=== PATIENT | male | born 1965 | race Caucasian/White ===

== ENCOUNTER 2023-09-24 06:32 | Outpatient (OUT) | payer BC, SELFPAY ==
[2023-09-24 07:49] LABS: Estimated Average Glucose 134 mg/dL; Glycohemoglobin A1C 6.3 % (4.5-6.2)
[2023-09-24 08:39] LABS: Basophils Absolute Auto 0.1 10^3/uL (0.0-0.1); Basophils Percent Auto 1.4 % (0.2-2.0); Eosinophils Absolute Auto 0.2 10^3/uL (0.0-0.7); Eosinophils Percent Auto 2.8 % (0.9-7.0); Hematocrit 46.4 % (42.0-54.0); Hemoglobin 15.6 g/dL (14.0-18.0); Immature Granulocytes Abs Auto 0.01 10^3/uL (0.00-0.03); Immature Granulocytes Pct Auto 0.2 % (0.0-0.5); Lymphocytes Absolute Auto 1.5 10^3/uL (1.2-3.8); Lymphocytes Percent Auto 26.5 % (20.5-60.0); Mean Corpuscular HGB Conc 33.6 g/dL (29.9-35.2); Mean Corpuscular Hemoglobin 29.6 pg (25.9-34.0); Mean Platelet Volume 10.6 fL (9.5-13.5); Monocytes Absolute Auto 0.5 10^3/uL (0.3-0.8); Monocytes Percent Auto 9.4 % (1.7-12.0); Neutrophils Absolute Auto 3.4 10^3/uL (1.4-6.5); Neutrophils Percent Auto 59.7 % (43.0-75.0); Platelet Count 256 10^3/uL (150-450); Red Blood Count 5.27 10^6/uL (4.70-6.10); Red Cell Distribution Width 12.7 % (11.0-15.0); White Blood Count 5.7 10^3/uL (4.0-11.0)
[2023-09-24 09:16] LABS: Alanine Aminotransferase 33 U/L (16-63); Albumin Globulin Ratio 1.2; Albumin Level 3.9 g/dL (3.4-5.0); Alkaline Phosphatase 64 U/L (46-116); Anion Gap 11.7; Aspartate Amino Transferase 13 U/L (15-37); BUN Creatinine Ratio 26.5; Bilirubin Total 0.5 mg/dL (0.2-1.0); Calcium 9.2 mg/dL (8.5-10.1); Carbon Dioxide 31.5 mmol/L (21.0-32.0); Chloride 104 mmol/L (98-107); Chol HDL Ratio 7.8; Cholesterol 257 mg/dL (<=200); Estimated GFR (African America >60 (>=60); Estimated GFR (Non-African Ame >60 (>=60); Free T3 1.79 pg/mL (2.18-3.98); Globulin 3.3 g/dL; Glucose 159 mg/dL (74-106); HDL Cholesterol 33 mg/dL (40-60); Potassium 4.2 mmol/L (3.5-5.1); Sodium 143 mmol/L (136-145); Thyroid Stimulating Hormone 0.237 uIU/mL (0.358-3.740); Total Protein 7.2 g/dL (6.4-8.2); Triglycerides 275 mg/dL (<=150)
[2023-09-24 09:24] LABS: Prostate Specific Antigen Scrn 2.37 ng/mL (<=4.00)
== END 2023-09-24 06:33 | disposition home or self-care (01) ==
LOC: LAB 06:32
PROVIDERS: PCP Family Medicine; Visit Provider Family Medicine
DX: Z00.00 Encounter for general adult medical examination without abnormal findings (principal); E78.5 Hyperlipidemia, unspecified; R73.09 Other abnormal glucose; Z12.5 Encounter for screening for malignant neoplasm of prostate; Z12.12 Encounter for screening for malignant neoplasm of rectum
CPT/HCPCS: 36415; 80053; 80061; 83036; 84436; 84443; 84481; 85025; G0103

== ENCOUNTER 2023-10-06 16:10 | Outpatient (OUT) | payer BC, SELFPAY | END 2023-10-06 16:11 | disposition home or self-care (01) | LOC: MN 16:11 | PROVIDERS: PCP Family Medicine | DX: E11.8 Type 2 diabetes mellitus with unspecified complications (principal) | CPT/HCPCS: G0108 ==

== ENCOUNTER 2023-10-29 14:52 | Outpatient (OUT) | payer BC, SELFPAY ==
[2023-10-29 16:01] LABS: Alanine Aminotransferase 48 U/L (16-63); Albumin Globulin Ratio 1.2; Albumin Level 3.8 g/dL (3.4-5.0); Alkaline Phosphatase 60 U/L (46-116); Aspartate Amino Transferase 22 U/L (15-37); Bilirubin Direct 0.1 mg/dL (0.0-0.2); Bilirubin Total 0.5 mg/dL (0.2-1.0); Chol HDL Ratio 4.2; Cholesterol 130 mg/dL (<=200); Free T3 1.81 pg/mL (2.18-3.98); Globulin 3.2 g/dL; HDL Cholesterol 31 mg/dL (40-60); Triglycerides 140 mg/dL (<=150)
== END 2023-10-29 14:53 | disposition home or self-care (01) ==
LOC: LAB 14:52
PROVIDERS: PCP Family Medicine; Visit Provider Family Medicine
DX: Z00.00 Encounter for general adult medical examination without abnormal findings (principal); E78.00 Pure hypercholesterolemia, unspecified; E03.9 Hypothyroidism, unspecified
CPT/HCPCS: 36415; 80061; 80076; 84439; 84443; 84481

== ENCOUNTER 2023-11-16 07:43 | Outpatient (OUT) | payer BC, SELFPAY ==
--- OUTSIDE RECORDS SUMMARY | 2023-11-16 07:47 | XMS_ITS | CCD ---
Author Organization [facility] Care Team Providers Care Specialty Molder Name Role Phone DR KENNY LACEY Primary Care Unavailable ADAN, DR COX Admitting Unavailable ADAN, DR COX Attending Unavailable ADAN, DR COX Attending Unavailable ADAN, DR COX Consulting Unavailable ADAN, DR COX Primary Care Unavailable ADAN, DR COX Admitting Unavailable ADAN, DR COX Consulting Unavailable ADAN, DR COX Primary Care Unavailable ADAN, DR COX Admitting Unavailable ADAN, DR COX Attending Unavailable KENNY LACEY M Referring Unavailable Kenny Lacey Primary Care Physician [phone] Enrike GRIFFITH Attending Unavailable Allergies Allergy Classification Reported Allergen(s) Allergy Type Date of Onset Reaction(s) Facility (1 source) No Known Medication Allergies; Translations: [No Known Medication Allergies] Propensity to adverse reactions (disorder) [facility] Repository Medications Current Medications Medication Drug Class(es) Dates Sig (Normalized) Sig (Original) liothyronine sodium 0.005 mg oral tablet (1 source) l-Triiodothyroni ne Start: 09-23-2023 take 1 tablet by mouth once daily liothyronine 5 mcg Tab 5 mcg = 1 tab(s), Oral, Daily, Refills(s) 0 Start Date: 09/23/23 Status: Ordered simvastatin 20 mg oral tablet (1 source) HMG-CoA Reductase Inhibitor Start: 09-23-2023 take 1 tablet by mouth once daily in the evening simvastatin 20 mg Tab 20 mg = 1 tab(s), Oral, qPM, Refills(s) 0 Start Date: 09/23/23 Status: Ordered Completed/Discontinued Medications Medication Drug Class(es) Dates Sig (Normalized) Sig (Original) diclofenac sodium 75 mg delayed release oral tablet (1 source) Nonsteroidal Anti-inflammatory Drug Start: 09-30-2023 diclofenac sodium 75 mg Oral EC Tab 75 mg = 1 tab(s), Oral, BID, 0 Refill(s), Refills(s) 0 Start Date: 09/30/23 Status: Ordered levothyroxine sodium 0.175 mg oral tablet (1 source) l-Thyroxine Start: 09-30-2023 Synthroid 175 mcg (0.175 mg) Tab 175 mcg = 1 tab(s), Oral, Daily, 0 Refill(s), Refills(s) 0 Start Date: 09/30/23 Status: Ordered Problems Active Problems Problem Classification Problem Date Documented Date Episodic/Chronic Abdominal hernia (2 sources) Obstructed umbilical hernia; Translations: [Umbilical hernia with obstruction, without gangrene] Onset: 10-13-19 Episodic Diabetes mellitus without complication (4 sources) Type 2 diabetes mellitus without complications; Translations: [TYPE 2 DM WITHOUT COMPLICATIONS] Onset: 03-25-20 Chronic Disorders of lipid metabolism (1 source) Hypercholesterolemia 09-30-2023 Chronic Esophageal disorders (1 source) Gastroesophageal reflux disease 09-30-2023 Chronic Other gastrointestinal disorders (1 source) Irritable bowel syndrome 09-30-2023 Chronic Other nutritional; endocrine; and metabolic disorders (1 source) Obese class I; Translations: [Body mass index (BMI) 32.0-32.9, adult] Onset: 10-13-19 Chronic Other nutritional; endocrine; and metabolic disorders (1 source) Body mass index 30+ - obesity 10-13-2023 Chronic Other nutritional; endocrine; and metabolic disorders (1 source) Obesity 10-13-2023 Chronic Other screening for suspected conditions (not mental disorders or infectious disease) (1 source) Encounter for screening for malignant neoplasm of prostate; Translations: [ENC SCREEN MALIG NEOPLASM PROSTATE] Onset: 03-18-20 Episodic Spondylosis; intervertebral disc disorders; other back problems (1 source) Cervical disc disorder 09-30-2023 Chronic Spondylosis; intervertebral disc disorders; other back problems (2 sources) Lumbago with sciatica, right side; Translations: [Lumbago with sciatica, left side] Onset: 09-29-19 Episodic Thyroid disorders (1 source) Hypothyroidism 09-30-2023 Chronic Unclassified (2 sources) CONTACT W/AND (SUSP) EXPOS COVID-19; Translations: [CONTACT W/AND (SUSP) EXPOS COVID-19] Onset: 04-14-20 Viral infection (1 source) COVID-19; Translations: [COVID-19] Onset: 04-14-20 Past or Other Problems Problem Classification Problem Date Documented Da te Episodic/Chronic Unclassified (1 source) CONTACT W/AND (SUSP) EXPOS COVID-19; Translations: [CONTACT W/AND (SUSP) EXPOS COVID-19] Onset: 04-11-2022 Results Test Name Value Interpretation Reference Range Facility Insurance Correspondenceon 0 11-02-2023 Insurance Correspondence [id number] 140#1.00TIFF [facility] Formson 10-20-2023 Forms [id number]#1.00TIFF [facility] Ambulatory Visit Summaryon 0 10-13-2023 Ambulatory Visit Summary NIXON JENSEN :1965 Visit Date:10/13/2023 Ambulatory Visit Instructions Your Care Team Attending Physician - GLADIS REAVES, Enrike Bhagat Primary Care Physician - Kenny Lacey MD This Is Your Medications List Contact prescribing physician if questions or concerns diclofenac (diclofenac sodium 75 mg Oral EC Tab) levothyroxine (Synthroid 175 mcg (0.175 mg) Tab) liothyronine (liothyronine 5 mcg Tab) simvastatin (simvastatin 20 mg Tab) Procedures Performed Cervical discectomy. Discharge Vitals Heart Rate (Peripheral) 63 Respiratory Rate 16 Blood Pressure 135/86 Height 182.88 cm Height 72 in Weight 108 kg Weight 237.6 lb BMI 32.29 Medications What How Much When Instructions Unchanged diclofenac (diclofenac sodium 75 mg Oral EC Tab) 1 Tablets By Mouth 2 times a day 0 Refill(s) Contact prescribing physician if questions or concerns Unchanged levothyroxine (Synthroid 175 mcg (0.175 mg) Tab) 1 Tablets By Mouth Every day 0 Refill(s) Contact prescribing physician if questions or concerns Unchanged liothyronine (liothyronine 5 mcg Tab) 1 Tablets By Mouth Every day Contact prescribing physician if questions or concerns Unchanged simvastatin (simvastatin 20 mg Tab) 1 Tablets By Mouth Once a day (in the evening) Contact prescribing physician if questions or concerns Allergies No Known Allergies No Known Medication Allergies Problems Ongoing - Any problem that you are currently receiving treatment for. BMI 32.0-32.9,adult Cervical disc disorder Gastroesophageal reflux disease Hypercholesterolemi a Hypothyroidism Irritable bowel syndrome Obesity Patient Survey You may receive a survey via text or e-mail asking about your office visit. Please share your experience with us by completing your survey. We appreciate your feedback and thank you for choosing us for your care. Normal [facility] Consent for Procedure/Surger yon 10-13-2023 Consent for Procedure/Surgery [id number] 34#1.00TIFF Normal [facility] XR SPINE LUMBAR MIN 4 VWSon 10-01-2023 XR SPINE LUMBAR MIN 4 VWS XR SPINE LUMBAR MIN 4 VWS Clinical history: Back pain Lumbar spine: 09/29/2023 COMPARISON: None FINDINGS: 5 views of the lumbar spine were obtained. Oblique images were performed. 5 lumbar-type vertebra are present. Vertebral shapes are normal with no focal osseous abnormality. There is slight anterior wedging of L4 3 and L4 but no focal vertebral deformity is evident. Moderate facet hypertrophic changes are present in the lower lumbar region. IMPRESSION: Degenerative changes with no definite acute osseous abnormality evident radiographically. Slight anterior wedging of L3 on L4 of uncertain chronicity. MRI may be helpful for further evaluation if clinically warranted. 2 Finalized by Herrera Del Rio MD on 10/01/2023 8:45 AM Normal [place] Physician Referralon 024 Physician Referral [id number] A5#1.00TIFF Normal [facility] Physician Referral [id number] E3#1.00TIFF Normal [facility] Covid-19 PCR (CVDTB)on 03-24 SARS-CoV-2 (COVID-19) RNA LEONID+probe Ql (Unsp spec) Detected Critically abnormal NOT DETECTED [facility] Comment on above: Result Comment: This test is not yet approved or cleared by the [place] FDA. When there are no FDA-approved or cleared tests available, and other criteria are met, FDA can make tests available under an emergency access mechanism called an Emergency Use Authorization (EUA). The EUA for this test is supported by the [place] of Health and Human Service's (HHS's) declaration that circumstances exist to justify the emergency use of in vitro diagnostics for the detection and/or diagnosis of the virus that causes COVID-19. This EUA will remain in effect (meaning this test can be used) for the duration of the COVID-19 declaration justifying emergency of IVDs, unless it is terminated or revoked by FDA (after which the test may no longer be used). Performed By: #### C VDTB #### [facility] [address] [place] [address] Dr. Ting Felix CBC AUTO DIFFon 03-14-2022 BASO # 0.1 103/ul Normal 0.0-0.1 [facility] Comment on above: Performed By: #### C BC #### [facility] [address] [place] [address] Dr. Ting Felix Basophils/100 WBC (Bld) 1.2 % Normal 0.2-2.0 [facility] Comment on above: Performed By: #### C BC #### [facility] [address] [place] [address] Dr. Ting Felix EO # 0.2 103/ul Normal 0.0-0.7 [facility] Comment on above: Performed By: #### C BC #### [facility] [address] [place] [address] Dr. Ting Felix Eosinophils/100 WBC (Bld) 2.9 % Normal 0.9-7.0 [facility] Comment on above: Performed By: #### C BC #### [facility] [address] [place] [address] Dr. Ting Felix Erythrocyte distribution width (RBC) [Ratio] 12.5 % Normal 11.0-15.0 [facility] Comment on above: Performed By: #### C BC #### [facility] [address] [place] [address] Dr. Ting Felix Hematocrit (Bld) [Volume fraction] 44.1 % Normal 42.0-54.0 [facility] Comment on above: Performed By: #### C BC #### [facility] [address] [place] [address] Dr. Ting Felix Hemoglobin (Bld) [Mass/Vol] 15.4 g/dL Normal 14.0-18.0 [facility] Comment on above: Performed By: #### C BC #### [facility] [address] [place] [address] Dr. Ting Felix IG # 0.02 10e3/ul Normal 0.00-0.03 [facility] Comment on above: Performed By: #### C BC #### [facility] [address] [place] [address] Dr. Ting Felix IG % 0.3 % Normal 0.0-0.5 [facility] Comment on above: Performed By: #### C BC #### [facility] [address] [place] [address] Dr. Ting Felix LYMPH # 1.7 103/ul Normal 1.2-3.8 [facility] Comment on above: Performed By: #### C BC #### [facility] [address] [place] [address] Dr. Ting Felix Lymphocytes/100 WBC (Bld) 28.9 % Normal 20.5-60.0 [facility] Comment on above: Performed By: #### C BC #### [facility] [address] [place] [address] Dr. Ting Felix MANUAL DIFF REQ NO Normal [facility] Comment on above: Performed By: #### C BC #### [facility] [address] [place] [address] Dr. Ting Felix MCH (RBC) [Entitic mass] 30.7 pg Normal 25.9-34.0 [facility] Comment on above: Performed By: #### C BC #### [facility] [address] [place] [address] Dr. Ting Felix MCHC (RBC) [Mass/Vol] 34.9 g/dL Normal 29.9-35.2 [facility] Comment on above: Performed By: #### C BC #### [facility] [address] [place] [address] Dr. Ting Felix MCV (RBC) [Entitic vol] 87.8 fL Normal 80.0-94.0 [facility] Comment on above: Performed By: #### C BC #### [facility] [address] [place] [address] Dr. Ting Felix MONO # 0.5 103/ul Normal 0.3-0.8 [facility] Comment on above: Performed By: #### C BC #### [facility] [address] [place] [address] Dr. Ting Felix Monocytes/100 WBC (Bld) 9.2 % Normal 1.7-12.0 [facility] Comment on above: Performed By: #### C BC #### [facility] [address] [place] [address] Dr. Ting Felix NEUT # 3.4 103/ul Normal 1.4-6.5 [facility] Comment on above: Performed By: #### C BC #### [facility] [address] [place] [address] Dr. Ting Felix Neutrophils/100 WBC (Bld) 57.5 % Normal 43.0-75.0 [facility] Comment on above: Performed By: #### C BC #### [facility] [address] [place] [address] Dr. Ting Felix Platelet mean volume (Bld) [Entitic vol] 10.3 fL Normal 9.5-13.5 [facility] Comment on above: Performed By: #### C BC #### [facility] [address] [place] [address] Dr. Ting Felix PLT 237 103/ul Normal 150-450 [facility] Comment on above: Performed By: #### C BC #### [facility] [address] [place] [address] Dr. Ting Felix RBC 5.02 106/ul Normal 4.70-6.10 [facility] Comment on above: Performed By: #### C BC #### [facility] [address] [place] [address] Dr. Ting Felix WBC 5.9 103/ul Normal 4.0-11.0 [facility] Comment on above: Performed By: #### C BC #### [facility] [address] [address] [address] Ting Felix FREE T3on 03-14-2022 FREE T3 2.85 pg/mlL Normal 2.18-3.98 [facility] Comment on above: Performed By: #### T SH, FT3, T4, LIPID, CMP #### [facility] [address] [address] [address] Ting Felix GLYCOHEMOGLOBIN A1Con 2021 ADA RECOMMENDATION SEE BELOW Normal [facility] Comment on above: Result Comment: ADA RECOMMENDED LIMIT 4.0 - 6.0 ADA THERAPEUTIC TARGET < 7.0 ACTION SUGGESTED > 7.0 Performed By: #### A 1C #### [facility] [address] [place] [address] Dr. Ting Felix Glucose [Mass/Vol] 148 mg/dL Normal [facility] Comment on above: Performed By: #### A 1C #### [facility] [address] [place] [address] Dr. Ting Felix HbA1c (Bld) [Mass fraction] 6.8 % Critically high 4.5-6.2 [facility] Comment on above: Performed By: #### A 1C #### [facility] [address] [place] [address] Dr. Ting Felix LIPID PROFILEon 03-14-2022 CHOL-HDL RATIO NORM SEE BELOW Normal [facility] Comment on above: Result Comment: 3.3 - 4.4 LOW RISK 4.4 - 7.1 AVERAGE RISK 7.1 - 11.0 MODERATE RISK >11.0 HIGH RISK Performed By: #### T SH, FT3, T4, LIPID, CMP #### [facility] [address] [place] [address] Dr. Ting Felix Cholesterol [Mass/Vol] 189 mg/dL Normal <=200 [facility] Comment on above: Performed By: #### T SH, FT3, T4, LIPID, CMP #### [facility] [address] [place] [address] Dr. Ting Felix Cholesterol in HDL [Mass/Vol] 27 mg/dL Critically low 40-60 [facility] Comment on above: Performed By: #### T SH, FT3, T4, LIPID, CMP #### [facility] [address] [address] [address] Ting Felix Cholesterol in LDL [Mass/Vol] 90.8 mg/dL Normal [facility] Comment on above: Performed By: #### T SH, FT3, T4, LIPID, CMP #### [facility] [address] [address] [address] Ting Felix Cholesterol.total/Cho lesterol in HDL [Mass ratio] 7.0 {ratio} Normal [facility] Comment on above: Performed By: #### T SH, FT3, T4, LIPID, CMP #### [facility] [address] [place] [address] Dr. Ting Felix HDL NORMAL > or = 60 mg/dl - LOW CARDIOVASCULAR RISK <40 mg/dl - HIGH CARDIOVASCULAR RISK Normal [facility] Comment on above: Performed By: #### T SH, FT3, T4, LIPID, CMP #### [facility] [address] [address] [address] Ting Felix LDL CALC NORMAL SEE BELOW Normal [facility] Comment on above: Result Comment: <100 mg/dl OPTIMAL 100 - 129 mg/dl NEAR OR ABOVE OPTIMAL 130 - 159 mg/dl BORDERLINE HIGH 160 - 189 mg/dl HIGH >190 mg/dl VERY HIGH Performed By: #### T SH, FT3, T4, LIPID, CMP #### [facility] [address] [place] [address] Dr. Ting Felix Triglyceride [Mass/Vol] 356 mg/dL Critically high <=150 [facility] Comment on above: Performed By: #### T SH, FT3, T4, LIPID, CMP #### [facility] [address] [place] [address] Dr. Ting Felix VLDL CALC 71.2 mg/dL Normal [facility] Comment on above: Performed By: #### T SH, FT3, T4, LIPID, CMP #### [facility] [address] [place] [address] Dr. Ting Felix PROF 14(COMP METB)on 022 Albumin [Mass/Vol] 3.8 g/dL Normal 3.4-5.0 [facility] Comment on above: Performed By: #### T SH, FT3, T4, LIPID, CMP #### [facility] [address] [place] [address] Dr. Ting Felix Albumin/Globulin [Mass ratio] 1.1 {ratio} Normal [facility] Comment on above: Performed By: #### T SH, FT3, T4, LIPID, CMP #### [facility] [address] [place] [address] Dr. Ting Felix ALP [Catalytic activity/Vol] 73 U/L Normal 46-116 [facility] Comment on above: Performed By: #### T SH, FT3, T4, LIPID, CMP #### [facility] [address] [place] [address] Dr. Ting Felix ALT [Catalytic activity/Vol] 48 U/L Normal 16-63 [facility] Comment on above: Performed By: #### T SH, FT3, T4, LIPID, CMP #### [facility] [address] [place] [address] Dr. Ting Felix Anion gap [Moles/Vol] 10.8 mmol/L Normal [facility] Comment on above: Performed By: #### T SH, FT3, T4, LIPID, CMP #### [facility] [address] [place] [address] Dr. Ting Felix AST [Catalytic activity/Vol] 18 U/L Normal 15-37 [facility] Comment on above: Performed By: #### T SH, FT3, T4, LIPID, CMP #### [facility] [address] [place] [address] Dr. Ting Felix Bilirubin [Mass/Vol] 0.5 mg/dL Normal 0.2-1.0 [facility] Comment on above: Performed By: #### T SH, FT3, T4, LIPID, CMP #### [facility] [address] [address] [address] Ting Felix Calcium [Mass/Vol] 8.7 mg/dL Normal 8.5-10.1 [facility] Comment on above: Performed By: #### T SH, FT3, T4, LIPID, CMP #### [facility] [address] [address] [address] Ting Felix Chloride [Moles/Vol] 105 mmol/L Normal 98-107 [facility] Comment on above: Performed By: #### T SH, FT3, T4, LIPID, CMP #### [facility] [address] [address] [address] Ting Felix CO2 [Moles/Vol] 30.6 mmol/L Normal 21.0-32.0 [facility] Comment on above: Performed By: #### T SH, FT3, T4, LIPID, CMP #### [facility] [address] [place] [address] Dr. Ting Felix Creatinine [Mass/Vol] 1.15 mg/dL Normal 0.70-1.30 [facility] Comment on above: Performed By: #### T SH, FT3, T4, LIPID, CMP #### [facility] [address] [place] [address] Dr. Ting Felix EGFR-AF SCOTTISH >60 Normal >=60 [facility] Comment on above: Performed By: #### T SH, FT3, T4, LIPID, CMP #### [facility] [address] [place] [address] Dr. Ting Felix EGFR-NON AF SCOTTISH >60 Normal >=60 [facility] Comment on above: Performed By: #### T SH, FT3, T4, LIPID, CMP #### [facility] [address] [address] [address] Ting Felix Globulin (S) [Mass/Vol] 3.5 g/dL Normal [facility] Comment on above: Performed By: #### T SH, FT3, T4, LIPID, CMP #### [facility] [address] [place] [address] Dr. Ting Felix Glucose [Mass/Vol] 171 mg/dL Critically high 74-106 [facility] Comment on above: Performed By: #### T SH, FT3, T4, LIPID, CMP #### [facility] [address] [place] [address] Dr. Ting Felix Potassium [Moles/Vol] 4.4 mmol/L Normal 3.5-5.1 [facility] Comment on above: Performed By: #### T SH, FT3, T4, LIPID, CMP #### [facility] [address] [place] [address] Dr. Ting Felix Protein [Mass/Vol] 7.3 g/dL Normal 6.4-8.2 [facility] Comment on above: Performed By: #### T SH, FT3, T4, LIPID, CMP #### [facility] [address] [place] [address] Dr. Ting Felix Sodium [Moles/Vol] 142 mmol/L Normal 136-145 [facility] Comment on above: Performed By: #### T SH, FT3, T4, LIPID, CMP #### [facility] [address] [place] [address] Dr. Ting Felix Urea nitrogen [Mass/Vol] 19.0 mg/dL Critically high 7.0-18.0 [facility] Comment on above: Performed By: #### T SH, FT3, T4, LIPID, CMP #### [facility] [address] [place] [address] Dr. Ting Felix Urea nitrogen/Creatinine [Mass ratio] 16.5 mg/mg Normal [facility] Comment on above: Performed By: #### T SH, FT3, T4, LIPID, CMP #### [facility] [address] [place] [address] Dr. Ting Felix T4on 03-14-2022 T4 [Mass/Vol] 8.40 ug/dL Normal 4.50-12.[address] [facility] Comment on above: Performed By: #### T SH, FT3, T4, LIPID, CMP #### [facility] [address] [place] [address] Dr. Ting Felix TSHon 03-14-2022 TSH 0.090 uIU/mL Critically low 0.358-3.740 [facility] Comment on above: Performed By: #### T SH, FT3, T4, LIPID, CMP #### [facility] [address] [address] [address] Ting Felix Vital Signs Date Time Vital Sign Value Performing Clinician Mariela rg 10-13-2023 09:26-0500 Blood Pressure Location Enrike GRIFFITH [facility] 10-13-2023 09:26-0500 Diastolic blood pressure 86 mm[Hg] Enrike NILL [facility] 10-13-2023 09:26-0500 Heart rate 63 /min Enrike GILESL [facility] 10-13-2023 09:26-0500 Respiratory rate 16 /min Enrike GILESL [facility] 10-13-2023 09:26-0500 Systolic blood pressure 135 mm[Hg] Enrike GILESL [facility] Encounters Encounter Date Encounter Type Care Provider Facility Start: 10-13-2023 End: 10-14-2023 ambulatory Enrike GRIFFITH Facility: [facility] Start: 10-13-2023 End: 10-13-2023 Patient encounter procedure Enrike GRIFFITH [facility] Start: 09-29-2023 End: 09-30-2023 ambulatory KENNY LACEY [place] Start: 09-24-2023 ambulatory Enrike GRIFFITH Facility:[facility] Start: 04-11-2022 End: 04-11-[address] KENNY LACEY Facility:[facility] Start: 03-25-2022 End: 03-26-[address] KENNY LACEY Facility:[facility] Start: 03-18-2022 Encounter for genera l adult medical examination without abnormal findings DR KENNY LACEY [facility] Start: 03-14-2022 End: 03-15-[address] KENNY LACEY Facility:[facility] Start: 03-14-2022 End: 03-15-2022 Encounter for general adult medical examination without abnormal findings DR KENNY LACEY Facility:[facility] Procedures Date Procedure Procedure Detail Performing Clinician Start: 03-14-[address] CLAY LACEY Comment on above: Performed By: #### P [facility] #### [facility] [address] [address] [address] Ting Felix Excision of cervical intervertebral disc AMVONETL Immunizations Immunization Date Immunization Notes Care Provider Fa [facility] 05-12-2023 influenza virus vaccine, unspecified formulation [employer] [facility] 07-10-2021 SARS-CoV-2 (COVID-19 ) mRNA BNT-162b2 vax Enrike [employer] [facility] 12-06-2020 SARS-CoV-2 (COVID-19 ) mRNA-1273 vaccine [employer] [facility] Comment on above: Result Comment: 2023: 55 11-08-2020 SARS-CoV-2 (COVID-19 ) mRNA-1273 vaccine [employer] [facility] Payers Date Payer Category Payer Unknown [id number] 2.16.84 [id number] 1965 Unknown [id number] 2.16.84 [id number] 1965 Unknown [id number] 2.16.84 [id number] 1965 Unknown [id number] 2.16.8 [id number] 1965 Unknown [id number] 2.16.8 [id number] 1957 Unknown [id number] Social History Date Type Detail Facility Start: 10-13-2023 Tobacco smoking status Never s moked tobacco (finding) [facility] Tobacco smoking status Smokeless tobacco user within last 30 days [facility] Sex Assigned At Male [facility] Functional Status Date Assessment Result Facility 10-13-2023 Functional Status N/A [facility] Clinical Note 10-13-2023 Note Date & Type Note Facility 10-13-2023 Note Chief Complaint consultation for umbilical hernia HPI Staff 58 year old male presents on consultation from Dr. Lacey for umbilical hernia. Reports noting bulge approximately 1-2 years ago. Reports bulge waxes and wanes in size. Reports some soreness when bumped. Mild redness. He is unsure if bulge reduces when lying down. Denies nausea, vomiting or bowel changes. No imaging completed. History of Present Illness 58 yo male with h/o hypercholesterolemia, hypothyroidism, GERD, cervical disc disease, referred for umbilical hernia; patient reports 2 year h/o umbilical bulge, gradually increase in size; sore at times, nonreducible; some redness at times, no N/V, no bowel changes; Review of Systems PHQ Score Initial Depression Screen Score: 0 SCORE ROS - Provider Constitutional: no fever, no sweats, no weight loss. Eyes: yes glasses, no blurred vision, no visual loss. ENMT: no dentures, no hoarseness, no swallowing difficulties, no hearing loss, no ear infection(s), no nose bleeds. Cardiovascular: normal blood pressure, no chest pain, regular heartbeat, no heart murmur. Respiratory: no shortness of breath, no cough, no asthma, no wheezing. Gastrointestinal: no nausea, no vomiting, no diarrhea, no constipation, no blood in stool, no change in bowel habits, no abdominal pain, no hepatitis. Genitourinary: no kidney stones, no urine infection, no dysuria. Musculoskeletal: no pain, no weakness. Skin: no changing moles, no rash, no skin lumps. Neurologic: no seizures, no epilepsy, no headache. Psychiatric: no emotional or psychiatric problem. Heme/Lymph: no bleeding problems, no anemia, no blood clots, no transfusions. Allergy/Immunologic: no swollen lymph nodes/glands, no IV drug abuse. Other: Additional ROS info: Except as noted in the above Review of Systems and in the History of Present Illness, all other systems have been reviewed and are negative or noncontributory. Physical Exam Vitals & Measurements HR: 63(Peripheral) RR: 16 BP: 135/86 HT: 72 in HT: 182.88 cm WT: 108 kg WT: 237.6 lb BMI: 32.29 HEENT: normal conjunctiva, sclera clear, no scleral icterus, EOM intact, PERRLA, oral mucosa moist without lesions. Neck: trachea midline, no mass, symmetric, no thyromegaly or nodules, no adenopathy Respiratory: lungs CTA, respirations non labored. Cardiovascular: regular rate and rhythm, no murmur, no pedal edema or varicosities. Gastrointestinal: obese, soft, non distended, no tenderness, no masses, 3 cm umbilical hernia sac, nonreducible, mild skin changes, nontender, diastasis recti yes, no hepatosplenomegaly; normal bs Lymphatic: no cervical adenopathy, no supraclavicular adenopathy. Musculoskeletal: normal gait, digits and nails without infection, nodes, cyanosis, clubbing. Skin: no rashes, no lesions, no ulcers, no subcutaneous nodules, induration. Psychiatric/Neuro: oriented to time, place, person, judgement normal, affect appropriate for age, insight intact, no focal deficits. Tests: labs reviewed, x-rays reviewed, review of old records completed , _ surgical options, risks, and possible complications with patient. Assessment/Plan 1. Umbilical hernia, incarcerated (K42.0: Umbilical hernia with obstruction, without gangrene) plan robotic-assisted umbilical herniorrhaphy with mesh insertion, informed consent obtained. Ancef 2 gms IV prior to OR SCDs 2. BMI 32.0-32.9,adult (Z68.32: Body mass index [BMI] 32.0-32.9, adult) recommend diet and exercise. Follow-up No qualifying data available Problem List/Past Medical History Ongoing BMI 32.0-32.9,adult Cervical disc disorder Gastroesophageal reflux disease Hypercholesterolemia Hypothyroidism Irritable bowel syndrome Obesity Umbilical hernia, incarcerated Historical No qualifying data Procedure/Surgical History Cervical discectomy. Medications diclofenac sodium 75 mg Oral EC Tab, 75 mg= 1 tab(s), Oral, BID liothyronine 5 mcg Tab, 5 mcg= 1 tab(s), Oral, Daily simvastatin 20 mg Tab, 20 mg= 1 tab(s), Oral, qPM Synthroid 175 mcg (0.175 mg) Tab, 175 mcg= 1 tab(s), Oral, Daily Allergies No Known Allergies No Known Medication Allergies Social History Alcohol - Denies Alcohol Use, 10/13/2023 Substance Abuse - Denies Substance Abuse, 10/13/2023 Tobacco Never (less than 100 in lifetime) Tobacco Use:. Smokeless tobacco user within last 30 days Smokeless Tobacco Use:. Oral, Started age 22.0 Years. Yes, 10/13/2023 Family History Diabetes mellitus type 2: Mother. Hypertension: Father. Immunizations Vaccine Date Status Comments influenza virus vaccine, inactivated 05/12/2023 Recorded SARS-CoV-2 (COVID-19) mRNA BNT-162b2 vax 07/10/2021 Recorded SARS-CoV-2 (COVID-19) mRNA-1273 vaccine 12/06/2020 Recorded 2023-09-30: 53 SARS-CoV-2 (COVID-19) mRNA-1273 vaccine 11/08/2020 Recorded [facility] Comment on above: Result Comment: Elec tronically Signed By: GLADIS REAVES, Enrike Castillo\Date and Time Signed: 10/13/23 10:51 EST Evaluation + Plan note Note Date & Type Note Facility Evaluation + Plan note No data available for this section [facility] [place] Hospital Discharge instructions Note Date & Type Note Facility Hospital Discharge instructions No data available for this section [facility] Progress note Note Date & Type Note Facility Progress note No data available for this section [facility] Summary Purpose Family History No Family History Records FoundNo Family History Records Found No data available for this section No Family History Records Found Advance Directives No Advanced Directives Records FoundNo Advanced Directives Records FoundNo Advanced Directives Records Found Additional Source Comments (unrecognized sect ion and content) No Status Records FoundNo Status Records FoundNo Status Records Found INFORMATION SOURCE (unrecogn ized section and content) DATE CREATED AUTHOR 04/17/2022 [facility] DATE CREATED AUTHOR AUTHOR'S ORGANIZ ATION 10/05/2023 [facility] DATE CREATED AUTHOR AUTHOR'S ORGANIZ ATION 11/03/2023 [facility] Patient Care team informatio n (unrecognized section and content) Personnel Name: Kenny Lacey MD Address: Address: [address] [place] [address] FOR RECORDS PERTAINING TO PATIENTS WHO ARE OR HAVE BEEN ENROLLED IN A CHEMICAL DEPENDENCY/SUBSTANCEABUSE PROGRAM, SOME INFORMATION MAY BE OMITTED. This clinical summary was aggregated from multiple sources. Caution should be exercised in using it in the provision of clinical care. This summary normalizes information from multiple sources, and as a consequence, information in this document may materially change the coding, format and clinical context of patient data. In addition, data may be omitted in some cases. CLINICAL DECISIONS SHOULD BE BASED ON THE PRIMARY CLINICAL RECORDS. [facility] [employer] [facility]. provides no warranty or guarantee of the accuracy or completeness of information in this document.
--- NOTE | 2023-11-16 07:54 | ECG_ITS ---
[facility] Test Date: 2023-11-16 Pat Name: NIXON JENSEN Department: Room: - Gender: Male Family Resource Specialist: : 1965 Requested By: ANTOINETTE GRIFFITH Order Number: [id number] Reading MD: KENNY ARELLANO Measurements Intervals Oto Rate: 62 P: 38 TX: 201 QRS: -4 QRSD: 101 T: 21 QT: 396 QTc: 405 Interpretive Statements SINUS RHYTHM No previous ECG available for comparison Electronically Signed On 11-18-2023 9:12:59 EDT by KENNY ARELLANO
--- NOTE | 2023-11-16 08:35 | PM.PRESUREVA ---
History of Present Illness History of Present Illness Chief complaint: umbilical hernia Narrative: Patient presents for preadmission testing. The patient states he has an umbilical hernia which has been present for more than one year, he denies any trauma or injury, he states the size of the hernia changes from day to day, he doesn't notice any pain unless the area is bumped. He denies any bowel changes, nausea, vomiting, or any other complaints. Review of Systems ROS Narrative REVIEW OF SYSTEMS: Negative except as stated in HPI, ten or more systems reviewed. Constitutional: No fever , chills, weakness ENT: No sore throat or epistaxis Cardiovascular: No edema, chest pain, palpitations, or activity intolerance Respiratory: No shortness of breath, cough, or wheezing Musculoskeletal: No joint pain or swelling Genitourinary: No dysuria or hematuria Neurological: No numbness, tingling, weakness, or headache Psychiatric: No mood changes PFSH PFSH Medical History (Updated 11/16/23 @ 08:31 by Vanda Orozco NP) Neck pain ?M54.2 - Cervicalgia (ICD-10) Umbilical hernia ?K42.9 - Umbilical hernia without obstruction or gangrene (ICD-10) High cholesterol ?E78.00 - Pure hypercholesterolemia, unspecified (ICD-10) Prediabetes ?R73.03 - Prediabetes (ICD-10) Hypothyroidism ?E03.9 - Hypothyroidism, unspecified (ICD-10) Surgical History (Updated 11/16/23 @ 08:20 by Vanda Orozco NP) History of spinal surgery ?Z98.890 - Other specified postprocedural states (ICD-10) Family History (Updated 11/16/23 @ 08:20 by Vanda Orozco NP) Other Family history of diabetes mellitus Family history of heart disease Family history of hypertension Family history of myocardial infarction Family history of renal failure Family history of stroke Social History (Updated 11/16/23 @ 08:15 by Vanda Orozco NP) Within the past year, how often did you have a drink containing alcohol: 2-4 times a month Do you use any of these nicotine containing products: smokeless tobacco Smokeless tobacco user: chewing tobacco Non-prescribed substance use: denies use 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 Highest level of school completed/degree received: Associate degree: occupational, technical, vocational program Meds Home Medications and Allergies Home Medications ?Medication ?Instructions ?Recorded ?Confirmed ?Type diclofenac sodium 75 mg 75 mg PO DAILY 11/16/23 11/16/23 History tablet,delayed release levothyroxine 175 mcg tablet 175 mcg PO DAILY 11/16/23 11/16/23 History (Synthroid) liothyronine 5 mcg tablet 5 mcg PO DAILY 11/16/23 11/16/23 History simvastatin 20 mg tablet 20 mg PO DAILY 11/16/23 11/16/23 History Allergies Allergy/AdvReac Type Severity Reaction Status Date / Time No Known Drug Allergies Allergy Verified 11/16/23 08:13 Exam Narrative Exam Narrative: Constitutional: Awake, alert, comfortable, well-appearing, nontoxic, interactive, vital signs as charted Head: Normocephalic, atraumatic Neck: Supple, normal appearance, normal range of motion, no meningeal signs, no lymphadenopathy Respiratory: No respiratory distress, breath sounds clear Cardiovascular: Regular rate and rhythm, strong and regular heart tones Abdomen: Nontender, normal bowel sounds, soft, no CVA tenderness, Nontender umbilical hernia Musculoskeletal: Normal gait, no swelling or edema Skin: No rashes or induration, no lesions, only visible skin inspected Neuro: No neurological deficits, normal sensation Psychiatric: Oriented ?3, normal affect Assessment and Plan Assessment and Plan (1) Umbilical hernia: Plan Robotic-assisted umbilical hernia repair with mesh scheduled with Dr. Metz 11/25/2023.
== END 2023-11-16 07:44 | disposition home or self-care (01) ==
LOC: PST 07:44
PROVIDERS: PCP Family Medicine; Visit Provider Surgery
DX: Z01.810 Encounter for preprocedural cardiovascular examination (principal); Z01.818 Encounter for other preprocedural examination; K42.9 Umbilical hernia without obstruction or gangrene
CPT/HCPCS: 93005; G0463

== ENCOUNTER 2023-11-25 06:17 | Day surgery (SDC) | payer BC, SELFPAY ==
[2023-11-16 08:28] VITALS: BP 117/80; PULSE 67; RESP 16; TEMP 36.2; O2SAT 97; BMI 32.1
[2023-11-25] VITALS (12 sets, daily range): BP systolic 95–115; BP diastolic 60–69; PULSE 59–74; TEMP 35.7–36; O2SAT 89–95; BMI 31.2
--- NOTE | 2023-11-25 | OP_ITS ---
OPERATION DATE: 11/25/2023 PREOPERATIVE DIAGNOSIS: Incarcerated umbilical hernia. POSTOPERATIVE DIAGNOSIS: Incarcerated umbilical hernia with 2 cm defect. PROCEDURE: Robotic assisted umbilical herniorrhaphy with 12 x 7 cm ProGrip mesh insertion. SURGEON: Enrike Metz M.D. ANESTHESIA: General endotracheal as well as TAP block per Anesthesia. ESTIMATED BLOOD LOSS: Less than 7 mL. INDICATIONS AND CONSENT: Patient is a 58-year-old male with a long history of enlarging, symptomatic umbilical hernia that is non-reducible. Indications, risks, benefits, alternatives of proceeding with herniorrhaphy with mesh insertion were explained extensively to the patient, including the risks of bleeding, infection, scarring, pain, recurrence, bowel injury, blood clot, pulmonary embolus, heart attack, anesthetic complications, need for further surgery or mesh removal. All of his questions were answered. Informed consent was obtained. PROCEDURE: Patient brought to the operating room, placed in the supine position. General anesthesia was induced. Correia catheter was inserted using sterile technique. The abdomen was prepped and draped in the usual sterile fashion. A right subcostal port site incision was made with the scalpel blade and carried down through subcutaneous tissue using blunt dissection. Two 0 Vicryl stay sutures were placed on either side of the midline fascia and the fascia was incised. The incision was carried down through muscular layers using blunt dissection. The abdomen was then entered sharply. The Marilynn trocar was then inserted and secured using the stay sutures. The abdomen was then insufflated with carbon dioxide to a pressure of 15 mm/Hg. The scope was then inserted and the abdomen was visualized. The hernia contained preperitoneal fat. No omentum or bowel. Two 8 mm ports were then placed; one laterally in the right mid abdomen, one in the right lower quadrant laterally, both under direct visualization. The #1 non-absorbable V-Loc suture was then placed in the abdomen to the falciform ligament for safe keeping. The robot was then docked. The bipolar grasper was inserted in the #2 arm and the monopolar scissors in the #4 arm. I then broke scrub and went to the console. A peritoneal flap was then created, beginning at the edge of the rectus sheath on the right. We continued dissecting medially and towards to the left side, to the edge of the rectus sheath. It was extended cephalad and inferiorly to accommodate the mesh. There was preperitoneal fat within the defect which was removed. The hernia defect was approximately 2 cm in greatest diameter. 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 The #1 V-Loc suture was then used to close the defect, beginning inferiorly. The suture was run cephalad and then back inferiorly with good closure of the defect. Once this was complete, the scissors were brought back in to the #2 arm. The suture was cut. It was then brought out through the Marilynn under direct visualization. The ProGrip mesh was then inserted with the two 2-0 absorbable V-Loc sutures. The mesh was then unrolled into the pocket and covered the area completely with no kinking or twisting or folding of the mesh. The perineal flap was then closed using the running 3-0 V-Loc suture. The right lateral edge of the mesh was incorporated into the closure in order to affix this. There was complete coverage of the mesh with no defects. Once this was complete, the suture was cut and then the needles were brought out through the right subcostal Marilynn under direct visualization. 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 I then scrubbed back in and examined the repair. It was noted to be hemostatic, completed covered. All port sites were examined upon withdrawal of the ports and there was noted to be good hemostasis. The right subcostal port site fascia was then closed with a 0 Vicryl figure of eight suture. All port sites were infiltrated with 0.25% Marcaine. The skin was then closed with interrupted 4-0 subcuticular Monocryl sutures and skin glue. Sterile dressings were applied as well as a pressure dressing to the umbilicus and an abdominal binder. Sponge and needle counts were correct x3 per nursing personnel. Patient tolerated procedure well, was extubated and sent to recovery room in good condition. CC: Darrell Lacey M.D. JASON
--- OUTSIDE RECORDS SUMMARY | 2023-11-25 06:19 | XMS_ITS | CCD ---
Author Organization [facility] Care Team Providers Care Entertainment Usher Name Role Phone DR KENNY LACEY Primary [...] Referring Unavailable Kenny Lacey Primary Care Physician [phone] Enrike GRIFFITH Attending Unavailable Allergies Allergy Classification Reported Allergen(s) Allergy Type Date of Onset Reaction(s) Facility (1 source) No Known Medication Allergies; Translations: [No Known Medication Allergies] Propensity to adverse reactions (disorder) [facility] Repository Medications Current Medications Medication Drug [...] Test Name Value Interpretation Reference Range Facility ECG 12-Leadon 11-19-2023 ECG 12-Lead [id number] 70#1.00TIFF Normal [facility] Insurance Correspondenceon 0 11-02-2023 Insurance Correspondence [id number] 140#1.00TIFF [facility] Formson 10-20-2023 Forms [id number] 82#1.00TIFF [facility] Ambulatory Visit Summaryon 0 10-13-2023 [...] us for your care. Normal [facility] Consent for Procedure/Surger yon 10-13-2023 Consent for Procedure/Surgery [id number] 34#1.00TIFF Normal [facility] XR SPINE LUMBAR MIN 4 VWSon [...] Rio MD on 10/01/2023 8:45 AM Normal [facility] Physician Referralon 024 Physician Referral [id number] A5#1.00TIFF Normal [facility] Physician Referral [id number] E3#1.00TIFF Normal [facility] Covid-19 PCR (CVDTBH)on 03-24 SARS-CoV-2 (COVID-19) RNA LEONID+probe Ql (Unsp spec) Detected Critically abnormal NOT DETECTED [facility] Comment on above: Result Comment: This test is not yet approved or cleared by the [place] FDA. When there are no FDA-approved or cleared tests available, and other criteria are met, FDA can make tests available under an emergency access mechanism called an Emergency Use Authorization (EUA). The EUA for this test is supported by the Health Program Manager of Health and Human Service's (HHS's) declaration [...] used). Performed By: #### C VDTB #### [facility] [address] [place] [address] Dr. Ting Felix CBC AUTO DIFFon 03-14-2022 BASO # 0.1 103/ul Normal 0.0-0.1 [facility] Comment on above: Performed By: #### C BC #### [facility] [address] [place] [address] Dr. Ting Felix Basophils/100 WBC (Bld) 1.2 % Normal 0.2-2.0 [facility] Comment on above: Performed By: #### C BC #### [facility] [address] [place] [address] Dr. Ting Felix EO # 0.2 103/ul Normal 0.0-0.7 [facility] Comment on above: Performed By: #### C BC #### [facility] [address] [place] [address] Dr. Ting Felix Eosinophils/100 WBC (Bld) 2.9 % Normal 0.9-7.0 [facility] Comment on above: Performed By: #### C BC #### [facility] [address] [place] [address] Dr. Ting Felix Erythrocyte distribution width (RBC) [Ratio] 12.5 % Normal 11.0-15.0 [facility] Comment on above: Performed By: #### C BC #### [facility] [address] [place] [address] Dr. Ting Felix Hematocrit (Bld) [Volume fraction] 44.1 % Normal 42.0-54.0 [facility] Comment on above: Performed By: #### C BC #### [facility] [address] [place] [address] Dr. Ting Felix Hemoglobin (Bld) [Mass/Vol] 15.4 g/dL Normal 14.0-18.0 [facility] Comment on above: Performed By: #### C BC #### [facility] [address] [place] [address] Dr. Ting Felix IG # 0.02 10e3/ul Normal 0.00-0.03 [facility] Comment on above: Performed By: #### C BC #### [facility] [address] [place] [address] Dr. Ting Felix IG % 0.3 % Normal 0.0-0.5 [facility] Comment on above: Performed By: #### C BC #### [facility] [address] [place] [address] Dr. Ting Felix LYMPH # 1.7 103/ul Normal 1.2-3.8 [facility] Comment on above: Performed By: #### C BC #### [facility] [address] [place] [address] Dr. Ting Felix Lymphocytes/100 WBC (Bld) 28.9 % Normal 20.5-60.0 [facility] Comment on above: Performed By: #### C BC #### [facility] [address] [place] [address] Dr. Ting Felix MANUAL DIFF REQ NO Normal [facility] Comment on above: Performed By: #### C BC #### [facility] [address] [place] [address] Dr. Ting Felix MCH (RBC) [Entitic mass] 30.7 pg Normal 25.9-34.0 [facility] Comment on above: Performed By: #### C BC #### [facility] [address] [place] [address] Dr. Ting Felix MCHC (RBC) [Mass/Vol] 34.9 g/dL Normal 29.9-35.2 [facility] Comment on above: Performed By: #### C BC #### [facility] [address] [place] [address] Dr. Ting Felix MCV (RBC) [Entitic vol] 87.8 fL Normal 80.0-94.0 [facility] Comment on above: Performed By: #### C BC #### [facility] [address] [place] [address] Dr. Ting Felix MONO # 0.5 103/ul Normal 0.3-0.8 [facility] Comment on above: Performed By: #### C BC #### [facility] [address] [place] [address] Dr. Ting Felix Monocytes/100 WBC (Bld) 9.2 % Normal 1.7-12.0 [facility] Comment on above: Performed By: #### C BC #### [facility] [address] [place] [address] Dr. Ting Felix NEUT # 3.4 103/ul Normal 1.4-6.5 [facility] Comment on above: Performed By: #### C BC #### [facility] [address] [place] [address] Dr. Ting Felix Neutrophils/100 WBC (Bld) 57.5 % Normal 43.0-75.0 [facility] Comment on above: Performed By: #### C BC #### [facility] [address] [place] [address] Dr. Ting Felix Platelet mean volume (Bld) [Entitic vol] 10.3 fL Normal 9.5-13.5 [facility] Comment on above: Performed By: #### C BC #### [facility] [address] [place] [address] Dr. Ting Felix PLT 237 103/ul Normal 150-450 [facility] Comment on above: Performed By: #### C BC #### [facility] [address] [place] [address] Dr. Ting Felix RBC 5.02 106/ul Normal 4.70-6.10 [facility] Comment on above: Performed By: #### C BC #### [facility] [address] [address] [address] Ting Felix WBC 5.9 103/ul Normal 4.0-11.0 [facility] Comment on above: Performed By: #### C BC #### [facility] [address] [address] [address] Ting Felix FREE T3on 03-14-2022 FREE T3 2.85 pg/mlL Normal 2.18-3.98 [facility] Comment on above: Performed By: #### T SH, FT3, T4, LIPID, CMP #### [facility] [address] [address] [address] Ting Felix GLYCOHEMOGLOBIN A1Con 2021 ADA RECOMMENDATION SEE BELOW Normal [facility] Comment on above: Result Comment: ADA RECOMMENDED LIMIT 4.0 - 6.0 ADA THERAPEUTIC TARGET < 7.0 ACTION SUGGESTED > 7.0 Performed By: #### A 1C #### [facility] [address] [place] [address] Dr. Ting Felix Glucose [Mass/Vol] 148 mg/dL Normal [facility] Comment on above: Performed By: #### A 1C #### [facility] [address] [address] [address] Ting Felix HbA1c (Bld) [Mass fraction] 6.8 % Critically high 4.5-6.2 [facility] Comment on above: Performed By: #### A 1C #### [facility] [address] [place] [address] Dr. Ting Felix LIPID PROFILEon 03-14-2022 CHOL-HDL RATIO NORM SEE BELOW Normal [facility] Comment on above: Result Comment: 3.3 - 4.4 LOW RISK 4.4 - 7.1 AVERAGE RISK 7.1 - 11.0 MODERATE RISK >11.0 HIGH RISK Performed By: #### T SH, FT3, T4, LIPID, CMP #### [facility] [address] [address] [address] Ting Felix Cholesterol [Mass/Vol] 189 mg/dL Normal <=200 [facility] Comment on above: Performed By: #### T SH, FT3, T4, LIPID, CMP #### [facility] [address] [address] [address] Ting Felix Cholesterol in HDL [Mass/Vol] 27 mg/dL Critically low 40-60 [facility] Comment on above: Performed By: #### T SH, FT3, T4, LIPID, CMP #### [facility] [address] [place] [address] Dr. Ting Felix Cholesterol in LDL [Mass/Vol] 90.8 mg/dL Normal [facility] Comment on above: Performed By: #### T SH, FT3, T4, LIPID, CMP #### [facility] [address] [place] [address] Dr. Ting Felix Cholesterol.total/Cho lesterol in HDL [Mass ratio] 7.0 {ratio} Normal [facility] Comment on above: Performed By: #### T SH, FT3, T4, LIPID, CMP #### [facility] [address] [place] [address] Dr. Ting Felix HDL NORMAL > or = 60 mg/dl - LOW CARDIOVASCULAR RISK <40 mg/dl - HIGH CARDIOVASCULAR RISK Normal [facility] Comment on above: Performed By: #### T SH, FT3, T4, LIPID, CMP #### [facility] [address] [place] [address] Dr. Ting Felix LDL CALC NORMAL SEE BELOW Normal [facility] Comment on above: Result Comment: <100 mg/dl OPTIMAL 100 - 129 mg/dl NEAR OR ABOVE OPTIMAL 130 - 159 mg/dl BORDERLINE HIGH 160 - 189 mg/dl HIGH >190 mg/dl VERY HIGH Performed By: #### T SH, FT3, T4, LIPID, CMP #### [facility] [address] [place] [address] Dr. Ting Felix Triglyceride [Mass/Vol] 356 mg/dL Critically high <=150 [facility] Comment on above: Performed By: #### T SH, FT3, T4, LIPID, CMP #### [facility] [address] [place] [address] Dr. Ting Felix VLDL CALC 71.2 mg/dL Normal [facility] Comment on above: Performed By: #### T SH, FT3, T4, LIPID, CMP #### [facility] [address] [address] [address] Ting Felix PROF 14(COMP METB)on 022 Albumin [Mass/Vol] 3.8 g/dL Normal 3.4-5.0 [facility] Comment on above: Performed By: #### T SH, FT3, T4, LIPID, CMP #### [facility] [address] [address] [address] Ting Felix Albumin/Globulin [Mass ratio] 1.1 {ratio} Normal [facility] Comment on above: Performed By: #### T SH, FT3, T4, LIPID, CMP #### [facility] [address] [place] [address] Dr. Ting Felix ALP [Catalytic activity/Vol] 73 U/L Normal 46-116 [facility] Comment on above: Performed By: #### T SH, FT3, T4, LIPID, CMP #### [facility] [address] [address] [address] Ting Felix ALT [Catalytic activity/Vol] 48 U/L Normal 16-63 [facility] Comment on above: Performed By: #### T SH, FT3, T4, LIPID, CMP #### [facility] [address] [address] [address] Ting Felix Anion gap [Moles/Vol] 10.8 mmol/L Normal [facility] Comment on above: Performed By: #### T SH, FT3, T4, LIPID, CMP #### [facility] [address] [address] [address] Ting Felix AST [Catalytic activity/Vol] 18 U/L Normal 15-37 [facility] Comment on above: Performed By: #### T SH, FT3, T4, LIPID, CMP #### [facility] [address] [address] [address] Ting Felix Bilirubin [Mass/Vol] 0.5 mg/dL Normal 0.2-1.0 [facility] Comment on above: Performed By: #### T SH, FT3, T4, LIPID, CMP #### [facility] [address] [place] [address] Dr. Ting Felix Calcium [Mass/Vol] 8.7 mg/dL Normal 8.5-10.1 [facility] Comment on above: Performed By: #### T SH, FT3, T4, LIPID, CMP #### [facility] [address] [place] [address] Dr. Ting Felix Chloride [Moles/Vol] 105 mmol/L Normal 98-107 [facility] Comment on above: Performed By: #### T SH, FT3, T4, LIPID, CMP #### [facility] [address] [place] [address] Dr. Ting Felix CO2 [Moles/Vol] 30.6 mmol/L Normal 21.0-32.0 [facility] Comment on above: Performed By: #### T SH, FT3, T4, LIPID, CMP #### [facility] [address] [place] [address] Dr. Ting Felix Creatinine [Mass/Vol] 1.15 mg/dL Normal 0.70-1.30 [facility] Comment on above: Performed By: #### T SH, FT3, T4, LIPID, CMP #### [facility] [address] [place] [address] Dr. Ting Felix EGFR-AF CITIZEN [place] >60 Normal >=60 [facility] Comment on above: Performed By: #### T SH, FT3, T4, LIPID, CMP #### [facility] [address] [place] [address] Dr. Ting Felix EGFR-NON AF CITIZEN [place] >60 Normal >=60 [facility] Comment on above: Performed By: #### T SH, FT3, T4, LIPID, CMP #### [facility] [address] [place] [address] Dr. Ting Felix Globulin (S) [Mass/Vol] 3.5 g/dL Normal [facility] Comment on above: Performed By: #### T SH, FT3, T4, LIPID, CMP #### [facility] [address] [place] [address] Dr. Ting Felix Glucose [Mass/Vol] 171 mg/dL Critically high 74-106 [facility] Comment on above: Performed By: #### T SH, FT3, T4, LIPID, CMP #### [facility] [address] [place] [address] Dr. Ting Felix Potassium [Moles/Vol] 4.4 mmol/L Normal 3.5-5.1 [facility] Comment on above: Performed By: #### T SH, FT3, T4, LIPID, CMP #### [facility] [address] [place] [address] Dr. Ting Felix Protein [Mass/Vol] 7.3 g/dL Normal 6.4-8.2 [facility] Comment on above: Performed By: #### T SH, FT3, T4, LIPID, CMP #### [facility] [address] [place] [address] Dr. Ting Felix Sodium [Moles/Vol] 142 mmol/L Normal 136-145 [facility] Comment on above: Performed By: #### T SH, FT3, T4, LIPID, CMP #### [facility] [address] [place] [address] Dr. Ting Felix Urea nitrogen [Mass/Vol] 19.0 mg/dL Critically high 7.0-18.0 [facility] Comment on above: Performed By: #### T SH, FT3, T4, LIPID, CMP #### [facility] [address] [place] [address] Dr. Ting Felix Urea nitrogen/Creatinine [Mass ratio] 16.5 mg/mg Normal [facility] Comment on above: Performed By: #### T SH, FT3, T4, LIPID, CMP #### [facility] [address] [place] [address] Dr. Ting Felix T4on 03-14-2022 T4 [Mass/Vol] 8.40 ug/dL Normal 4.50-12.10 [facility] Comment on above: Performed By: #### T SH, FT3, T4, LIPID, CMP #### [facility] [address] [place], [place] [address] Dr. Ting Felix TSHon 03-14-2022 TSH 0.090 uIU/mL Critically low 0.358-3.740 [facility] Comment on above: Performed By: #### T SH, FT3, T4, LIPID, CMP #### [facility] [address] [place], [place] [address] Dr. Ting Felix Vital Signs Date Time Vital Sign Value Performing Clinician Faci lity 10-13-2023 09:26-0500 Blood Pressure Location Enrike GLADIS [facility] [place] [facility] 10-13-2023 09:26-0500 Diastolic blood pressure 86 mm[Hg] Enrike GILESL [facility] [place] [facility] 10-13-2023 09:26-0500 Heart rate 63 /min Enrike NILL [facility] [place] [facility] 10-13-2023 09:26-0500 Respiratory rate 16 /min Enrike NILL [facility] [place] [facility] 10-13-2023 09:26-0500 Systolic blood pressure 135 mm[Hg] Enrike NILL [facility] [place] [facility] Encounters Encounter Date Encounter Type Care Provider Facility Start: 10-13-2023 End: 10-14-2023 ambulatory Enrike GRIFFITH Facility: [facility] Start: 10-13-2023 End: 10-13-2023 Patient encounter procedure Enrike GRIFFITH [facility] [place] [facility] Start: 09-29-2023 End: 09-30-2023 ambulatory KENNY LACEY [facility] Start: 09-24-2023 ambulatory Enrike GRIFFITH Facility:[facility] Start: 04-11-2022 End: 04-11-[address] KENNY LACEY Facility:[facility] Start: 03-25-2022 End: 03-26-[address] KENNY LACEY Facility:[facility] Start: 03-18-2022 Encounter for genera l adult medical examination without abnormal findings DR KENNY LACEY [facility] Start: 03-14-2022 End: 03-15-[address] KENNY LACEY Facility:[facility] Start: 03-14-2022 End: 03-15-2022 Encounter for general adult medical examination without abnormal findings DR KENNY LACEY Facility:[facility] Procedures Date Procedure Procedure Detail Performing Clinician Start: 03-14-[address] CLAY LACEY Comment on above: Performed By: #### P [facility] #### [facility] [address] [place] [address] Dr. Ting Felix Excision of cervical intervertebral disc Enrike EverlaneL Immunizations Immunization Date Immunization Notes Care Provider Fa cili 05-12-2023 influenza virus vaccine, unspecified formulation Enrike GILESL [facility] [place] [facility] 07-10-2021 SARS-CoV-2 (COVID-19 ) mRNA BNT-162b2 vax Enrike EverlaneL [facility] [place] [facility] 12-06-2020 SARS-CoV-2 (COVID-19 ) mRNA-1273 vaccine Enrike EverlaneL [facility] [place] [facility] Comment on above: Result Comment: 202307: 55 11-08-2020 SARS-CoV-2 (COVID-19 ) mRNA-1273 vaccine Enrike EverlaneL [facility] [place] [facility] Payers Date Payer Category Payer Unknown [id number] 2.16.84 [id number] 1967 Unknown [id number] 2.16.84 [id number] 1967 Unknown [id number] 2.16.84 [id number] 1967 Unknown [id number] 2.16.8 [id number] 1967 Unknown [id number] 2.16.8 [id number] 1959 Unknown [id number] Social History Date Type Detail Facility Start: 10-13-2023 Tobacco smoking status Never s moked tobacco (finding) [facility] [place] Tobacco smoking status Smokeless tobacco user within last 30 days [facility] [place] [facility] Sex Assigned At Male [facility] Functional Status Date Assessment Result Facility 10-13-2023 Functional Status N/A [facility] Clinical Note 10-13-2023 Note Date & Type [...] (COVID-19) mRNA-1273 vaccine 11/08/2020 Recorded [facility] Comment on above: Result Comment: Elec tronically Signed By: GLADIS REAVES, Enrike Castillo\Date and Time Signed: 10/13/23 10:51 EST Evaluation + Plan note Note Date & Type Note Facility Evaluation + Plan note No data available for this section [facility] [place] [facility] Discharge instructions Note Date & Type Note Facility Hospital Discharge instructions No data available for this section [facility] [place] Progress note Note Date & Type Note Facility Progress note No data available for this section [facility] [place] Summary Purpose Family History No Family History [...] and content) DATE CREATED AUTHOR 04/17/2022 [facility] DATE CREATED AUTHOR AUTHOR'S ORGANIZ ATION 10/05/2023 [facility] DATE CREATED AUTHOR AUTHOR'S ORGANIZ ATION 11/20/2023 [facility] Patient Care team informatio n (unrecognized section and content) Personnel Name: Kenny Lacey MD Address: Address: [address] [place] [address] FOR RECORDS PERTAINING TO PATIENTS WHO ARE [...] BE BASED ON THE PRIMARY CLINICAL RECORDS. [facility]. provides no warranty or guarantee of the accuracy or completeness of information in this document.
[2023-11-25] MEDS: LACTATED RINGER'S SOLUTION 1,000 ML 50 ML IV (07:03)
[2023-11-25] MEDS: CEFAZOLIN SODIUM/DEXTROSE,ISO 2 GM/50 ML PIGGYBACK IV (07:28)
[2023-11-25] MEDS: BUPIVACAINE HCL 0.25% PF 25 MG/10 ML VIAL INJ (09:18)
[2023-11-25] MEDS: 0.9 % SODIUM CHLORIDE 10 ML 20 ML IV (09:35)
[2023-11-25] MEDS: BUPIVACAINE HCL 0.5% PF 50 MG/10 ML VIAL 40 ML INJ (09:35)
[2023-11-25] MEDS: BUPIVACAINE LIPOSOME/PF 266 MG/13.3 ML VIAL INJ (09:35)
[2023-11-25] MEDS: LACTATED RINGER'S SOLUTION 1,000 ML 1000 ML IV (09:40)
[2023-11-25] MEDS: HYDROCODONE/ACET 5-325 MG TABLET 1 TAB PO (10:30)
== END 2023-11-25 11:25 | disposition home or self-care (01) ==
PROVIDERS: PCP Family Medicine; Visit Provider Surgery
PROC: (CPT 832; principal; 2023-11-25 07:30)
DX: K42.0 Umbilical hernia with obstruction, without gangrene (principal); E78.00 Pure hypercholesterolemia, unspecified; R73.03 Prediabetes; E03.9 Hypothyroidism, unspecified; K21.9 Gastro-esophageal reflux disease without esophagitis; K58.9 Irritable bowel syndrome, unspecified; E66.9 Obesity, unspecified; M50.90 Cervical disc disorder, unspecified, unspecified cervical region; F17.220 Nicotine dependence, chewing tobacco, uncomplicated; Z68.32 Body mass index [BMI] 32.0-32.9, adult
CPT/HCPCS: 49592; 64488; C1781; J1094; J2704

== ENCOUNTER 2023-12-25 07:42 | Outpatient (OUT) | payer BC, SELFPAY ==
--- OUTSIDE RECORDS SUMMARY | 2023-12-25 07:44 | XMS_ITS | CCD ---
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 Name Role Phone DR KENNY LACEY Primary Care Unavailable ADAN, DR COX Admitting Unavailable ADAN, DR COX Attending Unavailable KADENY, DR COX Attending Unavailable HOY, DR COX Consulting Unavailable KADENY, DR COX Primary Care Unavailable KADENY, DR COX Admitting Unavailable ADAN, DR COX Consulting Unavailable ADAN, DR COX Primary Care Unavailable KADENY, DR COX Admitting Unavailable ADAN, DR COX Attending Unavailable Kenny Lacey Primary Care Physician KENNY LACEY Referring Unavailable KENNY LAECY Referring Unavailable NILEnrike Navarro Attending Unavailable NILL, Enrike Bhagat Attending Unavailable NILLEnrike Attending Unavailable NILLEnrike Attending Unavailable Allergies Allergy Classification Reported Allergen(s) Allergy Type Date of Onset Reaction(s) Facility (1 source) No Known Medication Allergies; Translations: [No Known Medication Allergies] Propensity to adverse reactions (disorder) [facility] Repository Medications Current Medications Medication Drug Class(es) Dates Sig (Normalized) Sig (Original) liothyronine sodium 0.005 mg oral tablet (3 sources) l-Triiodothyroni ne Start: 09-23-2023 take 1 tablet by mouth once daily liothyronine 5 mcg Tab 5 mcg = 1 tab(s), Oral, Daily, Refills(s) 0 Start Date: 09/23/23 Status: Ordered simvastatin 20 mg oral tablet (3 sources) HMG-CoA Reductase Inhibitor Start: 09-23-2023 take 1 tablet by mouth once daily in the evening simvastatin 20 mg Tab 20 mg = 1 tab(s), Oral, qPM, Refills(s) 0 Start Date: 09/23/23 Status: Ordered Completed/Discontinued Medications Medication Drug Class(es) Dates Sig (Normalized) Sig (Original) diclofenac sodium 75 mg delayed release oral tablet (3 sources) Nonsteroidal Anti-inflammatory Drug Start: 09-30-2023 diclofenac sodium 75 mg Oral EC Tab 75 mg = 1 tab(s), Oral, BID, 0 Refill(s), Refills(s) 0 Start Date: 09/30/23 Status: Ordered levothyroxine sodium 0.175 mg oral tablet (3 sources) l-Thyroxine Start: 09-30-2023 Synthroid 175 mcg (0.175 mg) Tab 175 mcg = 1 tab(s), Oral, Daily, 0 Refill(s), Refills(s) 0 Start Date: 09/30/23 Status: Ordered Problems Active Problems Problem Classification Problem Date Documented Date Episodic/Chronic Abdominal hernia (6 sources) Obstructed umbilical hernia; Translations: [Umbilical hernia with obstruction, without gangrene] Onset: 10-13-19 Episodic Diabetes mellitus without complication (4 sources) Type 2 diabetes mellitus without complications; Translations: [TYPE 2 DM WITHOUT COMPLICATIONS] Onset: 03-25-20 Chronic Disorders of lipid metabolism (3 sources) Hypercholesterolemia 09-30-2023 Chronic Esophageal disorders (3 sources) Gastroesophageal reflux disease 09-30-2023 Chronic Other gastrointestinal disorders (3 sources) Irritable bowel syndrome 09-30-2023 Chronic Other nutritional; endocrine; and metabolic disorders (1 source) Obese class I; Translations: [Body mass index (BMI) 32.0-32.9, adult] Onset: 10-13-19 Chronic Other nutritional; endocrine; and metabolic disorders (3 sources) Body mass index 30+ - obesity 10-13-2023 Chronic Other nutritional; endocrine; and metabolic disorders (3 sources) Obesity 10-13-2023 Chronic Other screening for suspected conditions (not mental disorders or infectious disease) (1 source) Encounter for screening for malignant neoplasm of prostate; Translations: [ENC SCREEN MALIG NEOPLASM PROSTATE] Onset: 03-18-20 Episodic Spondylosis; intervertebral disc disorders; other back problems (3 sources) Cervical disc disorder 09-30-2023 Chronic Spondylosis; intervertebral disc disorders; other back problems (2 sources) Lumbago with sciatica, right side; Translations: [Lumbago with sciatica, left side] Onset: 09-29-19 Episodic Thyroid disorders (3 sources) Hypothyroidism 09-30-2023 Chronic Unclassified (2 sources) CONTACT W/AND (SUSP) EXPOS COVID-19; Translations: [CONTACT W/AND (SUSP) EXPOS COVID-19] Onset: 04-14-20 Unclassified (1 source) Low back pain, unspecified; Translations: [Low back pain, unspecified] Onset: 12-05-19 Viral infection (1 source) COVID-19; Translations: [COVID-19] Onset: 04-14-20 Past or Other Problems Problem Classification Problem Date Documented Da te Episodic/Chronic Unclassified (1 source) CONTACT W/AND (SUSP) EXPOS COVID-19; Translations: [CONTACT W/AND (SUSP) EXPOS COVID-19] Onset: 04-11-2022 Results Test Name Value Interpretation Reference Range Facility General Surgery Office/Clini c Noteon 12-16-2023 General Surgery Office/Clinic Note Chief Complaint post operative follow up HPI Staff 21 day post operative follow up post robotic assisted umbilical hernia repair. Denies discomfort, no use of pain medication. Denies bleeding or drainage. Bowels moving well. Wearing abdominal binder as instructed. History of Present Illness 3 weeks s/p robotic-assisted umbilical herniorrhaphy with mesh insertion; doing well; denies pain, no drainage from incisions; no strenuous activities; wearing binder. Review of Systems ROS - Provider Constitutional: no fever, no sweats, no weight loss. Eyes: no glasses, no blurred vision, no visual loss. [...] no anemia, no blood clots, no transfusions. Allergy/Immunologic : no swollen lymph nodes/glands, no IV drug abuse. Other: Additional ROS info: Except as noted in the above Review of Systems and in the History of Present Illness, all other systems have been reviewed and are negative or noncontributory. Physical Exam abd: soft, nontender, nondistended, incisions healing well, no erythema or drainage; no seroma at umbilicus or induration. Assessment/Plan 1. Umbilical hernia, incarcerated (K42.0: Umbilical hernia with obstruction, without gangrene) doing well; can wear binder prn; in 1 week, gradually resume regular activities; call with problems/questions. Follow-up No qualifying data available Problem List/Past Medical History Ongoing BMI 32.0-32.9,adult Cervical disc disorder Gastroesophageal reflux disease Hypercholesterolemi a Hypothyroidism Irritable bowel syndrome Obesity Umbilical hernia, incarcerated Historical No qualifying data Procedure/Surgical History Repair of umbilical hernia (11/25/2023), Cervical discectomy. Medications diclofenac sodium 75 mg [...] 53 SARS-CoV-2 (COVID-19) mRNA-1273 vaccine 11/08/2020 Recorded Normal [facility] Comment on above: Result Comment: Elec tronically Signed By: ISAÍAS REAVES, Enrike Castillo\Date and Time Signed: 12/16/23 14:44 EDT Formson 12-15-2023 Forms [id number] D3#1.00TIFF Normal [facility] MR LUMBAR SPINE WO CONTon MR LUMBAR SPINE WO CONT MR LUMBAR SPINE WO CONT STUDY: MR LUMBAR SPINE WO CONT HISTORY: Low back pain, unspecified back pain laterality, unspecified chronicity, unspecified whether sciatica present TECHNIQUE: * Routine multiplanar multisequence MR imaging of the lumbar spine was performed without intravenous contrast. FINDINGS: Vertebral body hemangiomas at T12, L2 and L3. Slight degenerative height loss of L3 and L4, likely chronic. No acute fracture or significant malalignment. Intervertebral disc space narrowing most prominent at L5-S1 with possible small annular tear. Conus medullaris terminates at the level of L1. No distal cord signal abnormality. Cauda equina nerve roots are broadly unremarkable. Retroaortic left renal vein, a congenital variant. Posterior spinal soft tissues are unremarkable. L1-L2: Mild facet arthropathy without significant spinal canal or neuroforaminal narrowing. L2-L3: Trace disc bulge, mild facet arthropathy results in mild left greater than right neuroforaminal narrowing. No significant spinal canal narrowing. L3-L4: Mild diffuse disc bulge and mild bilateral facet arthropathy results in islv-or-otvzdyok right and mild left neuroforaminal narrowing. No significant spinal canal narrowing. L4-L5: Mild diffuse disc bulge and moderate bilateral facet arthropathy with rovq-mk-cshnddvn right and mild left neuroforaminal narrowing. No significant spinal canal narrowing. L5-S1: Mild diffuse disc bulge, mild facet arthropathy results in mild bilateral neuroforaminal narrowing. No significant spinal canal narrowing. IMPRESSION: * Multilevel degenerative spondylosis most prominent at L3-L4, L4-L5 and L5-S1, with multilevel facet arthropathy. * Dilm-sa-zknwmqtz right and mild left neuroforaminal narrowing at L3-L4 and L4-L5. 9 Finalized by Forest Alcaraz on 12/06/2023 4:55 PM Normal [facility] Ambulatory Visit Summaryon 0 12-02-2023 Ambulatory Visit Summary NIXON JENSEN :1965 MRN:[id number] Visit Date:12/02/2023 Ambulatory Visit Instructions Your Diagnosis Umbilical hernia, incarcerated Your Care Team Attending Physician - Enrike GRIFFITH MD Primary Care Physician - Kenny Lacey MD This Is Your Medications List Contact prescribing physician if questions or concerns diclofenac (diclofenac sodium 75 mg Oral EC Tab) levothyroxine (Synthroid 175 mcg (0.175 mg) Tab) liothyronine (liothyronine 5 mcg Tab) simvastatin (simvastatin 20 mg Tab) Procedures Performed Repair of umbilical hernia (11/25/2023), Cervical discectomy. What to do next Scheduled Follow-Up Appointments Thursday 2:40 PM EDT With: Enrike GRIFFITH MD Where: General Surgery [facility] General Surgery Office/Clini c Noteon 12-02-2023 General Surgery Office/Clinic Note Chief Complaint post operative follow up HPI Staff 7 day post operative follow up post robotic assisted umbilical hernia repair. Denies discomfort, takes daily Diclofenac for back pain. Denies bleeding or drainage. Wearing abdominal binder as instructed. Reports some mild constipation for which he plans on starting stool softener today. History of Present Illness 1 week s/p robotic-assisted umbilical herniorrhaphy with mesh due to incarcerated umbilical hernia; doing well, mild soreness, only taking Diclofenac; no drainage from incisions; bowels moving; voiding well; no N/V; no fevers. Review of Systems ROS - Provider Constitutional: no fever, no sweats, no weight loss. Eyes: no glasses, no blurred vision, no visual loss. [...] no anemia, no blood clots, no transfusions. Allergy/Immunologic : no swollen lymph nodes/glands, no IV drug abuse. Other: Additional ROS info: Except as noted in the above Review of Systems and in the History of Present Illness, all other systems have been reviewed and are negative or noncontributory. Physical Exam abd: soft, nontender, nondistended, incisions without erythema or drainage; no seroma at hernia site, minimal resolving ecchymosis. Assessment/Plan 1. Umbilical hernia, incarcerated (K42.0: Umbilical hernia with obstruction, without gangrene) Follow-up No qualifying data available Problem List/Past Medical History Ongoing BMI 32.0-32.9,adult Cervical disc disorder Gastroesophageal reflux disease Hypercholesterolemi a Hypothyroidism Irritable bowel syndrome Obesity Umbilical hernia, incarcerated Historical No qualifying data Procedure/Surgical History Repair of umbilical hernia (11/25/2023), Cervical discectomy. Medications diclofenac sodium 75 mg [...] 53 SARS-CoV-2 (COVID-19) mRNA-1273 vaccine 11/08/2020 Recorded Normal [facility] Comment on above: Result Comment: Elec tronically Signed By: ISAÍAS REAVES, Enrike Bhagat\.br\Date and Time Signed: 12/02/23 13:56 EDT Operative Reporton Operative Report [id number] 95#1.00TIFF Normal [facility] ECG 12-Leadon 11-19-2023 ECG 12-Lead [id number] 70#1.00TIFF Normal [facility] Insurance Correspondenceon 0 11-02-2023 Insurance Correspondence [id number] 140#1.00TIFF Normal [facility] Formson 10-20-2023 Forms [id number] 82#1.00TIFF [facility] Ambulatory Visit Summaryon 0 10-13-2023 Ambulatory Visit Summary NIXON JENSEN :1965 Visit Date:10/13/2023 Ambulatory Visit Instructions Your Care Team Attending Physician - ISAÍAS REAVES, Enrike Bhagat Primary Care Physician - [...] for choosing us for your care. Normal [facility] Consent for Procedure/Surger yon 10-13-2023 Consent for Procedure/Surgery [id number] 34#1.00TIFF Normal [facility] XR SPINE LUMBAR MIN 4 VWSon [...] Rio MD on 10/01/2023 8:45 AM Normal [facility] Physician Referralon 024 Physician Referral [id number] A5#1.00TIFF Normal [facility] Physician Referral [id number] E3#1.00TIFF Normal [facility] Covid-19 PCR (CVDTB)on 03-24 SARS-CoV-2 (COVID-19) RNA LEONID+probe Ql (Unsp spec) Detected Critically abnormal NOT DETECTED [facility] Comment on above: Result Comment: This test is not yet approved or cleared by the [place] FDA. When there are no FDA-approved or cleared tests available, and other criteria are met, FDA can make tests available under an emergency access mechanism called an Emergency Use Authorization (EUA). The EUA for this test is supported by the [employer] of [employer] and Human Service's (HHS's) declaration [...] longer be used). Performed By: #### C VDTBH #### [facility] [address] [place] [address] Dr. Ting Felix CBC AUTO DIFFon 03-14-2022 BASO # 0.1 103/ul Normal 0.0-0.1 [facility] Comment on above: Performed By: #### C BC #### [facility] [address] [place] [address] Dr. Ting Felix Basophils/100 WBC (Bld) 1.2 % Normal 0.2-2.0 [facility] Comment on above: Performed By: #### C BC #### [facility] [address] [place] [address] Dr. Ting Felix EO # 0.2 103/ul Normal 0.0-0.7 [facility] Comment on above: Performed By: #### C BC #### [facility] [address] [place] [address] Dr. Ting Felix Eosinophils/100 WBC (Bld) 2.9 % Normal 0.9-7.0 [facility] Comment on above: Performed By: #### C BC #### [facility] [address] [place] [address] Dr. Ting Felix Erythrocyte distribution width (RBC) [Ratio] 12.5 % Normal 11.0-15.0 [facility] Comment on above: Performed By: #### C BC #### [facility] [address] [place] [address] Dr. Ting Felix Hematocrit (Bld) [Volume fraction] 44.1 % Normal 42.0-54.0 [facility] Comment on above: Performed By: #### C BC #### [facility] [address] [address] [address] Ting Felix Hemoglobin (Bld) [Mass/Vol] 15.4 g/dL Normal 14.0-18.0 [facility] Comment on above: Performed By: #### C BC #### [facility] [address] [address] [address] Ting Felix IG # 0.02 10e3/ul Normal 0.00-0.03 [facility] Comment on above: Performed By: #### C BC #### [facility] [address] [place] [address] Dr. Ting Felix IG % 0.3 % Normal 0.0-0.5 [facility] Comment on above: Performed By: #### C BC #### [facility] [address] [place] [address] Dr. Ting Felix LYMPH # 1.7 103/ul Normal 1.2-3.8 [facility] Comment on above: Performed By: #### C BC #### [facility] [address] [place] [address] Dr. Ting Felix Lymphocytes/100 WBC (Bld) 28.9 % Normal 20.5-60.0 [facility] Comment on above: Performed By: #### C BC #### [facility] [address] [place] [address] Dr. Ting Felix MANUAL DIFF REQ NO Normal [facility] Comment on above: Performed By: #### C BC #### [facility] [address] [place] [address] Dr. Ting Felix MCH (RBC) [Entitic mass] 30.7 pg Normal 25.9-34.0 [facility] Comment on above: Performed By: #### C BC #### [facility] [address] [place] [address] Dr. Ting Felix MCHC (RBC) [Mass/Vol] 34.9 g/dL Normal 29.9-35.2 [facility] Comment on above: Performed By: #### C BC #### [facility] [address] [address] [address] Ting Felix MCV (RBC) [Entitic vol] 87.8 fL Normal 80.0-94.0 [facility] Comment on above: Performed By: #### C BC #### [facility] [address] [address] [address] Ting Felix MONO # 0.5 103/ul Normal 0.3-0.8 [facility] Comment on above: Performed By: #### C BC #### [facility] [address] [address] [address] Ting Felix Monocytes/100 WBC (Bld) 9.2 % Normal 1.7-12.0 [facility] Comment on above: Performed By: #### C BC #### [facility] [address] [place] [address] Dr. Ting Felix NEUT # 3.4 103/ul Normal 1.4-6.5 [facility] Comment on above: Performed By: #### C BC #### [facility] [address] [place] [address] Dr. Ting Felix Neutrophils/100 WBC (Bld) 57.5 % Normal 43.0-75.0 [facility] Comment on above: Performed By: #### C BC #### [facility] [address] [place] [address] Dr. Ting Felix Platelet mean volume (Bld) [Entitic vol] 10.3 fL Normal 9.5-13.5 [facility] Comment on above: Performed By: #### C BC #### [facility] [address] [place] [address] Dr. Ting Felix PLT 237 103/ul Normal 150-450 [facility] Comment on above: Performed By: #### C BC #### [facility] [address] [place] [address] Dr. Ting Felix RBC 5.02 106/ul Normal 4.70-6.10 [facility] Comment on above: Performed By: #### C BC #### [facility] [address] [place] [address] Dr. Ting Felix WBC 5.9 103/ul Normal 4.0-11.0 [facility] Comment on above: Performed By: #### C BC #### [facility] [address] [place] [address] Dr. Ting Felix FREE T3on 03-14-2022 FREE T3 2.85 pg/mlL Normal 2.18-3.98 [facility] Comment on above: Performed By: #### T SH, FT3, T4, LIPID, CMP #### [facility] [address] [address] [address] Ting Felix GLYCOHEMOGLOBIN A1Con 2021 ADA RECOMMENDATION SEE BELOW Normal [facility] Comment on above: Result Comment: ADA RECOMMENDED LIMIT 4.0 - 6.0 ADA THERAPEUTIC TARGET < 7.0 ACTION SUGGESTED > 7.0 Performed By: #### A 1C #### [facility] [address] [place] [address] Dr. Ting Felix Glucose [Mass/Vol] 148 mg/dL Normal [facility] Comment on above: Performed By: #### A 1C #### [facility] [address] [place] [address] Dr. Ting Felix HbA1c (Bld) [Mass fraction] 6.8 % Critically high 4.5-6.2 [facility] Comment on above: Performed By: #### A 1C #### [facility] [address] [place] [address] Dr. Ting Felix LIPID PROFILEon 03-14-2022 CHOL-HDL RATIO NORM SEE BELOW Normal [facility] Comment on above: Result Comment: 3.3 - 4.4 LOW RISK 4.4 - 7.1 AVERAGE RISK 7.1 - 11.0 MODERATE RISK >11.0 HIGH RISK Performed By: #### T SH, FT3, T4, LIPID, CMP #### [facility] [address] [place] [address] Dr. Ting Felix Cholesterol [Mass/Vol] 189 mg/dL Normal <=200 [facility] Comment on above: Performed By: #### T SH, FT3, T4, LIPID, CMP #### [facility] [address] [address] [address] Ting Felix Cholesterol in HDL [Mass/Vol] 27 mg/dL Critically low 40-60 [facility] Comment on above: Performed By: #### T SH, FT3, T4, LIPID, CMP #### [facility] [address] [address] [address] Ting Felix Cholesterol in LDL [Mass/Vol] 90.8 mg/dL Normal [facility] Comment on above: Performed By: #### T SH, FT3, T4, LIPID, CMP #### [facility] [address] [address] [address] Ting Felix Cholesterol.total/Cho lesterol in HDL [Mass ratio] 7.0 {ratio} Normal [facility] Comment on above: Performed By: #### T SH, FT3, T4, LIPID, CMP #### [facility] [address] [address] [address] Ting Felix HDL NORMAL > or = 60 mg/dl - LOW CARDIOVASCULAR RISK <40 mg/dl - HIGH CARDIOVASCULAR RISK Normal [facility] Comment on above: Performed By: #### T SH, FT3, T4, LIPID, CMP #### [facility] [address] [address] [address] Ting Felix LDL CALC NORMAL SEE BELOW Normal [facility] Comment on above: Result Comment: <100 mg/dl OPTIMAL 100 - 129 mg/dl NEAR OR ABOVE OPTIMAL 130 - 159 mg/dl BORDERLINE HIGH 160 - 189 mg/dl HIGH >190 mg/dl VERY HIGH Performed By: #### T SH, FT3, T4, LIPID, CMP #### [facility] [address] [address] [address] Ting Felix Triglyceride [Mass/Vol] 356 mg/dL Critically high <=150 [facility] Comment on above: Performed By: #### T SH, FT3, T4, LIPID, CMP #### [facility] [address] [address] [address] Ting Felix VLDL CALC 71.2 mg/dL Normal [facility] Comment on above: Performed By: #### T SH, FT3, T4, LIPID, CMP #### [facility] [address] [place] [address] Dr. Ting Felix PROF 14(COMP METB)on 022 Albumin [Mass/Vol] 3.8 g/dL Normal 3.4-5.0 [facility] Comment on above: Performed By: #### T SH, FT3, T4, LIPID, CMP #### [facility] [address] [place] [address] Dr. Ting Felix Albumin/Globulin [Mass ratio] 1.1 {ratio} Normal [facility] Comment on above: Performed By: #### T SH, FT3, T4, LIPID, CMP #### [facility] [address] [place] [address] Dr. Ting Felix ALP [Catalytic activity/Vol] 73 U/L Normal 46-116 [facility] Comment on above: Performed By: #### T SH, FT3, T4, LIPID, CMP #### [facility] [address] [place] [address] Dr. Ting Felix ALT [Catalytic activity/Vol] 48 U/L Normal 16-63 [facility] Comment on above: Performed By: #### T SH, FT3, T4, LIPID, CMP #### [facility] [address] [place] [address] Dr. Ting Fleix Anion gap [Moles/Vol] 10.8 mmol/L Normal [facility] Comment on above: Performed By: #### T SH, FT3, T4, LIPID, CMP #### [facility] [address] [place] [address] Dr. Ting Felix AST [Catalytic activity/Vol] 18 U/L Normal 15-37 [facility] Comment on above: Performed By: #### T SH, FT3, T4, LIPID, CMP #### [facility] [address] [place] [address] Dr. Ting Felix Bilirubin [Mass/Vol] 0.5 mg/dL Normal 0.2-1.0 [facility] Comment on above: Performed By: #### T SH, FT3, T4, LIPID, CMP #### [facility] [address] [place] [address] Dr. Ting Felix Calcium [Mass/Vol] 8.7 mg/dL Normal 8.5-10.1 [facility] Comment on above: Performed By: #### T SH, FT3, T4, LIPID, CMP #### [facility] [address] [place] [address] Dr. Ting Felix Chloride [Moles/Vol] 105 mmol/L Normal 98-107 [facility] Comment on above: Performed By: #### T SH, FT3, T4, LIPID, CMP #### [facility] [address] [place] [address] Dr. Ting Felix CO2 [Moles/Vol] 30.6 mmol/L Normal 21.0-32.0 [facility] Comment on above: Performed By: #### T SH, FT3, T4, LIPID, CMP #### [facility] [address] [place] [address] Dr. Ting Felix Creatinine [Mass/Vol] 1.15 mg/dL Normal 0.70-1.30 [facility] Comment on above: Performed By: #### T SH, FT3, T4, LIPID, CMP #### [facility] [address] [place] [address] Dr. Ting Felix EGFR-AF ICELANDIC >60 Normal >=60 [facility] Comment on above: Performed By: #### T SH, FT3, T4, LIPID, CMP #### [facility] [address] [place] [address] Dr. Ting Felix EGFR-NON AF ICELANDIC >60 Normal >=60 [facility] Comment on above: Performed By: #### T SH, FT3, T4, LIPID, CMP #### [facility] [address] [place] [address] Dr. Ting Felix Globulin (S) [Mass/Vol] 3.5 g/dL Normal [facility] Comment on above: Performed By: #### T SH, FT3, T4, LIPID, CMP #### [facility] [address] [place] [address] Dr. Ting Felix Glucose [Mass/Vol] 171 mg/dL Critically high 74-106 [facility] Comment on above: Performed By: #### T SH, FT3, T4, LIPID, CMP #### [facility] [address] [place] [address] Dr. Ting Felix Potassium [Moles/Vol] 4.4 mmol/L Normal 3.5-5.1 [facility] Comment on above: Performed By: #### T SH, FT3, T4, LIPID, CMP #### [facility] [address] [place] [address] Dr. Ting Felix Protein [Mass/Vol] 7.3 g/dL Normal 6.4-8.2 [facility] Comment on above: Performed By: #### T SH, FT3, T4, LIPID, CMP #### [facility] [address] [place] [address] Dr. Ting Felix Sodium [Moles/Vol] 142 mmol/L Normal 136-145 [facility] Comment on above: Performed By: #### T SH, FT3, T4, LIPID, CMP #### [facility] [address] [place] [address] Dr. Ting Felix Urea nitrogen [Mass/Vol] 19.0 mg/dL Critically high 7.0-18.0 [facility] Comment on above: Performed By: #### T SH, FT3, T4, LIPID, CMP #### [facility] [address] [place] [address] Dr. Ting Felix Urea nitrogen/Creatinine [Mass ratio] 16.5 mg/mg Normal [facility] Comment on above: Performed By: #### T SH, FT3, T4, LIPID, CMP #### [facility] [address] [place] [address] Dr. Ting Felxi T4on 03-14-2022 T4 [Mass/Vol] 8.40 ug/dL Normal 4.50-12.10 [facility] Comment on above: Performed By: #### T SH, FT3, T4, LIPID, CMP #### [facility] [address] [address] [address] Ting Felix TSHon 03-14-2022 TSH 0.090 uIU/mL Critically low 0.358-3.[address] [facility] Comment on above: Performed By: #### T SH, FT3, T4, LIPID, CMP #### [facility] [id number] Ting Felix Vital Signs Date Time Vital Sign Value Performing Clinician Mariela rg 10-13-2023 09:26-0500 Blood Pressure Location Enrike NILL [facility] 10-13-2023 09:26-0500 Diastolic blood pressure 86 mm[Hg] Enrike NILL [facility] 10-13-2023 09:26-0500 Heart rate 63 /min Enrike NILL [facility] 10-13-2023 09:26-0500 Respiratory rate 16 /min Enrike NILL [facility] 10-13-2023 09:26-0500 Systolic blood pressure 135 mm[Hg] Enrike NILL [facility] Encounters Encounter Date Encounter Type Care Provider Facility Start: 12-16-2023 End: 12-17-2023 ambulatory Enrike R NILL Facility:[facility] Start: 12-16-2023 End: 12-16-2023 Patient encounter procedure Enrike R NILL [facility] Start: 12-05-2023 End: 12-06-2023 ambulatory [facility] Start: 12-02-2023 End: 12-03-2023 ambulatory Enrike R NILL Facility:[facility] Start: 12-02-2023 End: 12-02-2023 Patient encounter procedure Enrike R NILL [facility] Start: 11-30-2023 ambulatory Enrike CHANL Facility:[facility] Start: 11-25-2023 End: 11-26-2023 ambulatory Enrike R NILL Facility:[facility] Start: 10-13-2023 End: 10-14-2023 ambulatory Enrike R NILL Facility:[facility] Start: 10-13-2023 End: 10-13-2023 Patient encounter procedure [facility]rike Bhagat [facility] Start: 09-29-2023 End: 09-30-2023 ambulatory KENNY LACEY [facility] Start: 09-24-2023 ambulatory Enrike GRIFFITH Facility:[facility] Start: 04-11-2022 End: 04-11-[address] KENNY LACEY Facility:[facility] Start: 03-25-2022 End: 03-26-[address] KENNY LACEY Facility:[facility] Start: 03-18-2022 Encounter for genera l adult medical examination without abnormal findings DR KENNY LACEY [facility] Start: 03-14-2022 End: 03-15-[address] KENNY LACEY Facility:[facility] Start: 03-14-2022 End: 03-15-2022 Encounter for general adult medical examination without abnormal findings DR KENNY LACEY Facility:[facility] Procedures Date Procedure Procedure Detail Performing Clinician Start: 11-25-2023 Repair of umbilical hernia Enrike GRIFFITH Start: 03-14-[address] CLAY LACEY Comment on above: Performed By: #### [facility] #### [facility] [address] [place] [address] Dr. Ting Felix Excision of cervical intervertebral disc Enrike GRIFFITH Immunizations Immunization Date Immunization Notes Care Provider Fa cili 05-12-2023 influenza virus vaccine, unspecified formulation Enrike GRIFFITH [facility] 07-10-2021 SARS-CoV-2 (COVID-19 ) mRNA BNT-162b2 vax Enrike GILESL [facility] 12-06-2020 SARS-CoV-2 (COVID-19 ) mRNA-1273 vaccine Enrike NILL [facility] Comment on above: Result Comment: [id number]: [id number] 11-08-2020 SARS-CoV-2 (COVID-19 ) mRNA-1273 vaccine Enrike NILL [facility] Payers Date Payer Category Payer Unknown [id number] 2.16.84 [id number] 1967 Unknown [id number] 2.16.84 [id number] 1967 Unknown [id number] 2.16.84 [id number] 1967 Unknown [id number] 2.16.8 [id number] 1967 Unknown [id number] 2.16.8 [id number] 1967 Unknown [id number] 2.16.8 [id number] 1967 Unknown [id number] 2.16.8 [id number] 1967 Unknown [id number] 2.16.8 [id number] 1967 Unknown [id number] 2.16.8 [id number] 1959 Unknown [id number] Social History Date Type Detail Facility Start: 10-13-2023 Tobacco smoking status Never s moked tobacco (finding) [facility] Tobacco smoking status Smokeless tobacco user within last 30 days [facility] Sex Assigned At Male [facility] Functional Status Date Assessment Result Facility 10-13-2023 Functional Status N/A [facility] Clinical Note 10-13-2023 Note Date & Type [...] 55 SARS-CoV-2 (COVID-19) mRNA-1273 vaccine 11/08/2020 Recorded [facility] Comment on above: Result Comment: Elec tronically Signed By: Enrike GRIFFITH MD\.br\Date and Time Signed: 10/13/23 10:51 EST Evaluation + Plan note Note Date & Type Note Facility Evaluation + Plan note No data available for this section [facility] Evaluation + Plan note Note Date & Type Note Facility Evaluation + Plan note Future Appointments Appointment Date:12/16/2023 02:40:00 PM Scheduled Provider:Enrike GRIFFITH MD Location:[facility] Appointment Type: Post Op 15 [facility] Discharge instructions Note Date & Type Note Facility Hospital Discharge instructions No data available for this section [facility] Progress note Note Date & Type Note Facility Progress note No data available for this section [facility] Summary Purpose Family History No Family History Records Found No data available for this section No data available for this section No Family History Records Found No data available for this section No Family History Records Found Advance Directives No Advanced Directives Records FoundNo Advanced Directives Records FoundNo Advanced Directives Records Found Additional Source Comments (unrecognized sect ion and content) No Status Records FoundNo Status Records FoundNo Status Records Found INFORMATION SOURCE (unrecogn ized section and content) DATE CREATED AUTHOR 04/17/2022 [facility] DATE CREATED AUTHOR AUTHOR'S ORGANIZ ATION 12/06/2023 [facility] DATE CREATED AUTHOR AUTHOR'S ORGANIZ ATION 12/18/2023 [facility] Patient Care team informatio n (unrecognized section and content) Personnel Name: Kenny Lacey MD Address: Address: [address] [place] [address] Personnel Name: Kenny Lacey MD Address: Address: [address] [place] [address] Personnel Name: Kenny Lacey MD Address: Address: [address] [place] [address] FOR RECORDS PERTAINING TO PATIENTS WHO ARE [...] BE BASED ON THE PRIMARY CLINICAL RECORDS. [facility] [employer] [facility]. provides no warranty or guarantee of the accuracy or completeness of information in this document.
[2023-12-25 08:14] LABS: Estimated Average Glucose 128 mg/dL; Glycohemoglobin A1C 6.1 % (4.5-6.2)
[2023-12-25 09:11] LABS: Free T4 1.05 ng/dL (0.76-1.46)
[2023-12-25 09:39] LABS: Chol HDL Ratio 4.9; Cholesterol 166 mg/dL (<=200); HDL Cholesterol 34 mg/dL (40-60); Triglycerides 136 mg/dL (<=150); VLDL CHOLESTEROL 27.2 mg/dL
[2023-12-25 09:40] LABS: Thyroid Stimulating Hormone 0.028 uIU/mL (0.358-3.740)
== END 2023-12-25 07:43 | disposition home or self-care (01) ==
LOC: LAB 07:42
PROVIDERS: PCP Family Medicine; Visit Provider Family Medicine
DX: E78.5 Hyperlipidemia, unspecified (principal); E11.9 Type 2 diabetes mellitus without complications; R79.89 Other specified abnormal findings of blood chemistry
CPT/HCPCS: 36415; 80061; 83036; 84439; 84443

== ENCOUNTER 2024-05-13 06:54 | Outpatient (OUT) | payer BC, SELFPAY ==
--- OUTSIDE RECORDS SUMMARY | 2024-05-13 06:58 | XMS_ITS | CCD ---
Author Organization [facility]iniSy[facility] Care Team Providers Care Biometrics Technician Name Role Phone DR KENNY LACEY Primary Care Unavailable HOY, DR COX Admitting Unavailable HOY, DR COX Attending Unavailable HOY, DR COX Attending Unavailable HOY, DR COX Consulting Unavailable HOY, DR COX Primary Care Unavailable HOY, DR COX Admitting Unavailable HOY, DR COX Consulting Unavailable HOY, DR COX Primary Care Unavailable HOY, DR COX Admitting Unavailable KADENY, DR COX Attending Unavailable Scar Laceylas Primary Care Physician HOY, KENNY M Referring Unavailable HOY, KENNY M Referring Unavailable NILL, Enrike R Attending Unavailable NILL, Enrike R Attending Unavailable NILLEnrike Attending Unavailable NILL, Enrike Bhagat Attending Unavailable HOEFLINGER, OZZIE Referring Unavailable HOY, KENNY M Primary Care Unavailable HOEFLINGER, OZZIE Referring Unavailable HOY, KENNY M Primary Care Unavailable HOEFLINGER, OZZIE Referring Unavailable HOY, KENNY M Primary Care Unavailable HOEFLINGER, OZZIE Referring Unavailable HOY, KENNY M Primary Care Unavailable HOEFLINGER, OZZIE Referring Unavailable HOY, KENNY M Primary Care Unavailable HOEFLINGER, OZZIE Referring Unavailable HOY, KENNY M Primary Care Unavailable HOEFLINGER, OZZIE Referring Unavailable HOY, KENNY M Primary Care Unavailable HOEFLINGER, OZZIE Referring Unavailable HOY, KENNY M Primary Care Unavailable Allergies Allergy Classification Reported Allergen(s) Allergy Type Date of Onset Reaction(s) Facility (1 source) No Known Medication Allergies; Translations: [No Known Medication Allergies] Propensity to adverse reactions (disorder) [facility] Repository Medications Current Medications Medication Drug [...] W/AND (SUSP) EXPOS COVID-19] Onset: 04-14-20 Unclassified (2 sources) Low back pain, unspecified; Translations: [Low back pain, unspecified] Onset: 12-05-19 Viral infection (1 source) COVID-19; Translations: [COVID-19] Onset: 04-14-20 Past or Other Problems Problem Classification Problem Date Documented Da te Episodic/Chronic Unclassified (1 source) CONTACT W/AND (SUSP) EXPOS COVID-19; Translations: [CONTACT W/AND (SUSP) EXPOS COVID-19] Onset: 04-11-2022 Unclassified (1 source) Low back pain, unspecified; Translations: [Low back pain, unspecified] Onset: 02-12-2024 Results Test Name Value Interpretation Reference Range [...] SARS-CoV-2 (COVID-19) mRNA-1273 vaccine 11/08/2020 Recorded Normal [facility] Comment on above: Result Comment: Elec tronically Signed By: ISAÍAS REAVES, Enrike Castillo\Date and Time Signed: 12/16/23 14:44 EDT Formson 12-15-2023 Forms [id number] D3#1.00TIFF Normal [facility] MR LUMBAR SPINE WO CONTon MR LUMBAR [...] and mild bilateral facet arthropathy results in qjxu-gg-ffumyzld right and mild left neuroforaminal narrowing. No significant spinal canal narrowing. L4-L5: Mild diffuse disc bulge and moderate bilateral facet arthropathy with vify-ot-kegqugsq right and mild left neuroforaminal narrowing. No significant spinal canal narrowing. L5-S1: Mild diffuse disc bulge, mild facet arthropathy results in mild bilateral neuroforaminal narrowing. No significant spinal canal narrowing. IMPRESSION: * Multilevel degenerative spondylosis most prominent at L3-L4, L4-L5 and L5-S1, with multilevel facet arthropathy. * Kmtf-he-jyqbgqqo right and mild left neuroforaminal narrowing at L3-L4 and L4-L5. 9 Finalized by Forest Alcaraz on 12/06/2023 4:55 PM Normal [facility] Ambulatory Visit Summaryon 0 12-02-2023 Ambulatory Visit Summary NIXON JENSEN :1965 Visit Date:12/02/2023 Ambulatory Visit Instructions Your Diagnosis [...] GRIFFITH MD Where: General Surgery Isaías/[facility]ato [facility] General Surgery Office/Clini c Noteon 12-02-2023 [...] 53 SARS-CoV-2 (COVID-19) mRNA-1273 vaccine 11/08/2020 Recorded [facility] Comment on above: Result Comment: Elec tronically Signed By: ISAÍAS REAVES, Enrike Bhagat\.br\Date and Time Signed: 12/02/23 13:56 EDT Operative Reporton Operative Report [id number] 95#1.00TIFF [facility] ECG 12-Leadon 11-19-2023 ECG 12-Lead [id number] 70#1.00TIFF [facility] Insurance Correspondenceon 0 11-02-2023 Insurance Correspondence [id number] 140#1.00TIFF [facility] Formson 10-20-2023 Forms [id number] 82#1.00TIFF [facility] Ambulatory Visit Summaryon 0 10-13-2023 Ambulatory Visit Summary NIXON JENSEN Durga :1965 Visit Date:10/13/2023 Ambulatory Visit Instructions Your [...] for choosing us for your care. Normal [facility] Consent for Procedure/Surger yon 10-13-2023 Consent for Procedure/Surgery [id number] 34#1.00TIFF Normal [facility] XR SPINE LUMBAR MIN 4 VWSon [...] Rio MD on 10/01/2023 8:45 AM Normal [facility] Physician Referralon 024 Physician Referral [id number] A5#1.00TIFF Normal [facility] Physician Referral [id number] E3#1.00TIFF Normal [facility] Covid-19 PCR (CVDTB)on 03-24 SARS-CoV-2 (COVID-19) RNA LEONID+probe Ql (Unsp spec) Detected Critically abnormal NOT DETECTED [facility] Comment on above: Result Comment: This test is not yet approved or cleared by the [place] FDA. When there are no FDA-approved or cleared tests available, and other criteria are met, FDA can make tests available under an emergency access mechanism called an Emergency Use Authorization (EUA). The EUA for this test is supported by the [place] of Health and Human Service's (HHS's) declaration [...] used). Performed By: #### C VDTBH #### [facility] [address] [place] [address] Dr. Ting Felix CBC AUTO DIFFon 03-14-2022 BASO # 0.1 103/ul Normal 0.0-0.1 [facility] Comment on above: Performed By: #### C BC #### [facility] [address] [place] [address] Dr. Ting Felix Basophils/100 WBC (Bld) 1.2 % Normal 0.2-2.0 [facility] Comment on above: Performed By: #### C BC #### [facility] [address] [place] [address] Dr. Ting Felix EO # 0.2 103/ul Normal 0.0-0.7 [facility] Comment on above: Performed By: #### C BC #### [facility] [address] [place] [address] Dr. Ting Felix Eosinophils/100 WBC (Bld) 2.9 % Normal 0.9-7.0 [facility] Comment on above: Performed By: #### C BC #### [facility] [address] [place] [address] Dr. Ting Felix Erythrocyte distribution width (RBC) [Ratio] 12.5 % Normal 11.0-15.0 [facility] Comment on above: Performed By: #### C BC #### [facility] [address] [place] [address] Dr. Ting Felix Hematocrit (Bld) [Volume fraction] 44.1 % Normal 42.0-54.0 [facility] Comment on above: Performed By: #### C BC #### [facility] [address] [place] [address] Dr. Ting Felix Hemoglobin (Bld) [Mass/Vol] 15.4 g/dL Normal 14.0-18.0 [facility] Comment on above: Performed By: #### C BC #### [facility] [address] [place] [address] Dr. Ting Felix IG # 0.02 10e3/ul Normal 0.00-0.03 [facility] Comment on above: Performed By: #### C BC #### [facility] [address] [place] [address] Dr. Ting Felix IG % 0.3 % Normal 0.0-0.5 [facility] Comment on above: Performed By: #### C BC #### [facility] [address] [place] [address] Dr. Ting Felix LYMPH # 1.7 103/ul Normal 1.2-3.8 [facility] Comment on above: Performed By: #### C BC #### [facility] [address] [place] [address] Dr. Ting Felix Lymphocytes/100 WBC (Bld) 28.9 % Normal 20.5-60.0 [facility] Comment on above: Performed By: #### C BC #### [facility] [address] [place] [address] Dr. Ting Felix MANUAL DIFF REQ NO Normal [facility] Comment on above: Performed By: #### C BC #### [facility] [address] [place] [address] Dr. Ting Felix MCH (RBC) [Entitic mass] 30.7 pg Normal 25.9-34.0 [facility] Comment on above: Performed By: #### C BC #### [facility] [address] [place] [address] Dr. Ting Felix MCHC (RBC) [Mass/Vol] 34.9 g/dL Normal 29.9-35.2 [facility] Comment on above: Performed By: #### C BC #### [facility] [address] [place] [address] Dr. Ting Felix MCV (RBC) [Entitic vol] 87.8 fL Normal 80.0-94.0 [facility] Comment on above: Performed By: #### C BC #### [facility] [address] [place] [address] Dr. Ting Felix MONO # 0.5 103/ul Normal 0.3-0.8 [facility] Comment on above: Performed By: #### C BC #### [facility] [address] [place] [address] Dr. Ting Felix Monocytes/100 WBC (Bld) 9.2 % Normal 1.7-12.0 [facility] Comment on above: Performed By: #### C BC #### [facility] [address] [place] [address] Dr. Ting Felix NEUT # 3.4 103/ul Normal 1.4-6.5 [facility] Comment on above: Performed By: #### C BC #### [facility] [address] [place] [address] Dr. Ting Felix Neutrophils/100 WBC (Bld) 57.5 % Normal 43.0-75.0 [facility] Comment on above: Performed By: #### C BC #### [facility] [address] [address] [address] Ting Felix Platelet mean volume (Bld) [Entitic vol] 10.3 fL Normal 9.5-13.5 [facility] Comment on above: Performed By: #### C BC #### [facility] [address] [address] [address] Ting Felix PLT 237 103/ul Normal 150-450 [facility] Comment on above: Performed By: #### C BC #### [facility] [address] [address] [address] Ting Felix RBC 5.02 106/ul Normal 4.70-6.10 [facility] Comment on above: Performed By: #### C BC #### [facility] [address] [place] [address] Dr. Ting Felix WBC 5.9 103/ul Normal 4.0-11.0 [facility] Comment on above: Performed By: #### C BC #### [facility] [address] [place] [address] Dr. Ting Felix FREE T3on 03-14-2022 FREE T3 2.85 pg/mlL Normal 2.18-3.98 [facility] Comment on above: Performed By: #### T SH, FT3, T4, LIPID, CMP #### [facility] [address] [place] [address] Dr. Ting Felix GLYCOHEMOGLOBIN A1Con 2021 ADA RECOMMENDATION SEE BELOW Normal [facility] Comment on above: Result Comment: ADA RECOMMENDED LIMIT 4.0 - 6.0 ADA THERAPEUTIC TARGET < 7.0 ACTION SUGGESTED > 7.0 Performed By: #### A 1C #### [facility] [address] [place] [address] Dr. Ting Felix Glucose [Mass/Vol] 148 mg/dL Normal [facility] Comment on above: Performed By: #### A 1C #### [facility] [address] [place] [address] Dr. Ting Felix HbA1c (Bld) [Mass fraction] 6.8 % Critically high 4.5-6.2 [facility] Comment on above: Performed By: #### A 1C #### [facility] [address] [address] [address] Ting Felix LIPID PROFILEon 03-14-2022 CHOL-HDL RATIO NORM SEE BELOW Normal [facility] Comment on above: Result Comment: 3.3 - 4.4 LOW RISK 4.4 - 7.1 AVERAGE RISK 7.1 - 11.0 MODERATE RISK >11.0 HIGH RISK Performed By: #### T SH, FT3, T4, LIPID, CMP #### [facility] [address] [address] [address] Ting Felix Cholesterol [Mass/Vol] 189 mg/dL Normal <=200 [facility] Comment on above: Performed By: #### T SH, FT3, T4, LIPID, CMP #### [facility] [address] [address] [address] Ting Felix Cholesterol in HDL [Mass/Vol] 27 mg/dL Critically low 40-60 [facility] Comment on above: Performed By: #### T SH, FT3, T4, LIPID, CMP #### [facility] [address] [address] [address] Ting Felix Cholesterol in LDL [Mass/Vol] 90.8 mg/dL Normal [facility] Comment on above: Performed By: #### T SH, FT3, T4, LIPID, CMP #### [facility] [address] [address] [address] Ting Felix Cholesterol.total/Cho lesterol in HDL [Mass ratio] 7.0 {ratio} Normal [facility] Comment on above: Performed By: #### T SH, FT3, T4, LIPID, CMP #### [facility] [address] [address] [address] iTng Felix HDL NORMAL > or = 60 mg/dl - LOW CARDIOVASCULAR RISK <40 mg/dl - HIGH CARDIOVASCULAR RISK Normal [facility] Comment on above: Performed By: #### T SH, FT3, T4, LIPID, CMP #### [facility] [address] [place] [address] Dr. Ting Felix LDL CALC NORMAL SEE BELOW Normal [facility] Comment on above: Result Comment: <100 mg/dl OPTIMAL 100 - 129 mg/dl NEAR OR ABOVE OPTIMAL 130 - 159 mg/dl BORDERLINE HIGH 160 - 189 mg/dl HIGH >190 mg/dl VERY HIGH Performed By: #### T SH, FT3, T4, LIPID, CMP #### [facility] [address] [address] [address] Ting Felix Triglyceride [Mass/Vol] 356 mg/dL Critically high <=150 [facility] Comment on above: Performed By: #### T SH, FT3, T4, LIPID, CMP #### [facility] [address] [address] [address] Ting Felix VLDL CALC 71.2 mg/dL Normal [facility] Comment on above: Performed By: #### T SH, FT3, T4, LIPID, CMP #### [facility] [address] [place] [address] Dr. Ting Felix PROF 14(COMP METB)on 022 Albumin [Mass/Vol] 3.8 g/dL Normal 3.4-5.0 [facility] Comment on above: Performed By: #### T SH, FT3, T4, LIPID, CMP #### [facility] [address] [address] [address] Ting Felix Albumin/Globulin [Mass ratio] 1.1 {ratio} Normal [facility] Comment on above: Performed By: #### T SH, FT3, T4, LIPID, CMP #### [facility] [address] [address] [address] Ting Felix ALP [Catalytic activity/Vol] 73 U/L Normal 46-116 [facility] Comment on above: Performed By: #### T SH, FT3, T4, LIPID, CMP #### [facility] [address] [address] [address] Ting Felix ALT [Catalytic activity/Vol] 48 U/L Normal 16-63 [facility] Comment on above: Performed By: #### T SH, FT3, T4, LIPID, CMP #### [facility] [address] [place], [place] [id number] Dr. Ting Felix Anion gap [Moles/Vol] 10.8 mmol/L Normal [facility] Comment on above: Performed By: #### T SH, FT3, T4, LIPID, CMP #### [facility] [address] [place] [address] Dr. Ting Felix AST [Catalytic activity/Vol] 18 U/L Normal 15-37 [facility] Comment on above: Performed By: #### T SH, FT3, T4, LIPID, CMP #### [facility] [address] [place] [address] Dr. Ting Felix Bilirubin [Mass/Vol] 0.5 mg/dL Normal 0.2-1.0 [facility] Comment on above: Performed By: #### T SH, FT3, T4, LIPID, CMP #### [facility] [address] [place] [address] Dr. Ting Felix Calcium [Mass/Vol] 8.7 mg/dL Normal 8.5-10.1 [facility] Comment on above: Performed By: #### T SH, FT3, T4, LIPID, CMP #### [facility] [address] [place] [address] Dr. Ting Felix Chloride [Moles/Vol] 105 mmol/L Normal 98-107 [facility] Comment on above: Performed By: #### T SH, FT3, T4, LIPID, CMP #### [facility] [address] [place] [address] Dr. Ting Felix CO2 [Moles/Vol] 30.6 mmol/L Normal 21.0-32.0 [facility] Comment on above: Performed By: #### T SH, FT3, T4, LIPID, CMP #### [facility] [address] [place] [address] Dr. Ting Felix Creatinine [Mass/Vol] 1.15 mg/dL Normal 0.70-1.30 [facility] Comment on above: Performed By: #### T SH, FT3, T4, LIPID, CMP #### [facility] [address] [place] [address] Dr. Ting Felix EGFR-AF MOZAMBICAN >60 Normal >=60 [facility] Comment on above: Performed By: #### T SH, FT3, T4, LIPID, CMP #### [facility] [address] [place] [address] Dr. Ting Felix EGFR-NON AF MOZAMBICAN >60 Normal >=60 [facility] Comment on above: Performed By: #### T SH, FT3, T4, LIPID, CMP #### [facility] [address] [address] [address] Ting Felix Globulin (S) [Mass/Vol] 3.5 g/dL Normal [facility] Comment on above: Performed By: #### T SH, FT3, T4, LIPID, CMP #### [facility] [address] [place] [address] Dr. Ting Felix Glucose [Mass/Vol] 171 mg/dL Critically high 74-106 [facility] Comment on above: Performed By: #### T SH, FT3, T4, LIPID, CMP #### [facility] [address] [place] [address] Dr. Ting Felix Potassium [Moles/Vol] 4.4 mmol/L Normal 3.5-5.1 [facility] Comment on above: Performed By: #### T SH, FT3, T4, LIPID, CMP #### [facility] [address] [place] [address] Dr. Ting Felix Protein [Mass/Vol] 7.3 g/dL Normal 6.4-8.2 [facility] Comment on above: Performed By: #### T SH, FT3, T4, LIPID, CMP #### [facility] [address] [place] [address] Dr. Ting Felix Sodium [Moles/Vol] 142 mmol/L Normal 136-145 [facility] Comment on above: Performed By: #### T SH, FT3, T4, LIPID, CMP #### [facility] [address] [place] [address] Dr. Ting Felix Urea nitrogen [Mass/Vol] 19.0 mg/dL Critically high 7.0-18.0 [facility] Comment on above: Performed By: #### T SH, FT3, T4, LIPID, CMP #### [facility] [address] [address] [address] Ting Felix Urea nitrogen/Creatinine [Mass ratio] 16.5 mg/mg Normal [facility] Comment on above: Performed By: #### T SH, FT3, T4, LIPID, CMP #### [facility] [address] [address] [address] Ting Felix T4on 03-14-2022 T4 [Mass/Vol] 8.40 ug/dL Normal 4.50-12.10 [facility] Comment on above: Performed By: #### T SH, FT3, T4, LIPID, CMP #### [facility] [address] [place] [address] Dr. Ting Felix TSHon 03-14-2022 TSH 0.090 uIU/mL Critically low 0.358-3.[address] [facility] Comment on above: Performed By: #### T SH, FT3, T4, LIPID, CMP #### [facility] [address] [address] [address] Ting Felix Vital Signs Date Time Vital Sign Value Performing Clinician Mariela rg 10-13-2023 09:26-0500 Blood Pressure Location Enrike GRIFFITH [facility] 10-13-2023 09:26-0500 Diastolic blood pressure 86 mm[Hg] Enrike GILESL [facility] [place] 10-13-2023 09:26-0500 Heart rate 63 /min Enrike GILESL [facility] 10-13-2023 09:26-0500 Respiratory rate 16 /min Enrike GILESL [facility] 10-13-2023 09:26-0500 Systolic blood pressure 135 mm[Hg] [facility] En[facility] Date Encounter Type Care Provider Facility Start: 03-25-2024 ambulatory [facility] Start: 03-02-2024 End: 03-02-2024 ambulatory [facility] Start: 02-19-2024 End: 02-19-2024 ambulatory [facility] Start: 02-17-2024 End: 02-17-2024 ambulatory [facility] Start: 02-12-2024 End: 02-12-2024 ambulatory [facility] Start: 02-10-2024 End: 02-10-2024 ambulatory [facility] Start: 02-03-2024 End: 02-03-2024 ambulatory [facility] Start: 01-29-2024 End: 01-29-2024 ambulatory [facility] Start: 12-16-2023 End: 12-17-2023 ambulatory Enrike R NILL Facility:[facility] Start: 12-16-2023 End: 12-16-2023 Patient encounter procedure Enrike R NILL [facility] [place] Start: 12-05-2023 End: 12-06-2023 ambulatory [facility] Start: 12-02-2023 End: 12-03-2023 ambulatory Enrike R NILL Facility:[facility] Start: 12-02-2023 End: 12-02-2023 Patient encounter procedure Enrike R NILL [facility] [place] Start: 11-30-2023 ambulatory Enrike NILL Facility:[facility] Start: 11-25-2023 End: 11-26-2023 ambulatory Enrike R NILL [facility] Start: 10-13-2023 End: 10-14-2023 ambulatory Enrike R NILL Facility:[facility] Start: 10-13-2023 End: 10-13-2023 Patient encounter procedure Enrike Bhagat ISAÍAS [facility] Start: 09-29-2023 End: 09-30-2023 ambulatory KENNY LACEY [facility] Start: 09-24-2023 ambulatory Enrike GRIFFITH Facility:[facility] Start: 04-11-2022 End: 04-11-[address] KENNY LACEY Facility: Start: 03-25-2022 End: 03-26-[address] KENNY LACEY Facility:[facility] Start: 03-18-2022 Encounter for genera l adult medical examination without abnormal findings DR KENNY LACEY [facility] Start: 03-14-2022 End: 03-15-[address] KENNY LACEY Facility:[facility] Start: 03-14-2022 End: 03-15-2022 Encounter for general adult medical examination without abnormal findings DR KENNY LACEY Facility:[facility] Procedures Date Procedure Procedure Detail Performing Clinician Start: 11-25-2023 Repair of umbilical hernia Enrike GRIFFITH Start: 03-14-[address] CLAY LACEY Comment on above: Performed By: #### P [facility] #### [facility] [address] [place] [address] Dr. Ting Felix Excision of cervical intervertebral disc Enrike GRIFFITH Immunizations Immunization Date Immunization Notes Care Provider [facility] 05-12-2023 influenza virus vaccine, unspecified formulation Enrike GRIFFITH [facility] 07-10-2021 SARS-CoV-2 (COVID-19 ) mRNA BNT-162b2 vax Enrike GILESL [facility] 12-06-2020 SARS-CoV-2 (COVID-19 ) mRNA-1273 vaccine Enrike GILESL [facility] Comment on above: Result Comment: 202307: 55 11-08-2020 SARS-CoV-2 (COVID-19 ) [id number] vaccine Enrike GILESMelanie [facility] [place] Payers Date Payer Category Payer Unknown [id number] 2.16.84 [id number] 1965 Unknown [id number] 2.16.84 [id number] 1965 Unknown [id number] 2.16.84 [id number] 1967 Unknown [id number] 2.16.8 40.1.120175.3.579.2.1286 1967 Unknown [id number] 2.16.8 40.1.703045.3.579.2.1286 1967 Unknown [id number] 2.16.8 40.1.045191.3.579.2.727 1967 Unknown [id number] 2.16.8 40.1.200708.3.579.2.727 1967 Unknown [id number] 2.16.8 40.1.770045.3.579.2.727 1967 Unknown [id number] 2.16.8 40.1.023942.3.579.2.727 1967 Unknown [id number] 2.16.8 40.1.100795.3.579.2.176 1967 Unknown [id number] 2.16.8 40.1.782285.3.579.2.176 1967 Unknown [id number] 2.16.8 40.1.373803.3.579.2.176 1967 Unknown [id number] 2.16.8 40.1.554248.3.579.2.176 1967 Unknown [id number] 2.16.8 40.1.441050.3.579.2.176 1967 Unknown [id number] 2.16.8 40.1.949209.3.579.2.176 1967 Unknown [id number] 2.16.8 [id number] 1965 Unknown [id number] 1957 Unknown [id number] Social History Date Type Detail Facility Start: 10-13-2023 Tobacco smoking status Never s moked tobacco (finding) [facility] [place] Tobacco smoking status Smokeless tobacco user within last 30 days [facility] Sex Assigned At Male [facility] Functional Status Date Assessment Result Facility 10-13-2023 Functional Status N/A [facility] [place] Clinical Note 10-13-2023 Note Date & Type [...] 55 SARS-CoV-2 (COVID-19) mRNA-1273 vaccine 11/08/2020 Recorded [facility] Comment on above: Result Comment: Elec tronically Signed By: Enrike GRIFFITH MD\.br\Date and Time Signed: 10/13/23 10:51 EST Evaluation + Plan note Note Date & Type Note Facility Evaluation + Plan note No data available for this section [facility] [place] Evaluation + Plan note Note Date & Type Note Facility Evaluation + Plan note Future Appointments Appointment Date:12/16/2023 02:40:00 PM Scheduled Provider:Enrike GRIFFITH MD Location:[facility] Appointment Type:GS Post Op 15 General Surgery [facility] Discharge instructions Note Date & Type Note Facility Hospital Discharge instructions No data available for this section [facility] [place] Progress note Note Date & Type Note Facility Progress note No data available for this section [facility] [place] Summary Purpose Family History No Family History Records Found No data available for this section No data available for this section No Family History Records Found No data available for this section No Family History Records FoundNo Family History Records Found Advance Directives No Advanced Directives Records FoundNo Advanced Directives Records FoundNo Advanced Directives Records FoundNo Advanced Directives Records Found Additional Source Comments (unrecognized sect ion and content) No Status Records FoundNo Status Records FoundNo Status Records FoundNo Status Records Found INFORMATION SOURCE (unrecogn ized section and content) DATE CREATED AUTHOR 04/17/2022 [facility] DATE CREATED AUTHOR AUTHOR'S ORGANIZ ATION 12/06/2023 [facility] DATE CREATED AUTHOR AUTHOR'S ORGANIZ ATION 12/18/2023 [facility] DATE CREATED AUTHOR AUTHOR'S ORGANIZ ATION 03/15/2024 [facility] Patient Care team informatio n (unrecognized section and content) Personnel Name: Kenny Lacey MD Address: Address: [address] [place] [address] Personnel Name: Kenny Lacey MD Address: Address: [address] [place] [address] Personnel Name: Kenny Lacey MD Address: Address: [address] [place] [address] FOR RECORDS PERTAINING TO PATIENTS WHO ARE [...] BE BASED ON THE PRIMARY CLINICAL RECORDS. [facility], [facility]. provides no warranty or guarantee of the accuracy or completeness of information in this document.
[2024-05-13 08:03] LABS: Free T3 2.02 pg/mL (2.18-3.98); Thyroid Stimulating Hormone 0.119 uIU/mL (0.358-3.740)
[2024-05-13 10:18] LABS: Estimated Average Glucose 128 mg/dL; Glycohemoglobin A1C 6.1 % (4.5-6.2)
== END 2024-05-13 06:55 | disposition home or self-care (01) ==
LOC: LAB 06:54
PROVIDERS: PCP Family Medicine; Visit Provider Family Medicine
DX: E03.9 Hypothyroidism, unspecified (principal); E11.9 Type 2 diabetes mellitus without complications
CPT/HCPCS: 36415; 83036; 84436; 84443; 84481

== ENCOUNTER 2024-12-09 06:42 | Outpatient (OUT) | payer BC, SELFPAY ==
--- OUTSIDE RECORDS SUMMARY | 2024-12-09 06:46 | XMS_ITS | CCD ---
Author Organization [facility] CliniSyct Care Team Providers Care Perishable Fruit Inspector Name Role Phone DR KENNY LACEY Primary Care Unavailable HOY, DR COX Admitting Unavailable HOY, DR COX Attending Unavailable HOY, DR COX Attending Unavailable HOY, DR COX Consulting Unavailable KADENY, DR COX Primary Care Unavailable HOY, DR COX Admitting Unavailable HOY, DR COX Consulting Unavailable KADENY, DR COX Primary Care Unavailable HOY, DR COX Admitting Unavailable KADENY, DR COX Attending Unavailable Kenny Lacey Primary Care Physician ADEEL LACEYLAS Trish Referring Unavailable HOY, KENNY M Referring Unavailable [...] Unavailable HOY, KENNY M Primary Care Unavailable Kenny Lacey MD Primary Care Provider Allergies Allergy Classification Reported Allergen(s) Allergy Type Date of Onset Reaction(s) Facility (1 source) No Known Medication Allergies; Translations: [No Known Medication Allergies] Propensity to adverse reactions (disorder) [facility] Repository Medications Current Medications Medication Drug Class(es) Dates Sig (Normalized) Sig (Original) diclofenac sodium 75 mg delayed release oral tablet (4 sources) Nonsteroidal Anti-inflammatory Drug Start: 09-30-2023 take 1 tablet by mouth once daily diclofenac (VOLTAREN) 75 MG EC tablet Take 1 tablet by mouth daily 0 09/30/2023 Active Start: 09-30-2023 diclofenac sod ium 75 mg Oral EC Tab 75 mg = 1 tab(s), Oral, BID, 0 Refill(s), Refills(s) 0 Start Date: 09/30/23 Status: Ordered liothyronine sodium 0.005 mg oral tablet (4 sources) l-Triiodothyronine Start: 09-23-2023 take 1 tablet by mouth once daily liothyronine 5 mcg Tab 5 mcg = 1 tab(s), Oral, Daily, Refills(s) 0 Start Date: 09/23/23 Status: Ordered Start: 09-23-2023 take 1 tablet by andrew th once daily liothyronine (CYTOMEL) 5 MCG tablet Take 1 tablet by mouth daily 0 09/23/2023 Active simvastatin 20 mg oral tablet (4 sources) HMG-CoA Reductase Inhibitor Start: 09-23-2023 take 1 tablet by mouth once daily in the evening simvastatin 20 mg Tab 20 mg = 1 tab(s), Oral, qPM, Refills(s) 0 Start Date: 09/23/23 Status: Ordered Completed/Discontinued Medications Medication Drug Class(es) Dates Sig (Normalized) Sig (Original) levothyroxine sodium 0.175 mg oral tablet (4 sources) l-Thyroxine Start: 09-30-2023 Synthroid 175 mcg (0.175 mg) Tab 175 mcg = 1 tab(s), Oral, Daily, 0 Refill(s), Refills(s) 0 Start Date: 09/30/23 Status: Ordered Start: 04-04-2020 SYNTHROID 175 MCG tablet Problems Active Problems Problem Classification Problem Date Documented Da te Episodic/Chronic Diabetes mellitus without complication (6 sources) Type 2 diabetes mellitus without complications; Translations: [Type 2 diabetes mellitus] Onset: 2 Chronic Disorders of lipid metabolism (4 sources) Hypercholesterolemia; Translations: [Pure hypercholesterolemia, unspecified] Onset: 4 09-30-2023 Chronic Esophageal disorders (4 sources) Gastroesophageal reflux disease; Translations: [Gastro-esophageal reflux disease without esophagitis] Onset: 4 09-30-2023 Chronic Other gastrointestinal disorders (4 sources) Irritable bowel syndrome; Translations: [Irritable bowel syndrome without diarrhea] Onset: 4 09-30-2023 Chronic Other nutritional; endocrine; and metabolic disorders (2 sources) Obese class I; Translations: [Body mass index (BMI) 32.0-32.9, adult] Onset: 4 Chronic Other nutritional; endocrine; and metabolic disorders (3 sources) Body mass index 30+ - obesity 10-13-2023 Chronic Other nutritional; endocrine; and metabolic disorders (3 sources) Obesity 10-13-2023 Chronic Spondylosis; intervertebral disc disorders; other back problems (4 sources) Cervical disc disorder; Translations: [Cervical disc disorder, unspecified, unspecified cervical region] Onset: 4 09-30-2023 Chronic Thyroid disorders (4 sources) Hypothyroidism; Translations: [Hypothyroidism, unspecified] Onset: 4 09-30-2023 Chronic Unclassified (2 sources) CONTACT W/AND (SUSP) EXPOS COVID-19; Translations: [CONTACT W/AND (SUSP) EXPOS COVID-19] Onset: 2 Unclassified (2 sources) Low back pain, unspecified; Translations: [Low back pain, unspecified] Onset: 4 Viral infection (1 source) COVID-19; Translations: [COVID-19] Onset: 2 Past or Other Problems Problem Classification Problem Date Documented Date Episodic/Chronic Abdominal hernia (7 sources) Obstructed umbilical hernia; Translations: [Umbilical hernia with obstruction, without gangrene] Onset: 10-13-2023 Episodic Diabetes mellitus without complication (1 source) Prediabetes; Translations: [Prediabetes] Onset: 01-22-2024 01-22-2024 Episodic Immunizations and screening for infectious disease (1 source) Contact with or exposure to other viral diseases; Translations: [Contact with and (suspected) exposure to covid-19] Onset: 04-11-2022 01-22-2024 Episodic Other screening for suspected conditions (not mental disorders or infectious disease) (2 sources) Encounter for screening for malignant neoplasm of prostate; Translations: [Patient encounter status] Onset: 03-18-2022 01-22-2024 Episodic Residual codes; unclassified (1 source) H/O Spinal surgery; Translations: [Other specified postprocedural states] Onset: 01-22-2024 01-22-2024 Episodic Spondylosis; intervertebral disc disorders; other back problems (4 sources) Lumbago with sciatica, right side; Translations: [Lumbago with sciatica, left side] Onset: 09-29-2023 01-22-2024 Episodic Unclassified (1 source) CONTACT W/AND (SUSP) EXPOS COVID-19; Translations: [CONTACT W/AND (SUSP) EXPOS COVID-19] Onset: 04-11-2022 Unclassified (1 source) Low back pain, unspecified; Translations: [Low back pain, unspecified] Onset: 02-12-2024 Viral infection (1 source) Disease caused by 2019-nCoV; Translations: [COVID-19] Onset: 04-14-2022 01-22-2024 Episodic Results Test Name Value Interpretation Reference Range [...] SARS-CoV-2 (COVID-19) mRNA-1273 vaccine 11/08/2020 Recorded Normal [facility] Comment on above: Result Comment: Elec tronically Signed By: ISAÍAS REAVES, Enrike Castillo\Date and Time Signed: 12/16/23 14:44 EDT Formson 12-15-2023 Forms [id number] D3#1.00TIFF Normal [facility] MR LUMBAR SPINE WO CONTon MR [...] and mild bilateral facet arthropathy results in jifj-mx-dlrfeicu right and mild left neuroforaminal narrowing. No significant spinal canal narrowing. L4-L5: Mild diffuse disc bulge and moderate bilateral facet arthropathy with jzoi-zh-dryfdblh right and mild left neuroforaminal narrowing. No significant spinal canal narrowing. L5-S1: Mild diffuse disc bulge, mild facet arthropathy results in mild bilateral neuroforaminal narrowing. No significant spinal canal narrowing. IMPRESSION: * Multilevel degenerative spondylosis most prominent at L3-L4, L4-L5 and L5-S1, with multilevel facet arthropathy. * Ihre-ka-ztwlpkra right and mild left neuroforaminal narrowing at L3-L4 and L4-L5. 9 Finalized by Forest Alcaraz on 12/06/2023 4:55 PM Normal [facility] Ambulatory Visit Summaryon 0 12-02-2023 Ambulatory Visit [...] GRIFFITH MD Where: General Surgery Isaías/[facility] General Surgery Office/Clini c Noteon 12-02-2023 [...] SARS-CoV-2 (COVID-19) mRNA-1273 vaccine 11/08/2020 Recorded [facility] Comment on above: Result Comment: Elec tronically Signed By: ISAÍAS REAVES, Enrike Bhagat\.br\Date and Time Signed: 12/02/23 13:56 EDT Operative Reporton Operative Report [id number] 95#1.00TIFF Normal [facility] ECG 12-Leadon 11-19-2023 ECG 12-Lead [id number] 70#1.00TIFF [facility] Insurance Correspondenceon 0 11-02-2023 Insurance Correspondence [id number] 140#1.00TIFF [facility] Formson 10-20-2023 Forms [id number] 82#1.00TIFF [facility] Ambulatory Visit Summaryon 0 10-13-2023 Ambulatory Visit Summary NIXON JENSEN :1965 Visit Date:10/13/2023 Ambulatory Visit Instructions Your Care Team Attending Physician - Enrike [...] for choosing us for your care. Normal [facility] Consent for Procedure/Surger yon 10-13-2023 Consent for Procedure/Surgery [id number] 34#1.00TIFF Normal [facility] XR SPINE LUMBAR MIN 4 VWSon [...] Rio MD on 10/01/2023 8:45 AM Normal [facility] Physician Referralon 024 Physician Referral [id number] A5#1.00TIFF Normal [facility] Physician Referral [id number] E3#1.00TIFF Normal [facility] Covid-19 PCR (CVDTBH)on 03-24 SARS-CoV-2 (COVID-19) RNA LEONID+probe Ql (Unsp spec) Detected Critically abnormal NOT DETECTED [facility] Comment on above: Result Comment: This test is not yet approved or cleared by the [place] FDA. When there are no FDA-approved or cleared tests available, and other criteria are met, FDA can make tests available under an emergency access mechanism called an Emergency Use Authorization (EUA). The EUA for this test is supported by the [place] of Health and Human Service's (HHS's) declaration [...] used). Performed By: #### C VDTB #### [facility] [address] [place] [address] Dr. Ting Felix CBC AUTO DIFFon 03-14-2022 BASO # 0.1 103/ul Normal 0.0-0.1 [facility] Comment on above: Performed By: #### C BC #### [facility] [address] [place] [address] Dr. Ting Felix Basophils/100 WBC (Bld) 1.2 % Normal 0.2-2.0 [facility] Comment on above: Performed By: #### C BC #### [facility] [address] [place] [address] Dr. Ting Felix EO # 0.2 103/ul Normal 0.0-0.7 [facility] Comment on above: Performed By: #### C BC #### [facility] [address] [place] [address] Dr. Ting Felix Eosinophils/100 WBC (Bld) 2.9 % Normal 0.9-7.[address] [facility] Comment on above: Performed By: #### C BC #### [facility] [address] [place] [address] Dr. Ting Felix Erythrocyte distribution width (RBC) [Ratio] 12.5 % Normal 11.0-15.[address] [facility] Comment on above: Performed By: #### C BC #### [facility] [address] [place] [address] Dr. Ting Felix Hematocrit (Bld) [Volume fraction] 44.1 % Normal 42.0-54.[address] [facility] Comment on above: Performed By: #### C BC #### [facility] [address] [place] [address] Dr. Ting Felix Hemoglobin (Bld) [Mass/Vol] 15.4 g/dL Normal 14.0-18.[address] [facility] Comment on above: Performed By: #### C BC #### [facility] [address] [place] [address] Dr. Ting Felix IG # 0.02 10e3/ul Normal 0.00-0.[address] [facility] Comment on above: Performed By: #### C BC #### [facility] [address] [place] [address] Dr. Ting Felix IG % 0.3 % Normal 0.0-0.[address] [facility] Comment on above: Performed By: #### C BC #### [facility] [address] [place] [address] Dr. Ting Felix LYMPH # 1.7 103/ul Normal 1.2-3.[address] [facility] Comment on above: Performed By: #### C BC #### [facility] [address] [place] [address] Dr. Ting Felix Lymphocytes/100 WBC (Bld) 28.9 % Normal 20.5-60.[address] [facility] Comment on above: Performed By: #### C BC #### [facility] [address] [place] [address] Dr. Ting Felix MANUAL DIFF REQ NO Normal [facility] Comment on above: Performed By: #### C BC #### [facility] [address] [place] [address] Dr. Ting Felix MCH (RBC) [Entitic mass] 30.7 pg Normal 25.9-34.[address] [facility] Comment on above: Performed By: #### C BC #### [facility] [address] [address] [address] Ting Felix MCHC (RBC) [Mass/Vol] 34.9 g/dL Normal 29.9-35.[address] [facility] Comment on above: Performed By: #### C BC #### [facility] [address] [address] [address] Ting Felix MCV (RBC) [Entitic vol] 87.8 fL Normal 80.0-94.[address] [facility] Comment on above: Performed By: #### C BC #### [facility] [address] [place] [address] Dr. Ting Felix MONO # 0.5 103/ul Normal 0.3-0.[address] [facility] Comment on above: Performed By: #### C BC #### [facility] [address] [place] [address] Dr. Ting Felix Monocytes/100 WBC (Bld) 9.2 % Normal 1.7-12.[address] [facility] Comment on above: Performed By: #### C BC #### [facility] [address] [place] [address] Dr. Ting Felix NEUT # 3.4 103/ul Normal 1.4-6.[address] [facility] Comment on above: Performed By: #### C BC #### [facility] [address] [place] [address] Dr. Ting Felix Neutrophils/100 WBC (Bld) 57.5 % Normal 43.0-75.0 [facility] Comment on above: Performed By: #### C BC #### [facility] [address] [address] [address] Ting Felix Platelet mean volume (Bld) [Entitic vol] 10.3 fL Normal 9.5-13.[address] [facility] Comment on above: Performed By: #### C BC #### [facility] [address] [place] [address] Dr. Ting Felix PLT 237 103/ul Normal 150-450 [facility] Comment on above: Performed By: #### C BC #### [facility] [address] [place] [address] Dr. Ting Felix RBC 5.02 106/ul Normal 4.70-6.[address] [facility] Comment on above: Performed By: #### C BC #### [facility] [address] [place] [address] Dr. Ting Felix WBC 5.9 103/ul Normal 4.0-11.[address] [facility] Comment on above: Performed By: #### C BC #### [facility] [address] [place] [address] Dr. Ting Felix FREE T3on 03-14-2022 FREE T3 2.85 pg/mlL Normal 2.18-3.[address] [facility] Comment on above: Performed By: #### T SH, FT3, T4, LIPID, CMP #### [facility] [address] [place] [address] Dr. Ting Felix GLYCOHEMOGLOBIN A1Con 2021 ADA RECOMMENDATION SEE BELOW Normal [facility] Comment on above: Result Comment: ADA RECOMMENDED LIMIT 4.0 - 6.0 ADA THERAPEUTIC TARGET < 7.0 ACTION SUGGESTED > 7.0 Performed By: #### A 1C #### [facility] [address] [place] [address] Dr. Ting Felix Glucose [Mass/Vol] 148 mg/dL Normal [facility] Comment on above: Performed By: #### A 1C #### [facility] [address] [place] [address] Dr. Ting Felix HbA1c (Bld) [Mass fraction] 6.8 % Critically high 4.5-6.[address] [facility] Comment on above: Performed By: #### A 1C #### [facility] [address] [place] [address] Dr. Ting Felix LIPID PROFILEon 03-14-2022 CHOL-HDL RATIO NORM SEE BELOW Normal [facility] Comment on above: Result Comment: 3.3 - 4.4 LOW RISK 4.4 - 7.1 AVERAGE RISK 7.1 - 11.0 MODERATE RISK >11.0 HIGH RISK Performed By: #### T SH, FT3, T4, LIPID, CMP #### [facility] [address] [address] [address] Ting Felix Cholesterol [Mass/Vol] 189 mg/dL Normal <=[address] [facility] Comment on above: Performed By: #### T SH, FT3, T4, LIPID, CMP #### [facility] [address] [address] [address] Ting Felix Cholesterol in HDL [Mass/Vol] 27 mg/dL Critically low 40-[address] [facility] Comment on above: Performed By: #### T SH, FT3, T4, LIPID, CMP #### [facility] [address] [address] [address] Ting Felix Cholesterol in LDL [Mass/Vol] 90.8 mg/dL Normal [facility] Comment on above: Performed By: #### T SH, FT3, T4, LIPID, CMP #### [facility] [address] [address] [address] Ting Felix Cholesterol.total/Cho lesterol in HDL [Mass ratio] 7.0 {ratio} Normal [facility] Comment on above: Performed By: #### T SH, FT3, T4, LIPID, CMP #### [facility] [address] [address] [address] Ting Felix HDL NORMAL > or = 60 mg/dl - LOW CARDIOVASCULAR RISK <40 mg/dl - HIGH CARDIOVASCULAR RISK Normal [facility] Comment on above: Performed By: #### T SH, FT3, T4, LIPID, CMP #### [facility] [address] [address] [address] Ting Felix LDL CALC NORMAL SEE BELOW Normal [facility] Comment on above: Result Comment: <100 mg/dl OPTIMAL 100 - 129 mg/dl NEAR OR ABOVE OPTIMAL 130 - 159 mg/dl BORDERLINE HIGH 160 - 189 mg/dl HIGH >190 mg/dl VERY HIGH Performed By: #### T SH, FT3, T4, LIPID, CMP #### [facility] [address] [address] [address] Ting Felix Triglyceride [Mass/Vol] 356 mg/dL Critically high <=150 [facility] Comment on above: Performed By: #### T SH, FT3, T4, LIPID, CMP #### [facility] [address] [place] [address] Dr. Ting Felix VLDL CALC 71.2 mg/dL Normal [facility] Comment on above: Performed By: #### T SH, FT3, T4, LIPID, CMP #### [facility] [address] [place] [address] Dr. Ting Felix PROF 14(COMP METB)on 022 Albumin [Mass/Vol] 3.8 g/dL Normal 3.4-5.0 [facility] Comment on above: Performed By: #### T SH, FT3, T4, LIPID, CMP #### [facility] [address] [place] [address] Dr. Ting Felix Albumin/Globulin [Mass ratio] 1.1 {ratio} Normal [facility] Comment on above: Performed By: #### T SH, FT3, T4, LIPID, CMP #### [facility] [address] [place] [address] Dr. Ting Felix ALP [Catalytic activity/Vol] 73 U/L Normal 46-[address] [facility] Comment on above: Performed By: #### T SH, FT3, T4, LIPID, CMP #### [facility] [address] [place] [address] Dr. Ting Felix ALT [Catalytic activity/Vol] 48 U/L Normal 16-[address] [facility] Comment on above: Performed By: #### T SH, FT3, T4, LIPID, CMP #### [facility] [address] [place] [address] Dr. Ting Felix Anion gap [Moles/Vol] 10.8 mmol/L Normal [facility] Comment on above: Performed By: #### T SH, FT3, T4, LIPID, CMP #### [facility] [address] [place] [address] Dr. Ting Felix AST [Catalytic activity/Vol] 18 U/L Normal 15-[address] [facility] Comment on above: Performed By: #### T SH, FT3, T4, LIPID, CMP #### [facility] [address] [place] [address] Dr. Ting Felix Bilirubin [Mass/Vol] 0.5 mg/dL Normal 0.2-1.[address] [facility] Comment on above: Performed By: #### T SH, FT3, T4, LIPID, CMP #### [facility] [address] [place] [address] Dr. Ting Felix Calcium [Mass/Vol] 8.7 mg/dL Normal 8.5-10.1 [facility] Comment on above: Performed By: #### T SH, FT3, T4, LIPID, CMP #### [facility] [address] [place] [address] Dr. Ting Felix Chloride [Moles/Vol] 105 mmol/L Normal 98-[address] [facility] Comment on above: Performed By: #### T SH, FT3, T4, LIPID, CMP #### [facility] [address] [place] [address] Dr. Ting Felix CO2 [Moles/Vol] 30.6 mmol/L Normal 21.0-32.0 [facility] Comment on above: Performed By: #### T SH, FT3, T4, LIPID, CMP #### [facility] [address] [place] [address] Dr. Ting Felix Creatinine [Mass/Vol] 1.15 mg/dL Normal 0.70-1.[address] [facility] Comment on above: Performed By: #### T SH, FT3, T4, LIPID, CMP #### [facility] [address] [place] [address] Dr. Ting Felix EGFR-AF MALAYSIAN >60 Normal >=60 [facility] Comment on above: Performed By: #### T SH, FT3, T4, LIPID, CMP #### [facility] [address] [place] [address] Dr. Ting Felix EGFR-NON AF MALAYSIAN >60 Normal >=[address] [facility] Comment on above: Performed By: #### T SH, FT3, T4, LIPID, CMP #### [facility] [address] [place] [address] Dr. Ting Felix Globulin (S) [Mass/Vol] 3.5 g/dL Normal [facility] Comment on above: Performed By: #### T SH, FT3, T4, LIPID, CMP #### [facility] [address] [place] [address] Dr. Ting Felix Glucose [Mass/Vol] 171 mg/dL Critically high 74-106 [facility] Comment on above: Performed By: #### T SH, FT3, T4, LIPID, CMP #### [facility] [address] [place] [address] Dr. Ting Felix Potassium [Moles/Vol] 4.4 mmol/L Normal 3.5-5.[address] [facility] Comment on above: Performed By: #### T SH, FT3, T4, LIPID, CMP #### [facility] [address] [place] [address] Dr. Ting Felix Protein [Mass/Vol] 7.3 g/dL Normal 6.4-8.2 [facility] Comment on above: Performed By: #### T SH, FT3, T4, LIPID, CMP #### [facility] [address] [place] [address] Dr. Ting Felix Sodium [Moles/Vol] 142 mmol/L Normal 136-145 [facility] Comment on above: Performed By: #### T SH, FT3, T4, LIPID, CMP #### [facility] [address] [place] [address] Dr. Ting Felix Urea nitrogen [Mass/Vol] 19.0 mg/dL Critically high 7.0-18.[address] [facility] Comment on above: Performed By: #### T SH, FT3, T4, LIPID, CMP #### [facility] [address] [place] [address] Dr. Ting Felix Urea nitrogen/Creatinine [Mass ratio] 16.5 mg/mg Normal [facility] Comment on above: Performed By: #### T SH, FT3, T4, LIPID, CMP #### [facility] [address] [place], [place] [id number] Dr. Ting Felix T4on 03-14-2022 T4 [Mass/Vol] 8.40 ug/dL Normal 4.50-12.10 [facility] Comment on above: Performed By: #### T SH, FT3, T4, LIPID, CMP #### [facility] [address] [address] [address] Ting Felix TSHon 03-14-2022 TSH 0.090 uIU/mL Critically low 0.358-3.740 [facility] Comment on above: Performed By: #### T SH, FT3, T4, LIPID, CMP #### [facility] [address] [address] [address] Ting Felix Vital Signs Date Time Vital Sign Value Performing Clinician Gypsyi arcenio 10-13-2023 09:26-0500 Blood Pressure Location [facility] 10-13-2023 09:26-0500 Diastolic blood pressure 86 mm[Hg] [facility] 10-13-2023 09:26-0500 Heart rate 63 /min [facility] 10-13-2023 09:26-0500 Respiratory rate 16 /min [facility] 10-13-2023 09:26-0500 Systolic blood pressure 135 mm[Hg] [facility] Encounters Encounter Date Encounter Type Care Provider Facility Start: 03-25-2024 [facility] Start: 03-02-2024 End: 03-02-2024 ambulatory [facility] Start: 02-19-2024 End: 02-19-2024 [facility] Start: 02-17-2024 End: 02-17-2024 ambulatory [facility] Start: 02-12-2024 End: 02-12-2024 ambulatory [facility] Start: 02-10-2024 End: 02-10-2024 ambulatory [facility] Start: 02-10-2024 End: 02-10-2024 Subsequent hospital visit by physician Jenni Sanchez [employer] [facility] Start: 02-03-2024 End: 02-03-2024 ambulatory [facility] Start: 01-29-2024 End: 01-29-2024 ambulatory [facility] Start: 12-16-2023 End: 12-17-2023 ambulatory Enrike R NILL Facility:[facility] Start: 12-16-2023 End: 12-16-2023 Patient encounter procedure Enrike R NILL [facility] Start: 12-05-2023 End: 12-06-2023 ambulatory KENNY Trish [facility] Start: 12-02-2023 End: 12-03-2023 ambulatory Enrike R NILL Facility:[facility] Start: 12-02-2023 End: 12-02-2023 Patient encounter procedure Enrike R NILL [facility] Start: 11-30-2023 ambulatory Enrike NILL Facility:[facility] Start: 11-25-2023 End: 11-26-2023 ambulatory Enrike R NILL Facility:[facility] Start: 10-13-2023 End: 10-14-2023 ambulatory Enrike R NILL Facility: [place] Start: 10-13-2023 End: 10-13-2023 Patient encounter procedure Enrike R NILL [facility] [place] Start: 09-29-2023 End: 09-30-2023 ambulatory KENNY M [facility] Start: 09-24-2023 ambulatory Enrike GRIFFITH Facility:[facility] Start: 04-11-2022 End: 04-11-[address] KENNY LACEY Facility:[facility] Start: 03-25-2022 End: 03-26-[address] KENNY LACEY Facility:[facility] Start: 03-18-2022 Encounter for genera l adult medical examination without abnormal findings DR KENNY LACEY [facility] Start: 03-14-2022 End: 03-15-[address] KENNY LACEY Facility:[facility] Start: 03-14-2022 End: 03-15-2022 Encounter for general adult medical examination without abnormal findings DR KENNY LACEY Facility:[facility] Procedures Date Procedure Procedure Detail Performing Clinician Start: 11-25-2023 Repair of umbilical hernia Enrike GRIFFITH Start: 03-14-[address] CLAY LACEY Comment on above: Performed By: #### P [facility] #### [facility] [address] [place] [address] Dr. Ting Felix Excision of cervical intervertebral disc Enrike GRIFFITH Plan of Treatment Date Care Activity Detail Author Start: 03-11-2024 End: 03-11-2024 Patient encounter procedure 03/11/2024 9:40 AM EDT Office Visit [facility] [address] [place] [address], [facility] [address] [place] [address] Ozzie Rosario MD [address] [place] [address] Lumbar-follow up w/PT [facility] Comment on above: Lumbar-follow up w/P T Start: 03-04-2024 End: 03-04-2024 Patient encounter procedure 03/04/2024 7:30 AM EDT Appointment [facility] [address], [facility] [address] [place] [phone] Dawn Suh, PT Approval Valid 01/28 - 8/5 5 visits [facility] Comment on above: Approval Valid 01/28 - 8/5 5 visits Start: 03-02-2024 End: 03-02-2024 Patient encounter procedure 03/02/2024 7:30 AM EDT Appointment [facility] [address], [address] [place] [phone] Jenni Sanchez, YARDING SUPERVISOR Approval Valid 01/28 - 85 5 visits [facility] Comment on above: Approval Valid 01/28 - 8/5 5 visits Start: 02-19-2024 End: 02-19-2024 Patient encounter procedure 02/19/2024 7:30 AM EDT Appointment [facility] [address], [address] [place] [phone] Dawn Suh, PT Approval Valid 01/28 - 85 5 visits [facility] Comment on above: Approval Valid 01/28 - 5 5 visits Start: 02-17-2024 End: 02-17-2024 Patient encounter procedure 02/17/2024 7:30 AM EDT Appointment [facility] [address] [place] [phone] Jenni Sanchez, YARDING SUPERVISOR Approval Valid 01/28 - 03/28 5 visits [facility] Comment on above: Approval Valid 01/28 - 85 5 visits Start: 02-12-2024 End: 02-12-2024 Patient encounter procedure 02/12/2024 7:30 AM EDT Appointment [facility] [address] [place] [phone] Dawn Suh, PT PN [facility] Comment on above: PN Start: 2017 Shingles vaccine (1 of 2) Shingles vaccine (1 of 2) [facility] Start: 2012 Screening for malign ant neoplasm of colon [facility] Start: 1986 DTaP/Tdap/Td vaccine (1 - Tdap) DTaP/Tdap/Td vaccine (1 - Tdap) [facility] Start: 1985 GFR test (Diabetes, CKD 3-4, OR last GFR 15-59) GFR test (Diabetes, CKD 3-4, OR last GFR 15-59) [facility] Start: 1985 Glaucoma screening Diabetic retinal exam [facility] Start: 1985 Hepatitis C screening Hepatitis C sc reen [facility] Start: 1985 Urine screening for protein Diabetic Alb to Cr ratio (uACR) test [facility] Start: 1982 HIV screening HIV screen [facility] Start: 1979 Depression Screen Depression Screen [facility] Start: 1977 Diabetic foot examination Diabetic foot exam [facility] Start: 1977 Hemoglobin A1c measurement A1C test (Diabetic or Prediabetic) [facility] Start: 1977 Lipid panel Lipids [facility] Start: 1973 Pneumococcal 0-64 ye ars Vaccine (1 of 2 - PCV) Pneumococcal 0-64 years Vaccine (1 of 2 - PCV) [facility] Start: 1967 Hepatitis B vaccine (1 of 3 - 3-dose series) Hepatitis B vaccine (1 of 3 - 3-dose series) [facility] Immunizations Immunization Date Immunization Notes Care Provider Jovani quintana 05-12-2023 influenza virus vaccine, unspecified formulation Enrike GRIFFITH [facility] 07-10-2021 SARS-CoV-2 (COVID-19 ) mRNA BNT-162b2 vax Enrike GRIFFITH [facility] 12-06-2020 SARS-CoV-2 (COVID-19 ) mRNA-1273 vaccine Enrike GRIFFITH [facility] Comment on above: Result Comment: [id number]: 55 11-08-2020 SARS-CoV-2 (COVID-19 ) mRNA-1273 vaccine Enrike GRIFFITH [facility] Payers Date Payer Category Payer Unknown [id number] 2.16.84 [id number] 1965 Unknown [id number] 2.16.84 [id number] 1967 Unknown [id number] 2.16.84 0.1.930550.3.579.2.593 1967 Unknown [id number] 2.16.8 40.1.108690.3.579.2.1286 1967 Unknown [id number] 2.16.8 40.1.075767.3.579.2.1286 1967 Unknown [id number] 2.16.8 40.1.379153.3.579.2.727 1967 Unknown [id number] 2.16.8 40.1.849449.3.579.2.727 1967 Unknown [id number] 2.16.8 40.1.172053.3.579.2.727 1967 Unknown [id number] 2.16.8 40.1.580666.3.579.2.727 1967 Unknown [id number] 2.16.8 40.1.135036.3.579.2.176 1967 Unknown [id number] 2.16.8 40.1.436128.3.579.2.176 1967 Unknown [id number] 2.16.8 40.1.605929.3.579.2.176 1967 Unknown [id number] 2.16.8 40.1.021780.3.579.2.176 1967 Unknown [id number] 2.16.8 40.1.149354.3.579.2.176 1967 Unknown [id number] 2.16.8 40.1.581297.3.579.2.176 1967 Unknown [id number] 2.16.8 40.1.358870.3.579.2.176 1967 Unknown [id number] 2.16.8 40.1.712389.3.579.2.176 1959 Unknown [id number] Social History Date Type Detail Facility Start: 06-20-2020 End: 10-13-2023 Tobacco smoking status Never smoked tobacco (finding) [facility] Tobacco smoking status Smokeless tobacco user within last 30 days [facility] Start: 01-22-2024 Sex Assigned At Male [facility] Start: 06-20-2020 Tobacco use and exposure User of smokeless tobacco [facility] [employer] Start: 01-22-2024 Alcohol intake Current drinke r of alcohol (finding) [employer] Start: 01-22-2024 History of Social function [employer] Start: 01-22-2024 Alcohol Comment seldom [facility] [employer] Start: 1965 Sex Assigned At Not on file B ON [employer] Functional Status Date Assessment Result Facility 10-13-2023 Functional Status N/A [facility] Clinical Note 10-13-2023 Note Date & Type [...] 53 SARS-CoV-2 (COVID-19) mRNA-1273 vaccine 11/08/2020 Recorded [facility] Comment on above: Result Comment: Elec tronically Signed By: ISAÍAS REAVES, Enrike Castillo\Date and Time Signed: 10/13/23 10:51 EST Evaluation + Plan note Note Date & Type Note Facility Evaluation + Plan note No data available for this section [facility] General [facility] [place] Evaluation + Plan note Note Date & Type Note Facility Evaluation + Plan note Future Appointments Appointment Date:12/16/2023 02:40:00 PM Scheduled Provider:Enrike GRIFFITH MD Location:[facility] Appointment Type: Post Op 15 General Surgery [facility] Discharge instructions Note Date & Type Note Facility Hospital Discharge instructions No data available for this section [facility] Progress note Note Date & Type Note Facility Progress note No data available for this section [facility] Summary Purpose Family History No Family History [...] section and content) DATE CREATED AUTHOR 04/17/2022 [facility] DATE CREATED AUTHOR AUTHOR'S ORGANIZ ATION 12/06/2023 [facility] DATE CREATED AUTHOR AUTHOR'S ORGANIZ ATION 12/18/2023 [facility] DATE CREATED AUTHOR AUTHOR'S ORGANIZ ATION 03/15/2024 [facility] Patient Care team informatio n (unrecognized section and content) 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 Specialty Start Date End Date Kenny Lacey MD [address] [place] [address] PCP - General Family Medicine 06/20/20 Reason for Visit (unrecogniz ed section and content) Specialty Diagnoses / Procedures Referred By Contac t Referred To Contact Physical Therapist / Physical Therapy Diagnoses Lumbar pain Ozzie Rosario MD [address] [address] [facility] [address] [place], [place] [id number] Referral ID Status Reason Start Date Expiration Date V isits Requested Visits Authorized [id number] Closed Specialty Services Required 01/22/2024 01/21/2025 1 1 FOR RECORDS PERTAINING TO PATIENTS WHO ARE [...] BE BASED ON THE PRIMARY CLINICAL RECORDS. [facility]. provides no warranty or guarantee of the accuracy or completeness of information in this document.
[2024-12-09 06:59] LABS: Basophils Absolute Auto 0.1 10^3/uL (0.0-0.1); Eosinophils Absolute Auto 0.2 10^3/uL (0.0-0.7); Eosinophils Percent Auto 3.7 % (0.9-7.0); Hematocrit 43.4 % (42.0-54.0); Hemoglobin 14.7 g/dL (14.0-18.0); Immature Granulocytes Abs Auto 0.01 10^3/uL (0.00-0.03); Immature Granulocytes Pct Auto 0.2 % (0.0-0.5); Lymphocytes Absolute Auto 1.6 10^3/uL (1.2-3.8); Lymphocytes Percent Auto 25.7 % (20.5-60.0); Mean Corpuscular HGB Conc 33.9 g/dL (29.9-35.2); Mean Corpuscular Hemoglobin 30.3 pg (25.9-34.0); Mean Corpuscular Volume 89.5 fL (80.0-94.0); Mean Platelet Volume 10.2 fL (9.5-13.5); Monocytes Absolute Auto 0.6 10^3/uL (0.3-0.8); Monocytes Percent Auto 9.7 % (1.7-12.0); Neutrophils Absolute Auto 3.8 10^3/uL (1.4-6.5); Neutrophils Percent Auto 59.7 % (43.0-75.0); Platelet Count 226 10^3/uL (150-450); Red Blood Count 4.85 10^6/uL (4.70-6.10); Red Cell Distribution Width 12.3 % (11.0-15.0); White Blood Count 6.3 10^3/uL (4.0-11.0)
[2024-12-09 07:09] LABS: Estimated Average Glucose 108 mg/dL; Glycohemoglobin A1C 5.4 % (4.5-6.2)
[2024-12-09 08:28] LABS: Alanine Aminotransferase 36 U/L (16-63); Albumin Globulin Ratio 1.3; Albumin Level 3.8 g/dL (3.4-5.0); Alkaline Phosphatase 64 U/L (46-116); Anion Gap 7.6; Aspartate Amino Transferase 18 U/L (15-37); BUN Creatinine Ratio 31.7; Bilirubin Total 0.5 mg/dL (0.2-1.0); Calcium 9.2 mg/dL (8.5-10.1); Carbon Dioxide 32.5 mmol/L (21.0-32.0); Chloride 108 mmol/L (98-107); Chol HDL Ratio 3.6; Cholesterol 123 mg/dL (<=200); Estimated GFR (African America >60 (>=60 mL/min/1.73m^2); Estimated GFR (Non-African Ame >60 (>=60 mL/min/1.73m^2); Free T3 1.66 pg/mL (2.18-3.98); Globulin 2.9 g/dL; Glucose 109 mg/dL (74-106); HDL Cholesterol 34 mg/dL (40-60); Potassium 4.1 mmol/L (3.5-5.1); Sodium 144 mmol/L (136-145); Thyroid Stimulating Hormone 0.018 uIU/mL (0.358-3.740); Total Protein 6.7 g/dL (6.4-8.2); Triglycerides 91 mg/dL (<=150); VLDL CHOLESTEROL 18.2 mg/dL
[2024-12-09 08:36] LABS: Prostate Specific Antigen Scrn 1.74 ng/mL (<=4.00)
== END 2024-12-09 06:43 | disposition home or self-care (01) ==
LOC: LAB 06:43
PROVIDERS: PCP Family Medicine; Visit Provider Family Medicine
DX: Z00.00 Encounter for general adult medical examination without abnormal findings (principal)
CPT/HCPCS: 36415; 80053; 80061; 83036; 84436; 84443; 84481; 85025; G0103

== ENCOUNTER 2024-12-16 10:36 | Outpatient (OUT) | payer BC, SELFPAY ==
--- NOTE | 2024-12-16 13:28 | P.STRESS_ITS ---
Stress Test Stress Test Allergies Allergy/AdvReac Type Severity Reaction Status Date / Time No Known Drug Allergies Allergy Verified 11/16/23 08:13 Requesting physician: Darrell Lacey Procedure: The procedure was discussed with patient in details including risks and benefits and the patient was agreeable to proceed. Resting EKG showed normal sinus rhythm, heart rate 73 bpm, no T or ST changes. Resting blood pressure 122/68 millimeter of mercury. Patient was exercised according to standard Power protocol and he was able to finish 13 minutes and 50 seconds of exercise consistent with stage 5 and 17.2 METS, achieving max heart rate of 164 beats per minute representing 100% of age- predicted maximum heart rate and max blood pressure of 158/88 millimeter of mercury. Exercise was terminated secondary to generalized fatigue and achievement of target heart rate. Patient did not experience any chest, neck, jaw, or arm discomfort throughout the test, patient had some shortness of breath at peak exercise. Patient was monitored for minutes into recovery phase with heart rate back to 110 beats per minute and blood pressure back to 128/78 millimeter of mercury. EKG during the exercise, at peak exercise, and during recovery phase did not show any significant T or ST changes. Rare isolated PVCs were noted Conclusion: Maximal stress test Excellent exercise tolerance Appropriate heart rate and blood pressure response to exercise The stress test is negative for exercise-induced ischemic symptoms, EKG changes, or arrhythmias Conway score 14 consistent with low cardiac risk Herb Lott MD [facility] General Information: Reason for Stress Test: [] Cardiac History and Risk Factors: [] Stress Test: Protocol: [] Exercise Capacity: [] Blood Pressure Response: [] Rhythm: [] ST - Response: [] Patient Response: []
== END 2024-12-16 10:37 | disposition home or self-care (01) ==
LOC: CARD 10:37
PROVIDERS: PCP Family Medicine; Visit Provider Family Medicine
DX: R07.9 Chest pain, unspecified (principal)
CPT/HCPCS: 93017

== ENCOUNTER 2025-01-07 10:45 | Outpatient (OUT) | payer BC, SELFPAY ==
--- NOTE | 2025-01-07 | XR_ITS ---
[address] [address] Patient Name: NIXON JENSEN MRN: [id number] date: 1965 Sex: M Assigned Patient Location: [facility] Current Patient Location: [facility] Accession/Order Number: [id number] Exam Date: 01/08/2025 08:51 Report Date: 01/08/2025 08:52 At the request of: KENNY ARELLANO MD Procedure: XR chest 2V XR chest 2V 01/07/2025 10:57 AM SIGNS AND SYMPTOMS: ^chest pain R07.9 PROTOCOL: Frontal and lateral radiographs of the chest COMPARISON: None FINDINGS: The trachea is midline. The heart and mediastinal structures are within normal limits. The lung parenchyma is clear. The bony thorax is intact. XR/XR chest 2V IMPRESSION: No acute cardiopulmonary pathology. Impression dictated by: David Villarreal M.D. 01/08/2025 8:52 AM Dictation Location: [place] [address] Electronically authenticated by: [id number] Y Date: 01/08/2025 08:52
--- OUTSIDE RECORDS SUMMARY | 2025-01-07 10:50 | XMS_ITS | CCD ---
Author Organization [facility] Care Team Providers Care Radiographer Technologist Name Role Phone DR KENNY LACEY Primary [...] Attending Unavailable Kenny Lacey Primary Care Physician [phone] ADEEL LACEYLAS Trish Referring Unavailable HOY, KENNY [...] Medication Allergies] Propensity to adverse reactions (disorder) [facility] Repository Medications Current Medications Medication Drug Class(es) [...] SARS-CoV-2 (COVID-19) mRNA-1273 vaccine 11/08/2020 Recorded Normal [facility] Comment on above: Result Comment: Elec tronically Signed By: ISAÍAS REAVES, Enrike Castillo\Date and Time Signed: 12/16/23 14:44 EDT Formson 12-15-2023 Forms [id number] D3#1.00TIFF Normal [facility] MR LUMBAR SPINE WO CONTon MR LUMBAR [...] and mild bilateral facet arthropathy results in llfz-gf-brhxpyoy right and mild left neuroforaminal narrowing. No significant spinal canal narrowing. L4-L5: Mild diffuse disc bulge and moderate bilateral facet arthropathy with csxk-yi-iiknmwvj right and mild left neuroforaminal narrowing. No significant spinal canal narrowing. L5-S1: Mild diffuse disc bulge, mild facet arthropathy results in mild bilateral neuroforaminal narrowing. No significant spinal canal narrowing. IMPRESSION: * Multilevel degenerative spondylosis most prominent at L3-L4, L4-L5 and L5-S1, with multilevel facet arthropathy. * Ccgt-za-geuwofit right and mild left neuroforaminal narrowing at L3-L4 and L4-L5. 9 Finalized by Forest Alcaraz on 12/06/2023 4:55 PM Normal [facility] Ambulatory Visit Summaryon 0 12-02-2023 [...] GRIFFITH MD Where: General Surgery Isaías/[facility] General Surgery Office/Clini c Noteon 12-02-2023 General [...] 53 SARS-CoV-2 (COVID-19) mRNA-1273 vaccine 11/08/2020 Recorded [facility] Comment on above: Result Comment: Elec tronically Signed By: ISAÍAS REAVES, Enrike Bhagat\.br\Date and Time Signed: 12/02/23 13:56 EDT Operative Reporton Operative Report [id number] 95#1.00TIFF Normal [facility] ECG 12-Leadon 11-19-2023 ECG 12-Lead [id number] 70#1.00TIFF [facility] Insurance Correspondenceon 0 11-02-2023 Insurance Correspondence [id number] 140#1.00TIFF [facility] Formson 10-20-2023 Forms [id number] 82#1.00TIFF [facility] Ambulatory Visit Summaryon 0 [...] for choosing us for your care. Normal [facility] Consent for Procedure/Surger yon 10-13-2023 Consent for Procedure/Surgery [id number] 34#1.00TIFF Normal [facility] XR SPINE LUMBAR MIN 4 VWSon 10-01-2023 [...] Rio MD on 10/01/2023 8:45 AM Normal [facility] Physician Referralon 024 Physician Referral [id number] A5#1.00TIFF Normal [facility] Physician Referral [id number] E3#1.00TIFF Normal [facility] Covid-19 PCR (CVDTBH)on 03-24 SARS-CoV-2 (COVID-19) RNA LEONID+probe Ql (Unsp spec) Detected Critically abnormal NOT DETECTED [facility] Comment on above: Result Comment: This test is not yet approved or cleared by the [place] FDA. When there are no FDA-approved or cleared tests available, and other criteria are met, FDA can make tests available under an emergency access mechanism called an Emergency Use Authorization (EUA). The EUA for this test is supported by the Nuclear Weapons Custodian of Health and Human Service's (HHS's) declaration [...] used). Performed By: #### C VDTB #### [facility] [address] [place] [address] Dr. Ting Felix CBC AUTO DIFFon 03-14-2022 BASO # 0.1 103/ul Normal 0.0-0.1 [facility] Comment on above: Performed By: #### C BC #### [facility] [address] [place] [address] Dr. Ting Felix Basophils/100 WBC (Bld) 1.2 % Normal 0.2-2.0 [facility] Comment on above: Performed By: #### C BC #### [facility] [address] [place] [address] Dr. Ting Felix EO # 0.2 103/ul Normal 0.0-0.7 [facility] Comment on above: Performed By: #### C BC #### [facility] [address] [place] [address] Dr. Ting Felix Eosinophils/100 WBC (Bld) 2.9 % Normal 0.9-7.[address] [facility] Comment on above: Performed By: #### C BC #### [facility] [address] [place] [address] Dr. Ting Felix Erythrocyte distribution width (RBC) [Ratio] 12.5 % Normal 11.0-15.[address] [facility] Comment on above: Performed By: #### C BC #### [facility] [address] [place] [address] Dr. Ting Felix Hematocrit (Bld) [Volume fraction] 44.1 % Normal 42.0-54.[address] [facility] Comment on above: Performed By: #### C BC #### [facility] [address] [place] [address] Dr. Ting Felix Hemoglobin (Bld) [Mass/Vol] 15.4 g/dL Normal 14.0-18.[address] [facility] Comment on above: Performed By: #### C BC #### [facility] [address] [place] [address] Dr. Ting Felix IG # 0.02 10e3/ul Normal 0.00-0.[address] [facility] Comment on above: Performed By: #### C BC #### [facility] [address] [place] [address] Dr. Ting Felix IG % 0.3 % Normal 0.0-0.[address] [facility] Comment on above: Performed By: #### C BC #### [facility] [address] [place] [address] Dr. Ting Felix LYMPH # 1.7 103/ul Normal 1.2-3.[address] [facility] Comment on above: Performed By: #### C BC #### [facility] [address] [place] [address] Dr. Ting Felix Lymphocytes/100 WBC (Bld) 28.9 % Normal 20.5-60.[address] [facility] Comment on above: Performed By: #### C BC #### [facility] [address] [place] [address] Dr. Ting Felix MANUAL DIFF REQ NO Normal [facility] Comment on above: Performed By: #### C BC #### [facility] [address] [place] [address] Dr. Ting Felix MCH (RBC) [Entitic mass] 30.7 pg Normal 25.9-34.[address] [facility] Comment on above: Performed By: #### C BC #### [facility] [address] [address] [address] Ting Felix MCHC (RBC) [Mass/Vol] 34.9 g/dL Normal 29.9-35.[address] [facility] Comment on above: Performed By: #### C BC #### [facility] [address] [address] [address] Ting Felix MCV (RBC) [Entitic vol] 87.8 fL Normal 80.0-94.[address] [facility] Comment on above: Performed By: #### C BC #### [facility] [address] [place] [address] Dr. Ting Felix MONO # 0.5 103/ul Normal 0.3-0.[address] [facility] Comment on above: Performed By: #### C BC #### [facility] [address] [place] [address] Dr. Ting Felix Monocytes/100 WBC (Bld) 9.2 % Normal 1.7-12.[address] [facility] Comment on above: Performed By: #### C BC #### [facility] [address] [place] [address] Dr. Ting Felix NEUT # 3.4 103/ul Normal 1.4-6.[address] [facility] Comment on above: Performed By: #### C BC #### [facility] [address] [place] [address] Dr. Ting Felix Neutrophils/100 WBC (Bld) 57.5 % Normal 43.0-75.0 [facility] Comment on above: Performed By: #### C BC #### [facility] [address] [address] [address] Ting Felix Platelet mean volume (Bld) [Entitic vol] 10.3 fL Normal 9.5-13.[address] [facility] Comment on above: Performed By: #### C BC #### [facility] [address] [place] [address] Dr. Ting Felix PLT 237 103/ul Normal 150-450 [facility] Comment on above: Performed By: #### C BC #### [facility] [address] [place] [address] Dr. Ting Felix RBC 5.02 106/ul Normal 4.70-6.[address] [facility] Comment on above: Performed By: #### C BC #### [facility] [address] [place] [address] Dr. Ting Felix WBC 5.9 103/ul Normal 4.0-11.[address] [facility] Comment on above: Performed By: #### C BC #### [facility] [address] [place] [address] Dr. Ting Felix FREE T3on 03-14-2022 FREE T3 2.85 pg/mlL Normal 2.18-3.[address] [facility] Comment on above: Performed By: #### T SH, FT3, T4, LIPID, CMP #### [facility] [address] [place] [address] Dr. Ting Felix GLYCOHEMOGLOBIN A1Con 2021 ADA RECOMMENDATION SEE BELOW Normal [facility] Comment on above: Result Comment: ADA RECOMMENDED LIMIT 4.0 - 6.0 ADA THERAPEUTIC TARGET < 7.0 ACTION SUGGESTED > 7.0 Performed By: #### A 1C #### [facility] [address] [place] [address] Dr. Ting Felix Glucose [Mass/Vol] 148 mg/dL Normal The [facility] Comment on above: Performed By: #### A 1C #### [facility] [address] [place] [address] Dr. Ting Felix HbA1c (Bld) [Mass fraction] 6.8 % Critically high 4.5-6.[address] [facility] Comment on above: Performed By: #### A 1C #### [facility] [address] [place] [address] Dr. Ting Felix LIPID PROFILEon 03-14-2022 CHOL-HDL RATIO NORM SEE BELOW Normal [facility] Comment on above: Result Comment: 3.3 - 4.4 LOW RISK 4.4 - 7.1 AVERAGE RISK 7.1 - 11.0 MODERATE RISK >11.0 HIGH RISK Performed By: #### T SH, FT3, T4, LIPID, CMP #### [facility] [address] [address] [address] Ting Felix Cholesterol [Mass/Vol] 189 mg/dL Normal <=[address] [facility] Comment on above: Performed By: #### T SH, FT3, T4, LIPID, CMP #### [facility] [address] [address] [address] Ting Felix Cholesterol in HDL [Mass/Vol] 27 mg/dL Critically low 40-[address] [facility] Comment on above: Performed By: #### T SH, FT3, T4, LIPID, CMP #### [facility] [address] [address] [address] Ting Felix Cholesterol in LDL [Mass/Vol] 90.8 mg/dL Normal [facility] Comment on above: Performed By: #### T SH, FT3, T4, LIPID, CMP #### [facility] [address] [address] [address] Ting Felix Cholesterol.total/Cho lesterol in HDL [Mass ratio] 7.0 {ratio} Normal [facility] Comment on above: Performed By: #### T SH, FT3, T4, LIPID, CMP #### [facility] [address] [address] [address] Ting Felix HDL NORMAL > or = 60 mg/dl - LOW CARDIOVASCULAR RISK <40 mg/dl - HIGH CARDIOVASCULAR RISK Normal [facility] Comment on above: Performed By: #### T SH, FT3, T4, LIPID, CMP #### [facility] [address] [address] [address] Ting Felix LDL CALC NORMAL SEE BELOW Normal [facility] Comment on above: Result Comment: <100 mg/dl OPTIMAL 100 - 129 mg/dl NEAR OR ABOVE OPTIMAL 130 - 159 mg/dl BORDERLINE HIGH 160 - 189 mg/dl HIGH >190 mg/dl VERY HIGH Performed By: #### T SH, FT3, T4, LIPID, CMP #### [facility] [address] [address] [address] Ting Felix Triglyceride [Mass/Vol] 356 mg/dL Critically high <=150 [facility] Comment on above: Performed By: #### T SH, FT3, T4, LIPID, CMP #### [facility] [address] [place] [address] Dr. Ting Felix VLDL CALC 71.2 mg/dL Normal [facility] Comment on above: Performed By: #### T SH, FT3, T4, LIPID, CMP #### [facility] [address] [place] [address] Dr. Ting Felix PROF 14(COMP METB)on 022 Albumin [Mass/Vol] 3.8 g/dL Normal 3.4-5.0 [facility] Comment on above: Performed By: #### T SH, FT3, T4, LIPID, CMP #### [facility] [address] [place] [address] Dr. Ting Felix Albumin/Globulin [Mass ratio] 1.1 {ratio} Normal [facility] Comment on above: Performed By: #### T SH, FT3, T4, LIPID, CMP #### [facility] [address] [place] [address] Dr. Ting Felix ALP [Catalytic activity/Vol] 73 U/L Normal 46-[address] [facility] Comment on above: Performed By: #### T SH, FT3, T4, LIPID, CMP #### [facility] [address] [place] [address] Dr. Ting Felix ALT [Catalytic activity/Vol] 48 U/L Normal 16-[address] [facility] Comment on above: Performed By: #### T SH, FT3, T4, LIPID, CMP #### [facility] [address] [place] [address] Dr. Ting Felix Anion gap [Moles/Vol] 10.8 mmol/L Normal [facility] Comment on above: Performed By: #### T SH, FT3, T4, LIPID, CMP #### [facility] [address] [place] [address] Dr. Ting Felix AST [Catalytic activity/Vol] 18 U/L Normal 15-[address] [facility] Comment on above: Performed By: #### T SH, FT3, T4, LIPID, CMP #### [facility] [address] [place] [address] Dr. Ting Felix Bilirubin [Mass/Vol] 0.5 mg/dL Normal 0.2-1.[address] [facility] Comment on above: Performed By: #### T SH, FT3, T4, LIPID, CMP #### [facility] [address] [place] [address] Dr. Ting Felix Calcium [Mass/Vol] 8.7 mg/dL Normal 8.5-10.1 [facility] Comment on above: Performed By: #### T SH, FT3, T4, LIPID, CMP #### [facility] [address] [place] [address] Dr. Ting Felix Chloride [Moles/Vol] 105 mmol/L Normal 98-[address] [facility] Comment on above: Performed By: #### T SH, FT3, T4, LIPID, CMP #### [facility] [address] [place] [address] Dr. Ting Felix CO2 [Moles/Vol] 30.6 mmol/L Normal 21.0-32.0 [facility] Comment on above: Performed By: #### T SH, FT3, T4, LIPID, CMP #### [facility] [address] [place] [address] Dr. Ting Felix Creatinine [Mass/Vol] 1.15 mg/dL Normal 0.70-1.[address] [facility] Comment on above: Performed By: #### T SH, FT3, T4, LIPID, CMP #### [facility] [address] [place] [address] Dr. Ting Felix EGFR-AF ARGENTINE >60 Normal >=60 [facility] Comment on above: Performed By: #### T SH, FT3, T4, LIPID, CMP #### [facility] [address] [place] [address] Dr. Ting Felix EGFR-NON AF ARGENTINE >60 Normal >=[address] [facility] Comment on above: Performed By: #### T SH, FT3, T4, LIPID, CMP #### [facility] [address] [place] [address] Dr. Ting Felix Globulin (S) [Mass/Vol] 3.5 g/dL Normal [facility] Comment on above: Performed By: #### T SH, FT3, T4, LIPID, CMP #### [facility] [address] [place] [address] Dr. Ting Felix Glucose [Mass/Vol] 171 mg/dL Critically high 74-106 [facility] Comment on above: Performed By: #### T SH, FT3, T4, LIPID, CMP #### [facility] [address] [place] [address] Dr. Ting Felix Potassium [Moles/Vol] 4.4 mmol/L Normal 3.5-5.[address] [facility] Comment on above: Performed By: #### T SH, FT3, T4, LIPID, CMP #### [facility] [address] [place] [address] Dr. Ting Felix Protein [Mass/Vol] 7.3 g/dL Normal 6.4-8.2 [facility] Comment on above: Performed By: #### T SH, FT3, T4, LIPID, CMP #### [facility] [address] [place] [address] Dr. Ting Felix Sodium [Moles/Vol] 142 mmol/L Normal 136-145 [facility] Comment on above: Performed By: #### T SH, FT3, T4, LIPID, CMP #### [facility] [address] [place] [address] Dr. Ting Felix Urea nitrogen [Mass/Vol] 19.0 mg/dL Critically high 7.0-18.[address] [facility] Comment on above: Performed By: #### T SH, FT3, T4, LIPID, CMP #### [facility] [address] [place] [address] Dr. Ting Felix Urea nitrogen/Creatinine [Mass ratio] 16.5 mg/mg Normal [facility] Comment on above: Performed By: #### T SH, FT3, T4, LIPID, CMP #### [facility] [address] [place], [place] [id number] Dr. Ting Felix T4on 03-14-2022 T4 [Mass/Vol] 8.40 ug/dL Normal 4.50-12.10 [facility] Comment on above: Performed By: #### T SH, FT3, T4, LIPID, CMP #### [facility] [address] [address] [address] Ting Felix TSHon 03-14-2022 TSH 0.090 uIU/mL Critically low 0.358-3.740 [facility] Comment on above: Performed By: #### T SH, FT3, T4, LIPID, CMP #### [facility] [address] [address] [address] Ting Felix Vital Signs Date Time Vital Sign Value Performing Clinician Gypsyi arcenio 10-13-2023 09:26-0500 Blood Pressure Location Refresh [facility] 10-13-2023 09:26-0500 Diastolic blood pressure 86 mm[Hg] [facility] 10-13-2023 09:26-0500 Heart rate 63 /min [facility] 10-13-2023 09:26-0500 Respiratory rate 16 /min [facility] 10-13-2023 09:26-0500 Systolic blood pressure 135 mm[Hg] [facility] Encounters Encounter Date Encounter Type Care Provider Facility Start: 03-25-2024 [facility] Start: 03-02-2024 End: 03-02-2024 ambulatory [facility] Start: 02-19-2024 End: 02-19-2024 [facility] Start: 02-17-2024 End: 02-17-2024 ambulatory [facility] Start: 02-12-2024 End: 02-12-2024 ambulatory [facility] Start: 02-10-2024 End: 02-10-2024 ambulatory [facility] Start: 02-10-2024 End: 02-10-2024 Subsequent hospital visit by physician Jenni Sanchez ANNUAL GIVING DIRECTOR [facility] Start: 02-03-2024 End: 02-03-2024 ambulatory [facility] Start: 01-29-2024 End: 01-29-2024 ambulatory [facility] Start: 12-16-2023 End: 12-17-2023 ambulatory Enrike R NILL Facility:[facility] Start: 12-16-2023 End: 12-16-2023 Patient encounter procedure Enrike R NILL [facility] [place] Start: 12-05-2023 End: 12-06-2023 ambulatory KENNY Trish Tricia [facility] Start: 12-02-2023 End: 12-03-2023 ambulatory Enrike R NILL Facility:[facility] [place] Start: 12-02-2023 End: 12-02-2023 Patient encounter procedure Enrike R NILL [facility] [place] Start: 11-30-2023 ambulatory Enrike NILL Facility:[facility] Start: 11-25-2023 End: 11-26-2023 ambulatory Enrike R NILL Facility:[facility] [place] Start: 10-13-2023 End: 10-14-2023 ambulatory Enrike R NILL Facility: [place] Start: 10-13-2023 End: 10-13-2023 Patient encounter procedure Enrike R NILL [facility] [place] Start: 09-29-2023 End: 09-30-2023 ambulatory KENNY M HOY [facility] Start: 09-24-2023 ambulatory Enrike GRIFFITH Facility:[facility] Start: 04-11-2022 End: 04-11-[address] KENNY LACEY Facility:[facility] Start: 03-25-2022 End: 03-26-[address] KENNY LACEY Facility:[facility] Start: 03-18-2022 Encounter for genera l adult medical examination without abnormal findings DR KENNY LACEY [facility] Start: 03-14-2022 End: 03-15-[address] KENNY LACEY Facility:[facility] Start: 03-14-2022 End: 03-15-2022 Encounter for general adult medical examination without abnormal findings DR KENNY LACEY Facility:[facility] Procedures Date Procedure Procedure Detail Performing Clinician Start: 11-25-2023 Repair of umbilical hernia Enrike GRIFFITH Start: 03-14-[address] CLAY LACEY Comment on above: Performed By: #### P [facility] #### [facility] [address] [place] [address] Dr. Ting Felix Excision of cervical intervertebral disc Enrike GRIFFITH Plan of Treatment Date Care Activity Detail Author Start: 03-11-2024 End: 03-11-2024 Patient encounter procedure 03/11/2024 9:40 AM EDT Office Visit [facility] [address] [place] [address], [facility] [address] [place] [address] Ozzie Rosario MD [address] [place] [address] Lumbar-follow up w/PT [facility] Comment on above: Lumbar-follow up w/P T Start: 03-04-2024 End: 03-04-2024 Patient encounter procedure 03/04/2024 7:30 AM EDT Appointment [facility] [address], [facility] [address] [place] [phone] Dawn Suh, PT Approval Valid 01/28 - 8/5 5 visits [facility] Comment on above: Approval Valid 01/28 - 8/5 5 visits Start: 03-02-2024 End: 03-02-2024 Patient encounter procedure 03/02/2024 7:30 AM EDT Appointment [facility] [address], [address] [place] [phone] Jenni Sanchez, ANNUAL GIVING DIRECTOR Approval Valid 01/28 - 85 5 visits [facility] Comment on above: Approval Valid 01/28 - 8/5 5 visits Start: 02-19-2024 End: 02-19-2024 Patient encounter procedure 02/19/2024 7:30 AM EDT Appointment [facility] [address], [address] [place] [phone] Dawn Suh, PT Approval Valid 01/28 - 85 5 visits [facility] Comment on above: Approval Valid 01/28 - 5 5 visits Start: 02-17-2024 End: 02-17-2024 Patient encounter procedure 02/17/2024 7:30 AM EDT Appointment [facility] [address] [place] [phone] Jenni Sanchez, ANNUAL GIVING DIRECTOR Approval Valid 01/28 - 03/28 5 visits [facility] Comment on above: Approval Valid 01/28 - 85 5 visits Start: 02-12-2024 End: 02-12-2024 Patient encounter procedure 02/12/2024 7:30 AM EDT Appointment [facility] [address] [place] [phone] Dawn Suh, PT PN [facility] Comment on above: PN Start: 2017 Shingles vaccine (1 of 2) Shingles vaccine (1 of 2) [facility] Start: 2012 Screening for malign ant neoplasm of colon [facility] Start: 1986 DTaP/Tdap/Td vaccine (1 - Tdap) DTaP/Tdap/Td vaccine (1 - Tdap) [facility] Start: 1985 GFR test (Diabetes, CKD 3-4, OR last GFR 15-59) GFR test (Diabetes, CKD 3-4, OR last GFR 15-59) [facility] Start: 1985 Glaucoma screening Diabetic retinal exam [facility] Start: 1985 Hepatitis C screening Hepatitis C sc reen [facility] Start: 1985 Urine screening for protein Diabetic Alb to Cr ratio (uACR) test [facility] Start: 1982 HIV screening HIV screen [facility] Start: 1979 Depression Screen Depression Screen [facility] Start: 1977 Diabetic foot examination Diabetic foot exam [facility] Start: 1977 Hemoglobin A1c measurement A1C test (Diabetic or Prediabetic) [facility] Start: 1977 Lipid panel Lipids [facility] [facility] Start: 1973 Pneumococcal 0-64 ye ars Vaccine (1 of 2 - PCV) Pneumococcal 0-64 years Vaccine (1 of 2 - PCV) [facility] Start: 1967 Hepatitis B vaccine (1 of 3 - 3-dose series) Hepatitis B vaccine (1 of 3 - 3-dose series) [facility] Immunizations Immunization Date Immunization Notes Care Provider Jovani quintana 05-12-2023 influenza virus vaccine, unspecified formulation Ernike GRIFFITH [facility] 07-10-2021 SARS-CoV-2 (COVID-19 ) mRNA BNT-162b2 vax Enrike GRIFFITH [facility] 12-06-2020 SARS-CoV-2 (COVID-19 ) mRNA-1273 vaccine Enrike GRIFFITH [facility] Comment on above: Result Comment: 202307: 55 11-08-2020 SARS-CoV-2 (COVID-19 ) mRNA-1273 vaccine Enrike GRIFFITH [facility] Payers Date Payer Category Payer Unknown [id number] 2.16.84 [id number] 1967 Unknown [id number] 2.16.84 [id number] 1967 Unknown [id number] 2.16.84 0.1.085364.3.579.2.593 1967 Unknown [id number] 2.16.8 40.1.733390.3.579.2.1286 1967 Unknown [id number] 2.16.8 40.1.150054.3.579.2.1286 1967 Unknown [id number] 2.16.8 40.1.566469.3.579.2.727 1967 Unknown [id number] 2.16.8 40.1.314351.3.579.2.727 1967 Unknown [id number] 2.16.8 40.1.005692.3.579.2.727 1967 Unknown [id number] 2.16.8 40.1.965801.3.579.2.727 1967 Unknown [id number] 2.16.8 40.1.042310.3.579.2.176 1967 Unknown [id number] 2.16.8 40.1.234509.3.579.2.176 1967 Unknown [id number] 2.16.8 40.1.608700.3.579.2.176 1967 Unknown [id number] 2.16.8 40.1.202091.3.579.2.176 1967 Unknown [id number] 2.16.8 40.1.677496.3.579.2.176 1967 Unknown [id number] 2.16.8 40.1.372537.3.579.2.176 1967 Unknown [id number] 2.16.8 40.1.410905.3.579.2.176 1967 Unknown [id number] 2.16.8 40.1.969188.3.579.2.176 1959 Unknown [id number] Social History Date Type Detail Facility Start: 06-20-2020 End: 10-13-2023 Tobacco smoking status Never smoked tobacco (finding) [facility] Tobacco smoking status Smokeless tobacco user within last 30 days [facility] Start: 01-22-2024 Sex Assigned At Male F [facility] Start: 06-20-2020 Tobacco use and exposure User of smokeless tobacco [facility] [employer] Start: 01-22-2024 Alcohol intake Current drinke r of alcohol (finding) [employer] Start: 01-22-2024 History of Social function [employer] Start: 01-22-2024 Alcohol Comment seldom [facility] [employer] Start: 1965 Sex Assigned At Not on file [facility] [employer] Functional Status Date Assessment Result Facility 10-13-2023 Functional Status N/A [facility] Clinical Note 10-13-2023 Note Date & Type [...] 53 SARS-CoV-2 (COVID-19) mRNA-1273 vaccine 11/08/2020 Recorded [facility] Comment on above: Result Comment: Elec tronically Signed By: ISAÍAS REAVES, Enrike Castillo\Date and Time Signed: 10/13/23 10:51 EST Evaluation + Plan note Note Date & Type Note Facility Evaluation + Plan note No data available for this section [facility] General Surgery [place] Evaluation + Plan note Note Date & Type Note Facility Evaluation + Plan note Future Appointments Appointment Date:12/16/2023 02:40:00 PM Scheduled Provider:Enrike GRIFFITH MD Location:[facility] Appointment Type: Post Op 15 General Surgery [facility] Discharge instructions Note Date & Type Note Facility Hospital Discharge instructions No data available for this section [facility] Progress note Note Date & Type Note Facility Progress note No data available for this section [facility] Summary Purpose Family History No Family History [...] section and content) DATE CREATED AUTHOR 04/17/2022 [facility] DATE CREATED AUTHOR AUTHOR'S ORGANIZ ATION 12/06/2023 [facility] DATE CREATED AUTHOR AUTHOR'S ORGANIZ ATION 12/18/2023 [facility] DATE CREATED AUTHOR AUTHOR'S ORGANIZ ATION 03/15/2024 [facility] Patient Care team informatio n (unrecognized section and content) Radiographer Technologist Relationship Specialty Start Date End Date Kenny Lacey MD [address] [place] [address] PCP - General Family Medicine 06/20/20 Reason for Visit (unrecogniz ed section and content) Specialty Diagnoses / Procedures Referred By Contac t Referred To Contact Physical Therapist / Physical Therapy Diagnoses Lumbar pain Ozzie Rosario MD [address] [address] [facility] [address] [place], [place] [id number] Referral ID Status Reason Start Date Expiration Date V isits Requested Visits Authorized [id number] Closed Specialty Services Required 01/22/2024 01/21/2025 1 [...] BE BASED ON THE PRIMARY CLINICAL RECORDS. [facility]. provides no warranty or guarantee of the accuracy or completeness of information in this document.
== END 2025-01-07 10:46 | disposition home or self-care (01) ==
LOC: RAD 10:47
PROVIDERS: PCP Family Medicine; Visit Provider Family Medicine
DX: R07.9 Chest pain, unspecified (principal)
CPT/HCPCS: 71046

== ENCOUNTER 2025-02-17 14:00 | Outpatient (OUT) | payer BC, SELFPAY ==
--- OUTSIDE RECORDS SUMMARY | 2025-01-08 18:32 | XMS_ITS ---
Author Organization [facility] in [place] Address [address] [place] [address] Care Team Providers Care Woodwind Reeds Cutter Name Role Phone Scar Lacey Primary Care Provider [phone] REASON FOR VISIT X-Ray Results Encounters Encounter Location Date Provider Diagnosis [facility] [address] [place] [address] 01/08/2025 Scar Lacey Plan Of Treatment No Information Progress Notes * Allan JENSEN ADOB:[birth year] (59 yo M)Acc No.[id number]:01/08/2025 Patient: Leola SAUCEDO Allan Durga :1965 A ge:59 Y S ex:Male Address:[address] [place] [address], [phone] * true * Date: Generated for Bonniei noemí/Faclemenciag/eTransmitting on: 0 02/17/2025 02:05 PM EDT
--- OUTSIDE RECORDS SUMMARY | 2025-01-09 04:15 | XMS_ITS ---
Author Organization [facility] in [place] Address [address] [place] [address] Care Team Providers Care Administration Vice President Name Role Phone Scar Lacey Primary Care Provider REASON FOR VISIT Pain Encounters Encounter Location Date Provider Diagnosis [facility] [address] [place] [address] 01/09/2025 Scar Lacey Chest pain R07.9 Assessments Encounter Date Diagnosis (ICD Code) Assessment Notes Treatment Notes Treatment Clinical Notes Section Notes 01/09/2025 Chest pain (ICD-10 - R07.9) Plan Of Treatment Pending Test Test Name Order Date CT CHEST WO CON 01/09/2025 Progress Notes * Allan JENSEN ADOB:[birth year] (59 yo M)Acc No.[id number]:01/09/2025 Patient: Allan GRIMES :1965 A ge:59 Y S ex:Male Address:[address] [place] [address], [phone] Subjective: * Chief Complaints: * P ain * Medical History: * Surgical History: * Hospitalization/Major Diagno stic Procedure: * Medications: Objective: * Vitals: * Physical Examination: Assessment: * Assessment: 1. C hest pain - R07.9 (Primary) Plan: * Treatment: * Procedure Codes: * true * Date: Generated for Printi ng/Faxing/eTransmitting on: 0 02/17/2025 02:05 PM EDT
--- OUTSIDE RECORDS SUMMARY | 2025-02-17 09:00 | XMS_ITS ---
Author Organization [facility] [place] Address [address] [place] [address] Care Team Providers Care Manager Music Name Role Phone Scar Lacey Primary Care Provider [phone] Allergies No Known Allergies REASON FOR VISIT Presents to office alone for c/o left shoulder pain has been going on for several years. Denies anyinjury, Also c/o urinary dribbling x1 year, c/o burning rash to rt armpit x2 days Medications Medication SIG (Take, Route, Frequency, Duration) Notes Start Date End Date Status Synthroid 175 MCG TAKE 1 TABLET EVERY MORNINGON AN EMPTY STOMACH for 90 Active Simvastatin 20 MG TAKE 1 TABLET BY DANISHA TH EVERY DAY IN THE EVENING FOR 90 DAYS for 90 Active Tamsulosin HCl 0.4 MG 1 capsule Orally O nce a day for 30 day(s) 02/17/2025 Active Diclofenac Sodium 75 MG TAKE 1 TABLET BY MOUTH TWICE A DAY for 30 Active Aspirin Low Dose 81 MG TAKE 1 TABLET BY MOUTH EVERY DAY FOR 30 DAYS for 90 Active Nitroglycerin 0.4 MG 1 tablet under the tongue and allow to dissolve as needed. Take every 5 minutes up to 3 times if chest pain persists Sublingual Q 5 min as needed for chest pain for 30 days 12/02/2024 Active Liothyronine Sodium 5 MCG TAKE 1 TABLET BY MOUTH EVERY DAY ON EMPTY STOMACH FOR 90 DAYS for 90 Active Social History Tobacco Use: Social History Observation Description Date Details (start date - stop date) Current Smoker 08/24/1986 - NA Tobacco Use/Smoking Question Answer Notes Patient is a current smoker When did you start smoking? 08/24/1986 How often do you smoke cigarettes? every day Additional Findings: Tobacco User Chews tobacco Tobacco use other than smoking: Question Answer Notes Are you an other tobacco user? Yes C HEWS AUDIT-C (Standard) Question Answer Notes Did you have a drink contain ing alcohol in the past year? Yes How often did you have six o r more drinks on one occasion in the past year? Never (0 point) How many drinks did you have on a typical day when you were drinking in the past year? 1 or 2 drinks (0 point) How often did you have a dri nk containing alcohol in the past year? Monthly or less (1 point) Points 1 Interpretation Negative Problems Problem Type SNOMED Code ICD Code Onset Dates Problem Status W/U Status Risk Notes Problem Shoulder impingement (M75.40) Active confirmed Vital Signs Weight 195.6 lbs 02/17/2025 Height 72 in 02/17/2025 Blood pressure systolic 120 mm Hg 02/18/20 25 Blood pressure diastolic 68 mm Hg 025 BMI 26.53 kg/m2 02/17/2025 Encounters Encounter Location Date Provider Diagnosis [facility] [address] [place] [address] 02/17/2025 Scar Lacey Shoulder impingement M75.40 Assessments Encounter Date Diagnosis (ICD Code) Assessment Notes Treatment Notes Treatment Clinical Notes Section Notes 02/17/2025 Shoulder impingement (ICD-10 - M75.40) Plan Of Treatment Medication Medication Name Sig Start Date Stop Date Notes Tamsulosin HCl 0.4 MG 1 capsule Orally O nce a day for 30 day(s) 02/17/2025 Pending Test Test Name Order Date MRI SHOULDER LT WO CON 02/17/2025 XR SHOULDER LT 2V or > 02/17/2025 Progress Notes * Allan JENSEN ADOB:[birth year] (59 yo M)Acc No.[id number]:02/17/2025 UNLOCKED PROGRESS NOTE Progress Note Patient: Allan GRIMES Provider: Uday Lacey ([facility])MD :1965 A ge:59 Y S ex:Male Date:02/17/2025 Address:[address] [place], [place] [id number] Check In:12:57 PM ESTCheck O ut:01:54 PM EST Subjective: * Chief Complaints: * 1 . Presents to office alone for c/o left shoulder pain has been going on for several years. Denies any injury. 2. Also c/o urinary dribbling x1 year. 3. C/o burning rash to rt armpit x2 days. * HPI: G eneral: Left shouler [pain tiwh reduced int and external rotation - no recent injury - but has been that was for 3 + years Carrying ites in left arm - causes it rto flare uip - - no oold injkury Back pain doing welkl no old inrhy - diclofenac not helps. * Medical History: H ypothyroidism, unspecified, Irritable bowel syndrome, GERD without esophagitis, Cervical disc disease. * Surgical History: N panfilo Surgery- replaced disc , Umbilical Hernia 2023. * Family History: F ather: 84 yrs, diagnosed with Diabetes mellitus without mention of complication, type II or unspecified type, not stated as uncontrolled, Unspecified essential hypertension, Unspecified heart disease, Chronic kidney disease, unspecified. M other: alive. B heriberto(s): alive.?Sister(s): alive. D jayjay(s): alive. 2 brother(s) , 1 sister(s) - healthy. 2 daughter(s) . . Brothers unknown history- doesnt talk to them. * Social History: T obacco Use: T obacco use other than smoking A re you an other tobacco user? Y es CHEWS Tobacco Use/Smoking P atient is a c urrent smoker W hen did you start smoking? 0 08/24/1986 H ow often do you smoke cigarettes? e very day A dditional Findings: Tobacco User C hews tobacco D rug/Alcohol: A NASEEM-C (Standard) D id you have a drink containing alcohol in the past year? Y es H ow often did you have six or more drinks on one occasion in the past year? N ever (0 point) H ow many drinks did you have on a typical day when you were drinking in the past year? 1 or 2 drinks (0 point) H ow often did you have a drink containing alcohol in the past year? M onthly or less (1 point) P oints 1 I nterpretation N egative * Medications: T aking Aspirin Low Dose(Aspirin) 81 MG Tablet Chewable TAKE 1 TABLET BY MOUTH EVERY DAY FOR 30 DAYS , Taking Diclofenac Sodium 75 MG Tablet Delayed Release TAKE 1 TABLET BY MOUTH TWICE A DAY , Taking Liothyronine Sodium 5 MCG Tablet TAKE 1 TABLET BY MOUTH EVERY DAY ON EMPTY STOMACH FOR 90 DAYS , Taking Nitroglycerin 0.4 MG Tablet Sublingual 1 tablet under the tongue and allow to dissolve as needed. Take every 5 minutes up to 3 times if chest pain persists Sublingual Q 5 min as needed for chest pain , Taking Simvastatin 20 MG Tablet TAKE 1 TABLET BY MOUTH EVERY DAY IN THE EVENING FOR 90 DAYS , Taking Synthroid(Levothyroxine Sodium) 175 MCG Tablet TAKE 1 TABLET EVERY MORNINGON AN EMPTY STOMACH , Discontinued Semaglutide 1.8 mg/ 0.5 mL 1.8 mg/ 0.5 mL Solution Auto-injector 0.5 mL Subcutaneous Once Weekly , Discontinued Semaglutide 2.268 mg/0.63 mL 2.268 mg/0.63 mL Soultion Auto-injector 0.63 mL Subcutaneous Once weekly , Medication List reviewed and reconciled with the patient * Allergies: N .K.D.A. Objective: * Vitals: W t:195.6lbs, Ht: 72 in, BP:120/68mm Hg, BMI:26.53Index, Ht-cm: 182.88 cm, Wt-k.72 kg. * Examination: A bdomen Exam:: P oor int rotaion in shojlder and MIld laxity on downward pressure consistent with impingement and liklel rotator cuff tear. Assessment: * Assessment: 1. S [facility] impingement - M75.40 (Primary) Plan: * Treatment: * Preventive Medicine: Screenings/Counseling: B NV ACTION PLAN Above Normal BMI Follow-up D ietary management education, guidance, and counseling See treatment section of progress note for complete details of management plan. T OBACCO ACTION PLAN Patient counselled on the dangers of tobacco use and urged to quit. 0 02/17/2025 . * * Electronic signature of Scar Lacey MD, [id number] on 02/17/2025 at 02:05 PM EDT Sign off status: Pending Visit Status: C HK (Check Out) * Provider: Uday Lacey ([facility])MD Date: 0 02/17/2025 Generated for Ayanna dowd/Faxing/eTransmitting on: 0 02/17/2025 02:05 PM EDT History and Physical Notes * HPI (History of Present Illness) Category Sub-Category Detail Notes Category Not es General Left shouler [pain tiwh reduced int and external rotation - no recent injury - but has been that was for 3 + years Carrying ites in left arm - causes it rto flare uip - - no oold injkury Back pain doing welkl no old inrhy - diclofenac not helps Examination Category Sub-Category Detail Notes Category Not es Abdomen Exam: Poor int rotai on in shojlder and MIld laxity on downward pressure consistent with impingement and liklel rotator cuff tear
--- OUTSIDE RECORDS SUMMARY | 2025-02-17 14:05 | XMS_ITS | Clinical Summary ---
Author Organization [facility] Address [address] [place] [address] Care Team Providers Care Transitions Manager Name Role Phone Darrell Lacey MD Primary Care Provider [phone] Allergies No known active allergies Medications SYNTHROID 175 MCG tablet 04/04/2020 Active diclofenac (VOLTAREN) 75 MG EC tablet Take 1 tablet by mouth daily 09/30/2023 Active liothyronine (CYTOMEL) 5 MCG tablet Take 1 tablet by mouth daily 09/23/2023 Active simvastatin (ZOCOR) 20 MG tablet Take 1 tablet by mouth nightly 09/23/2023 Active Active Problems Problem Noted Date Diagnosed Date Prediabetes 01/22/2024 Irritable bowel syndrome 01/22/2024 Hypothyroidism 01/22/2024 History of spinal surgery 01/22/2024 Gastroesophageal reflux disease 01/22/2024 Cervical disc disorder 01/22/2024 Hypercholesterolemia 12/25/2023 Low back pain, unspecified 12/05/2023 Class 1 obesity 10/13/2023 Obstructed umbilical hernia 10/13/2023 Type 2 diabetes mellitus 10/06/2023 Neck pain 09/29/2023 COVID-19 04/14/2022 Contact with and (suspected) exposure to covid-1 9 04/11/2022 Type 2 diabetes mellitus without complications 0 03/25/2022 Resolved Problems Problem Noted Date Diagnosed Date Resolved Date Encounter for screening for malignant neoplasm of prostate 03/18/2022 02/21/2024 Family History Medical History Relation Name Comments Diabetes Father Relation Name Status Comments Father Mother Alive Social History Tobacco Use Types Packs/Day Years Used Date Smoking Tobacco: Never Smokeless Tobacco: Current Alcohol Use Standard Drinks/Week Comments Yes 0 (1 standard drink = 0.6 oz pur e alcohol) seldom Sex and Gender Information Value Date Recorded Sex Assigned at Not on file Legal Sex Male 6:35 PM EST Gender Identity Not on file Sexual Orientation Not on file Last Filed Vital Signs Vital Sign Reading Time Taken Comments Blood Pressure 118/72 03/11/2024 10:44 AM EDT Pulse 65 03/11/2024 10:44 AM EDT Temperature 36.8 C (98.2 F) 06/20/2020 3:45 PM EDT Respiratory Rate 15 03/11/2024 10:44 AM EDT Oxygen Saturation - - Inhaled Oxygen Concentration - - Weight 103 kg (227 lb) 03/11/2024 10:44 AM EDT Height 182.9 cm (6') 03/11/2024 10:44 AM EDT Body Mass Index 30.79 03/11/2024 10:44 AM EDT Plan of Treatment Health Maintenance Due Date Last Done Comments A1C test (Diabetic or Prediabetic) 1977 Diabetic foot exam 1977 Lipids 1977 Depression Screen 1979 HIV screen 1982 Diabetic Alb to Cr ratio (uACR) test 1985 Diabetic retinal exam 1985 GFR test (Diabetes, CKD 3-4, OR last GFR 15-59) 1985 Hepatitis C screen 1985 DTaP/Tdap/Td vaccine (1 - Tdap) 1986 Hepatitis B vaccine (1 of 3 - 19+ 3-dose series) 1986 Pneumococcal 50+ years Vaccine (1 of 2 - PCV) 1986 Colonoscopy 2012 Colorectal Cancer Screen 2012 FIT/FOBT: Average risk 2012 Fecal-DNA (Cologuard): Average risk 2012 Sigmoidoscopy/CT colonography 2012 Shingles vaccine (1 of 2) 2017 COVID-19 Vaccine ( - season) 2024 05/12/2023, 07/10/2021, 12/06/2020, Additional history exists Flu vaccine (Season Ended) 2025 05/12/2023, Hepatitis A vaccine Aged Out No longe r eligible based on patient's age to complete this topic Hib vaccine Aged Out No longer eligi ble based on patient's age to complete this topic Meningococcal (ACWY) vaccine Aged Out No longer eligible based on patient's age to complete this topic Meningococcal B vaccine Aged Out No l onger eligible based on patient's age to complete this topic Polio vaccine Aged Out No longer elig ible based on patient's age to complete this topic Insurance BCBS OUT OF STATE Care Teams Transitions Manager Relationship Specialty Start Date End Date Darrell Lacey MD [address] [place] [address] PCP - General Family Medicine 06/20/20
--- OUTSIDE RECORDS SUMMARY | 2025-02-17 14:05 | XMS_ITS | Clinical Summary ---
Author Organization [place] Address [id number] [address] [place] [address] Care Team Providers Care Hardwood Floor Layer Name Role Phone Unavailable Primary Care Provider Unavailabl e Allergies No known active allergies Social History Tobacco Use Types Packs/Day Years Used Date Smoking Tobacco: Never Assessed Childcare Answer Date Recorded Childcare Unknown 02/01/2019 Employment Answer Date Recorded Employment Unknown 02/01/2019 Sex and Gender Information Value Date Recorded Sex Assigned at Not on file Legal Sex Male 5:59 PM EDT Gender Identity Not on file Sexual Orientation Not on file Last Filed Vital Signs Vital Sign Reading Time Taken Comments Blood Pressure - - Pulse - - Temperature - - Respiratory Rate - - Oxygen Saturation - - Inhaled Oxygen Concentration - - Weight 106.6 kg (235 lb) 12/05/2023 7:12 AM EDT Height 182.9 cm (6') 12/05/2023 7:12 AM EDT Body Mass Index 31.87 12/05/2023 7:12 AM EDT Plan of Treatment Health Maintenance Due Date Last Done Comments Depression Screening 1979 Tobacco Screening 1979 DTaP,Tdap and Td Vaccines (1 - Tdap) 1986 Zoster (Shingles) Vaccine (1 of 2) 2017 COVID-19 Vaccine (5 - 2023-2 5 season) 2024 05/12/2023, 07/10/2021, 12/06/2020, Additional history exists Adult BMI Screening 12/04/2024 12/05/2023 Influenza Vaccine 04/24/2025 05/12/2023, 06/07/2020 Medical Devices Not on file Insurance [facility]
--- NOTE | 2025-02-17 14:08 | XR_ITS ---
[place] [id number] Patient Name: NIXON JENSEN MRN: [id number] date: 1965 Sex: M Assigned Patient Location: RAD Current Patient Location: [facility] Accession/Order Number: [id number] Exam Date: 02/17/2025 15:28 Report Date: 02/17/2025 15:28 At the request of: KENNY ARELLANO MD Procedure: XR shoulder LT min 2V LEFT SHOULDER - - ray views CLINICAL HISTORY: Shoulder impingement, M75.40 COMPARISON: None FINDINGS: Joint spaces appear maintained. No acute bony process. XR/XR shoulder LT min 2V IMPRESSION: No acute bony process. Impression dictated by: Timothy Graham Jr.OJaimee 02/17/2025 3:28 PM Dictation Location: [place] [address] Electronically authenticated by: [id number] Y Date: 02/17/2025 15:28
--- OUTSIDE RECORDS SUMMARY | 2025-02-17 14:30 | XMS_ITS | CCD ---
Author Organization [facility] Care Team Providers Care Supervisor Lead Refinery Name Role Phone DR KENNY LACEY Primary [...] Medication Allergies] Propensity to adverse reactions (disorder) [facility] Repository Medications Current Medications Medication Drug Class(es) [...] SARS-CoV-2 (COVID-19) mRNA-1273 vaccine 11/08/2020 Recorded Normal [facility] Comment on above: Result Comment: Elec tronically Signed By: ISAÍAS REAVES, Enrike Castillo\Date and Time Signed: 12/16/23 14:44 EDT Formson 12-15-2023 Forms [id number] D3#1.00TIFF Normal [facility] MR LUMBAR SPINE WO CONTon MR [...] and mild bilateral facet arthropathy results in lgmx-gi-xkqisren right and mild left neuroforaminal narrowing. No significant spinal canal narrowing. L4-L5: Mild diffuse disc bulge and moderate bilateral facet arthropathy with vvxi-dp-nszxsrss right and mild left neuroforaminal narrowing. No significant spinal canal narrowing. L5-S1: Mild diffuse disc bulge, mild facet arthropathy results in mild bilateral neuroforaminal narrowing. No significant spinal canal narrowing. IMPRESSION: * Multilevel degenerative spondylosis most prominent at L3-L4, L4-L5 and L5-S1, with multilevel facet arthropathy. * Ctbt-db-ixxjlnol right and mild left neuroforaminal narrowing at L3-L4 and L4-L5. 9 Finalized by Forest Alcaraz on 12/06/2023 4:55 PM Normal [facility] Ambulatory Visit Summaryon 0 12-02-2023 Ambulatory [...] GRIFFITH MD Where: General Surgery Isaías/Gato Gaines [facility] General Surgery Office/Clini c Noteon 12-02-2023 General [...] 53 SARS-CoV-2 (COVID-19) mRNA-1273 vaccine 11/08/2020 Recorded [facility] Comment on above: Result Comment: Elec tronically Signed By: ISAÍAS REAVES, Enrike Bhagat\.br\Date and Time Signed: 12/02/23 13:56 EDT Operative Reporton Operative Report [id number] 95#1.00TIFF Normal [facility] ECG 12-Leadon 11-19-2023 ECG 12-Lead [id number] 70#1.00TIFF [facility] Insurance Correspondenceon 0 11-02-2023 Insurance Correspondence [id number] 140#1.00TIFF [facility] Formson 10-20-2023 Forms [id number] 82#1.00TIFF [facility] Ambulatory Visit Summaryon 0 10-13-2023 Ambulatory [...] for choosing us for your care. Normal [facility] Consent for Procedure/Surger yon 10-13-2023 Consent for Procedure/Surgery [id number] 34#1.00TIFF Normal [facility] XR SPINE LUMBAR MIN 4 VWSon 10-01-2023 [...] Rio MD on 10/01/2023 8:45 AM Normal [facility] Physician Referralon 024 Physician Referral [id number] A5#1.00TIFF Normal [facility] Physician Referral [id number] E3#1.00TIFF Normal [facility] Covid-19 PCR (CVDTBH)on 03-24 SARS-CoV-2 (COVID-19) RNA LEONID+probe Ql (Unsp spec) Detected Critically abnormal NOT DETECTED [facility] Comment on above: Result Comment: This test is not yet approved or cleared by the [place] FDA. When there are no FDA-approved or cleared tests available, and other criteria are met, FDA can make tests available under an emergency access mechanism called an Emergency Use Authorization (EUA). The EUA for this test is supported by the Planning And Analysis Manager of Health and Human Service's (HHS's) [...] used). Performed By: #### C VDTB #### [facility] [address] [place] [address] Dr. Ting Felix CBC AUTO DIFFon 03-14-2022 BASO # 0.1 103/ul Normal 0.0-0.1 [facility] Comment on above: Performed By: #### C BC #### [facility] [address] [place] [address] Dr. Ting Felix Basophils/100 WBC (Bld) 1.2 % Normal 0.2-2.0 [facility] Comment on above: Performed By: #### C BC #### [facility] [address] [place] [address] Dr. Ting Felix EO # 0.2 103/ul Normal 0.0-0.7 [facility] Comment on above: Performed By: #### C BC #### [facility] [address] [place] [address] Dr. Ting Felix Eosinophils/100 WBC (Bld) 2.9 % Normal 0.9-7.0 [facility] Comment on above: Performed By: #### C BC #### [facility] [address] [place] [address] Dr. Ting Felix Erythrocyte distribution width (RBC) [Ratio] 12.5 % Normal 11.0-15.0 [facility] Comment on above: Performed By: #### C BC #### [facility] [address] [place] [address] Dr. Ting Felix Hematocrit (Bld) [Volume fraction] 44.1 % Normal 42.0-54.0 [facility] Comment on above: Performed By: #### C BC #### [facility] [address] [place] [address] Dr. Ting Felix Hemoglobin (Bld) [Mass/Vol] 15.4 g/dL Normal 14.0-18.0 [facility] Comment on above: Performed By: #### C BC #### [facility] [address] [place] [address] Dr. Ting Felix IG # 0.02 10e3/ul Normal 0.00-0.03 [facility] Comment on above: Performed By: #### C BC #### [facility] [address] [place] [address] Dr. Ting Felix IG % 0.3 % Normal 0.0-0.5 [facility] Comment on above: Performed By: #### C BC #### [facility] [address] [place] [address] Dr. Ting Felix LYMPH # 1.7 103/ul Normal 1.2-3.8 [facility] Comment on above: Performed By: #### C BC #### [facility] [address] [place] [address] Dr. Ting Felix Lymphocytes/100 WBC (Bld) 28.9 % Normal 20.5-60.0 [facility] Comment on above: Performed By: #### C BC #### [facility] [address] [place] [address] Dr. Ting Felix MANUAL DIFF REQ NO Normal [facility] Comment on above: Performed By: #### C BC #### [facility] [address] [place] [address] Dr. Ting Felix MCH (RBC) [Entitic mass] 30.7 pg Normal 25.9-34.0 [facility] Comment on above: Performed By: #### C BC #### [facility] [address] [address] [address] Ting Felix MCHC (RBC) [Mass/Vol] 34.9 g/dL Normal 29.9-35.2 [facility] Comment on above: Performed By: #### C BC #### [facility] [address] [address] [address] Ting Felix MCV (RBC) [Entitic vol] 87.8 fL Normal 80.0-94.0 [facility] Comment on above: Performed By: #### C BC #### [facility] [address] [place] [address] Dr. Ting Felix MONO # 0.5 103/ul Normal 0.3-0.8 [facility] Comment on above: Performed By: #### C BC #### [facility] [address] [place] [address] Dr. Ting Felix Monocytes/100 WBC (Bld) 9.2 % Normal 1.7-12.0 [facility] Comment on above: Performed By: #### C BC #### [facility] [address] [place] [address] Dr. Ting Felix NEUT # 3.4 103/ul Normal 1.4-6.5 [facility] Comment on above: Performed By: #### C BC #### [facility] [address] [place] [address] Dr. Ting Felix Neutrophils/100 WBC (Bld) 57.5 % Normal 43.0-75.0 [facility] Comment on above: Performed By: #### C BC #### [facility] [address] [address] [address] Ting Felix Platelet mean volume (Bld) [Entitic vol] 10.3 fL Normal 9.5-13.5 [facility] Comment on above: Performed By: #### C BC #### [facility] [address] [place] [address] Dr. Ting Felix PLT 237 103/ul Normal 150-450 [facility] Comment on above: Performed By: #### C BC #### [facility] [address] [place] [address] Dr. Ting Felix RBC 5.02 106/ul Normal 4.70-6.10 [facility] Comment on above: Performed By: #### C BC #### [facility] [address] [place] [address] Dr. Ting Felix WBC 5.9 103/ul Normal 4.0-11.0 [facility] Comment on above: Performed By: #### C BC #### [facility] [address] [place] [address] Dr. Ting Felix FREE T3on 03-14-2022 FREE T3 2.85 pg/mlL Normal 2.18-3.98 [facility] Comment on above: Performed By: #### T SH, FT3, T4, LIPID, CMP #### [facility] [address] [place] [address] Dr. Ting Felix GLYCOHEMOGLOBIN A1Con 2021 ADA RECOMMENDATION SEE BELOW Normal [facility] Comment on above: Result Comment: ADA RECOMMENDED LIMIT 4.0 - 6.0 ADA THERAPEUTIC TARGET < 7.0 ACTION SUGGESTED > 7.0 Performed By: #### A 1C #### [facility] [address] [place] [address] Dr. Ting Felix Glucose [Mass/Vol] 148 mg/dL Normal [facility] Comment on above: Performed By: #### A 1C #### [facility] [address] [place] [address] Dr. Ting Felix HbA1c (Bld) [Mass fraction] 6.8 % Critically high 4.5-6.2 [facility] Comment on above: Performed By: #### A 1C #### [facility] [address] [place] [address] Dr. Ting Felix LIPID PROFILEon 03-14-2022 CHOL-HDL RATIO NORM SEE BELOW Normal [facility] Comment on above: Result Comment: 3.3 - 4.4 LOW RISK 4.4 - 7.1 AVERAGE RISK 7.1 - 11.0 MODERATE RISK >11.0 HIGH RISK Performed By: #### T SH, FT3, T4, LIPID, CMP #### [facility] [address] [address] [address] Ting Felix Cholesterol [Mass/Vol] 189 mg/dL Normal <=200 [facility] Comment on above: Performed By: #### T SH, FT3, T4, LIPID, CMP #### [facility] [address] [address] [address] Ting Felix Cholesterol in HDL [Mass/Vol] 27 mg/dL Critically low 40-60 [facility] Comment on above: Performed By: #### T SH, FT3, T4, LIPID, CMP #### [facility] [address] [address] [address] Ting Felix Cholesterol in LDL [Mass/Vol] 90.8 mg/dL Normal [facility] Comment on above: Performed By: #### T SH, FT3, T4, LIPID, CMP #### [facility] [address] [address] [address] Ting Felix Cholesterol.total/Cho lesterol in HDL [Mass ratio] 7.0 {ratio} Normal [facility] Comment on above: Performed By: #### T SH, FT3, T4, LIPID, CMP #### [facility] [address] [address] [address] Ting Felix HDL NORMAL > or = 60 mg/dl - LOW CARDIOVASCULAR RISK <40 mg/dl - HIGH CARDIOVASCULAR RISK Normal [facility] Comment on above: Performed By: #### T SH, FT3, T4, LIPID, CMP #### [facility] [address] [address] [address] Ting Felix LDL CALC NORMAL SEE BELOW Normal [facility] Comment on above: Result Comment: <100 mg/dl OPTIMAL 100 - 129 mg/dl NEAR OR ABOVE OPTIMAL 130 - 159 mg/dl BORDERLINE HIGH 160 - 189 mg/dl HIGH >190 mg/dl VERY HIGH Performed By: #### T SH, FT3, T4, LIPID, CMP #### [facility] [address] [address] [address] Ting Felix Triglyceride [Mass/Vol] 356 mg/dL Critically high <=150 [facility] Comment on above: Performed By: #### T SH, FT3, T4, LIPID, CMP #### [facility] [address] [place] [address] Dr. Ting Felix VLDL CALC 71.2 mg/dL Normal [facility] Comment on above: Performed By: #### T SH, FT3, T4, LIPID, CMP #### [facility] [address] [place] [address] Dr. Ting Felix PROF 14(COMP METB)on 022 Albumin [Mass/Vol] 3.8 g/dL Normal 3.4-5.0 [facility] Comment on above: Performed By: #### T SH, FT3, T4, LIPID, CMP #### [facility] [address] [place] [address] Dr. Ting Felix Albumin/Globulin [Mass ratio] 1.1 {ratio} Normal [facility] Comment on above: Performed By: #### T SH, FT3, T4, LIPID, CMP #### [facility] [address] [place] [address] Dr. Ting Felix ALP [Catalytic activity/Vol] 73 U/L Normal 46-116 [facility] Comment on above: Performed By: #### T SH, FT3, T4, LIPID, CMP #### [facility] [address] [place] [address] Dr. Ting Felix ALT [Catalytic activity/Vol] 48 U/L Normal 16-63 [facility] Comment on above: Performed By: #### T SH, FT3, T4, LIPID, CMP #### [facility] [address] [place] [address] Dr. Ting Felix Anion gap [Moles/Vol] 10.8 mmol/L Normal [facility] Comment on above: Performed By: #### T SH, FT3, T4, LIPID, CMP #### [facility] [address] [place] [address] Dr. Ting Felix AST [Catalytic activity/Vol] 18 U/L Normal 15-37 [facility] Comment on above: Performed By: #### T SH, FT3, T4, LIPID, CMP #### [facility] [address] [place] [address] Dr. Ting Felix Bilirubin [Mass/Vol] 0.5 mg/dL Normal 0.2-1.0 [facility] Comment on above: Performed By: #### T SH, FT3, T4, LIPID, CMP #### [facility] [address] [place] [address] Dr. Ting Felix Calcium [Mass/Vol] 8.7 mg/dL Normal 8.5-10.1 [facility] Comment on above: Performed By: #### T SH, FT3, T4, LIPID, CMP #### [facility] [address] [place] [address] Dr. Ting Felix Chloride [Moles/Vol] 105 mmol/L Normal 98-107 [facility] Comment on above: Performed By: #### T SH, FT3, T4, LIPID, CMP #### [facility] [address] [place] [address] Dr. Ting Felix CO2 [Moles/Vol] 30.6 mmol/L Normal 21.0-32.0 [facility] Comment on above: Performed By: #### T SH, FT3, T4, LIPID, CMP #### [facility] [address] [place] [address] Dr. Ting Felix Creatinine [Mass/Vol] 1.15 mg/dL Normal 0.70-1.30 [facility] Comment on above: Performed By: #### T SH, FT3, T4, LIPID, CMP #### [facility] [address] [place] [address] Dr. Ting Felix EGFR-AF PARAGUAYAN >60 Normal >=60 [facility] Comment on above: Performed By: #### T SH, FT3, T4, LIPID, CMP #### [facility] [address] [place] [address] Dr. Ting Felix EGFR-NON AF PARAGUAYAN >60 Normal >=60 [facility] Comment on above: Performed By: #### T SH, FT3, T4, LIPID, CMP #### [facility] [address] [place] [address] Dr. Ting Felix Globulin (S) [Mass/Vol] 3.5 g/dL Normal [facility] Comment on above: Performed By: #### T SH, FT3, T4, LIPID, CMP #### [facility] [address] [place] [address] Dr. Ting Felix Glucose [Mass/Vol] 171 mg/dL Critically high 74-106 [facility] Comment on above: Performed By: #### T SH, FT3, T4, LIPID, CMP #### [facility] [address] [place] [address] Dr. Ting Felix Potassium [Moles/Vol] 4.4 mmol/L Normal 3.5-5.1 [facility] Comment on above: Performed By: #### T SH, FT3, T4, LIPID, CMP #### [facility] [address] [place] [address] Dr. Ting Felix Protein [Mass/Vol] 7.3 g/dL Normal 6.4-8.2 [facility] Comment on above: Performed By: #### T SH, FT3, T4, LIPID, CMP #### [facility] [address] [place] [address] Dr. Ting Felix Sodium [Moles/Vol] 142 mmol/L Normal 136-145 [facility] Comment on above: Performed By: #### T SH, FT3, T4, LIPID, CMP #### [facility] [address] [place] [address] Dr. Ting Felix Urea nitrogen [Mass/Vol] 19.0 mg/dL Critically high 7.0-18.0 [facility] Comment on above: Performed By: #### T SH, FT3, T4, LIPID, CMP #### [facility] [address] [place] [address] Dr. Ting Felix Urea nitrogen/Creatinine [Mass ratio] 16.5 mg/mg Normal [facility] Comment on above: Performed By: #### T SH, FT3, T4, LIPID, CMP #### [facility] [address] [place], [place] [address] Dr. Ting Felix T4on 03-14-2022 T4 [Mass/Vol] 8.40 ug/dL Normal 4.50-12.10 [facility] Comment on above: Performed By: #### T SH, FT3, T4, LIPID, CMP #### [facility] [address] [address] [address] Ting Felix TSHon 03-14-2022 TSH 0.090 uIU/mL Critically low 0.358-3.740 [facility] Comment on above: Performed By: #### T SH, FT3, T4, LIPID, CMP #### [facility] [address] [address] [address] Ting Felix Vital Signs Date Time Vital Sign Value Performing Clinician Gypsyi arcenio 10-13-2023 09:26-0500 Blood Pressure Location [facility] 10-13-2023 09:26-0500 Diastolic blood pressure 86 mm[Hg] [facility] 10-13-2023 09:26-0500 Heart rate 63 /min [facility] 10-13-2023 09:26-0500 Respiratory rate 16 /min [facility] 10-13-2023 09:26-0500 Systolic blood pressure 135 mm[Hg] [facility] Encounters Encounter Date Encounter Type Care Provider Facility Start: 03-25-[address] [facility] Start: 03-02-2024 End: 03-02-2024 ambulatory [facility] Start: 02-19-2024 End: 02-19-[address] [facility] Start: 02-17-2024 End: 02-17-2024 ambulatory [facility] Start: 02-12-2024 End: 02-12-2024 ambulatory [facility] Start: 02-10-2024 End: 02-10-2024 ambulatory [facility] Start: 02-10-2024 End: 02-10-2024 Subsequent hospital visit by physician Jenni Sanchez [employer] [facility] Start: 02-03-2024 End: 02-03-2024 ambulatory [facility] Start: 01-29-2024 End: 01-29-2024 ambulatory [facility] Start: 12-16-2023 End: 12-17-2023 ambulatory Enrike R NILL Facility:[facility] Start: 12-16-2023 End: 12-16-2023 Patient encounter procedure Enrike R NILL [facility] Start: 12-05-2023 End: 12-06-2023 ambulatory KENNY Trish [facility] Start: 12-02-2023 End: 12-03-2023 ambulatory Enrike R NILL Facility:[facility] Start: 12-02-2023 End: 12-02-2023 Patient encounter procedure Enrike R NILL [facility] Start: 11-30-2023 ambulatory Enrike NILL Facility:[facility] Start: 11-25-2023 End: 11-26-2023 ambulatory Enrike R NILL Facility:[facility] Start: 10-13-2023 End: 10-14-2023 ambulatory Enrike R NILL Facility: [place] Start: 10-13-2023 End: 10-13-2023 Patient encounter procedure Enrike R NILL [facility] [place] Start: 09-29-2023 End: 09-30-2023 ambulatory KENNY M HO[facility] Start: 09-24-2023 ambulatory Enrike GRIFFITH Facility:[facility] Start: 04-11-2022 End: 04-11-[address] KENNY LACEY Facility:[facility] Start: 03-25-2022 End: 03-26-[address] KENNY LACEY Facility:[facility] Start: 03-18-2022 Encounter for genera l adult medical examination without abnormal findings DR KENNY LACEY [facility] Start: 03-14-2022 End: 03-15-[address] KENNY LACEY Facility:[facility] Start: 03-14-2022 End: 03-15-2022 Encounter for general adult medical examination without abnormal findings DR KENNY LACEY Facility:[facility] Procedures Date Procedure Procedure Detail Performing Clinician Start: 11-25-2023 Repair of umbilical hernia Enrike GRIFFITH Start: 03-14-[address] CLAY LACEY Comment on above: Performed By: #### P [facility] #### [facility] [address] [place] [address] Dr. Ting Felix Excision of cervical intervertebral disc Enrike GRIFFITH Plan of Treatment Date Care Activity Detail Author Start: 03-11-2024 End: 03-11-2024 Patient encounter procedure 03/11/2024 9:40 AM EDT Office Visit [facility] [address] [place] [address], [facility] [address] [place] [address] Ozzie Rosario MD [address] [place] [address] Lumbar-follow up w/PT [facility] Comment on above: Lumbar-follow up w/P T Start: 03-04-2024 End: 03-04-2024 Patient encounter procedure 03/04/2024 7:30 AM EDT Appointment [facility] [address], [facility] [address] [place] [id number] Dawn Suh, PT Approval Valid 01/28 - 8/5 5 visits [facility] Comment on above: Approval Valid 01/28 - 8/5 5 visits Start: 03-02-2024 End: 03-02-2024 Patient encounter procedure 03/02/2024 7:30 AM EDT Appointment [facility] [address], [address] [place] [phone] Jenni Sanchez, [employer] Approval Valid 01/28 - 85 5 visits [facility] Comment on above: Approval Valid 01/28 - 8/5 5 visits Start: 02-19-2024 End: 02-19-2024 Patient encounter procedure 02/19/2024 7:30 AM EDT Appointment [facility] [address], [address] [place] [phone] Dawn Suh, PT Approval Valid 01/28 - 85 5 visits [facility] Comment on above: Approval Valid 01/28 - 5 5 visits Start: 02-17-2024 End: 02-17-2024 Patient encounter procedure 02/17/2024 7:30 AM EDT Appointment [facility] [address] [place] [phone] Jenni Sanchez, [employer] Approval Valid 01/28 - 03/28 5 visits [facility] Comment on above: Approval Valid 01/28 - 85 5 visits Start: 02-12-2024 End: 02-12-2024 Patient encounter procedure 02/12/2024 7:30 AM EDT Appointment [facility] [address] [place] [phone] Dawn Suh, PT PN [facility] Comment on above: PN Start: 2017 Shingles vaccine (1 of 2) Shingles vaccine (1 of 2) [facility] Start: 2012 Screening for malign ant neoplasm of colon [facility] Start: 1986 DTaP/Tdap/Td vaccine (1 - Tdap) DTaP/Tdap/Td vaccine (1 - Tdap) [facility] Start: 1985 GFR test (Diabetes, CKD 3-4, OR last GFR 15-59) GFR test (Diabetes, CKD 3-4, OR last GFR 15-59) [facility] Start: 1985 Glaucoma screening Diabetic retinal exam [facility] Start: 1985 Hepatitis C screening Hepatitis C sc reen [facility] Start: 1985 Urine screening for protein Diabetic Alb to Cr ratio (uACR) test [facility] Start: 1982 HIV screening HIV screen [facility] Start: 1979 Depression Screen Depression Screen [facility] Start: 1977 Diabetic foot examination Diabetic foot exam [facility] Start: 1977 Hemoglobin A1c measurement A1C test (Diabetic or Prediabetic) [facility] Start: 1977 Lipid panel Lipids [facility] Start: 1973 Pneumococcal 0-64 ye ars Vaccine (1 of 2 - PCV) Pneumococcal 0-64 years Vaccine (1 of 2 - PCV) [facility] Start: 1967 Hepatitis B vaccine (1 of 3 - 3-dose series) Hepatitis B vaccine (1 of 3 - 3-dose series) [facility] Immunizations Immunization Date Immunization Notes Care Provider Jovani quintana 05-12-2023 influenza virus vaccine, unspecified formulation Enrike GRIFFITH [facility] 07-10-2021 SARS-CoV-2 (COVID-19 ) mRNA BNT-162b2 vax Enrike GRIFFITH [facility] 12-06-2020 SARS-CoV-2 (COVID-19 ) mRNA-1273 vaccine Enrike GRIFFITH [facility] Comment on above: Result Comment: [id number]: 55 11-08-2020 SARS-CoV-2 (COVID-19 ) mRNA-1273 vaccine Enrike GRIFFITH [facility] Payers Date Payer Category Payer Unknown [id number] 2.16.84 [id number] 1967 Unknown [id number] 2.16.84 [id number] 1967 Unknown [id number] 2.16.84 [id number] 1967 Unknown [id number] 2.16.8 40.1.609213.3.579.2.1286 1967 Unknown [id number] 2.16.8 40.1.477371.3.579.2.1286 1967 Unknown [id number] 2.16.8 40.1.563091.3.579.2.727 1967 Unknown [id number] 2.16.8 40.1.377667.3.579.2.727 1967 Unknown [id number] 2.16.8 40.1.990782.3.579.2.727 1967 Unknown [id number] 2.16.8 40.1.754495.3.579.2.727 1967 Unknown [id number] 2.16.8 40.1.938702.3.579.2.176 1967 Unknown [id number] 2.16.8 40.1.735925.3.579.2.176 1967 Unknown [id number] 2.16.8 40.1.465979.3.579.2.176 1967 Unknown [id number] 2.16.8 40.1.981638.3.579.2.176 1967 Unknown [id number] 2.16.8 40.1.855368.3.579.2.176 1967 Unknown [id number] 2.16.8 40.1.003187.3.579.2.176 1967 Unknown [id number] 1965 Unknown [id number] 1957 Unknown [id number] Social History Date Type Detail Facility Start: 06-20-2020 End: 10-13-2023 Tobacco smoking status Never smoked tobacco (finding) [facility] Tobacco smoking status Smokeless tobacco user within last 30 days [facility] Start: 01-22-2024 Sex Assigned At Male F [facility] Start: 06-20-2020 Tobacco use and exposure User of smokeless tobacco [facility] [employer] Start: 01-22-2024 Alcohol intake Current drinke r of alcohol (finding) [facility] Start: 01-22-2024 History of Social function [employer] Start: 01-22-2024 Alcohol Comment seldom [facility] [employer] Start: 1965 Sex Assigned At Not on file B ON [employer] Functional Status Date Assessment Result Facility 10-13-2023 Functional Status N/A [facility] Clinical Note 10-13-2023 Note Date & Type [...] 55 SARS-CoV-2 (COVID-19) mRNA-1273 vaccine 11/08/2020 Recorded [facility] Comment on above: Result Comment: Elec tronically Signed By: ISAÍAS REAVES, Enrike Castillo\Date and Time Signed: 10/13/23 10:51 EST Evaluation + Plan note Note Date & Type Note Facility Evaluation + Plan note No data available for this section [facility] General [facility] [place] Evaluation + Plan note Note Date & Type Note Facility Evaluation + Plan note Future Appointments Appointment Date:12/16/2023 02:40:00 PM Scheduled Provider:Enrike GRIFFITH MD Location:[facility] Appointment Type: Post Op 15 General Surgery [facility] Discharge instructions Note Date & Type Note Facility Hospital Discharge instructions No data available for this section [facility] Progress note Note Date & Type Note Facility Progress note No data available for this section [facility] Summary Purpose Family History No Family History [...] section and content) DATE CREATED AUTHOR 04/17/2022 [facility] DATE CREATED AUTHOR AUTHOR'S ORGANIZ ATION 12/06/2023 [facility] DATE CREATED AUTHOR AUTHOR'S ORGANIZ ATION 12/18/2023 [facility] DATE CREATED AUTHOR AUTHOR'S ORGANIZ ATION 03/15/2024 [facility] Patient Care team informatio n (unrecognized section and content) [employer] Relationship Specialty Start Date End Date Kenny Lacey MD [address] [place] [address] PCP - General Family Medicine 06/20/20 Reason for Visit (unrecogniz ed section and content) Specialty Diagnoses / Procedures Referred By Contac t Referred To Contact Physical Therapist / Physical Therapy Diagnoses Lumbar pain Ozzie Rosario MD [address] [address] [facility] [address] [place], [place] [id number] Referral ID Status Reason Start Date Expiration Date V isits Requested Visits Authorized [id number] Closed Specialty Services Required 01/22/2024 01/21/2025 1 [...] BE BASED ON THE PRIMARY CLINICAL RECORDS. [employer] [facility] provides no warranty or guarantee of the accuracy or completeness of information in this document.
== END 2025-02-17 14:01 | disposition home or self-care (01) ==
PROVIDERS: PCP Family Medicine; Visit Provider Family Medicine
DX: M75.42 Impingement syndrome of left shoulder (principal)
CPT/HCPCS: 73030

== ENCOUNTER 2025-03-10 06:47 | Outpatient (OUT) | payer BC, SELFPAY ==
--- OUTSIDE RECORDS SUMMARY | 2025-03-10 06:49 | XMS_ITS | CCD ---
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 Name Role Phone DR KENNY LACEY Primary [...] Medication Allergies] Propensity to adverse reactions (disorder) [facility] Repository Medications Current Medications Medication Drug [...] SARS-CoV-2 (COVID-19) mRNA-1273 vaccine 11/08/2020 Recorded Normal [facility] Comment on above: Result Comment: Elec tronically Signed By: ISAÍAS REAVES, Enrike Castillo\Date and Time Signed: 12/16/23 14:44 EDT Formson 12-15-2023 Forms [id number] D3#1.00TIFF Normal [facility] MR LUMBAR SPINE WO CONTon MR [...] and mild bilateral facet arthropathy results in uklp-im-ylcvayce right and mild left neuroforaminal narrowing. No significant spinal canal narrowing. L4-L5: Mild diffuse disc bulge and moderate bilateral facet arthropathy with mtzj-pf-bmhnhllf right and mild left neuroforaminal narrowing. No significant spinal canal narrowing. L5-S1: Mild diffuse disc bulge, mild facet arthropathy results in mild bilateral neuroforaminal narrowing. No significant spinal canal narrowing. IMPRESSION: * Multilevel degenerative spondylosis most prominent at L3-L4, L4-L5 and L5-S1, with multilevel facet arthropathy. * Kgqx-xj-ksphkfss right and mild left neuroforaminal narrowing at L3-L4 and L4-L5. 9 Finalized by Forest Alcaraz on 12/06/2023 4:55 PM Normal [facility] Ambulatory Visit Summaryon 0 12-02-2023 Ambulatory Visit [...] GRIFFITH MD Where: General Surgery Isaías/Gato Gaines [facility] General Surgery Office/Clini c Noteon 12-02-2023 [...] 53 SARS-CoV-2 (COVID-19) mRNA-1273 vaccine 11/08/2020 Recorded [facility] Comment on above: Result Comment: Elec tronically Signed By: ISAÍAS REAVES, Enrike Bhagat\.br\Date and Time Signed: 12/02/23 13:56 EDT Operative Reporton Operative Report [id number] 95#1.00TIFF Normal [facility] ECG 12-Leadon 11-19-2023 ECG 12-Lead [id number] 70#1.00TIFF [facility] Insurance Correspondenceon 0 11-02-2023 Insurance Correspondence [id number] 140#1.00TIFF [facility] Formson 10-20-2023 Forms [id number] 82#1.00TIFF [facility] Ambulatory Visit Summaryon 0 10-13-2023 [...] for choosing us for your care. Normal [facility] Consent for Procedure/Surger yon 10-13-2023 Consent for Procedure/Surgery [id number] 34#1.00TIFF Normal [facility] XR SPINE LUMBAR MIN 4 VWSon [...] Rio MD on 10/01/2023 8:45 AM Normal [facility] Physician Referralon 024 Physician Referral [id number] A5#1.00TIFF Normal [facility] Physician Referral [id number] E3#1.00TIFF Normal [facility] Covid-19 PCR (CVDTBH)on 03-24 SARS-CoV-2 (COVID-19) RNA LEONID+probe Ql (Unsp spec) Detected Critically abnormal NOT DETECTED [facility] Comment on above: Result Comment: This test is not yet approved or cleared by the [place] FDA. When there are no FDA-approved or cleared tests available, and other criteria are met, FDA can make tests available under an emergency access mechanism called an Emergency Use Authorization (EUA). The EUA for this test is supported by the Well Drill Operator Rotary Drill of Health and Human Service's (HHS's) declaration [...] used). Performed By: #### C VDTB #### [facility] [address] [place] [address] Dr. Ting Felix CBC AUTO DIFFon 03-14-2022 BASO # 0.1 103/ul Normal 0.0-0.1 [facility] Comment on above: Performed By: #### C BC #### [facility] [address] [place] [address] Dr. Ting Felix Basophils/100 WBC (Bld) 1.2 % Normal 0.2-2.0 [facility] Comment on above: Performed By: #### C BC #### [facility] [address] [place] [address] Dr. Ting Felix EO # 0.2 103/ul Normal 0.0-0.7 [facility] Comment on above: Performed By: #### C BC #### [facility] [address] [place] [address] Dr. Ting Felix Eosinophils/100 WBC (Bld) 2.9 % Normal 0.9-7.0 [facility] Comment on above: Performed By: #### C BC #### [facility] [address] [place] [address] Dr. Ting Felix Erythrocyte distribution width (RBC) [Ratio] 12.5 % Normal 11.0-15.0 [facility] Comment on above: Performed By: #### C BC #### [facility] [address] [place] [address] Dr. Ting Felix Hematocrit (Bld) [Volume fraction] 44.1 % Normal 42.0-54.0 [facility] Comment on above: Performed By: #### C BC #### [facility] [address] [place] [address] Dr. Ting Felix Hemoglobin (Bld) [Mass/Vol] 15.4 g/dL Normal 14.0-18.0 [facility] Comment on above: Performed By: #### C BC #### [facility] [address] [place] [address] Dr. Ting Felix IG # 0.02 10e3/ul Normal 0.00-0.03 [facility] Comment on above: Performed By: #### C BC #### [facility] [address] [place] [address] Dr. Ting Felix IG % 0.3 % Normal 0.0-0.5 [facility] Comment on above: Performed By: #### C BC #### [facility] [address] [place] [address] Dr. Ting Felix LYMPH # 1.7 103/ul Normal 1.2-3.8 [facility] Comment on above: Performed By: #### C BC #### [facility] [address] [place] [address] Dr. Ting Felix Lymphocytes/100 WBC (Bld) 28.9 % Normal 20.5-60.0 [facility] Comment on above: Performed By: #### C BC #### [facility] [address] [place] [address] Dr. Ting Felix MANUAL DIFF REQ NO Normal [facility] Comment on above: Performed By: #### C BC #### [facility] [address] [place] [address] Dr. Ting Felix MCH (RBC) [Entitic mass] 30.7 pg Normal 25.9-34.0 [facility] Comment on above: Performed By: #### C BC #### [facility] [address] [address] [address] Ting Felix MCHC (RBC) [Mass/Vol] 34.9 g/dL Normal 29.9-35.2 [facility] Comment on above: Performed By: #### C BC #### [facility] [address] [address] [address] Ting Felix MCV (RBC) [Entitic vol] 87.8 fL Normal 80.0-94.0 [facility] Comment on above: Performed By: #### C BC #### [facility] [address] [place] [address] Dr. Ting Felix MONO # 0.5 103/ul Normal 0.3-0.8 [facility] Comment on above: Performed By: #### C BC #### [facility] [address] [place] [address] Dr. Ting Felix Monocytes/100 WBC (Bld) 9.2 % Normal 1.7-12.0 [facility] Comment on above: Performed By: #### C BC #### [facility] [address] [place] [address] Dr. Ting Felix NEUT # 3.4 103/ul Normal 1.4-6.5 [facility] Comment on above: Performed By: #### C BC #### [facility] [address] [place] [address] Dr. Ting Felix Neutrophils/100 WBC (Bld) 57.5 % Normal 43.0-75.0 [facility] Comment on above: Performed By: #### C BC #### [facility] [address] [address] [address] Ting Felix Platelet mean volume (Bld) [Entitic vol] 10.3 fL Normal 9.5-13.5 [facility] Comment on above: Performed By: #### C BC #### [facility] [address] [place] [address] Dr. Ting Felix PLT 237 103/ul Normal 150-450 [facility] Comment on above: Performed By: #### C BC #### [facility] [address] [place] [address] Dr. Ting Felix RBC 5.02 106/ul Normal 4.70-6.10 [facility] Comment on above: Performed By: #### C BC #### [facility] [address] [place] [address] Dr. Ting Felix WBC 5.9 103/ul Normal 4.0-11.0 [facility] Comment on above: Performed By: #### C BC #### [facility] [address] [place] [address] Dr. Ting eFlix FREE T3on 03-14-2022 FREE T3 2.85 pg/mlL Normal 2.18-3.98 [facility] Comment on above: Performed By: #### T SH, FT3, T4, LIPID, CMP #### [facility] [address] [place] [address] Dr. Ting Felix GLYCOHEMOGLOBIN A1Con 2021 ADA RECOMMENDATION SEE BELOW Normal [facility] Comment on above: Result Comment: ADA RECOMMENDED LIMIT 4.0 - 6.0 ADA THERAPEUTIC TARGET < 7.0 ACTION SUGGESTED > 7.0 Performed By: #### A 1C #### [facility] [address] [place] [address] Dr. Ting Felix Glucose [Mass/Vol] 148 mg/dL Normal [facility] Comment on above: Performed By: #### A 1C #### [facility] [address] [place] [address] Dr. Ting Felix HbA1c (Bld) [Mass fraction] 6.8 % Critically high 4.5-6.2 [facility] Comment on above: Performed By: #### A 1C #### [facility] [address] [place] [address] Dr. Ting Felix LIPID PROFILEon 03-14-2022 CHOL-HDL RATIO NORM SEE BELOW Normal [facility] Comment on above: Result Comment: 3.3 - 4.4 LOW RISK 4.4 - 7.1 AVERAGE RISK 7.1 - 11.0 MODERATE RISK >11.0 HIGH RISK Performed By: #### T SH, FT3, T4, LIPID, CMP #### [facility] [address] [address] [address] Ting Felix Cholesterol [Mass/Vol] 189 mg/dL Normal <=200 [facility] Comment on above: Performed By: #### T SH, FT3, T4, LIPID, CMP #### [facility] [address] [address] [address] Ting Felix Cholesterol in HDL [Mass/Vol] 27 mg/dL Critically low 40-60 [facility] Comment on above: Performed By: #### T SH, FT3, T4, LIPID, CMP #### [facility] [address] [address] [address] Ting Felix Cholesterol in LDL [Mass/Vol] 90.8 mg/dL Normal [facility] Comment on above: Performed By: #### T SH, FT3, T4, LIPID, CMP #### [facility] [address] [address] [address] Ting Felix Cholesterol.total/Cho lesterol in HDL [Mass ratio] 7.0 {ratio} Normal [facility] Comment on above: Performed By: #### T SH, FT3, T4, LIPID, CMP #### [facility] [address] [address] [address] Ting Felix HDL NORMAL > or = 60 mg/dl - LOW CARDIOVASCULAR RISK <40 mg/dl - HIGH CARDIOVASCULAR RISK Normal [facility] Comment on above: Performed By: #### T SH, FT3, T4, LIPID, CMP #### [facility] [address] [address] [address] Ting Felix LDL CALC NORMAL SEE BELOW Normal [facility] Comment on above: Result Comment: <100 mg/dl OPTIMAL 100 - 129 mg/dl NEAR OR ABOVE OPTIMAL 130 - 159 mg/dl BORDERLINE HIGH 160 - 189 mg/dl HIGH >190 mg/dl VERY HIGH Performed By: #### T SH, FT3, T4, LIPID, CMP #### [facility] [address] [address] [address] Ting Felix Triglyceride [Mass/Vol] 356 mg/dL Critically high <=150 [facility] Comment on above: Performed By: #### T SH, FT3, T4, LIPID, CMP #### [facility] [address] [place] [address] Dr. Ting Felix VLDL CALC 71.2 mg/dL Normal [facility] Comment on above: Performed By: #### T SH, FT3, T4, LIPID, CMP #### [facility] [address] [place] [address] Dr. Ting Felix PROF 14(COMP METB)on 022 Albumin [Mass/Vol] 3.8 g/dL Normal 3.4-5.0 [facility] Comment on above: Performed By: #### T SH, FT3, T4, LIPID, CMP #### [facility] [address] [place] [address] Dr. Ting Felix Albumin/Globulin [Mass ratio] 1.1 {ratio} Normal [facility] Comment on above: Performed By: #### T SH, FT3, T4, LIPID, CMP #### [facility] [address] [place] [address] Dr. Ting Felix ALP [Catalytic activity/Vol] 73 U/L Normal 46-116 [facility] Comment on above: Performed By: #### T SH, FT3, T4, LIPID, CMP #### [facility] [address] [place] [address] Dr. Ting Felix ALT [Catalytic activity/Vol] 48 U/L Normal 16-63 [facility] Comment on above: Performed By: #### T SH, FT3, T4, LIPID, CMP #### [facility] [address] [place] [address] Dr. Ting Felix Anion gap [Moles/Vol] 10.8 mmol/L Normal [facility] Comment on above: Performed By: #### T SH, FT3, T4, LIPID, CMP #### [facility] [address] [place] [address] Dr. Ting Felix AST [Catalytic activity/Vol] 18 U/L Normal 15-37 [facility] Comment on above: Performed By: #### T SH, FT3, T4, LIPID, CMP #### [facility] [address] [place] [address] Dr. Ting Felix Bilirubin [Mass/Vol] 0.5 mg/dL Normal 0.2-1.0 [facility] Comment on above: Performed By: #### T SH, FT3, T4, LIPID, CMP #### [facility] [address] [place] [address] Dr. Ting Felix Calcium [Mass/Vol] 8.7 mg/dL Normal 8.5-10.1 [facility] Comment on above: Performed By: #### T SH, FT3, T4, LIPID, CMP #### [facility] [address] [place] [address] Dr. Ting Felix Chloride [Moles/Vol] 105 mmol/L Normal 98-107 [facility] Comment on above: Performed By: #### T SH, FT3, T4, LIPID, CMP #### [facility] [address] [place] [address] Dr. Ting Felix CO2 [Moles/Vol] 30.6 mmol/L Normal 21.0-32.0 [facility] Comment on above: Performed By: #### T SH, FT3, T4, LIPID, CMP #### [facility] [address] [place] [address] Dr. Ting Felix Creatinine [Mass/Vol] 1.15 mg/dL Normal 0.70-1.30 [facility] Comment on above: Performed By: #### T SH, FT3, T4, LIPID, CMP #### [facility] [address] [place] [address] Dr. Ting Felix EGFR-AF NIGERIAN >60 Normal >=60 [facility] Comment on above: Performed By: #### T SH, FT3, T4, LIPID, CMP #### [facility] [address] [place] [address] Dr. Ting Felix EGFR-NON AF NIGERIAN >60 Normal >=60 [facility] Comment on above: Performed By: #### T SH, FT3, T4, LIPID, CMP #### [facility] [address] [place] [address] Dr. Ting Felix Globulin (S) [Mass/Vol] 3.5 g/dL Normal [facility] Comment on above: Performed By: #### T SH, FT3, T4, LIPID, CMP #### [facility] [address] [place] [address] Dr. Ting Felix Glucose [Mass/Vol] 171 mg/dL Critically high 74-106 [facility] Comment on above: Performed By: #### T SH, FT3, T4, LIPID, CMP #### [facility] [address] [place] [address] Dr. Ting Felix Potassium [Moles/Vol] 4.4 mmol/L Normal 3.5-5.1 [facility] Comment on above: Performed By: #### T SH, FT3, T4, LIPID, CMP #### [facility] [address] [place] [address] Dr. Ting Felix Protein [Mass/Vol] 7.3 g/dL Normal 6.4-8.2 [facility] Comment on above: Performed By: #### T SH, FT3, T4, LIPID, CMP #### [facility] [address] [place] [address] Dr. Ting Felix Sodium [Moles/Vol] 142 mmol/L Normal 136-145 [facility] Comment on above: Performed By: #### T SH, FT3, T4, LIPID, CMP #### [facility] [address] [place] [address] Dr. Ting Felix Urea nitrogen [Mass/Vol] 19.0 mg/dL Critically high 7.0-18.0 [facility] Comment on above: Performed By: #### T SH, FT3, T4, LIPID, CMP #### [facility] [address] [place] [address] Dr. Ting Felix Urea nitrogen/Creatinine [Mass ratio] 16.5 mg/mg Normal [facility] Comment on above: Performed By: #### T SH, FT3, T4, LIPID, CMP #### [facility] [address] [place], [place] [id number] Dr. Ting Felix T4on 03-14-2022 T4 [Mass/Vol] 8.40 ug/dL Normal 4.50-12.10 [facility] Comment on above: Performed By: #### T SH, FT3, T4, LIPID, CMP #### [facility] [address] [address] [address] Ting Felix TSHon 03-14-2022 TSH 0.090 uIU/mL Critically low 0.358-3.740 [facility] Comment on above: Performed By: #### T SH, FT3, T4, LIPID, CMP #### [facility] [address] [address] [address] Ting Felix Vital Signs Date Time Vital Sign Value Performing Clinician Gypsyi arcenio 10-13-2023 09:26-0500 Blood Pressure Location [facility] 10-13-2023 09:26-0500 Diastolic blood pressure 86 mm[Hg] [facility] 10-13-2023 09:26-0500 Heart rate 63 /min [facility] 10-13-2023 09:26-0500 Respiratory rate 16 /min [facility] 10-13-2023 09:26-0500 Systolic blood pressure 135 mm[Hg] [facility] Encounters Encounter Date Encounter Type Care Provider Facility Start: 03-25-2024 [facility] Start: 03-02-2024 End: 03-02-2024 ambulatory [facility] Start: 02-19-2024 End: 02-19-2024 [facility] Start: 02-17-2024 End: 02-17-2024 ambulatory [facility] Start: 02-12-2024 End: 02-12-2024 ambulatory [facility] Start: 02-10-2024 End: 02-10-2024 ambulatory [facility] Start: 02-10-2024 End: 02-10-2024 Subsequent hospital visit by physician Jenni Sanchez [employer] [facility] Start: 02-03-2024 End: 02-03-2024 ambulatory [facility] Start: 01-29-2024 End: 01-29-2024 ambulatory [facility] Start: 12-16-2023 End: 12-17-2023 ambulatory Enrike R NILL Facility:[facility] Start: 12-16-2023 End: 12-16-2023 Patient encounter procedure Enrike R NILL [facility] Start: 12-05-2023 End: 12-06-2023 ambulatory KENNY Trish [facility] Start: 12-02-2023 End: 12-03-2023 ambulatory Enrike R NILL Facility:[facility] Start: 12-02-2023 End: 12-02-2023 Patient encounter procedure Enrike R NILL [facility] Start: 11-30-2023 ambulatory Enrike NILL Facility:[facility] Start: 11-25-2023 End: 11-26-2023 ambulatory Enrike R NILL Facility:[facility] Start: 10-13-2023 End: 10-14-2023 ambulatory Enrike R NILL Facility: [facility] Start: 10-13-2023 End: 10-13-2023 Patient encounter procedure Enrike R NILL [facility] Start: 09-29-2023 End: 09-30-2023 ambulatory KENNY M HOY [facility] Start: 09-24-2023 ambulatory Enrike GRIFFITH Facility:[facility] Start: 04-11-2022 End: 04-11-[address] KENNY LACEY Facility:[facility] Start: 03-25-2022 End: 03-26-[address] KENNY LACEY Facility:[facility] Start: 03-18-2022 Encounter for genera l adult medical examination without abnormal findings DR KENNY LACEY [facility] Start: 03-14-2022 End: 03-15-[address] KENNY LACEY Facility:[facility] Start: 03-14-2022 End: 03-15-2022 Encounter for general adult medical examination without abnormal findings DR KENNY LACEY Facility:[facility] Procedures Date Procedure Procedure Detail Performing Clinician Start: 11-25-2023 Repair of umbilical hernia Enrike GRIFFITH Start: 03-14-[address] CLAY LACEY Comment on above: Performed By: #### [facility] #### [facility] [address] [place] [address] Dr. Ting Felix Excision of cervical intervertebral disc Enrike GRIFFITH Plan of Treatment Date Care Activity Detail Author Start: 03-11-2024 End: 03-11-2024 Patient encounter procedure 03/11/2024 9:40 AM EDT Office Visit [facility] [address] [place] [address], [facility] [address] [place] [address] Ozzie Rosario MD [address] [place] [address] Lumbar-follow up w/PT [facility] Comment on above: Lumbar-follow up w/P T Start: 03-04-2024 End: 03-04-2024 Patient encounter procedure 03/04/2024 7:30 AM EDT Appointment [facility] [address], [facility] [address] [place] [phone] Dawn Suh, PT Approval Valid 01/28 - 8/5 5 visits [facility] Comment on above: Approval Valid 01/28 - 8/5 5 visits Start: 03-02-2024 End: 03-02-2024 Patient encounter procedure 03/02/2024 7:30 AM EDT Appointment [facility] [address], [address] [place] [phone] Jenni Sanchez, [employer]ER Approval Valid 01/28 - 85 5 visits [facility] Comment on above: Approval Valid 01/28 - 8/5 5 visits Start: 02-19-2024 End: 02-19-2024 Patient encounter procedure 02/19/2024 7:30 AM EDT Appointment [facility] [address], [address] [place] [phone] Dawn Suh, PT Approval Valid 01/28 - 85 5 visits [facility] Comment on above: Approval Valid 01/28 - 5 5 visits Start: 02-17-2024 End: 02-17-2024 Patient encounter procedure 02/17/2024 7:30 AM EDT Appointment [facility] [address] [place] [phone] Jenni Sanchez, [employer] Approval Valid 01/28 - 03/28 5 visits [facility] Comment on above: Approval Valid 01/28 - 85 5 visits Start: 02-12-2024 End: 02-12-2024 Patient encounter procedure 02/12/2024 7:30 AM EDT Appointment [facility] [address] [place] [phone] Dawn Suh, PT PN [facility] Comment on above: PN Start: 2017 Shingles vaccine (1 of 2) Shingles vaccine (1 of 2) [facility] Start: 2012 Screening for malign ant neoplasm of colon [facility] Start: 1986 DTaP/Tdap/Td vaccine (1 - Tdap) DTaP/Tdap/Td vaccine (1 - Tdap) [facility] Start: 1985 GFR test (Diabetes, CKD 3-4, OR last GFR 15-59) GFR test (Diabetes, CKD 3-4, OR last GFR 15-59) [facility] Start: 1985 Glaucoma screening Diabetic retinal exam [facility] Start: 1985 Hepatitis C screening Hepatitis C sc reen [facility] Start: 1985 Urine screening for protein Diabetic Alb to Cr ratio (uACR) test [facility] Start: 1982 HIV screening HIV screen [facility] Start: 1979 Depression Screen Depression Screen [facility] Start: 1977 Diabetic foot examination Diabetic foot exam [facility] Start: 1977 Hemoglobin A1c measurement A1C test (Diabetic or Prediabetic) [facility] Start: 1977 Lipid panel Lipids [facility] Start: 1973 Pneumococcal 0-64 ye ars Vaccine (1 of 2 - PCV) Pneumococcal 0-64 years Vaccine (1 of 2 - PCV) [facility] Start: 1967 Hepatitis B vaccine (1 of 3 - 3-dose series) Hepatitis B vaccine (1 of 3 - 3-dose series) [facility] Immunizations Immunization Date Immunization Notes Care Provider Jovani quintana 05-12-2023 influenza virus vaccine, unspecified formulation Enrike GRIFFITH [facility] 07-10-2021 SARS-CoV-2 (COVID-19 ) mRNA BNT-162b2 vax Enrike GRIFFITH [facility] 12-06-2020 SARS-CoV-2 (COVID-19 ) mRNA-1273 vaccine Enrike GRIFFITH [facility] Comment on above: Result Comment: [id number]: 55 11-08-2020 SARS-CoV-2 (COVID-19 ) mRNA-1273 vaccine Enrike GRIFFITH [facility] Payers Date Payer Category Payer Unknown [id number] 2.16.84 [id number] 1967 Unknown [id number] 2.16.84 0.1.539040.3.579.2.593 1967 Unknown [id number] 2.16.84 0.1.787489.3.579.2.593 1967 Unknown [id number] 2.16.8 40.1.971391.3.579.2.1286 1967 Unknown [id number] 2.16.8 40.1.891621.3.579.2.1286 1967 Unknown [id number] 2.16.8 40.1.326538.3.579.2.727 1967 Unknown [id number] 2.16.8 40.1.566496.3.579.2.727 1967 Unknown [id number] 2.16.8 40.1.342841.3.579.2.727 1967 Unknown [id number] 2.16.8 40.1.927878.3.579.2.727 1967 Unknown [id number] 2.16.8 40.1.713419.3.579.2.176 1967 Unknown [id number] 2.16.8 40.1.919030.3.579.2.176 1967 Unknown [id number] 2.16.8 40.1.417681.3.579.2.176 1967 Unknown [id number] 2.16.8 40.1.411558.3.579.2.176 1967 Unknown [id number] 2.16.8 40.1.986354.3.579.2.176 1967 Unknown [id number] 2.16.8 40.1.751101.3.579.2.176 1967 Unknown [id number] 2.16.8 40.1.365481.3.579.2.176 1967 Unknown [id number] 2.16.8 40.1.651104.3.579.2.176 1959 Unknown [id number] Social History Date Type Detail Facility Start: 06-20-2020 End: 10-13-2023 Tobacco smoking status Never smoked tobacco (finding) [facility] Tobacco smoking status Smokeless tobacco user within last 30 days [facility] Start: 01-22-2024 Sex Assigned At Male F [facility] Start: 06-20-2020 Tobacco use and exposure User of smokeless tobacco [facility] [employer] Start: 01-22-2024 Alcohol intake Current drinke r of alcohol (finding) [facility] Start: 01-22-2024 History of Social function [facility] Start: 01-22-2024 Alcohol Comment seldom [facility] [employer] Start: 1965 Sex Assigned At Not on file B [facility] Functional Status Date Assessment Result Facility 10-13-2023 Functional Status N/A [facility] Clinical Note 10-13-2023 Note Date & Type [...] 53 SARS-CoV-2 (COVID-19) mRNA-1273 vaccine 11/08/2020 Recorded [facility] Comment on above: Result Comment: Elec tronically Signed By: ISAÍAS REAVES, Enrike Castillo\Date and Time Signed: 10/13/23 10:51 EST Evaluation + Plan note Note Date & Type Note Facility Evaluation + Plan note No data available for this section [facility] General [facility] [place] Evaluation + Plan note Note Date & Type Note Facility Evaluation + Plan note Future Appointments Appointment Date:12/16/2023 02:40:00 PM Scheduled Provider:Enrike GRIFFITH MD Location:[facility] Appointment Type: Post Op 15 General Surgery [facility] Discharge instructions Note Date & Type Note Facility Hospital Discharge instructions No data available for this section [facility] Progress note Note Date & Type Note Facility Progress note No data available for this section [facility] Summary Purpose Family History No Family [...] section and content) DATE CREATED AUTHOR 04/17/2022 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 Relationship Specialty Start Date End Date Kenny Lacey MD [address] [place] [address] PCP - General Family Medicine 06/20/20 Reason for Visit (unrecogniz ed section and content) Specialty Diagnoses / Procedures Referred By Contac t Referred To Contact Physical Therapist / Physical Therapy Diagnoses Lumbar pain Ozzie Rosario MD [address] [address] [facility] [address] [place], [place] [id number] Referral ID Status Reason Start Date Expiration Date V isits Requested Visits Authorized [id number] Closed Specialty Services Required 01/22/2024 01/21/2025 1 [...] BE BASED ON THE PRIMARY CLINICAL RECORDS. [email or web address] [facility]. provides no warranty or guarantee of the accuracy or completeness of information in this document.
--- NOTE | 2025-03-10 06:52 | MR_ITS ---
[place] [id number] Patient Name: NIXON JENSEN MRN: [id number] date: 1965 Sex: M Assigned Patient Location: MRI Current Patient Location: MRI Accession/Order Number: [id number] Exam Date: 03/10/2025 11:37 Report Date: 03/10/2025 12:16 At the request of: KENNY ARELLANO MD Procedure: MR shoulder LT wo con MRI left Shoulder without contrast TECHNIQUE: Multiplanar T1 and T2-weighted imaging obtained without contrast. HISTORY: Chronic left shoulder pain. Limited range of motion. No known injury. COMPARISON: Plain film left shoulder 02/17/2025 BONE MARROW EDEMA: No bony contusion. A tiny cystic change of these subchondral regions of the anterior and posterior portion of the humeral head. FRACTURE: None AC JOINT: Marginal spurring. Joint effusion pulmonary edema and soft tissue edema. Effacement of the myotendinous portion of supraspinatus tendon. SHOULDER ROOF LIGAMENTS: The coracoacromial and coracoclavicular ligaments are intact. ROTATOR CUFF: Moderate tendinosis of the supraspinatus tendon. Intact infraspinatus tendon. Intact teres minor tendon. Intact subscapularis tendon ROTATOR CUFF INTERVAL: Small joint effusion BURSAL FLUID: Small amount of subacromial subdeltoid bursal fluid likely inflammatory. No associated dental retracted full-thickness tear. GLENOID: Heterogeneous signal changes with thickening and adjacent edema of the axillary pouch. Heterogeneous signal changes of the anterior inferior portion of the cartilaginous labrum. Consider.Degenerative changes. No fluid signal intensity tear identified. Degenerative thinning of the articular cartilage. No subchondral edema. BICEPS LABRAL COMPLEX: Heterogeneous changes of the superior biceps labral complex LONG HEAD OF BICEPS TENDON: Tendon intact. Heterogeneous signal changes of the tendon at the biceps radha. Adjacent edema and thickening of the transverse ligament. GLENOHUMERAL LIGAMENTS: The superior glenohumeral ligament is intact. The middle glenohumeral ligament is intact. The anterior and posterior glenohumeral ligaments are intact. JOINT EFFUSION: No significant joint effusion is seen. MUSCLES: Normal signal intensity of the muscles. NO SUBCUTANEOUS TISSUES: No subcutaneous abnormalities identified. MR/MR shoulder LT wo con IMPRESSION: Moderate tendinosis of supraspinatus tendon. No retracted full-thickness tear. Extensive, clavicular degeneration. Small moderate subacromial subdeltoid bursal fluid likely representing bursitis. Inflammatory changes involving the axillary pouch. May represent degenerative changes. Degenerative changes anterior inferior portion of the cartilaginous labrum. No fluid signal intensity tear. Suggesting mild low-grade SLAP tear. Tendinosis of the long head of biceps tendon at the level of the pulmonary. Adjacent edema and thickening of transverse ligament. Impression dictated by: Karthik Reynolds M.D. 03/10/2025 12:16 PM Dictation Location: [facility] Electronically authenticated by: [id number] Y Date: 03/10/2025 12:16
== END 2025-03-10 06:48 | disposition home or self-care (01) ==
LOC: MRI 06:47
PROVIDERS: PCP Family Medicine; Visit Provider Family Medicine
DX: M75.40 Impingement syndrome of unspecified shoulder (principal); M75.22 Bicipital tendinitis, left shoulder
CPT/HCPCS: 73221

== ENCOUNTER 2025-06-02 08:56 | Outpatient (OUT) | payer BC, SELFPAY ==
--- OUTSIDE RECORDS SUMMARY | 2025-06-02 09:03 | XMS_ITS | CCD ---
Author Organization [facility] Care Team Providers Care Population Health Coach Name Role Phone DR KENNY LACEY Primary Care Unavailable HOY, DR COX Admitting Unavailable HOY, DR COX Attending Unavailable HOY, DR COX Attending Unavailable HOY, DR COX Consulting Unavailable HOY, DR COX Primary Care Unavailable HOY, DR COX Admitting Unavailable HOY, DR COX Consulting Unavailable HOY, DR COX Primary Care Unavailable HOY, DR COX Admitting Unavailable HOY, DR COX Attending Unavailable Adeel Laceylas Primary Care Physician [phone] ADEEL LACEYLAS M Referring Unavailable HOY, KENNY M Referring Unavailable NILLEnrike Attending Unavailable NILL, Enrike Bhagat Attending Unavailable NILL, Enrike Bhagat Attending Unavailable NILL, Enrike Bhagat Attending Unavailable [...] Unavailable Kenny Lacey MD Primary Care Provider [phone] Unavailable Primary Care Provider Kenny Lima MD Primary Care Provider [phone] Kiel Lopez DO Attending Provider [phone] Allergies Allergy Classification Reported Allergen(s) Allergy Type Date of Onset Reaction(s) Facility (1 source) No Known Medication Allergies; Translations: [No Known Medication Allergies] Propensity to adverse reactions (disorder) [facility] Repository Medications Current Medications Medication Drug Class(es) Dates Sig (Normalized) Sig (Original) diclofenac sodium 75 mg delayed release oral tablet (6 sources) Nonsteroidal Anti-inflammatory Drug Start: 03-23-2025 Start: 09-30-2023 take 1 tablet by andrew th once daily diclofenac (VOLTAREN) 75 MG EC tablet Take 1 tablet by mouth daily 0 09/30/2023 Active Start: 09-30-2023 diclofenac sod ium 75 mg Oral EC Tab 75 mg = 1 tab(s), Oral, BID, 0 Refill(s), Refills(s) 0 Start Date: 09/30/23 Status: Ordered levothyroxine sodium 0.175 m g oral tablet (6 sources) l-Thyroxine Start: 03-23-2025 Start: 09-30-2023 Synthroid 175 mcg (0.175 mg) Tab 175 mcg = 1 tab(s), Oral, Daily, 0 Refill(s), Refills(s) 0 Start Date: 09/30/23 Status: Ordered Start: 04-04-2020 SYNTHROID 175 MCG tablet liothyronine sodium 0.005 mg oral tablet (4 [...] 0 09/23/2023 Active simvastatin 20 mg oral table t (6 sources) HMG-CoA Reductase Inhibitor Start: 03-23-2025 Start: 09-23-2023 take 1 tablet by andrew th once daily in the evening simvastatin 20 mg Tab 20 mg = 1 tab(s), Oral, qPM, Refills(s) 0 Start Date: 09/23/23 Status: Ordered tamsulosin hydrochloride 0.4 mg oral capsule (2 sources) alpha-Adrenergic Jerad Start: 03-23-2025 Problems Active Problems Problem Classification Problem Date [...] without esophagitis] Onset: 4 09-30-2023 Chronic Other connective tissue disease (5 sources) Left rotator cuff syndrome; Translations: [Unspecified rotator cuff tear or rupture of left shoulder, not specified as traumatic] 03-23-2025 Episodic Other connective tissue disease (5 sources) Tear of left rotator cuff; Translations: [Unspecified rotator cuff tear or rupture of left shoulder, not specified as traumatic] 03-23-2025 Episodic Other gastrointestinal disorders (4 sources) Irritable bowel [...] metabolic disorders (3 sources) Obesity 10-13-2023 Chronic Residual codes; unclassified (1 source) Pain, unspecified; Translations: [Pain, unspecified] Onset: 5 Episodic Spondylosis; intervertebral disc disorders; other back [...] infection (1 source) COVID-19; Translations: [COVID-19] Onset: Past or Other Problems Problem Classification Problem [...] SARS-CoV-2 (COVID-19) mRNA-1273 vaccine 11/08/2020 Recorded Normal [facility] Comment on above: Result Comment: Elec tronically Signed By: ISAÍAS REAVES, Enrike Castillo\Date and Time Signed: 12/16/23 14:44 EDT Formson 12-15-2023 Forms [id number] D3#1.00TIFF Normal [facility] MR LUMBAR SPINE WO CONTon MR [...] and mild bilateral facet arthropathy results in engu-ny-qfuoqrbt right and mild left neuroforaminal narrowing. No significant spinal canal narrowing. L4-L5: Mild diffuse disc bulge and moderate bilateral facet arthropathy with blzk-xn-mzwfrxaf right and mild left neuroforaminal narrowing. No significant spinal canal narrowing. L5-S1: Mild diffuse disc bulge, mild facet arthropathy results in mild bilateral neuroforaminal narrowing. No significant spinal canal narrowing. IMPRESSION: * Multilevel degenerative spondylosis most prominent at L3-L4, L4-L5 and L5-S1, with multilevel facet arthropathy. * Jysc-hi-gfqrkeno right and mild left neuroforaminal narrowing at L3-L4 and L4-L5. 9 Finalized by Forest Alcaraz on 12/06/2023 4:55 PM Normal [facility] Ambulatory Visit Summaryon 0 12-02-2023 Ambulatory Visit Summary ALLAN REYES :1965 Visit Date:12/02/2023 Ambulatory Visit Instructions Your [...] GRIFFITH MD Where: General Surgery [facility] General Surgery Office/Clini c Noteon [...] 53 SARS-CoV-2 (COVID-19) mRNA-1273 vaccine 11/08/2020 Recorded [facility] Comment on above: Result Comment: Elec tronically Signed By: ISAÍAS REAVES, Enrike Castillo\Date and Time Signed: 12/02/23 13:56 EDT Operative Reporton Operative Report [id number] 95#1.00TIFF [facility] ECG 12-Leadon 11-19-2023 ECG 12-Lead [id number] 70#1.00TIFF [facility] Insurance Correspondenceon 0 11-02-2023 Insurance Correspondence [id number] 140#1.00TIFF [facility] Formson 10-20-2023 Forms [id number] 82#1.00TIFF [facility] Ambulatory Visit Summaryon 0 10-13-2023 Ambulatory Visit Summary ALLAN REYES :1965 Visit Date:10/13/2023 Ambulatory Visit Instructions Your [...] for choosing us for your care. Normal [facility] Consent for Procedure/Surger yon 10-13-2023 Consent for Procedure/Surgery [id number] 34#1.00TIFF Normal [facility] XR SPINE LUMBAR MIN 4 [...] Rio MD on 10/01/2023 8:45 AM Normal [facility] Physician Referralon 024 Physician Referral [id number] A5#1.00TIFF Normal [facility] Physician Referral [id number] E3#1.00TIFF Normal [facility] Covid-19 PCR ([facility])on 03-24 SARS-CoV-2 (COVID-19) RNA LEONID+probe Ql (Unsp spec) Detected Critically abnormal NOT DETECTED [facility] Comment on above: Result Comment: This test is not yet approved or cleared by the [place] FDA. When there are no FDA-approved or cleared tests available, and other criteria are met, FDA can make tests available under an emergency access mechanism called an Emergency Use Authorization (EUA). The EUA for this test is supported by the [place] of Health and Human Service's (HHS's) declaration [...] used). Performed By: #### C VDTBH #### [facility] [address] [address] [address] Ting Felix CBC AUTO DIFFon 03-14-2022 BASO # 0.1 103/ul Normal 0.0-0.1 [facility] Comment on above: Performed By: #### C BC #### [facility] [address] [place], [place] [address] Dr. Ting Felix Basophils/100 WBC (Bld) 1.2 % Normal 0.2-2.0 [facility] Comment on above: Performed By: #### C BC #### [facility] [address] [place] [address] Dr. Ting Felix EO # 0.2 103/ul Normal 0.0-0.7 [facility] Comment on above: Performed By: #### C BC #### [facility] [address] [place] [address] Dr. Ting Felix Eosinophils/100 WBC (Bld) 2.9 % Normal 0.9-7.0 [facility] Comment on above: Performed By: #### C BC #### [facility] [address] [place] [address] Dr. Ting Felix Erythrocyte distribution width (RBC) [Ratio] 12.5 % Normal 11.0-15.0 [facility] Comment on above: Performed By: #### C BC #### [facility] [address] [place] [address] Dr. Ting eFlix Hematocrit (Bld) [Volume fraction] 44.1 % Normal 42.0-54.0 [facility] Comment on above: Performed By: #### C BC #### [facility] [address] [place] [address] Dr. Ting Felix Hemoglobin (Bld) [Mass/Vol] 15.4 g/dL Normal 14.0-18.0 [facility] Comment on above: Performed By: #### C BC #### [facility] [address] [place] [address] Dr. Ting Felix IG # 0.02 10e3/ul Normal 0.00-0.03 [facility] Comment on above: Performed By: #### C BC #### [facility] [address] [place] [address] Dr. Ting Felix IG % 0.3 % Normal 0.0-0.5 [facility] Comment on above: Performed By: #### C BC #### [facility] [address] [place] [address] Dr. Ting Felix LYMPH # 1.7 103/ul Normal 1.2-3.8 [facility] Comment on above: Performed By: #### C BC #### [facility] [address] [place] [address] Dr. Ting Felix Lymphocytes/100 WBC (Bld) 28.9 % Normal 20.5-60.0 [facility] Comment on above: Performed By: #### C BC #### [facility] [address] [place] [address] Dr. Ting Felix MANUAL DIFF REQ NO Normal [facility] Comment on above: Performed By: #### C BC #### [facility] [address] [place] [address] Dr. Ting Felix MCH (RBC) [Entitic mass] 30.7 pg Normal 25.9-34.0 [facility] Comment on above: Performed By: #### C BC #### [facility] [address] [place] [address] Dr. Ting Felix MCHC (RBC) [Mass/Vol] 34.9 g/dL Normal 29.9-35.2 [facility] Comment on above: Performed By: #### C BC #### [facility] [address] [place] [address] Dr. Ting Felix MCV (RBC) [Entitic vol] 87.8 fL Normal 80.0-94.0 [facility] Comment on above: Performed By: #### C BC #### [facility] [address] [place] [address] Dr. Ting Felix MONO # 0.5 103/ul Normal 0.3-0.8 [facility] Comment on above: Performed By: #### C BC #### [facility] [address] [place] [address] Dr. Ting Felix Monocytes/100 WBC (Bld) 9.2 % Normal 1.7-12.0 [facility] Comment on above: Performed By: #### C BC #### [facility] [address] [place] [address] Dr. Ting Felix NEUT # 3.4 103/ul Normal 1.4-6.5 [facility] Comment on above: Performed By: #### C BC #### [facility] [address] [address] [address] Ting Felix Neutrophils/100 WBC (Bld) 57.5 % Normal 43.0-75.0 [facility] Comment on above: Performed By: #### C BC #### [facility] [address] [place] [address] Dr. Ting Felix Platelet mean volume (Bld) [Entitic vol] 10.3 fL Normal 9.5-13.5 [facility] Comment on above: Performed By: #### C BC #### [facility] [address] [place] [address] Dr. Ting Felix PLT 237 103/ul Normal 150-450 [facility] Comment on above: Performed By: #### C BC #### [facility] [address] [place] [address] Dr. Ting Felix RBC 5.02 106/ul Normal 4.70-6.10 [facility] Comment on above: Performed By: #### C BC #### [facility] [address] [place] [address] Dr. Ting Felix WBC 5.9 103/ul Normal 4.0-11.0 [facility] Comment on above: Performed By: #### C BC #### [facility] [address] [place] [address] Dr. Ting Felix FREE T3on 03-14-2022 FREE T3 2.85 pg/mlL Normal 2.18-3.98 [facility] Comment on above: Performed By: #### T SH, FT3, T4, LIPID, CMP #### [facility] [address] [place] [address] Dr. Ting Felix GLYCOHEMOGLOBIN A1Con 2021 ADA RECOMMENDATION SEE BELOW Normal [facility] Comment on above: Result Comment: ADA RECOMMENDED LIMIT 4.0 - 6.0 ADA THERAPEUTIC TARGET < 7.0 ACTION SUGGESTED > 7.0 Performed By: #### A 1C #### [facility] [address] [place] [address] Dr. Ting Felix Glucose [Mass/Vol] 148 mg/dL Normal [facility] Comment on above: Performed By: #### A 1C #### [facility] [address] [address] [address] Ting Felix HbA1c (Bld) [Mass fraction] 6.8 % Critically high 4.5-6.2 [facility] Comment on above: Performed By: #### A 1C #### [facility] [address] [address] [address] Ting Felix LIPID PROFILEon 03-14-2022 CHOL-HDL RATIO NORM SEE BELOW Normal [facility] Comment on above: Result Comment: 3.3 - 4.4 LOW RISK 4.4 - 7.1 AVERAGE RISK 7.1 - 11.0 MODERATE RISK >11.0 HIGH RISK Performed By: #### T SH, FT3, T4, LIPID, CMP #### [facility] [address] [address] [address] Ting Felix Cholesterol [Mass/Vol] 189 mg/dL Normal <=200 [facility] Comment on above: Performed By: #### T SH, FT3, T4, LIPID, CMP #### [facility] [address] [address] [address] Ting Felix Cholesterol in HDL [Mass/Vol] 27 mg/dL Critically low 40-60 [facility] Comment on above: Performed By: #### T SH, FT3, T4, LIPID, CMP #### [facility] [address] [address] [address] Ting Felix Cholesterol in LDL [Mass/Vol] 90.8 mg/dL Normal [facility] Comment on above: Performed By: #### T SH, FT3, T4, LIPID, CMP #### [facility] [address] [address] [address] Ting Felix Cholesterol.total/Cho lesterol in HDL [Mass ratio] 7.0 {ratio} Normal [facility] Comment on above: Performed By: #### T SH, FT3, T4, LIPID, CMP #### [facility] [address] [address] [address] Ting Felix HDL NORMAL > or = 60 mg/dl - LOW CARDIOVASCULAR RISK <40 mg/dl - HIGH CARDIOVASCULAR RISK Normal [facility] Comment on above: Performed By: #### T SH, FT3, T4, LIPID, CMP #### [facility] [address] [address] [address] Ting Felix LDL CALC NORMAL SEE BELOW Normal [facility] Comment on above: Result Comment: <100 mg/dl OPTIMAL 100 - 129 mg/dl NEAR OR ABOVE OPTIMAL 130 - 159 mg/dl BORDERLINE HIGH 160 - 189 mg/dl HIGH >190 mg/dl VERY HIGH Performed By: #### T SH, FT3, T4, LIPID, CMP #### [facility] [address] [address] [address] Ting Felix Triglyceride [Mass/Vol] 356 mg/dL Critically high <=150 [facility] Comment on above: Performed By: #### T SH, FT3, T4, LIPID, CMP #### [facility] [address] [address] [address] Ting Felix VLDL CALC 71.2 mg/dL Normal [facility] Comment on above: Performed By: #### T SH, FT3, T4, LIPID, CMP #### [facility] [address] [address] [address] Ting Felix PROF 14(COMP METB)on 022 Albumin [Mass/Vol] 3.8 g/dL Normal 3.4-5.0 [facility] Comment on above: Performed By: #### T SH, FT3, T4, LIPID, CMP #### [facility] [address] [place] [address] Dr. Ting Felix Albumin/Globulin [Mass ratio] 1.1 {ratio} Normal [facility] Comment on above: Performed By: #### T SH, FT3, T4, LIPID, CMP #### [facility] [address] [place] [address] Dr. Ting Felix ALP [Catalytic activity/Vol] 73 U/L Normal 46-116 [facility] Comment on above: Performed By: #### T SH, FT3, T4, LIPID, CMP #### [facility] [address] [place] [address] Dr. Ting Felix ALT [Catalytic activity/Vol] 48 U/L Normal 16-63 [facility] Comment on above: Performed By: #### T SH, FT3, T4, LIPID, CMP #### [facility] [address] [place] [address] Dr. Ting Felix Anion gap [Moles/Vol] 10.8 mmol/L Normal [facility] Comment on above: Performed By: #### T SH, FT3, T4, LIPID, CMP #### [facility] [address] [place] [address] Dr. Ting Felix AST [Catalytic activity/Vol] 18 U/L Normal 15-37 [facility] Comment on above: Performed By: #### T SH, FT3, T4, LIPID, CMP #### [facility] [address] [place] [address] Dr. Ting Felix Bilirubin [Mass/Vol] 0.5 mg/dL Normal 0.2-1.0 [facility] Comment on above: Performed By: #### T SH, FT3, T4, LIPID, CMP #### [facility] [address] [place] [address] Dr. Ting Felix Calcium [Mass/Vol] 8.7 mg/dL Normal 8.5-10.1 [facility] Comment on above: Performed By: #### T SH, FT3, T4, LIPID, CMP #### [facility] [address] [place] [address] Dr. Ting Felix Chloride [Moles/Vol] 105 mmol/L Normal 98-107 [facility] Comment on above: Performed By: #### T SH, FT3, T4, LIPID, CMP #### [facility] [address] [place] [address] Dr. Ting Felix CO2 [Moles/Vol] 30.6 mmol/L Normal 21.0-32.0 [facility] Comment on above: Performed By: #### T SH, FT3, T4, LIPID, CMP #### [facility] [address] [place] [address] Dr. Ting Felix Creatinine [Mass/Vol] 1.15 mg/dL Normal 0.70-1.30 [facility] Comment on above: Performed By: #### T SH, FT3, T4, LIPID, CMP #### [facility] [address] [address] [address] Ting Felix EGFR-AF CUBAN >60 Normal >=60 [facility] Comment on above: Performed By: #### T SH, FT3, T4, LIPID, CMP #### [facility] [address] [address] [address] Ting Felix EGFR-NON AF CUBAN >60 Normal >=60 [facility] Comment on above: Performed By: #### T SH, FT3, T4, LIPID, CMP #### [facility] [address] [place] [address] Dr. Ting Felix Globulin (S) [Mass/Vol] 3.5 g/dL Normal [facility] Comment on above: Performed By: #### T SH, FT3, T4, LIPID, CMP #### [facility] [address] [address] [address] Ting Felix Glucose [Mass/Vol] 171 mg/dL Critically high 74-106 [facility] Comment on above: Performed By: #### T SH, FT3, T4, LIPID, CMP #### [facility] [address] [address] [address] Ting Felix Potassium [Moles/Vol] 4.4 mmol/L Normal 3.5-5.1 [facility] Comment on above: Performed By: #### T SH, FT3, T4, LIPID, CMP #### [facility] [address] [address] [address] Ting Felxi Protein [Mass/Vol] 7.3 g/dL Normal 6.4-8.2 [facility] Comment on above: Performed By: #### T SH, FT3, T4, LIPID, CMP #### [facility] [address] [address] [address] Ting Felix Sodium [Moles/Vol] 142 mmol/L Normal 136-145 [facility] Comment on above: Performed By: #### T SH, FT3, T4, LIPID, CMP #### [facility] [address] [address] [address] Ting Felix Urea nitrogen [Mass/Vol] 19.0 mg/dL Critically high 7.0-18.0 [facility] Comment on above: Performed By: #### T SH, FT3, T4, LIPID, CMP #### [facility] [address] [address] [address] Ting Felix Urea nitrogen/Creatinine [Mass ratio] 16.5 mg/mg Normal [facility] Comment on above: Performed By: #### T SH, FT3, T4, LIPID, CMP #### [facility] [address] [place] [address] Dr. Ting Felix T4on 03-14-2022 T4 [Mass/Vol] 8.40 ug/dL Normal 4.50-12.10 [facility] Comment on above: Performed By: #### T SH, FT3, T4, LIPID, CMP #### [facility] [address] [place] [address] Dr. Ting Felix TSHon 03-14-2022 TSH 0.090 uIU/mL Critically low 0.358-3.740 [facility] Comment on above: Performed By: #### T SH, FT3, T4, LIPID, CMP #### [facility] [address] [place] [address] Dr. Ting Felix Vital Signs Date Time Vital Sign Value Performing Clinician Mariela rg 10-13-2023 09:26-0500 Blood Pressure Location Enrike GRIFF[facility] [place] 10-13-2023 09:26-0500 Diastolic blood pressure 86 mm[Hg] Enrike GRIFFITH [facility] [place] 10-13-2023 09:26-0500 Heart rate 63 /min Enrike GRIFFITH [facility] [place] 10-13-2023 09:26-0500 Respiratory rate 16 /min Enrike GRIFFITH [facility] [place] 10-13-2023 09:26-0500 Systolic blood pressure 135 mm[Hg] Enrike GRIFFITH [facility] Encounters Encounter Date Encounter Type Care Provider Facility Start: 05-18-2025 End: 05-18-2025 ambulatory Kenny Lacey MD Work Phone: [facility] Work Phone: Start: 05-18-2025 End: 05-18-2025 Patient encounter procedure Kiel Lopez DO -[facility] Work Phone: Start: 03-23-2025 End: 03-23-2025 ambulatory Kenny Lacey MD Work Phone: [facility] Work Phone: Start: 03-23-2025 End: 03-23-2025 Patient encounter procedure Kiel Lopez DO -[facility] [place] Work Phone: Start: 03-17-2025 End: 03-17-2025 Telephone encounter Denzel Moore [facility] Start: 03-14-2025 [facility] Start: 03-25-2024 ambulatory [facility] Start: 03-02-2024 End: 03-02-2024 ambulatory [facility] Start: 02-19-2024 End: 02-19-2024 ambulatory [facility] Start: 02-17-2024 End: 02-17-2024 ambulatory [facility] Start: 02-12-2024 End: 02-12-2024 ambulatory [facility] Start: 02-10-2024 End: 02-10-2024 ambulatory [facility] Start: 02-10-2024 End: 02-10-2024 Subsequent hospital visit by physician Jenni Sanchez [facility] Start: 02-03-2024 End: 02-03-2024 ambulatory [facility] Start: 01-29-2024 End: 01-29-2024 ambulatory [facility] Start: 12-16-2023 End: 12-17-2023 ambulatory Enrike R NILL Facility:[facility] [place] Start: 12-16-2023 End: 12-16-2023 Patient encounter procedure Enrike R NILL [facility] [place] Start: 12-05-2023 End: 12-06-2023 ambulatory KENNY M [facility] Start: 12-02-2023 End: 12-03-2023 ambulatory [place] [place] Start: 12-02-2023 End: 12-02-2023 Patient encounter procedure Enrike R NILL [facility] [place] Start: 11-30-2023 ambulatory Enrike NILL Facility:[facility] Start: 11-25-2023 End: 11-26-2023 ambulatory [place] R [place] [place] Start: 10-13-2023 End: 10-14-2023 ambulatory Enrike R NILL Facility:[facility] Start: 10-13-2023 End: 10-13-2023 Patient encounter procedure Enrike R NILL [facility] [place] Start: 09-29-2023 End: 09-30-2023 ambulatory KENNY Chambers [facility] Start: 09-24-2023 ambulatory Enrike NILL Facility:[facility] Start: 04-11-2022 End: 04-11-[address] KENNY LACEY Facility:[facility] Start: 03-25-2022 End: 03-26-[address] KENNY LACEY Facility:[facility] Start: 03-18-2022 Encounter for genera l adult medical examination without abnormal findings DR KENNY LACEY [facility] [facility] Start: 03-14-2022 End: 03-15-[address] KENNY LACEY Facility:H1 Start: 03-14-2022 End: 03-15-2022 Encounter for general adult medical examination without abnormal findings DR KENNY LACEY Facility:H1 Procedures Date Procedure Procedure Detail Performing Clinician Start: 11-25-2023 Repair of umbilical hernia Enrike GRIFFITH Start: 03-14-[address] CLAY LACEY Comment on above: Performed By: #### P SAS #### [facility] [address] [place] [address] Dr. Ting Felix Excision of cervical intervertebral disc Enrike GRIFFITH Plan of Treatment Date Care Activity Detail Author Start: 04-24-2025 Influenza vaccination Influenza Vacc ine [facility] Start: 12-04-2024 Adult BMI Screening Adult BMI Screen ing [facility] Start: 04-24-2024 COVID-19 Vaccine ( season) COVID-19 Vaccine ( season) [facility] Start: 03-11-2024 End: 03-11-2024 Patient encounter procedure 03/11/2024 9:40 AM EDT Office Visit [facility] [address] [place] [address], [address] [place] [id number] Ozzie Rosario MD [address] [place] [address] [address] [place] [address] Lumbar-follow up w/PT [facility] Comment on above: Lumbar-follow up w/P T Start: 03-04-2024 End: 03-04-2024 Patient encounter procedure 03/04/2024 7:30 AM EDT Appointment [facility] [address], [facility] [address] [place] [phone] Dawn Suh, PT Approval Valid 6/7 - 8/5 5 visits [facility] Comment on above: Approval Valid 6/7 - 8/5 5 visits Start: 03-02-2024 End: 03-02-2024 Patient encounter procedure 03/02/2024 7:30 AM EDT Appointment [facility] [address], [address] [phone] Jenni Sanchez, FEATHERER Approval Valid 01/28 - 8/5 5 visits [facility] Comment on above: Approval Valid 6/7 - 8/5 5 visits Start: 02-19-2024 End: 02-19-2024 Patient encounter procedure 02/19/2024 7:30 AM EDT Appointment [facility] [address], [address] [phone] Dawn Suh, PT Approval Valid 01/28 - 8/5 5 visits [facility] Comment on above: Approval Valid 01/28 - 8/5 5 visits Start: 02-17-2024 End: 02-17-2024 Patient encounter procedure 02/17/2024 7:30 AM EDT Appointment [facility] [address], [address] [phone] Jenni Sanchez, FEATHERER Approval Valid 01/28 - 8/5 5 visits [facility] Comment on above: Approval Valid 01/28 - 8/5 5 visits Start: 02-12-2024 End: 02-12-2024 Patient encounter procedure 02/12/2024 7:30 AM EDT Appointment [facility] [address], [address] [phone] Dawn Suh, PT PN [facility] Comment on above: PN Start: 2017 Administration of varicella zoster vaccine Zoster (Shingles) Vaccine (1 of 2) [facility] Start: 2017 Shingles vaccine (1 of 2) Shingles vaccine (1 of 2) [facility] Start: 2012 Screening for malign ant neoplasm of colon [facility] Start: 1986 DTaP,Tdap and Td Vaccines (1 - Tdap) DTaP,Tdap and Td Vaccines (1 - Tdap) [facility] Start: 1986 DTaP/Tdap/Td vaccine (1 - Tdap) DTaP/Tdap/Td vaccine (1 - Tdap) [facility] Start: 1985 GFR test (Diabetes, CKD 3-4, OR last GFR 15-59) GFR test (Diabetes, CKD 3-4, OR last GFR 15-59) [facility] Start: 1985 Glaucoma screening Diabetic retinal exam [facility] Start: 1985 Hepatitis C screening Hepatitis C sc reen [facility] Start: 1985 Urine screening for protein Diabetic Alb to Cr ratio (uACR) test [facility] Start: 1982 HIV screening HIV screen [facility] Start: 1979 Depression Screen Depression Screen [facility] Start: 1979 Depression Screening Depression Scre ening [facility] Start: 1979 Tobacco Screening Tobacco Screening [facility] Start: 1977 Diabetic foot examination Diabetic foot exam [facility] Start: 1977 Hemoglobin A1c measurement A1C test (Diabetic or Prediabetic) [facility] Start: 1977 Lipid panel Lipids [facility] Start: 1973 Pneumococcal 0-64 ye ars Vaccine (1 of 2 - PCV) Pneumococcal 0-64 years Vaccine (1 of 2 - PCV) [facility] Start: 1967 Hepatitis B vaccine (1 of 3 - 3-dose series) Hepatitis B vaccine (1 of 3 - 3-dose series) [facility] Immunizations Immunization Date Immunization Notes Care Provider Fa [facility] 05-12-2023 influenza virus vaccine, unspecified formulation Enrike GRIFFITH [facility] [place] 07-10-2021 SARS-CoV-2 (COVID-19 ) mRNA BNT-162b2 vax Enrike GRIFFITH [facility] [place] 12-06-2020 SARS-CoV-2 (COVID-19 ) mRNA-1273 vaccine Enrike GRIFFITH [facility] [place] Comment on above: Result Comment: 202307: 55 11-08-2020 SARS-CoV-2 (COVID-19 ) mRNA-1273 vaccine Enrike GRIFFITH [facility] [place] Payers Date Payer Category Payer [employer] - O AN[employer] [id number] 1967 Unknown [id number] 2.840.1.910956.3.579. 2.593 1967 Unknown [id number] 2.840.1.740228.3.579. 2.593 1967 Unknown [id number] 2.840.1.142496.3.579. 2.593 1967 Unknown [id number] 2.16840.1.657020.3.579. 2.1286 1967 Unknown [id number] 2.16840.1.363704.3.579. 2.1286 1967 Unknown [id number] 2.16840.1.248596.3.579. 2.727 1967 Unknown [id number] 2.16840.1.596119.3.579. 2.727 1967 Unknown [id number] 2.16840.1.601346.3.579. 2.727 1967 Unknown [id number] 2.16.840.1.305814.3.579. 2.727 1967 Unknown [id number] 2.16.840.1.292976.3.579. 2.176 1967 Unknown [id number] 2.16.840.1.548719.3.579. 2.176 1967 Unknown [id number] 2.16.840.1.734001.3.579. 2.176 1967 Unknown [id number] 2.16.840.1.646220.3.579. 2.176 1967 Unknown [id number] 2.16.840.1.982676.3.579. 2.176 1967 Unknown [id number] 2.16.840.1.083222.3.579. 2.176 1967 Unknown [id number] 2.16.840.1.410704.3.579. 2.176 1967 Unknown [id number] 2.16.840.1.874276.3.579. 2.176 1967 Unknown [id number] 2.16.840.1.526525.3.579. 2.1286 1967 Unknown [id number] 2.16.840.1.725178.3.579. 2.1286 1959 Unknown [id number] Unknown [place] / [id number] Social History Date Type Detail Facility Start: 06-20-2020 End: 10-13-2023 Tobacco smoking status Never smoked tobacco (finding) [facility] Tobacco smoking status Smokeless tobacco user within last 30 days [facility] Start: 02-01-2019 End: 01-22-2024 Sex Assigned At Male [facility] Start: 06-20-2020 Tobacco use and exposure User of smokeless tobacco [facility] Start: 01-22-2024 Alcohol intake Current drinke r of alcohol (finding) [facility] Start: 02-01-2019 End: 01-22-2024 History of Social function [facility] Start: 01-22-2024 Alcohol Comment seldom [facility] Start: 1965 Sex Assigned At Not on file [facility] Tobacco smoking status ARIS Tobacco smoking consumption unknown [facility] Start: 03-27-2015 Sex Male (finding) [facility] Start: 1965 Sex Assigned At Male [facility] Functional Status Date Assessment Result Facility 10-13-2023 Functional Status N/A [facility] [place] Clinical Notes 10-13-2023 to 03-23-2025 Note Date & Type Note Facility 03-23-2025 Evaluation note Diagnosis Onset Date Resolution Left rotator cuff tear acute March 23, 2025 8:55am Rotator cuff syndrome of left shoulder acute March 23, 2025 8:55am Left rotator cuff tear acute May 18, 2025 10:00am Rotator cuff syndrome of left shoulder acute May 18, 2025 10:00am [facility] Work Phone: [phone]) 549-118107-25-2025 Miscellaneous Notes* Telephone Encounter - Denzel Moore - 03/17/2025 9:37 AM EDT Left VM to schedule with Dr. Chavez. Try to schedule with PA clinic first per Dr. Gamezif not availableok to see. [facility] Telephone encounter Note* Telephone Encounter - Denzel Moore - 03/17/2025 9:37 AM EDT Left VM to schedule with Dr. Chavez. Try to schedule with PA clinic first per Dr. Gamezif not availableok to see. [facility]07-25-2025 Miscellaneous Notes* Telephone Encounter - Denzel Moore - 03/17/2025 9:28 AM EDT Left VM to schedule with Dr. Chavez, Left shoulder, XR and MRI in chart documented in [facility] Telephone encounter Note* Telephone Encounter - Denzel Moore - 03/17/2025 9:28 AM EDT Left VM to schedule with Dr. Chavez, Left shoulder, XR and MRI in chart [facility]02-20-2024 NoteChief Complaint consultation for umbilical hernia HPI Staff [...] hypercholesterolemia, hypothyroidism, GERD, cervical disc disease, referred forumbilical hernia; patient reports 2 year h/o umbilical [...] swallowing difficulties, no hearing loss, no ear infection(s),no nose bleeds. Cardiovascular: normal blood pressure, no [...] 2023-09-30: 55 SARS-CoV-2 (COVID-19) mRNA-1273 vaccine 11/08/2020 [facility]edJ[facility] HospitalComment on above:Result Comment: Electronically Signed By: Enrike GRIFFITH MD\.br\Date and Time Signed: 10/13/23 10:51 ESTEvaluation + Plan note No data available for this section [facility] [place] Evaluation + Plan note Future Appointments Appointment Date:12/16/2023 02:40:00 PM Scheduled Provider:Enrike GRIFFITH MD Location:[facility] Appointment Type: Post Op 15 General Surgery [place] Evaluation note* Diagnosis Onset Date Resolution Status Admit Date Left rotator cuff tear acute Ju 2024 8:55am Rotator cuff syndrome of lef t shoulder acute March 23, 2025 8:55am [facility] Work Phone: Hospital Discharge instructions No data available for this section [facility] [place] InstructionsNot on filedocumented in this encounter [facility] No data available for this section [facility] [place] Reason for referral (narrative)No reason for referral information availableKet[facility] Work Phone: Summary Purpose Family History No Family History Records Found No data available for this section No data available for this section No Family History Records Found No data available for this section No Family History Records FoundNo Family History Records FoundNo Family History Records Found Advance Directives Advance Directive Response Recorded Date/ Time Advance Directives No March 16 1:13pm Chief Complaint and Reason for Visit Chief Complaint Admit Date TB-CONSULT DR ADAN PRICE SHOULDER PAIN [facility] March 23, 2025 8:55am Reason for Visit Admit Date Left rotator cuff tear March 23, 2025 8 :55am Rotator cuff syndrome of left shoulder J sen 2024 8:55am Chief Complaint Admit Date [facility]-CONSULT DR ADAN PRICE SHOULDER PAIN [facility] March 23, 2025 8:55am 8 WEEKS May 18, 2025 10:00am Reason for Visit Admit Date Left rotator cuff tear March 23, 2025 8 :55am Rotator cuff syndrome of left shoulder J sen 2024 8:55am Left rotator cuff tear May 18, 025 10:00am Rotator cuff syndrome of left shoulder S epteer 2024 10:00am Additional Source Comments (unrecognized sect ion and content) No Status Records FoundNo Status Records FoundNo Status Records FoundNo Status Records FoundNo Status Records Found INFORMATION SOURCE (unrecogn ized section and content) DATE CREATED AUTHOR 04/17/2022 [facility] DATE CREATED AUTHOR AUTHOR'S ORGANIZ ATION 12/06/2023 [facility] DATE CREATED AUTHOR AUTHOR'S ORGANIZ ATION 12/18/2023 [facility] DATE CREATED AUTHOR AUTHOR'S ORGANIZ ATION 03/15/2024 [facility] DATE CREATED AUTHOR AUTHOR'S ORGANIZ ATION 03/16/2025 [facility] Patient Care team informatio n (unrecognized section and content) Population Health Coach Relationship Specialty Start Date End Date Kenny Lacey MD [address] [place] [address] PCP - General Family Medicine 06/20/20 Team Status: Active Member Role Status Dates Kenny Lacey MD Primary Care Provider Active Team Status: Inactive Member Role Status Dates Kenny Lacey MD Primary Care Provider Active Start: March 23, 2025 End: March 23, 2025 Kiel Lopez DO Attending Provider Active St art: March 23, 2025 End: March 23, 2025 Team Status: Inactive Member Role Status Dates Kenny Lacey MD Primary Care Provider Active Start: May 18, 2025 End: May 18, 2025 Kiel Lopez DO Attending Provider Active St art: May 18, 2025 End: May 18, 2025 Reason for Visit (unrecogniz ed section and content) Specialty Diagnoses / Procedures Referred By Contac t Referred To Contact Physical Therapist / Physical Therapy Diagnoses Lumbar pain Ozzie Rosario MD [address] [address] [facility] [address] [place] [address] Referral ID Status Reason Start Date Expiration Date V isits Requested Visits Authorized [id number] Closed Specialty Services Required 01/22/2024 01/21/2025 1 1 Goals (unrecognized section and content) Goals may be documented in a n alternate section FOR RECORDS PERTAINING TO PATIENTS WHO ARE [...] BE BASED ON THE PRIMARY CLINICAL RECORDS. [facility]. provides no warranty or guarantee of the accuracy or completeness of information in this document.
--- NOTE | 2025-06-02 09:48 | PM.PRESUREVA ---
History of Present Illness History of Present Illness Chief complaint: left shoulder pain Narrative: Patient presents for presurgical testing. Please see HPI from Dr. Lopez dated May 18, 2025. Review of Systems ROS Narrative Please see ROS from Dr. Lopez dated May 18, 2025. PFSH PFSH Medical History (Updated 06/02/25 @ 09:48 by Vanda Orozco NP) Cervical disc disease ?M50.90 - Cervical disc disorder, unspecified, unspecified cervical region (ICD-10) Supraspinatus tendon tear ?M75.100 - Unspecified rotator cuff tear or rupture of unspecified shoulder, not specified as traumatic (ICD-10) Left shoulder pain ?M25.512 - Pain in left shoulder (ICD-10) Neck pain ?M54.2 - Cervicalgia (ICD-10) Umbilical hernia ?K42.9 - Umbilical hernia without obstruction or gangrene (ICD-10) High cholesterol ?E78.00 - Pure hypercholesterolemia, unspecified (ICD-10) Prediabetes ?R73.03 - Prediabetes (ICD-10) Hypothyroidism ?E03.9 - Hypothyroidism, unspecified (ICD-10) Surgical History (Updated 06/02/25 @ 09:09 by Vanda Orozco NP) H/O umbilical hernia repair (11/25/23) ?Z98.890 - Other specified postprocedural states (ICD-10) ?Z87.19 - Personal history of other diseases of the digestive system (ICD-10) History of spinal surgery ?Z98.890 - Other specified postprocedural states (ICD-10) Family History (Updated 11/16/23 @ 08:20 by Vanda Orozco NP) Other Family history of diabetes mellitus Family history of heart disease Family history of hypertension Family history of myocardial infarction Family history of renal failure Family history of stroke Social History (Updated 06/02/25 @ 09:24 by Vanda Orozco NP) Within the past year, how often did you have a drink containing alcohol: 2-4 times a month Do you use any of these nicotine containing products: smokeless tobacco Smokeless tobacco user: chewing tobacco Non-prescribed substance use: denies use 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[employer] Highest level of school completed/degree received: Associate degree: occupational, technical, vocational program Meds Home Medications and Allergies Home Medications ?Medication ?Instructions ?Recorded ?Confirmed ?Type diclofenac sodium 75 mg 75 mg PO Q12H 11/16/23 06/02/25 History tablet,delayed release levothyroxine 175 mcg tablet 175 mcg PO DAILY 11/16/23 06/02/25 History (Synthroid) liothyronine 5 mcg tablet 5 mcg PO DAILY 11/16/23 06/02/25 History simvastatin 20 mg tablet 20 mg PO DAILY 11/16/23 06/02/25 History aspirin 81 mg chewable tablet 1 tab PO DAILY 06/02/25 06/02/25 History nitroglycerin 0.4 mg sublingual 0.4 mg buccal Q5M PRN chest pain 06/02/25 06/02/25 History tablet tamsulosin 0.4 mg capsule 0.4 mg PO Q24H 06/02/25 06/02/25 History Allergies Allergy/AdvReac Type Severity Reaction Status Date / Time No Known Drug Allergies Allergy Verified 06/02/25 09:22 Exam Narrative Exam Narrative: Constitutional: Awake, alert, comfortable, well-appearing, nontoxic, interactive, vital signs as charted Head: Normocephalic, atraumatic Neck: Supple, normal appearance, normal range of motion, no meningeal signs, no lymphadenopathy Respiratory: No respiratory distress, breath sounds clear Cardiovascular: Regular rate and rhythm, strong and regular heart tones Skin: No rashes or induration, no lesions, only visible skin inspected Neuro: No neurological deficits, normal sensation Psychiatric: Oriented ?3, normal affect Assessment and Plan Assessment and Plan (1) Supraspinatus tendon tear: (2) Left shoulder pain: Plan Left shoulder arthroscopy with rotator cuff repair scheduled with Dr. Lopez June 08, 2025.
[2025-06-02 11:24] LABS: Hematocrit 45.2 % (42.0-54.0); Hemoglobin 15.2 g/dL (14.0-18.0); Immature Granulocytes Abs Auto 0.01 10^3/uL (0.00-0.03); Immature Granulocytes Pct Auto 0.2 % (0.0-0.5); Lymphocytes Absolute Auto 1.3 10^3/uL (1.2-3.8); Mean Corpuscular HGB Conc 33.6 g/dL (29.9-35.2); Mean Corpuscular Hemoglobin 30.3 pg (25.9-34.0); Mean Corpuscular Volume 90.2 fL (80.0-94.0); Platelet Count 227 10^3/uL (150-450); Red Blood Count 5.01 10^6/uL (4.70-6.10); White Blood Count 5.9 10^3/uL (4.0-11.0)
[2025-06-02 12:48] LABS: Alanine Aminotransferase 75 U/L (16-63); Albumin Globulin Ratio 1.2; Albumin Level 3.7 g/dL (3.4-5.0); Alkaline Phosphatase 65 U/L (46-116); Anion Gap 8.0; Aspartate Amino Transferase 27 U/L (15-37); Blood Urea Nitrogen 36.0 mg/dL (7.0-18.0); Calcium 9.2 mg/dL (8.5-10.1); Carbon Dioxide 27.1 mmol/L (21.0-32.0); Chloride 105 mmol/L (98-107); Estimated GFR (African America >60 (>=60 mL/min/1.73m^2); Estimated GFR (Non-African Ame >60 (>=60 mL/min/1.73m^2); Globulin 3.2 g/dL; Glucose 113 mg/dL (74-106); Potassium 4.1 mmol/L (3.5-5.1); Sodium 136 mmol/L (136-145); Total Protein 6.9 g/dL (6.4-8.2)
== END 2025-06-02 08:57 | disposition home or self-care (01) ==
LOC: PST 08:58
PROVIDERS: PCP Family Medicine; Visit Provider Physician Assistant
DX: Z01.812 Encounter for preprocedural laboratory examination (principal); Z01.818 Encounter for other preprocedural examination; M25.512 Pain in left shoulder
CPT/HCPCS: 80053; 85025; G0463

== ENCOUNTER 2025-06-15 11:01 | Day surgery (SDC) | payer BC, SELFPAY ==
[2025-06-02 09:37] VITALS: BP 134/80; PULSE 61; TEMP 36.3; O2SAT 99; BMI 29.1
[2025-06-15] VITALS (13 sets, daily range): BP systolic 125–149; BP diastolic 73–91; PULSE 58–67; TEMP 36.1–36.3; O2SAT 95–99; BMI 28.8
--- NOTE | 2025-06-15 09:56 | P.ON_ITS ---
Surgery Operative Note Operative Note Procedure Date: 06/15/25 Time Out Performed: yes Pre-op Diagnosis: Right shoulder rotator cuff tear, right shoulder impingement syndrome Post-op Diagnosis: other (Right shoulder rotator cuff tear, right shoulder impi ngement syndrome, right shoulder proximal biceps tendinitis and partial tear) Procedures performed: 1. Right shoulder diagnostic arthroscopy 2. Right shoulder arthroscopic biceps tenodesis 3. Right shoulder arthroscopic subacromial decompression 4. Right shoulder arthroscopic major synovectomy and debridement Anesthesia: FLORIDALMA Primary Surgeon: Kiel Lopez Complications: none Estimated blood loss (mL): 5 Findings: Right shoulder rotator cuff tear, right shoulder impingement syndrome, right shoulder proximal biceps tendinitis and partial tear Specimens: none Drains: none Detailed description of Procedure: Patient was identified in the preoperative area correct procedure and laterality was confirmed. Patient underwent a peripheral nerve block by anesthesia successfully. Patient was then brought back to the operative suite and underwent anesthesia with no issues. Patient was positioned lateral. All peripheral nerves were well-padded and free of any compression. The operative shoulder was prepped and draped in normal sterile fashion. Patient received preoperative antibiotics. A timeout was performed. Procedure began by making a standard arthroscopic posterior portal over the operative shoulder. Cannula and arthroscope was introduced into the glenohumeral joint. A diagnostic shoulder arthroscopy was performed with the following findings below: Glenoid surface: Grade [1-2] Humeral head: Grade [1-2 with no focal defects] Biceps anchor: [Torn] Biceps tendon: [Erythematous with partial tearing] Superior labrum: [Tearing with instability] Anterior labrum: [Degenerative tear Posterior labrum: [Intact with no tear] Rotator cuff underside: [No appreciative tears seen] Synovium: [No significant synovitis] Given the pathology, [we performed a biceps tenodesis. A cannula was introduced in the anterior portal. An arthroscopic Arthrex Loop N Shine was performed using a 4.75 mm Swiv[place]ock anchor]. Undersurface of the rotator cuff was visualized and no tears was seen. Arthroscope was then placed in the subacromial space. The major bursectomy was needed to fully visualize the underlying rotator cuff. Meticulous visualization of the supraspinatus and infraspinatus was performed and small superficial bursal tears were seen. A debridement was performed of the supraspinatus and infraspinatus however was not felt to be a major perforation which required taking down and full fixation of the rotator cuff. Type III acromion was seen and a large bone spur was seen on the anterior lateral aspect of the acromion. Soft tissue was removed using ablator. An acromioplasty and subacromial decompression was performed low-lying ostia structures. Final fluoroscopic images were taken. The shoulder was suctioned of excess arthroscopy fluid. Portal sites were closed using 3-0 nylon. Skin was dressed using Xeroform, 4 x 4's, ABDs, foam tape. A polar care cuff was placed on the operative shoulder and the extremity was placed in a sling. Disposition: Patient will be discharged from PACU to home. Patient will be in a shoulder sling. Postoperative medications have been prescribed to the patient and sent to the pharmacy. Patient will be restricted motion and no lifting that extremity other than what is performed during therapy. Patient will follow the biceps tenodesis rehabilitation protocol. Patient will follow-up in 10 to 14 days for suture removal and reevaluation. Kiel Lopez, Gripper Attacher: Violeta Boyd Other Provider present: No Attending Doc Confirm Attending Attestation: Yes
--- OUTSIDE RECORDS SUMMARY | 2025-06-15 11:04 | XMS_ITS | Clinical Summary ---
Author Organization [facility] Address [address], [address] [place] [address] Care Team Providers Care Manager Of Creative Services Name Role Phone Darrell Lacey MD Primary Care Provider +- Allergies No known active allergies Medications MedicationSigDispense QuantityRefillsLast FilledStart DateEnd DateStatus SYNTHROID 175 MCG tablet 04/04/2020Active diclofenac (VOLTAREN) 75 MG EC tablet Take 1 tablet by mouth daily09/30/2023ctive liothyronine (CYTOMEL) 5 MCG tablet Take 1 tablet by mouth daily09/23/2023ctive simvastatin (ZOCOR) 20 MG tablet Take 1 tablet by mouth edghqeq4809/23/2023ctive Active Problems ProblemNoted DateDiagnosed KjhoWmypfvvdtgk17/31/2024Irritable bowel syndrome 01/22/20249989Fgdzrfizutqtmf76/31/2024History of spinal pirsari8801/22/2024 Gastroesophageal reflux zbxqdvu1301/22/2024ervical disc rdrlfyqc07/31/2024 Ynpomblcwxhjanprluud01/03/2024Low back pain, tfaptnjmckc59/13/2024lass 1 tbdzoxy2010/13/2023Obstructed umbilical ajamzc0110/13/2023Type 2 diabetes mellitus 10/06/2023Neck pain09/29/2023OVID-19004/14/2022ontact with and (suspected) exposure to covid-Type 2 diabetes mellitus without complications 03/25/2022 Resolved Problems ProblemNoted DateDiagnosed DateResolved DateEncounter for screening for malignant neoplasm of eakpbfmp99 Family History Medical HistoryRelationNameCommentsDiabetesFatherRelationNameStatusComments FatherDeceasedMotherAlive Social History Tobacco UseTypesPacks/DayYears UsedDateSmoking Tobacco: NeverSmokeless Tobacco: CurrentAlcohol UseStandard Drinks/WeekCommentsYes0 (1 standard drink = 0.6 oz pure alcohol)seldomSex and Gender InformationValueDate RecordedSex Assigned at BirthNot on fileLegal RidZusm3810/03/2012 6:35 PM ESTGender IdentityNot on file Sexual OrientationNot on file Last Filed Vital Signs Vital SignReadingTime TakenCommentsBlood Qhwcrslu044/7207/ 10:44 AM EDT Qtowo124503/11/2024 10:44 AM IFNEqthnydyamz55.8 ??C (98.2 ??F)06/20/2020 3:45 PM EDTRespiratory Eqbp835803/11/2024 10:44 AM EDTOxygen Saturation--Inhaled Oxygen Concentration--Bqpfsa263 kg (227 lb)03/11/2024 10:44 AM COZKwuzij954.9 cm (6') 03/11/2024 10:44 AM EDTBody Mass Index30.7903/11/2024 10:44 AM EDT Plan of Treatment Health MaintenanceDue DateLast ErsuIbigtdxoP7P test (Diabetic or Prediabetic) 1977Diabetic foot exam04/18/19770323Zskbrl64/26/1977Depression Screen 1979HIV lnbfuo2104/18/1982Diabetic Alb to Cr ratio (uACR) test1985 Diabetic retinal exam1985GFR test (Diabetes, CKD 3-4, OR last GFR 15-59) 1985Hepatitis C abczde5904/18/1985DTaP/Tdap/Td vaccine (1 - Tdap)1986 Hepatitis B vaccine (1 of 3 - 19+ 3-dose series)1986Pneumococcal 50+ years Vaccine (1 of 2 - PCV)04/18/19860207Nqnarysqvgw77/26/2012Colorectal Cancer Screen 2012FIT/FOBT: Average risk2012Fecal-DNA (Cologuard): Average risk 2012Sigmoidoscopy/CT osyoeweethke31/26/2012Shingles vaccine (1 of 2) 2017Flu vaccine (#1)509/, 06/07/2020COVID-19 Vaccine ( season)/, 07/10/2021, 12/06/2020, Additional history existsHepatitis A vaccineAged OutNo longer eligible based on patient's age to complete this topicHib vaccineAged OutNo longer eligible based on patient's age to complete this topicMeningococcal (ACWY) vaccineAged OutNo longer eligible based on patient's age to complete this topicMeningococcal B vaccineAged OutNo longer eligible based on patient's age to complete this topicPolio vaccineAged OutNo longer eligible based on patient's age to complete this topic Insurance Care Teams Team MemberRelationshipSpecialtyStart DateEnd Darrell Lacey MD [address] [place] [address] PCP - GeneralFamily Ojtmjvlm31/28/20
--- OUTSIDE RECORDS SUMMARY | 2025-06-15 11:04 | XMS_ITS | Clinical Summary ---
Author Organization [facility] tem Address [id number] 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 [place] [phone] Denzel Moore 03/17/2025[facility]phone [facility] [address] [place] [phone] Denzel Moore from Last 3 Months Social History Tobacco UseTypesPacks/DayYears UsedDateSmoking Tobacco: Never AssessedChildcare AnswerDate VgcrukguGeqcwsaraFluxjjb98/11/2019EmploymentAnswerDate Recorded JzeltpjydzDyiefao78/11/2019Sex and Gender InformationValueDate RecordedSex Assigned at BirthNot on fileLegal UbuUlue6403/27/2015 5:59 PM EDTGender Identity Not on fileSexual OrientationNot on file Last Filed Vital Signs Vital SignReadingTime TakenCommentsBlood Pressure--Pulse--Temperature-- Respiratory Rate--Oxygen Saturation--Inhaled Oxygen Concentration--Wgaozf331.6 kg (235 lb)12/05/2023 7:12 AM VCFSfdoom446.9 cm (6')12/05/2023 7:12 AM EDTBody Mass Index31.8712/05/2023 7:12 AM EDT Plan of Treatment Health MaintenanceDue DateLast DoneCommentsDepression Vgwrehiee54/26/1979Tobacco Podrtrgdo47/26/1979DTaP,Tdap and Td Vaccines (1 - Tdap)1986Zoster (Shingles) Vaccine (1 of 2)2017Adult BMI Dwfwwwlwf60/13/318250/ COVID-19 Vaccine (5 - season)/, 07/10/2021, 12/06/2020, Additional history existsInfluenza Ekwxwfr59/, 06/07/2020 Medical Devices Not on file Insurance
--- OUTSIDE RECORDS SUMMARY | 2025-06-15 11:07 | XMS_ITS | CCD ---
Author Organization [facility] Care Team Providers Care Pelt Dropper Name Role Phone DR KENNY LACEY Primary Care Unavailable HOY, DR COX Admitting Unavailable HOY, DR COX Attending Unavailable HOY, DR COX Attending Unavailable HOY, DR COX Consulting Unavailable HOY, DR COX Primary Care Unavailable HOY, DR COX Admitting Unavailable HOY, DR COX Consulting Unavailable HOY, DR COX Primary Care Unavailable HOY, DR COX Admitting Unavailable HOY, DR COX Attending Unavailable Kenny Lacey Primary Care Physician [phone] ADEEL LACEYLAS M Referring Unavailable HOY, KENNY [...] Unavailable Kenny Lacey MD Primary Care Provider [phone] Unavailable Primary Care Provider Kenny Lima MD Primary Care Provider [phone] Kiel Lopez DO Attending Provider Edinson Telles DO Attending Provider Allergies Allergy ClassificationReported Allergen(s)Allergy TypeDate of OnsetReaction(s) Facility (1 source)No Known Medication Allergies; Translations: [No Known Medication Allergies]Propensity to adverse reactions (disorder)[facility] Medications Current Medications MedicationDrug Class(es)DatesSig (Normalized)Sig (Original)diclofenac sodium 75 mg delayed release oral tablet (7 sources)Nonsteroidal Anti-inflammatory DrugStart: 95-45-2018Jtrsysiqdu Sodium 75 mg tablet,delayed release (DR/EC) Active MG PO March 23, 2025 12:00am Complies with drug therapyStart: 86-65-1185xkjz 1 tablet by mouth once daily diclofenac (VOLTAREN) 75 MG EC tablet Take 1 tablet by mouth daily 0 09/30/2023 ActiveStart: 38-47-6017acdcojgnws sodium 75 mg Oral EC Tab 75 mg = 1 tab(s), Oral, BID, 0 Refill(s), Refills(s) 0 Start Date: 09/30/23 Status: Ordered levothyroxine sodium 0.175 mg oral tablet (7 sources)l-ThyroxineStart: 57-79-4067Hqvidxarwftoh 175 mcg tablet Active MCG PO March 23, 2025 12:00am Complies with drug therapyStart: 52-99-4380Ttrchcxql 175 mcg (0.175 mg) Tab 175 mcg = 1 tab(s), Oral, Daily, 0 Refill(s), Refills(s) 0 Start Date: 09/30/23 Status: OrderedStart: 10-49-6424EFMNKEVTA 175 MCG tablet liothyronine sodium 0.005 mg oral tablet (4 sources)l-TriiodothyronineStart: 57-69-5244ynnc 1 tablet by mouth once daily liothyronine 5 mcg Tab 5 mcg = 1 tab(s), Oral, Daily, Refills(s) 0 Start Date: 09/23/23 Status: OrderedStart: 30-81-5967aaun 1 tablet by mouth once daily liothyronine (CYTOMEL) 5 MCG tablet Take 1 tablet by mouth daily 0 09/23/2023 Activesimvastatin 20 mg oral tablet (7 sources)HMG-CoA Reductase InhibitorStart: 77-83-5837Heqtlatlpji 20 mg tablet Active MG PO March 23, 2025 12:00am Complies with drug therapyStart: 09-23-2023 take 1 tablet by mouth once daily in the eveningsimvastatin 20 mg Tab 20 mg = 1 tab(s), Oral, qPM, Refills(s) 0 Start Date: 09/23/23 Status: Orderedtamsulosin hydrochloride 0.4 mg oral capsule (3 sources)alpha-Adrenergic BlockerStart: 84-87-3274Khunrcwswd 0.4 mg capsule Active MG PO March 23, 2025 12:00am Complies with drug therapy Problems Active Problems Problem ClassificationProblemDateDocumented DateEpisodic/ChronicDiabetes mellitus without complication (6 sources)Type 2 diabetes mellitus without complications; Translations: [Type 2 diabetes mellitus]Onset: 04-92-1222AmelckhYtusanuhm of lipid metabolism (4 sources)Hypercholesterolemia; Translations: [Pure hypercholesterolemia, unspecified]Onset: 166300-17-7544PsfofhyDskcbhdkep disorders (4 sources)Gastroesophageal reflux disease; Translations: [Gastro-esophageal reflux disease without esophagitis]Onset: 235730-78-9217OatrubyDazbb connective tissue disease (8 sources)Left rotator cuff syndrome; Translations: [Unspecified rotator cuff tear or rupture of left shoulder, not specified as traumatic]91-71-7156Kpuuywlp Other connective tissue disease (8 sources)Tear of left rotator cuff; Translations: [Unspecified rotator cuff tear or rupture of left shoulder, not specified as traumatic]74-11-6436Memlfpbm Other gastrointestinal disorders (4 sources)Irritable bowel syndrome; Translations: [Irritable bowel syndrome without diarrhea]Onset: 367166-86-3128QdxusgxUobwy nutritional; endocrine; and metabolic disorders (2 sources)Obese class I; Translations: [Body mass index (BMI) 32.0-32.9, adult] Onset: 99-06-1600VxhazjlHhibp nutritional; endocrine; and metabolic disorders (3 sources)Body mass index 30+ - hqmiwrn73-76-9765MucmwsvXevwr nutritional; endocrine; and metabolic disorders (3 sources)Mkbnrkk72-06-2468TbaplieVamtlqum codes; unclassified (1 source)Pain, unspecified; Translations: [Pain, unspecified]Onset: 03-14-2025 EpisodicSpondylosis; intervertebral disc disorders; other back problems (4 sources)Cervical disc disorder; Translations: [Cervical disc disorder, unspecified, unspecified cervical region]Onset: hronic Thyroid disorders (4 sources)Hypothyroidism; Translations: [Hypothyroidism, unspecified]Onset: 477416-73-8144UonnanyYpkiolpctymz (2 sources)CONTACT W/AND (SUSP) EXPOS COVID-19; Translations: [CONTACT W/AND (SUSP) EXPOS COVID-19]Onset: 85-92-0629Ekaeaezodkfm (2 sources)Low back pain, unspecified; Translations: [Low back pain, unspecified]Onset: 62-79-9498Jtfje infection (1 source)COVID-19; Translations: [COVID-19]Onset: 04-14-2022 Past or Other Problems Problem ClassificationProblemDateDocumented DateEpisodic/ChronicAbdominal hernia (7 sources)Obstructed umbilical hernia; Translations: [Umbilical hernia with obstruction, without gangrene]Onset: 07-37-9320YxidpvpeJxwbqjul mellitus without complication (1 source)Prediabetes; Translations: [Prediabetes]Onset: EpisodicImmunizations and screening for infectious disease (1 source)Contact with or exposure to other viral diseases; Translations: [Contact with and (suspected) exposure to covid-19]Onset: EpisodicOther screening for suspected conditions (not mental disorders or infectious disease) (2 sources)Encounter for screening for malignant neoplasm of prostate; Translations: [Patient encounter status]Onset: 261371-47-8017Nokqygqz Residual codes; unclassified (1 source)H/O Spinal surgery; Translations: [Other specified postprocedural states]Onset: 538550-28-0945OqvlmcuqBlisvuxgdua; intervertebral disc disorders; other back problems (4 sources)Lumbago with sciatica, right side; Translations: [Lumbago with sciatica, left side]Onset: 941460-86-9028EukbykzzDxngcetzivaq (1 source)CONTACT W/AND (SUSP) EXPOS COVID-19; Translations: [CONTACT W/AND (SUSP) EXPOS COVID-19]Onset: 95-00-5462Xtsbvzmbbewa (1 source)Low back pain, unspecified; Translations: [Low back pain, unspecified] Onset: 26-16-8332Xcnsx infection (1 source)Disease caused by 2019-nCoV; Translations: [COVID-19]Onset: 04-14-2022 97-80-6130Ymxcygbe Results Test NameValueInterpretationReference RangeFacilityGeneral Surgery Office/Clinic Noteon 80-67-7341Rxjckpd Surgery Office/Clinic NoteChief Complaint post operative follow up HPI Staff [...] 2023-09-30: 53 SARS-CoV-2 (COVID-19) mRNA-1273 vaccine 11/08/2020 [facility] HealthComment on above:Result Comment: Electronically Signed By: ISAÍAS REAVES, Enrike Castillo\Date and Time Signed: 12/16/23 14:44 BETOTFanalia 12-15-2023 [id number]#1.00TIFFNormCleveland Clinic FoundationMR LUMBAR SPINE WO CONTon 27-84-7550UQ LUMBAR SPINE WO CONTMR LUMBAR SPINE WO CONT STUDY: MR LUMBAR [...] and mild bilateral facet arthropathy results in gztc-yo-bjqipvra right and mild left neuroforaminal narrowing. No significant spinal canal narrowing. L4-L5: Mild diffuse disc bulge and moderate bilateral facet arthropathy with dpjo-ie-pxyqcboz rightand mild left neuroforaminal narrowing. No significant spinal canal narrowing. L5-S1: Mild diffuse disc bulge, mild facet arthropathy results in mild bilateral neuroforaminal narrowing. No significant spinal canal narrowing. IMPRESSION: * Multilevel degenerative spondylosis most prominent at L3-L4, L4-L5 and L5-S1, with multilevel facet arthropathy. * Jvxj-mj-kpvbsjks right and mild left neuroforaminal narrowing at L3-L4 and L4-L5. Finalized by Forest Alcaraz on 12/06/2023 4:55 PMNormalProMedica Providence Portland Medical CenterAmbulatory Visit Summaryon 81-07-7183Namhuulzdi Visit Summary ALLAN REYES :1965 Visit Date:12/02/2023 Ambulatory Visit Instructions Your Diagnosis Umbilical hernia, incarcerated Your Care Team Attending Physician - ISAÍAS [...] Enrike GRIFFITH MD Where: General Surgery Isaías/[facility] General Surgery Office/Clinic Noteon 23-04-8912Wylqeoc Surgery Office/Clinic NoteChief Complaint post operative follow up HPI Staff [...] herniorrhaphy with mesh due to incarcerated umbilical hernia;doing well, mild soreness, only taking Diclofenac; no [...] 2023-09-30: 53 SARS-CoV-2 (COVID-19) mRNA-1273 vaccine 11/08/2020 RecordedSalem City HospitalComment on above:Result Comment: Electronically Signed By: ISAÍAS REAVES, Enrike Castillo\Date and Time Signed: 12/02/23 13:56 EDTOperative Reporton 42-53-1094Mgzfcwvhj [id number]#1.00TIFF [facility] HospitalECG 12-Leadon 50-22-8422HZO 12-Lead [id number]#1.00TIFFSalem City HospitalInsurance Correspondenceon 70-53-4090Kdftkagom Correspondence [id number]#1.00TIFFSalem City HospitalFormson [id number]#1.00TIFF [facility] HospitalAmbulatory Visit Summaryon 86-85-2196Uvqpeqtong Visit Summary ALLAN REYES Durga :1965 Visit Date:10/13/2023 Ambulatory Visit Instructions [...] 1 Tablets By Mouth Every day 0 Refill(s)Contact prescribing physician if questions or concerns Unchanged [...] disease Hypercholesterolemia Hypothyroidism Irritable bowel syndrome Obesity Patient Survey You may receive a survey via text or e-mail asking about your office visit. Please share your experience with us by completing your survey. We appreciate your feedback and thank you for choosing us for your care. [facility] HospitalConsent for Procedure/Surgeryon 82-54-3538Bwwrwdj for Procedure/Surgery [id number]#1.00TIFFNoOhio State East HospitalXR SPINE LUMBAR MIN 4 VWSon 86-35-4690NJ SPINE LUMBAR MIN 4 VWSXR SPINE LUMBAR MIN 4 VWS Clinical history: [...] helpful for further evaluation if clinically warranted. Finalized by Herrera Del Rio MD on 10/01/2023 8:45 AMNormalProMedica Providence Portland Medical CenterPhysician Referralon 35-86-9332Iqwoletyi Referral [id number]#1.00TIFGlenbeigh HospitalPhysician [id number]#1.00TIFFNoTrumbull Memorial HospitalCovid-19 PCR (CVDTBH)on 33-89-0384ONGV-CoV-2 (COVID- 19) RNA LEONID+probe Ql (Unsp spec)DetectedCritically abnormalNOT DETECTEDThe [facility]'S Medical CenterComment on above:Result Comment: This test is not yet approved or cleared by the [place] FDA. When there are no FDA-approved or cleared tests available, and other criteria are met, FDA can make tests available under an emergency access mechanism called an Emergency Use Authorization (EUA). The EUA for this test is supported by the [employer] of Health and Human Service's (HHS's) declaration [...] no longer be used). Performed By: #### CVDTBH #### [facility] [address] [place] [address] Dr. Ting Lora AUTO DIFFon 31-75-7002QXDS #0.1 103/ulNormal0.0-0.1[facility] HospitalComment on above:Performed By: #### CBC #### [facility] [address] [place] [address] Dr. Ting FelixBasophils/100 WBC (Bld)1.2 %Normal0.2-2.0[facility] Comment on above:Performed By: #### CBC #### [facility] [address] [place] [address] Dr. Ting Goff #0.2 103/ulNormal0.0-0.7The [facility] Rita'S Medical CenterComment on above: Performed By: #### CBC #### [facility] [address] [place] [address] Dr. Ting Bellosinophils/100 WBC (Bld)2.9 %Normal0.9-7.0[facility] Comment on above:Performed By: #### CBC #### [facility] [address] [place] [address] Dr. Ting Bellrythrocyte distribution width (RBC) [Ratio]12.5 %Qzjhic07.0-15.0 [facility] HospitalComment on above:Performed By: #### CBC #### [facility] [address] [place] [address] Dr. Ting FelixHematocrit (Bld) [Volume fraction]44.1 %Rasiof26.0-54.0The [facility]'S Medical CenterComment on above:Performed By: #### CBC #### [facility] [address] [place] [address] Dr. Ting FelixHemoglobin (Bld) [Mass/Vol]15.4 g/rUIdgnls77.0-18.0The [facility]S Medical CenterComment on above:Performed By: #### CBC #### [facility] [address] [place] [address] Dr. Ting Akers #0.02 10e3/ulNormal0.00-0.03The [facility] Rita'S Medical CenterComment on above:Performed By: #### CBC #### [facility] [address] [place] [address] Dr. Ting Akers %0.3 %Normal0.0-0.5The [facility]'S Medical CenterComment on above: Performed By: #### CBC #### [facility] [address] [place] [address] Dr. Ting Greer #1.7 103/ulNormal1.2-3.8The [facility] Rita'S Medical CenterComment on above:Performed By: #### CBC #### [facility] [address] [place] [address] Dr. Ting Aggarwalhocytes/100 WBC (Bld)28.9 %Ezbjny01.5-60.0The [facility]S Medical CenterComment on above:Performed By: #### CBC #### [facility] [address] [place] [address] Dr. Ting SrinivasanUAL DIFF REQNONormalThe [facility] Rita'S Medical CenterComment on above: Performed By: #### CBC #### [facility] [address] [place] [address] Dr. Ting Mendez (RBC) [Entitic mass]30.7 nuKfkzms56.9-34.0The [facility]S Medical CenterComment on above:Performed By: #### CBC #### [facility] [address] [place] [address] Dr. Ting Mendez (RBC) [Mass/Vol]34.9 g/kZIsezss75.9-35.2The [facility]S Medical CenterComment on above:Performed By: #### CBC #### [facility] [address] [place] [address] Dr. Ting Sharp (RBC) [Entitic vol]87.8 lUYohxrz18.0-94.0The [facility]'S Medical CenterComment on above:Performed By: #### CBC #### [facility] [address] [place] [address] Dr. Ting Santiago #0.5 103/ulNormal0.3-0.8The [facility]S Medical CenterComment on above:Performed By: #### CBC #### [facility] [address] [place] [address] Dr. Ting Starksocytes/100 WBC (Bld)9.2 %Normal1.7-12.0The [facility] Comment on above:Performed By: #### CBC #### [facility] [address] [place] [address] Dr. Ting Cárdenas #3.4 103/ulNormal1.4-6.5The [facility]S Medical CenterComment on above:Performed By: #### CBC #### [facility] [address] [place] [address] Dr. Ting Weissutrophils/100 WBC (Bld)57.5 %Wdfxbd61.0-75.0The [facility]'S Medical CenterComment on above:Performed By: #### CBC #### [facility] [address] [place] [address] Dr. Ting Burchlet mean volume (Bld) [Entitic vol]10.3 fLNormal9.5-13.5The [facility] Medical CenterComment on above:Performed By: #### CBC #### [facility] [address] [place] [address] Dr. Ting LionT237 103/bhCtimfv179-700Kah [facility]S Medical CenterComment on above: Performed By: #### CBC #### [facility] [address] [place] [address] Dr. Yilan ChangRBC5.02 106/ulNormal4.70-6.10The [facility] CenterComeaton rapids medical [facility] on above:Performed By: #### CBC #### [facility] [address] [address] [address] Ting FelixWBC5.9 103/ulNormal4.0-11.0The [facility] on above: Performed By: #### CBC #### [facility] [address] [address] [address] Ting FelixFREE T3on 52-89-8848TFKS T32.85 pg/mlLNormal2.18-3.98The [facility] on above:Performed By: #### TSH, FT3, T4, LIPID, CMP #### [facility] [address] [place] [address] Dr. Ting FelixGLYCOHEMOGLOBIN A1Con 73-99-7847JLT RECOMMENDATIONSEE [facility] CenterCome[facility] rap[facility] on above:Result Comment: ADA RECOMMENDED LIMIT 4.0 - 6.0 ADA THERAPEUTIC TARGET < 7.0 ACTION SUGGESTED > 7.0Performed By: #### A1C #### [facility] [address] [place] [address] Dr. Ting FelixGlucose [Mass/Vol]148 mg/dLNoCoshocton Regional Medical Center on above:Performed By: #### A1C #### [facility] [address] [place] [address] Dr. Ting FelixHbA1c (Bld) [Mass fraction]6.8 %Critically high4.5-6.2The [facility] on above:Performed By: #### A1C #### [facility] [address] [place] [address] Dr. Ting FelixLIPID PROFILEon 42-15-6821OCZA-HDL RATIO NORMSEE [facility] RehabilitationComeaton rap[facility] on above:Result Comment: 3.3 - 4.4 LOW RISK 4.4 - 7.1 AVERAGE RISK 7.1 - 11.0 MODERATE RISK >11.0 HIGH RISKPerformed By: #### TSH, FT3, T4, LIPID, CMP #### [facility] [address] [address] [address] Ting FelixCholesterol [Mass/Vol]189 mg/dLNormal<=200[facility] Comment on above:Performed By: #### TSH, FT3, T4, LIPID, CMP #### [facility] [address] [address] [address] Ting Garesterol in HDL [Mass/Vol]27 mg/dLCritically reu21-16Eif [facility] Medical CenterComment on above:Performed By: #### TSH, FT3, T4, LIPID, CMP #### [facility] [address] [address] [address] Ting Garesterol in LDL [Mass/Vol]90.8 mg/dLNoPremier Health Atrium Medical CenterComment on above:Performed By: #### TSH, FT3, T4, LIPID, CMP #### [facility] [address] [address] [address] Ting Garesteradam.total/Cholesterol in HDL [Mass ratio]7.0 {ratio} NormalThe [facility]'S Medical CenterComment on above:Performed By: #### TSH, FT3, T4, LIPID, CMP #### [facility] [address] [address] [address] Ting Delvalle NORMAL> or = 60 mg/dl - LOW CARDIOVASCULAR RISK <40 mg/dl - HIGH CARDIOVASCULAR RISKNoPremier Health Atrium Medical CenterComment on above:Performed By: #### TSH, FT3, T4, LIPID, CMP #### [facility] [address] [address] [address] Ting FelixLDL CALC NORMALSEE BELOWNoPremier Health Atrium Medical CenterComment on above:Result Comment: <100 mg/dl OPTIMAL 100 - 129 mg/dl NEAR OR ABOVE OPTIMAL 130 - 159 mg/dl BORDERLINE HIGH 160 - 189 mg/dl HIGH >190 mg/dl VERY HIGH Performed By: #### TSH, FT3, T4, LIPID, CMP #### [facility] [address] [address] [address] Ting FelixTriglyceride [Mass/Vol]356 mg/dLCritically high<=150The [facility] on above:Performed By: #### TSH, FT3, T4, LIPID, CMP #### [facility] [address] [address] [address] Ting MasonLDL CALC71.2 mg/dLNormalThe [facility] on above: Performed By: #### TSH, FT3, T4, LIPID, CMP #### [facility] [address] [place] [address] Dr. Ting Francisco 14(COMP METB)on 78-42-9412Ddkityc [Mass/Vol]3.8 g/dLNormal 3.4-5.0The [facility] on above:Performed By: #### TSH, FT3, T4, LIPID, CMP #### [facility] [address] [place] [address] Dr. Ting FelixAlbumin/Globulin [Mass ratio]1.1 {ratio}NormalThe [facility]S Medical CenterComment on above:Performed By: #### TSH, FT3, T4, LIPID, CMP #### [facility] [address] [place] [address] Dr. Ting Salinas [Catalytic activity/Vol]73 U/RUgajlu01-351Xnk [facility] on above:Performed By: #### TSH, FT3, T4, LIPID, CMP #### [facility] [address] [place] [address] Dr. Ting Sultana [Catalytic activity/Vol]48 U/BSprfjn70-45Rib [facility] on above:Performed By: #### TSH, FT3, T4, LIPID, CMP #### [facility] [address] [place] [address] Dr. Ting Johnson gap [Moles/Vol]10.8 mmol/LNormalThe [facility] on above:Performed By: #### TSH, FT3, T4, LIPID, CMP #### [facility] [address] [place] [address] Dr. Ting Humphries [Catalytic activity/Vol]18 U/PAinuns06-71Lbl [facility] HospitalComment on above:Performed By: #### TSH, FT3, T4, LIPID, CMP #### [facility] [address] [address] [address] Ting FelixBilirubin [Mass/Vol]0.5 mg/dLNormal0.2-1.0The [facility] Comment on above:Performed By: #### TSH, FT3, T4, LIPID, CMP #### [facility] [address] [place] [address] Dr. Ting FelixCalcium [Mass/Vol]8.7 mg/dLNormal8.5-10.1[facility] Comment on above:Performed By: #### TSH, FT3, T4, LIPID, CMP #### [facility] [address] [place] [address] Dr. Ting FelixChloride [Moles/Vol]105 mmol/ILhvlzc02-378CpvOhiohealth Pickerington Methodist Hospital Comment on above:Performed By: #### TSH, FT3, T4, LIPID, CMP #### [facility] [address] [place] [address] Dr. Ting FelixCO2 [Moles/Vol]30.6 mmol/QZynvrd22.0-32.0The [facility] Comment on above:Performed By: #### TSH, FT3, T4, LIPID, CMP #### [facility] [address] [place] [address] Dr. Ting FelixCreatinine [Mass/Vol]1.15 mg/dLNormal0.70-1.30The [facility] Medical CenterComment on above:Performed By: #### TSH, FT3, T4, LIPID, CMP #### [facility] [address] [place] [address] Dr. Ting BellGFR-AF GRENADIAN>60Normal>=60The [facility] on above:Performed By: #### TSH, FT3, T4, LIPID, CMP #### [facility] [address] [place] [address] Dr. Ting BellGFR-NON AF GRENADIAN>60Normal>=60The [facility] Anthony's Hospitalment on above:Performed By: #### TSH, FT3, T4, LIPID, CMP #### [facility] [address] [place] [address] Dr. Ting FelixGlobulin (S) [Mass/Vol]3.5 g/dLNoPremier Health Atrium Medical CenterComment on above:Performed By: #### TSH, FT3, T4, LIPID, CMP #### [facility] [address] [place] [address] Dr. Ting FelixGlucose [Mass/Vol]171 mg/dLCritically bagj14-178Bni [facility] Medical CenterComment on above:Performed By: #### TSH, FT3, T4, LIPID, CMP #### [facility] [address] [place] [address] Dr. Ting FelixPotassium [Moles/Vol]4.4 mmol/LNormal3.5-5.1The [facility] Comment on above:Performed By: #### TSH, FT3, T4, LIPID, CMP #### [facility] [address] [place] [address] Dr. Ting FelixProtein [Mass/Vol]7.3 g/dLNormal6.4-8.2[facility] Comment on above:Performed By: #### TSH, FT3, T4, LIPID, CMP #### [facility] [facility] [address] [place] [address] Dr. Ting FelixSodium [Moles/Vol]142 mmol/WVhaqhy700-318LvsOhiohealth Pickerington Methodist Hospital Comment on above:Performed By: #### TSH, FT3, T4, LIPID, CMP #### [facility] [address] [place] [address] Dr. Ting FelixUrea nitrogen [Mass/Vol]19.0 mg/dLCritically high7.0-18.0The [facility]'S Medical CenterComment on above:Performed By: #### TSH, FT3, T4, LIPID, CMP #### [facility] [address] [place] [address] Dr. Ting FeilxUrea nitrogen/Creatinine [Mass ratio]16.5 mg/mgNoPremier Health Atrium Medical CenterComment on above:Performed By: #### TSH, FT3, T4, LIPID, CMP #### [facility] [address] [place], [place] [address] Dr. Ting Tracy4on 39-71-7882J3 [Mass/Vol]8.40 ug/dLNormal4.50-12.10The [facility]'S Medical CenterComment on above:Performed By: #### TSH, FT3, T4, LIPID, CMP #### [facility] [address] [place] [address] [address] Ting FelixTSHovianney 06-14-0090ZFO5.090 uIU/mLCritically low0.358-3.740The [facility]'S Medical CenterComment on above:Performed By: #### TSH, FT3, T4, LIPID, CMP #### [facility] [address] [place] [address] [address] Ting Felix Vital Signs Date TimeVital SignValuePerforming XvreuthkfUdoawlul99-83-5064 11:01-0400Body fxxenk90.33 kgDoterence Lacey MD Work Phone: [facility]10-15-2025 11:01-0400 Diastolic blood mm[Hg]Kenny Lacey MD Work Phone: [phone]10-15-2025 11:01-0400 Heart rate74 /minDouglswapnil Lacey MD Work Phone: [phone]10-15-2025 11:01-0400 SaO2% (BldA) [Mass fraction]98 %Kenny Lacey MD Work Phone: [facility]10-15-2025 11:01-0400 Systolic blood zhebsbah054 mm[Hg]Kenny Lacey MD Work Phone: [facility]02-20-2024 09:26-0500 Blood Pressure Cora GRIFFITH [phone]-OngvxElyria [facility] [place] 10-13-2023 09:26-0500Diastolic blood rnzwozki85 mm[Hg]Enrike GRIFFITH [phone]-ImkcuWyandot Memorial Hospital [facility] [place] 10-13-2023 09:26-0500Heart rate63 /minMichael NILL [phone]-ItsndWyandot Memorial Hospital [facility] [place] 10-13-2023 09:26-0500Respiratory rate16 /minMichael NILL [phone]-XqykgWyandot Memorial Hospital [facility] [place] 10-13-2023 09:26-0500Systolic blood czfeozbm216 mm[Hg]Enrike NILL [phone]-CpitlUniversity Hospitals [facility] Encounters Encounter DateEncounter TypeCare ProviderFacilityStart: 06-07-2025 End: 11-68-6046ojzuiuhlrnQnjfecx M Hoy MD Work Phone: [facility] Work Phone: Start: 06-07-2025 End: 09-22-4700Geozyna encounter procedureMajessica Telles DO-[facility] [place] Work Phone: Start: 05-18-2025 End: 68-06-4359eqmzwmsexlAdglard M Hoy MD Work Phone: [facility] Work Phone: Start: 05-18-2025 End: 87-41-3365Dabbftd encounter procedureKiel Lopez DO-[facility] [place] Work Phone: Start: 03-23-2025 End: 02-53-1158uvacknhqulInoazgr M Hoy MD Work Phone: [facility] Work Phone: Start: 03-23-2025 End: 18-65-7650Dstgunx encounter procedureKiel Lopez DO-[facility] [place] Work Phone: Start: 03-17-2025 End: 86-45-3243Ceguakakl encounterDenzel MoorePorter Medical CenterMedica Physicians Assenmacher OrthopaedicsStart: 96-60-6577isbjbfdqvoPciIpayod Hospital Ambulatory PPGStart: 10-38-8137bstewndwzzSGMUAMaine Medical Center HospitalStart: 03-02-2024 End: 04-31-6274twqqwacymbZZUUZMaine Medical Center HospitalStart: 02-19-2024 End: 77-57-3204yeizrfdazyODAIEMaine Medical Center HospitalStart: 02-17-2024 End: 09-47-8755krgebrkhnjWFKEAMaine Medical Center HospitalStart: 02-12-2024 End: 03-06-4562mtvvdjoftaGYOELMaine Medical Center HospitalStart: 02-10-2024 End: 10-15-8161cwtpcadcxmJUDFLMaine Medical Center HospitalStart: 02-10-2024 End: 92-83-1426Qyhzemaxku hospital visit by Jake [facility]ON [facility] PTStart: 02-03-2024 End: 51-36-3172ipgiuisnaaKZWYDRedington-Fairview [facility] Hospital HospitalStart: 01-29-2024 End: 76-56-0618vobdorsdmoGCWDORedington-Fairview [facility] Hospital HospitalStart: 12-16-2023 End: 76-38-7707zpsrdpavntJzpanhn R NILLFacility: BellueStart: 12-16-2023 End: 47-06-1638Mtrenkf encounter procedureMichael R NILL [phone]-Gerci [facility] [place] Start: 12-05-2023 End: 66-82-0498tqeroapbhrHPMSCIK M HOYProMedica [facility] HospitalStart: 12-02-2023 End: 46-22-5640pqlnzhcwisBcplhcg R NILLFacility: BellevueStart: 12-02-2023 End: 44-26-3242Ttozolt encounter procedureMichael R NILL Genesycamore medical center Surgery Nill/Said [place] Start: 89-95-8855mgzdattmgsGdfbijy NILLFacility: BellevueStart: 11-25-2023 End: 98-76-8293zhlqatzibiOnnrkyl R NILLFacility:[facility] Hospitaltart: 10-13-2023 End: 08-77-0126ofxlifqhiaWaoiiim R NILLFacility:[facility] CenterkStart: 10-13-2023 End: 15-66-6068Qrfbhsf encounter procedureMichael R NILL [phone]-DkrpzElyria Memorial Hospital [facility] [place] Start: 09-29-2023 End: 73-73-0347gohuvitujmRQNSAWK M HOYProMedica [facility] Hospital HospitalStart: 19-10-2027vccacauzuzNdmbkxy NILLFacility:[facility] Hospitaltart: 04-11-2022 End: 57-83-5172zvxrkonpiqFC KENNY HOYFacility:Z9Vxbmi: 03-25-2022 End: 77-59-1387ftphhkglknZW KENNY HOYFacility:L8Dfxzz: 97-12-7217Klrfzghvi for general adult medical examination without abnormal findingsDR KENNY HOYThe [place] HospitalStart: 03-14-2022 End: 32-53-8258cmgxexhuzsAS KENNY HOYFacility:X7Plaaz: 03-14-2022 End: 59-15-1615Znficfodu for general adult medical examination without abnormal findingsDR KENNY HOYFacility:H1 Procedures DateProcedureProcedure DetailPerforming ClinicianStart: 85-37-3514Jlmkvi of umbilical herniaMichael NILL Start: 06-74-9939USU screeningDR KENNY HOYComment on above:Performed By: #### PSASC #### [facility] [address] [place] [address] Dr. Maguire ChangExcision of cervical intervertebral discMichael NILL Plan of Treatment DateCare ActivityDetailAuthorStart: 67-00-4080Yndjozyjb vaccinationInfluenza VaccineProMary [facility]an Hospital SystemStart: 11-07-3282Ysbrs BMI ScreeningAdult BMI ScreeningProMary Rutan Hospital SystemStart: 41-30-2456PEBTT-19 Vaccine ( season)COVID-19 Vaccine ( season)[facility] SystemStart: 03-11-2024 End: 56-11-9407Cdhbpft encounter qrkseqhsn87/19/2024 9:40 AM EDT Office Visit [facility] [address] [facility], [address] [place], [place] [id number] Ozzie Rosario MD [address] [facility] [address] [place], [place] [address] Lumbar- follow up w/PTMBeck[facility] Comment on above:Lumbar-follow up w/PTStart: 03-04-2024 End: 50-49-1129Tqcytil encounter ryoogeors69/12/2024 7:30 AM EDT Appointment [facility] [address], [address] [phone] Dawn Suh, PT Approval Valid 01/28 - 03/28 5 visitsSTMCLAREN [facility] PTComment on above:Approval Valid 01/28 - 03/28 5 visitsStart: 03-02-2024 End: 78-37-3675Puxbjhq encounter pecfnzowb77/10/2024 7:30 AM EDT Appointment [facility] [address], [address] [phone] Jenni Sanchez, OFFICE SERVICES MANAGER Approval Valid 01/28 - 03/28 5 visitsSTMCLAREN [facility] Comment on above:Approval Valid 01/28 - 03/28 5 visitsStart: 02-19-2024 End: 05-20-3286Frdvpvn encounter mvloepzoq87/28/2024 7:30 AM EDT Appointment [facility] [address], [address] [phone] Dawn Suh, PT Approval Valid 01/28 - 03/28 5 visitsSTMCLAREN [facility] M[facility] PTComment on above:Approval Valid 01/28 - 03/28 5 visitsStart: 02-17-2024 End: 60-51-4012Qrmhohz encounter ilhrdyxao96/26/2024 7:30 AM EDT Appointment [facility] [place] [facility] [address], [facility] [address] [place] [address] Jenni Sanchez, OFFICE SERVICES MANAGER Approval Valid 01/28 - 03/28 5 visitsSTMCLAREN [facility] Comment on above:Approval Valid 01/28 - 03/28 5 visitsStart: 02-12-2024 End: 77-03-1939Wgbtrhg encounter /21/2024 7:30 AM EDT Appointment [facility] [place] [facility] [address], [facility] [address] [place] [phone] Dawn Suh, PT PNSTCUNIVERSITY OF MICHIGAN [facility]ITAL MOB PTComment on above:PNStart: 2017 Administration of varicella zoster vaccineZoster (Shingles) Vaccine (1 of 2) [facility]: 21-30-4188Bkeauwba vaccine (1 of 2)Shingles vaccine (1 of 2)[facility]: 13-35-3635Wjbodrszr for malignant neoplasm of colonBon Secours St. Mary's Hospitalart: 29-69-9099NTlC,Tdap and Td Vaccines (1 - Tdap)DTaP,Tdap and Td Vaccines (1 - Tdap)[facility] Start: 88-91-9573JVtS/Tdap/Td vaccine (1 - Tdap)DTaP/Tdap/Td vaccine (1 - Tdap) [facility]art: 26-44-5216LJZ test (Diabetes, CKD 3-4, OR last GFR 15-59)GFR test (Diabetes, CKD 3-4, OR last GFR 15-59)[facility]: 58-90-8022Eoipelaj screeningDiabetic retinal examMary [facility] Hospital: 12-35-4327Evmkvflof C screeningHepatitis C screenBON [facility]: 01-63-6268Nkxve screening for proteinDiabetic Alb to Cr ratio (uACR) testBON [facility]: 11-12-6729UCX screeningHIV screenBON [facility]: 53-33-9184Jzeeiyeegx ScreenDepression ScreenMary [facility]: 18-19-8473Ldjjinzufo ScreeningDepression Screening [facility]: 26-54-2232Csisbtf ScreeningTobacco Screening [facility]: 80-61-1991Oftebfzy foot examinationDiabetic foot examMary [facility] Hospital: 77-52-8784Uvvwemxmsw A1c tcdocksxsprM7S test (Diabetic or Prediabetic)[facility]: 21-26-9202Wvwkw panel LipidsMary [facility]: 55-96-4717Jpzimcxfypht 0-64 years Vaccine (1 of 2 - PCV)Pneumococcal 0-64 years Vaccine (1 of 2 - PCV)[facility]: 13-75-8976Mektpjytj B vaccine (1 of 3 - 3-dose series)Hepatitis B vaccine (1 of 3 - 3-dose series)[facility] Immunizations Immunization DateImmunizationNotesCare PjoxmkanKmeulvjc85-34-8051nxquxywjp virus vaccine, unspecified formulationMichael NILL [phone]-CtqioWyandot Memorial Hospital [facility] [place] 83-14-2875MVZX-CoV-2 (COVID-19) mRNA BNT-162b2 vaxMichael NILL [phone]-CuzoqElyria Memorial Hospital [facility] [place] 26-06-4197NCAI-CoV-2 (COVID-19) mRNA-1273 vaccineMichael NILL [phone]-GxpvoWyandot Memorial Hospital [facility] [place] Comment on above:Result Comment: 2023-09-30: 4231-55-9432GDOM-CoV-2 (COVID-19) mRNA-1273 vaccineMichael NILL [phone]-FaavtElyria Memorial Hospital [facility] [place] Payers DatePayer CategoryPayerPolicy [id number] Valley [facility] Care - PPOANTHEM Member Subscriber Plan / Payer (Effective 2019-Present) Name: Allan Reyes Relation to Subscriber: Self Name: Allan Reyes Payer ID: [id number] (NAIC) Type: Not on file Address: [facility] [address] [place] [id number] [id number] 2..1.516060.3.57[id number] 2..1.979598.3.57[id number] 2.0.1.066813.3.57[id number] 2.0.1.362328.3.57[id number] 2..1.092539.3.57[id number] 2..1.291908.3.57[id number] 2.0.1.608739.3.57[id number] 2.0.1.127802.3.57[id number] 2.0.1.060831.3.57[id number] 2.840.1.775411.3.57[id number] 2.16.840.1.351882.3.57[id number] 2.840.1.277160.3.57[id number] 2.840.1.317488.3.579.[id number] 2.840.1.019865.3.57[id number] 2.0.1.498375.3.57[id number] 2.0.1.596241.3.57[id number] 2.0.1.455385.3.57[id number] 2.0.1.299705.3.57[id number] 2..1.266282.3.579.2.047718-92-6745VhxuvsfW4F349N22617SuwnhjnYdqkdy [facility] [id number] Social History DateTypeDetailFacilityStart: 06-20-2020 End: 88-00-2364Ulyrcam smoking statusNever smoked tobacco (finding)[facility] Careobacco smoking statusSmokeless tobacco user within last 30 daysElyria Memorial Hospital [facility] [place] Start: 02-01-2019 End: 63-81-2219Hcy Assigned At BirthMalOhioHealth Nelsonville Health Centertart: 77-94-4724Dytortr use and exposureUser of smokeless tobaccoSENTARA OBICI HOSPITALStart: 07-41-9757Tzphfir intakeCurrent drinker of alcohol (finding)[facility]ITALStart: 02-01-2019 End: 88-95-5455Pskdcef of Social functionSENTARA OBICI HOSPITALStart: 92-45-1366Wloisub CommentseldomBON [facility]OSPITALStart: 95-02-3381Mwk Assigned At BirthNot on fileSENTARA OBICI HOSPITALTobacco smoking status NHIS Tobacco smoking consumption unknownProMercy Health Lorain Hospitaltart: 93-81-3660Run Male (finding)[facility] Centertart: 79-89-4872Yxo Assigned At BirthWvumedicine [facility] Functional Status XdaaLauryztgbuOswvehDewmmtdq84-61-3690Rqybtsvqsh StatusN/LeninMagruder [facility] [place] Clinical Notes 10-13-2023 to 03-23-2025 Note Date & MatxYioaZtwllake78-23-5784 Evaluation note* Diagnosis Onset Date Resolution Status Admit Date Left rotator cuff tear acuteJuly 2024 8:55amRotator cuff syndrome of left shoulderacuteJuly 2024 8:55amLeft rotator cuff tearacuteSeptember 2024 10:00amRotator cuff syndrome of left shoulderacuteSeptember 2024 10:00am [facility] Work Phone: [phone] Miscellaneous Notes* Telephone Encounter - Denzel Moore - 03/17/2025 9:37 AM EDT Left VM to schedule with Dr. Chavez. Try to schedule with PA clinic first per Dr. Gamezif not availableok to see. documented in this encounterMadison Health07-25-2025 Telephone encounter Note* Telephone Encounter - Denzel Moore - 03/17/2025 9:37 AM EDT Left VM to schedule with Dr. Chavez. Try to schedule with PA clinic first per Dr. Gamezif not availableok to see. [facility]07-25-2025 Miscellaneous Notes* Telephone Encounter - Denzel Moore - 03/17/2025 9:28 AM EDT Left VM to schedule with Dr. Chavez, Left shoulder, XR and MRI in chart documented in this encounterMadison Health07-25-2025 Telephone encounter Note* Telephone Encounter - Denzel Moore - 03/17/2025 9:28 AM EDT Left VM to schedule with Dr. Chavez, Left shoulder, XR and MRI in chart [facility]02-20-2024 NoteChief Complaint consultation for umbilical hernia HPI [...] 2023-09-30: 53 SARS-CoV-2 (COVID-19) mRNA-1273 vaccine 11/08/2020 RecordedThe Jewish HospitalComment on above:Result Comment: Electronically Signed By: Enrike GRIFFITH MD\.br\Date and Time Signed: 10/13/23 10:51 ESTEvaluation + Plan note No data available for this section [facility] [place] Evaluation + Plan note Future Appointments Appointment Date:12/16/2023 02:40:00 PM Scheduled Provider:Enrike GRIFFITH MD Location:[facility] Appointment Type: Post Op 15 General Surgery [place] Evaluation note* Diagnosis Onset Date Resolution Status Admit Date Left rotator cuff tear acuteJuly 2024 8:55amRotator cuff syndrome of left shoulderacuteJuly 2024 8:55am [facility] Work Phone: Hospital Discharge instructions No data available for this section [facility] [place] InstructionsNot on filedocumented in this encounter [facility] SystemProgress note No data available for this section [facility] [place] Reason for referral (narrative)No reason for referral information availableSuburban [facility] Work Phone: Summary Purpose Family History No [...] Reason for Visit Chief Complaint Admit Date TBH-CONSULT DR ADAN PRICE SHOULDER PAIN MRI [facility] March 23, 2025 8:55am Reason for Visit Admit Date Left rotator cuff tear March 23, 2025 8 :55am Rotator cuff syndrome of left shoulder J sen 2024 8:55am Chief Complaint Admit Date TBH-CONSULT DR ADAN PRICE SHOULDER PAIN MRI [facility] March 23, 2025 8:55am 8 WEEKS May 18, 2025 10:00am Reason for Visit Admit Date Left rotator cuff tear March 23, 2025 8 :55am Rotator cuff syndrome of left shoulder J sen 2024 8:55am Left rotator cuff tear May 18, 2 025 10:00am Rotator cuff syndrome of left shoulder S epteer 2024 10:00am Chief Complaint Admit Date TB-CONSULT DR ADAN PRICE SHOULDER PAIN MRI [facility] March 23, 2025 8:55am 8 WEEKS May 18, 2025 10:00am US Shoulder June 07, 2025 1 0:16am Additional Source Comments (unrecognized sect ion and content) No Status Records FoundNo Status Records FoundNo Status Records FoundNo Status Records FoundNo Status Records Found INFORMATION SOURCE (unrecogn ized section and content) DATE CREATED AUTHOR 04/17/[address] [facility] DATE CREATED AUTHOR AUTHOR'S ORGANIZ ATION 12/06/2023 [facility] DATE CREATED AUTHOR AUTHOR'S ORGANIZ ATION 12/18/2023 [facility] DATE CREATED AUTHOR AUTHOR'S ORGANIZ ATION 03/15/2024 [facility] DATE CREATED AUTHOR AUTHOR'S ORGANIZ ATION 03/16/2025 [facility] Patient Care team informatio n (unrecognized section and content) Team MemberRelationshipSpecialtyStart DateEnd Date Kenny Lacey MD [address] [place] [address] [facility] Rvqrbkyb40/28/20 Team Status: Active Member Role Status Dates Kenny Lacey MD Primary Care Provider Active Team Status: Inactive Member Role Status Dates Kenny Lacey MD Primary Care Provider Active Start: March 23, 2025 End: March 23, 2025Ever Wooten ProviderActiveStart: March 23, 2025 End: March 23, 2025 Team Status: Inactive Member Role Status Dates Kenny Lacey MD Primary Care Provider Active Start: May 18, 2025 End: May 18, 2025Ever Wooten ProviderActiveStart: May 18, 2025 End: May 18, 2025 Team Status: Inactive Member Role Status Dates Kenny Lacey MD Primary Care Provider Active Start: June 07, 2025 End: June 07, 2025ChiottEver Samaniego ProviderActiveStart: June 07, 2025 End: June 07, 2025 Reason for Visit (unrecogniz ed section and content) SpecialtyDiagnoses / ProceduresReferred By ContactReferred To ContactPhysical Therapist / Physical Therapy Diagnoses Lumbar pain Ozzie Rosario MD [address] [address] [facility] Phys Therapy [address] [place] [address] Referral IDStatusReasonStart DateExpiration DateVisits RequestedVisits [id number] Specialty Services Required Goals (unrecognized section and content) Goals may [...] BE BASED ON THE PRIMARY CLINICAL RECORDS. [facility] [facility]. provides no warranty or guarantee of the accuracy or completeness of information in this document.
[2025-06-15 11:20] LABS: Hematocrit 46.1 % (42.0-54.0); Hemoglobin 15.8 g/dL (14.0-18.0); Immature Granulocytes Abs Auto 0.01 10^3/uL (0.00-0.03); Immature Granulocytes Pct Auto 0.2 % (0.0-0.5); Lymphocytes Absolute Auto 1.6 10^3/uL (1.2-3.8); Mean Corpuscular HGB Conc 34.3 g/dL (29.9-35.2); Mean Corpuscular Hemoglobin 30.7 pg (25.9-34.0); Mean Corpuscular Volume 89.5 fL (80.0-94.0); Platelet Count 223 10^3/uL (150-450); Red Blood Count 5.15 10^6/uL (4.70-6.10); White Blood Count 5.8 10^3/uL (4.0-11.0)
[2025-06-15] MEDS: CEFAZOLIN SODIUM/DEXTROSE,ISO 2 GM/50 ML PIGGYBACK IV (12:19)
--- NOTE | 2025-06-15 12:28 | PC.NURSE ---
(1210) Final timeout completed. (1211) Patient placed on monitor and O2 at 2l/min via nc. Patient in supine position with head of bed elevated at 45 degrees. (1212) Left interscalene landmarked per ultrasound per WEB MARKETING ASSISTANT. (1213) Needle placed to left interscalene site. (1214) Patient injected per WEB MARKETING ASSISTANT. (1216) Left interscalene block completed. Patient tolerated it well. See posted vital signs.
[2025-06-15] MEDS: BUPIVACAINE HCL 0.5%/EPINEPHRINE 1:200,000 PF 10 ML VIAL INJ (12:50)
[2025-06-15] MEDS: EPINEPHRINE HCL PF 1 MG/ML AMPULE 3 MG INJ (13:09)
--- NOTE | 2025-06-15 15:05 | PC.NURSE ---
Patient reports nerve block working good. Denies any pain or discomfort. Fingers are pink and warm to surgical extremity (left shoulder)
== END 2025-06-15 15:45 | disposition home or self-care (01) ==
LOC: SURGOUT 11:02
PROVIDERS: Anesthesiology; PCP Family Medicine; Visit Provider Physician Assistant
PROC: (CPT 1630; principal; 2025-06-15 12:30)
DX: M75.102 Unspecified rotator cuff tear or rupture of left shoulder, not specified as traumatic (principal); M25.512 Pain in left shoulder; M75.42 Impingement syndrome of left shoulder; M75.22 Bicipital tendinitis, left shoulder; S46.212A Strain of muscle, fascia and tendon of other parts of biceps, left arm, initial encounter; E78.5 Hyperlipidemia, unspecified; R73.03 Prediabetes
CPT/HCPCS: 29826; 29828; 36415; 64415; 85025; C1713; J0131; J0690; J1100; J1200; J1885; J2250; J2405; J2704; J2795

== ENCOUNTER 2025-08-09 09:35 | Outpatient (OUT) | payer BC, SELFPAY ==
--- OUTSIDE RECORDS SUMMARY | 2025-08-03 05:23 | XMS_ITS | Continuity of Care Document ---
Author Organization [facility] Address [address] [place] [address] Phone Care Team Providers Care Petrophysicist Name Role Phone Darrell Lacey MD Primary Care Provider [phone] Kiel Lopez DO Attending Provider Edinson Telles DO Attending Provider [phone] Care Teams Patient Care Team Team Status: Active Member Role/Relationship Status Elizabeth Lacey MD Primary Care Provider Active Visit Care Team Team Status: Inactive Member Role/Relationship Status Elizabeth Lacey MD Primary Care Provider Active Start: May 18, 2025 End: May 18, 2025Ever Wooten ProviderActiveStart: May 18, 2025 End: May 18, 2025 Visit Care Team Team Status: Inactive Member Role/Relationship Status Elizabeth Lacey MD Primary Care Provider Active Start: June 07, 2025 End: June 07, 2025Ever Atkins ProviderActiveStart: June 07, 2025 End: June 07, 2025 Visit Care Team Team Status: Inactive Member Role/Relationship Status Elizabeth Lacey MD Primary Care Provider Active Start: June 15, 2025 End: June 15, 2025Ever Wooten ProviderActiveStart: June 15, 2025 End: June 15, 2025 Patient Care Team Team Status: Active Member Role/Relationship Status Elizabeth Lacey MD Primary Care Provider Active Start: June 15, 2025 Ever Wooten ProviderActiveStart: June 15, 2025 Visit Care Team Team Status: Inactive Member Role/Relationship Status Dates Darrell Lacey MD Primary Care Provider Active Start: June 29, 2025 End: June 29, 2025Ever Wooten ProviderActiveStart: June 29, 2025 End: June 29, 2025 Patient Care Team Team Status: Inactive Member Role/Relationship Status Dates Darrell Lacey MD Primary Care Provider Active Start: August 03, 2025 End: August 03, 2025Ever Wooten ProviderActiveStart: August 03, 2025 End: August 03, 2025 Chief Complaint and Reason for Visit Chief Complaint Admit Date 8 WEEKS May 18, 2025 10:00am US Shoulder June 07, 2025 1 0:16am LEFT SHOULDER ARTHROSCOPY WITH ROTATOR C UFF REPAIR June 15, 2025 10:55am [facility] SURGERY June 15, 2025 1 1:59pm 14 days post op June 29, 2025 1 0:07am 5 WEEKS August 03, 2025 10:03am Reason for Visit Admit Date Left rotator cuff tear May 18, 2 025 10:00am Rotator cuff syndrome of left shoulder S eptember 2024 10:00am SLAP tear of shoulder June 07, 2025 10:16am Tear of left supraspinatus tendon Octobe r 2024 10:16am Biceps tendonosis of left shoulder Octob er 2024 10:16am Left rotator cuff tear June 29 10:07am Rotator cuff syndrome of left shoulder N ovember 2024 10:07am Status post arthroscopy of left shoulder June 29, 2025 10:07am Left rotator cuff tear August 03 10:03am Rotator cuff syndrome of left shoulder D ecember 2024 10:03am Status post arthroscopy of left shoulder August 03, 2025 10:03am Allergies, Adverse Reactions, Alerts Allergen Type Severity Reaction Last Updated Verified Status No Known Allergies Allergy Unknown August 03, 2025 10:04amYesActive Social History Smoking Status Unknown if ever smoked Observation Status Observation Response Date of Response Legal Sex [facility] (finding) [facility] Problems Active Problems Problem Diagnosis/Recorded Date Onset Date Stat us Status post arthroscopy of left shoulder June 14, 2025 6:47am Unknown Active Rotator cuff syndrome of left shoulder March 23, 2025 8:17am Unknown Active Left rotator cuff tear March 23, 2025 8:17am Unknown Active Medications Medication Status Dose Units Route Directions Qty Days Refills S tart Date Stop Date End Date Reason(s) Instructions Adherence Levothyroxine 175 mcg tablet Active MCGPOJuly 2024 11:00pmComplies with drug therapyTamsulosin 0.4 mg capsule ActiveMGPOJuly 2024 11:00pmComplies with drug therapySimvastatin 20 mg tabletActiveMGPOJuly 2024 11:00pmComplies with drug therapyDiclofenac Sodium 75 mg tablet,delayed release (DR/EC)ActiveMGPOJuly 2024 11:00pm Complies with drug therapyOxycodone 5 mg khnpifNfhuju9PQQUS2P as needed for Pain [facility] 2024Status post arthroscopy of left shoulder Other specified postprocedural statesokay to fill 06/14/25 to be used post op 06/15/25Complies with drug therapyMeloxicam 15 mg tablet Nisbwk69UQXYkjcds88374Bhkbvma 2024 11:00pmokay to fill 06/14/25 to be used post op 06/15/25Complies with drug therapyAcetaminophen 500 mg tablet Xjuuxs009DWNJB8S as needed for Udyh049Aglfxsi2024 11:00pmokay to fill 06/14/25 to be used post op 06/15/25Complies with drug therapyDocusate Sodium (Colace) 100 mg uzblvcsBelbgx284WLCGOevbm daily as needed for Nuziwjzlnmpm55641Rjqzoku 21st, 2025 11:00pmokay to fill 06/14/25 to be used post op 06/15/25Complies with drug therapy Vital Signs Vital Reading Result Reference Range Collection Date/Time Weight 99.33 kg June 07, 2025 10:01amHeart Rate74 /ppe26-497DyxmpdfJune 07, 2025 10:01am Oxygen saturation by Pulse hsitjzrn93 %95-100[facility] 20[facility] 10:01amBP Kthrbonw964 mm[Hg]100-140June 07, 2025 10:01amBP Atsszqhqu74 mm[Hg]60-100 June 07, 2025 10:62tkGtswky57 [in_i]August 03, 2025 10:70pkSoyhga82.33 kgDe2024 10:04amBMI (Body Mass Index)29.7 kg/l3Hrnduvcf2024 10:04am Advance Directives Advance Directive Response Recorded Date/ Time Advance Directives No March 16 12:13pm Insurance Providers Guarantor Allan Durga Amy Address [address] [place] [id number] Info.Home Phone: Coverage Status Update:2025 Payer Group Member ID Coverage Type Subscriber Relationship to Subscriber Effective Date Expiration Date Nena BENNETT [id number] Durga Mcintyree Id: [id number] [address] [place] [id number] Home Phone: Email: [email or web address] Encounters Encounter Location(s) Arrival/Admit Date Discharge/Departure Date Discharge/Departure Disposition Provider(s) Departed Physician/ Provider Office Visit -[facility] Orthoped[facility] [place] May 18, 2025 10:00am May 18, 2025 11:00am Discharged to home care or self care (routine discharge) Kiel Lopez DO Departed Physician/ Provider Office Visit -[facility] Family [facility] [place] June 07, 2025 10:16am June 07, 2025 12:11pm Discharged to home care or self care (routine discharge) Edinson Telles , Departed Physician/ Provider Office Visit -[facility] Out[facility] June 15, 2025 10:55am June 15, 2025 2:31pm Discharged to home care or self care (routine discharge) Kiel Lopez DO Non-patient / Non-visit -[facility] Octob 2024 11:59pm Paco Wooten Physician/Provider [facility] 20[facility] 10:07amNovember 2024 10:31amDischarged to home care or self care (routine discharge)Paco Wooten Physician/Provider Office Visit-[facility] Orthoped[facility] 2024 10:03amDecember 2024 10:21amDischarged to home care or self care (routine discharge)Kiel Lopez , DO Recent Diagnosis Onset Date Admit Date Left rotator cuff tear Unknown May 18, 2025 10:00am Rotator cuff syndrome of left shoulder Unknown May 18, 2025 10:00am SLAP tear of shoulder Unknown June 072024 10:16am Tear of left supraspinatus tendon Unknown June 07, 2025 10:16am Biceps tendonosis of left shoulder Unknown June 07, 2025 10:16am Left rotator cuff tear Unknown June 29, 2025 10:07am Rotator cuff syndrome of left shoulder Unknown June 29, 2025 10:07am Status post arthroscopy of left shoulder Unknown June 29, 2025 10:07am Left rotator cuff tear Unknown August 03, 2025 10:03am Rotator cuff syndrome of left shoulder Unknown August 03, 2025 10:03am Status post arthroscopy of left shoulder Unknown August 03, 2025 10:03am Assessments Diagnosis Onset Date Resolution Status Admit Date Left rotator cuff tear acuteSeptember 2024 10:00amRotator cuff syndrome of left shoulderacute May 18, 2025 10:00amSLAP tear of shouldernoneactiveOctober 2024 10:16amTear of left supraspinatus tendonnoneactiveOctober 2024 10:16am Biceps tendonosis of left shouldernoneactiveOctober 2024 10:16amLeft rotator cuff tearacuteNovember 2024 10:07amRotator cuff syndrome of left shoulderacuteNovember 2024 10:07amStatus post arthroscopy of left shoulder acuteNovember 2024 10:07amLeft rotator cuff tearacuteDecember 2024 10:03amRotator cuff syndrome of left shoulderacuteDecember 2024 10:03am Status post arthroscopy of left shoulderacuteDecember 2024 10:03am Plan of Treatment Author Violeta Boyd [facility] 2024 10:20am[] Post-operative physical therapy protocol: biceps tenodesis rehabilitation Weightbearing: progress following the protocol. sling needed, discontinue abductor pillow today and the rest of the sling on 07/27/25 Return to work: depending on progression of therapy Patient will follow-up in [] Patient is progressing well. Patient can continue to progress therapy increasing every 2 weeks and start strength training in No lifting greater than 2 pounds and no overhead movement Author Kiel Lopez [facility] CenterAuthoredSeptember 2024 10:07amWe discussed conservative management vs surgical intervention. The patient wishes to proceed with surgery in the form of Left Shoulder Arthroscopy with Rotator cuff repair. We discussed the risks, benefits, and alternatives to surgery in general, including the potential outcomes with foregoing treatment altogether. The risks include, but are not limited to, the risk of anesthesia up to and including , infection, bleeding, tendon damage, nerve damage, vascular damage, stiffness, weakness, loss of range of motion, arthrofibrosis, failure to alleviate symptoms, worsening of symptoms, continued pain, continued mechanical symptoms, arthritic pain, post traumatic arthritis, wound healing problems, formation of cutaneous scars secondary to surgical incisions, deep venous thrombosis, pulmonary embolism, reflex sympathetic dystrophy, unforeseen complications and the need for further surgery. The specific risks inherent to shoulder surgery were discussed further. These include, but are not limited to: failure of any repair (labrum, biceps, rotator cuff), symptomatic hardware, chondrolysis, fracture, instability (glenohumeral or acromioclavicular), unforeseen complications and the need for further or revision surgery. Management of any biceps pathology was also addressed. If the long head of the biceps is substantially torn, tenotomy versus tenodesis may be performed. Specific risks of biceps cosmetic deformity and/or spasm were discussed. In the event of an irreparable rotator cuff tear, partial repair/reconstruction with dermal allograft augmentation will be considered. We discussed in detail the rehabilitation associated with this procedure, in terms of frequency and duration. We discussed the use of the sling postoperatively, and the fact that driving a motor vehicle is not advisable while in the sling. The importance of proper rehabilitation in the overall outcome of the surgery was emphasized. The amount of time needed off from activities (work, school, sports, exercise, and leisure activity) was discussed. The patient understands that in no way does surgical intervention guarantee return to activities (athletic, work, leisure, etc.) at the pre-injury level. Guarantees were neither stated nor implied. The patient understands and has appropriate expectations. We did discuss the risks and benefits of forgoing treatment altogether, and living with symptoms as they are. The patient understood and wishes to proceed. Informed consent was obtained, questions were entertained and answered to the best of my ability. Procedure: Left Shoulder Arthroscopy with Rotator cuff repair Antibiotics: Ancef DVT ppx: Ambulation Same Day Surgery: Yes Bed: Regular OR bed, lateral pegboard, fishing pole Instruments needed: Arthrex rotator cuff anchors, biceps tenodesis kit available, ganesh available Author Celeste Arguelles [facility] CenterAutredNovember 2024 10:27amPatient is doing well after surgery. Sutures were removed with no complications. No issues with the surgical incision(s).??Incisonal care was discussed. Discussed postoperative course with the patient in the rehabilitation process. He will start formal therapy in 2 weeks. Order given to patient. Post-operative physical therapy protocol: biceps tenodesis rehabilitation Weightbearing: progress following the protocol. sling needed, discontinue abductor pillow today and the rest of the sling on 07/27/25 Return to work: depending on progression of therapy Patient will follow-up in 6 weeks. Author Edinson Telles [facility] CenterAuthoredOctober 2024 12:59pmUltrasound examination findings are supportive of a supraspinatus tendon tear at its insertion on the humerus tuberosity as well as tendinosis with significant damage and surrounding inflammation of the long head of the biceps tendon in the bicipital groove proximally. Given these findings as well as the amount of exhaustive conservative therapy that the patient has attempted it is my opinion that surgical intervention would be the next best step. All of these findings will be relayed to orthopedic surgery so they may proceed forward with the appropriate treatment. Future Tests Future scheduled test information is unavailable Pending Tests Pending diagnostic test information is unavailable Future Visits Future appointment information is unavailable Future Procedures Future procedure information is unavailable Future Medications Future medication information is unavailable Patient Instructions Patient instructions are unavailable
--- OUTSIDE RECORDS SUMMARY | 2025-08-09 09:38 | XMS_ITS | Clinical Summary ---
Author Organization [facility] tem Address [id number] 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 Phone Unavailable Primary Care Provider Unavailabl e Allergies No known active allergies Social History Tobacco UseTypesPacks/DayYears UsedDateSmoking Tobacco: Never AssessedChildcare AnswerDate JmfotumwOejmxvgnrGntmric20/11/2019EmploymentAnswerDate Recorded LtvrctnbciBuxiqmh03/11/2019Sex and Gender InformationValueDate RecordedSex Assigned at BirthNot on fileLegal VlsTram5603/27/2015 5:59 PM EDTGender Identity Not on fileSexual OrientationNot on file Last Filed Vital Signs Vital SignReadingTime TakenCommentsBlood Pressure--Pulse--Temperature-- Respiratory Rate--Oxygen Saturation--Inhaled Oxygen Concentration--Fvibth791.6 kg (235 lb)12/05/2023 7:12 AM EEZFcduha611.9 cm (6')12/05/2023 7:12 AM EDTBody Mass Index31.8712/05/2023 7:12 AM EDT Plan of Treatment Health MaintenanceDue DateLast DoneCommentsDepression Bfakildzs77/26/1979Tobacco Gblvpgcno52/26/1979DTaP,Tdap and Td Vaccines (1 - Tdap)1986Zoster (Shingles) Vaccine (1 of 2)2017Adult BMI Gfrwubmqt76/13/67701112/05/2023 COVID-19 Vaccine (5 - 2024- season)5005/12/2023, 07/10/2021, 12/06/2020, Additional history existsInfluenza Bsifggb37/01/342758/, 06/07/2020 Medical Devices Not on file Insurance
--- OUTSIDE RECORDS SUMMARY | 2025-08-09 09:39 | XMS_ITS | Clinical Summary ---
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 Role Phone Darrell Lacey MD Primary Care Provider +- Allergies No known active allergies Medications MedicationSigDispense QuantityRefillsLast FilledStart DateEnd DateStatus SYNTHROID 175 MCG tablet 04/04/2020Active diclofenac (VOLTAREN) 75 MG EC tablet Take 1 tablet by mouth daily09/30/2023ctive liothyronine (CYTOMEL) 5 MCG tablet Take 1 tablet by mouth daily09/23/2023ctive simvastatin (ZOCOR) 20 MG tablet Take 1 tablet by mouth ybewljg3409/23/2023ctive Active Problems ProblemNoted DateDiagnosed CdjlMmunzavrwnc41/31/2024Irritable bowel syndrome 01/22/20241038Zvwsjrgmmpnemd45/31/2024History of spinal unksoph0701/22/2024 Gastroesophageal reflux cflostp0301/22/2024ervical disc /31/2024 Ocumavzfysvbcreuvqin12/03/2024Low back pain, lubgqarxqel73/13/2024lass 1 uqrqgxz4510/13/2023Obstructed umbilical ydzuqx4310/13/2023Type 2 diabetes mellitus 10/06/2023Neck pain09/29/2023OVID-19004/14/2022ontact with and (suspected) exposure to covid-Type 2 diabetes mellitus without complications 03/25/2022 Resolved Problems ProblemNoted DateDiagnosed DateResolved DateEncounter for screening for malignant neoplasm of yehyeeau83 Family History Medical HistoryRelationNameCommentsDiabetesFatherRelationNameStatusComments FatherDeceasedMotherAlive Social History Tobacco UseTypesPacks/DayYears UsedDateSmoking Tobacco: NeverSmokeless Tobacco: CurrentAlcohol UseStandard Drinks/WeekCommentsYes0 (1 standard drink = 0.6 oz pure alcohol)seldomSex and Gender InformationValueDate RecordedSex Assigned at BirthNot on fileLegal LffZppx1510/03/2012 6:35 PM ESTGender IdentityNot on file Sexual OrientationNot on file Last Filed Vital Signs Vital SignReadingTime TakenCommentsBlood Xlxmebmq650/7207/ 10:44 AM EDT Yvtbx305303/11/2024 10:44 AM FEHOwfvsbgqujk67.8 ??C (98.2 ??F)06/20/2020 3:45 PM EDTRespiratory Lfxw215003/11/2024 10:44 AM EDTOxygen Saturation--Inhaled Oxygen Concentration--Bqlcod251 kg (227 lb)03/11/2024 10:44 AM YWHGvlxkd279.9 cm (6') 03/11/2024 10:44 AM EDTBody Mass Index30.7903/11/2024 10:44 AM EDT Plan of Treatment Health MaintenanceDue DateLast DzruMoedavmvN9X test (Diabetic or Prediabetic) 1977Diabetic foot exam04/18/19777514Badyyx73/26/1977Depression Screen 1979HIV xrpzxz3804/18/1982Diabetic Alb to Cr ratio (uACR) test1985 Diabetic retinal exam1985GFR test (Diabetes, CKD 3-4, OR last GFR 15-59) 1985Hepatitis C mdlekd5504/18/1985DTaP/Tdap/Td vaccine (1 - Tdap)1986 Hepatitis B vaccine (1 of 3 - 19+ 3-dose series)1986Pneumococcal 50+ years Vaccine (1 of 2 - PCV)04/18/19869793Amnerjtccrj61/26/2012Colorectal Cancer Screen 2012FIT/FOBT: Average risk2012Fecal-DNA (Cologuard): Average risk 2012Sigmoidoscopy/CT /26/2012Shingles vaccine (1 of 2) 2017Flu vaccine (#1)509/, [...] MemberRelationshipSpecialtyStart DateEnd Darrell Lacey MD [address] [place] [address] PCP - GeneralFamily Zpqhtnce40/28/20
[2025-08-09 10:42] LABS: Hematocrit 44.4 % (42.0-54.0); Hemoglobin 15.1 g/dL (14.0-18.0); Immature Granulocytes Abs Auto 0.02 10^3/uL (0.00-0.03); Immature Granulocytes Pct Auto 0.3 % (0.0-0.5); Lymphocytes Absolute Auto 1.3 10^3/uL (1.2-3.8); Mean Corpuscular HGB Conc 34.0 g/dL (29.9-35.2); Mean Corpuscular Hemoglobin 30.4 pg (25.9-34.0); Mean Corpuscular Volume 89.5 fL (80.0-94.0); Platelet Count 167 10^3/uL (150-450); Red Blood Count 4.96 10^6/uL (4.70-6.10); White Blood Count 7.4 10^3/uL (4.0-11.0)
[2025-08-09 11:42] LABS: Alanine Aminotransferase 48 U/L (16-63); Albumin Globulin Ratio 1.2; Albumin Level 3.6 g/dL (3.4-5.0); Alkaline Phosphatase 68 U/L (46-116); Anion Gap 11.0; Aspartate Amino Transferase 23 U/L (15-37); Blood Urea Nitrogen 21.0 mg/dL (7.0-18.0); Calcium 8.6 mg/dL (8.5-10.1); Carbon Dioxide 30.4 mmol/L (21.0-32.0); Chloride 107 mmol/L (98-107); Cholesterol 154 mg/dL (<=200); Estimated GFR (African America >60 (>=60 mL/min/1.73m^2); Estimated GFR (Non-African Ame >60 (>=60 mL/min/1.73m^2); Free T3 1.65 pg/mL (2.18-3.98); Globulin 3.0 g/dL; Glucose 139 mg/dL (74-106); HDL Cholesterol 38 mg/dL (40-60); Potassium 4.4 mmol/L (3.5-5.1); Sodium 144 mmol/L (136-145); Thyroid Stimulating Hormone 0.051 uIU/mL (0.358-3.740); Total Protein 6.6 g/dL (6.4-8.2); Triglycerides 90 mg/dL (<=150); Uric Acid 4.8 mg/dL (3.5-7.2); VLDL CHOLESTEROL 18.0 mg/dL
== END 2025-08-09 09:36 | disposition home or self-care (01) ==
LOC: LAB 09:37
PROVIDERS: PCP Family Medicine; Visit Provider Family Medicine
DX: Z00.00 Encounter for general adult medical examination without abnormal findings (principal); Z12.5 Encounter for screening for malignant neoplasm of prostate
CPT/HCPCS: 36415; 80053; 80061; 83036; 83525; 84436; 84443; 84481; 84550; 85025; G0103

== ENCOUNTER 2025-08-10 13:55 | Outpatient (REF) | payer BC, SELFPAY ==
--- OUTSIDE RECORDS SUMMARY | 2025-08-07 09:45 | XMS_ITS ---
Author Organization [facility] [place] Address [address] [place] [address] Care Team Providers Care Direct Care Specialist Name Role Phone Scar Lacey Primary Care Provider Allergies No Known Allergies Results Component Value Reference Range Notes COVID-19, Flu A+B IH Reviewed date:08/07/2025 02:48:48 PM Interpretation: Performing Lab: Notes/Report: COVID - FLU A-FLU B-Control+ REASON FOR VISIT sore throat/feels like razor blades in throat, sinus pressure, started yesterday, patient is askingfor yearly labs Medications Medication SIG (Take, Route, Frequency, Duration) Notes Start Date End Date Status Nitroglycerin 0.4 MG 1 tablet under the tongue and allow to dissolve as needed. Take every 5 minutes up to 3 times if chest pain persists Sublingual Q 5 min as needed for chest pain; Duration: 30 days 5ActiveSimvastatin 20 MGTAKE 1 TABLET BY MOUTH EVERY DAY IN THE EVENING FOR 90 DAYS; Duration: 90ActiveSynthroid 175 MCGTAKE 1 TABLET EVERY MORNINGON AN EMPTY STOMACH; Duration: 90ActiveTamsulosin HCl 0.4 MG1 capsule Orally Once a day; Duration: 90 days5ActiveTriamcinolone Acetonide 0.1 %1 application Externally bid5ActiveDiclofenac Sodium 75 MGTAKE 1 TABLET BY MOUTH TWICE A DAY; Duration: 30ActiveLiothyronine Sodium 5 MCGTAKE 1 TABLET BY MOUTH EVERY DAY ON EMPTY STOMACH; Duration: 90ActiveAmoxicillin-Pot Clavulanate 875- 125 MG1 tablet Orally twice a day; Duration: 10 days5Active Social History Tobacco Use: Social History Observation Description Date Details (start date - stop date) Current Smoker 08/24/1986 - NA Tobacco Use/Smoking Question Answer Notes Patient is a current smoker When did you start smoking?08/24/1986How often do you smoke cigarettes?every day Additional Findings: Tobacco UserChews tobaccoTobacco use other than smoking: Question Answer Notes Are you an other tobacco user? Yes C HEWS AUDIT-C (Standard) Question Answer Notes Did you have a drink containing alcohol in the p ast year? Yes How often did you have six or more drinks on one occasion in the past year?Never (0 point)How many drinks did you have on a typical day when you were drinking in the past year?1 or 2 drinks (0 point)How often did you have a drink containing alcohol in the past year?Monthly or less (1 point)Vhihlj4GrznzwhnnjhitvQrgvrjzv Problems Problem Type SNOMED Code ICD Code Onset Dates Problem Status W/U Status Risk Notes Problem Sore throat (748437096) Sore throat (J02. 9) ActiveconfirmedProblemType II diabetes mellitus without complication (682738609) Type 2 diabetes mellitus without complications (E11.9)Activeconfirmed Vital Signs Weight 230 lbs 08/07/2025 Height 72 in 08/07/2025 Blood pressure systolic 122 mm Hg 08/07/20 25 Blood pressure diastolic 68 mm Hg 025 BMI 31.19 kg/m2 08/07/2025 Encounters Encounter Location Date Provider Diagnosis [facility] ([place], [place]) [address] [place] [address] 08/07/2025 Scar Hoy Sore throat J02.9 ; Type 2 diabetes mellitus without complications E11.9 and Well adult Z00.00 Assessments Encounter Date Diagnosis (ICD Code) Assessment Notes Treatment Notes Treatment Clinical Notes Section Notes 08/07/2025 Sore throat (ICD-10 - J02.9) 08/07/2025Type 2 diabetes mellitus without complications (ICD-10 - E11.9) 08/07/2025Well adult (ICD-10 - Z00.00) Plan Of Treatment Medication Medication Name Sig Start Date Stop Date Notes Amoxicillin-Pot Clavulanate 875-125 MG 1 tablet Orally twice a day; Duration: 10 days 08/07/2025 Pending Test Test Name Order Date HEMOGLOBIN A1C (GLYCO) 08/07/2025 INSULIN, TOTAL 08/07/2025 LIPID PANEL (CHOL/TRIG/HDL/LDL) 08/07/20 25 URIC ACID 08/07/2025 STOOL OCCULT BLOOD 08/07/2025 THYROID PANEL (T4/TSH/FREE T3) PSA, SCREENING 08/07/2025 CMP (COMP MET [facility]) w/eGFR CKD-EPI 2024 CBC WITH DIFF 08/07/2025 Progress Notes * Allan JENSEN ADOB:[birth year] (60 yo M)Acc No.[id number]:08/07/2025 Progress Note Patient: Allan GRIMES :?Darrell Lacey ([facility]), MDDOB:1965???Age: 60 Y???Sex:MaleDate:08/07/2025Phone:[phone]:[address] [place], [place] [id number] In:02:35 PM ESTCheck Out:03:09 PM EST Subjective: * Chief Complaints: * S ore throat/feels like razor blades in throat, sinus pressure, started yesterdayPatient is asking for yearly labs * Active Problem List E03.9 Hypothyroidism, unsp ecified Modified On:09/24/2023/U Status:zmvqzmnsqT39.9Irritable bowel syndrome Modified On:09/21/2023/U Status:abmvwvjfeX35.90Cervical disc disease Modified On:10/16/2023/U Status:rgroekmynR46.9GERD without esophagitis Modified On:09/21/2023/U Status:qljbtdqrqS23.671Pain in right foot Modified On:06/26/2015W/U Status:pniedokunC39.672Pain in left foot Modified On:06/26/2015W/U Status:hdpdxfqzyA10.3Tinea pedis of both feet Modified On:01/25/2016W/U Status:vczocqkhdJ14.571Acute right ankle pain Modified On:11/18/2017W/U Status:splzwlwrzL15.00Well adult Modified On:09/21/2023W/U Status:ybplqypuhH25.00Pure hypercholesterolemia, unspecified Modified On:09/24/2023 Status:myoeonjrjD30.41Lumbago with sciatica, right side Modified On:10/16/2023 Status:pehinmeihQ11.42Lumbago with sciatica, left side Modified On:10/16/2023 Status:szjqzbrsuL53.818Pre-op exam Modified On:11/25/2023 Status:jptskytklI02.5Hyperlipidemia Modified On:12/23/2023 Status:xsnvdziclK01.9Diabetes Modified On:12/23/2023 Status:pfscsntkeN03.9Chest pain Modified On:12/02/2024 Status:flzdtvrawA09.40Shoulder impingement Modified On:02/17/2025 Status:eajfzxolfP65.9Sore throat Modified On:08/07/2025 Status:udyarrbyqW58.9Type 2 diabetes mellitus without complications Modified On:08/07/2025 Status:confirmed * Medical History: * Surgical History: N panfilo Surgery- replaced disc Umbilical Hernia 2023Subacromial cortisone injection * Hospitalization/Major Diagno stic Procedure: N o Hospitalization History. * Family History: F ather: 84 yrs, diagnosed with Heart Disease, Kidney Disease, Diabetes, Hypertension. M other: alive. B sebastianer(s): alive. S ister(s): alive. D jayjay(s): alive. 2 brother(s) , 1 sister(s) - healthy. 2 daughter(s) . . Brothers unknown history- doesnt talk to them. * Social History: ???Tobacco Use:?Tobacco use other than smoking?Are you an other tobacco user??Yes CHEWS ?Tobacco Use/Smoking?Patient is a?current smoker ?When did you start smoking??08/24/1986 ?How often do you smoke cigarettes??every day ?Additional Findings: Tobacco User?Chews tobacco ???Drug/Alcohol:?AUDIT-C (Standard)?Did you have a drink containing alcohol in the past year??Yes ?How often did you have six or more drinks on one occasion in the past year??Never (0 point) ?How many drinks did you have on a typical daywhen you were drinking in the past year??1 or 2 drinks (0 point) ?How often did you have a drink containing alcohol in the past year?? Monthly or less (1 point) ?Points?1 ?Interpretation?Negative * Medications: T akingDiclofenac Sodium 75 MG Tablet Delayed Release TAKE 1 TABLET BY MOUTH TWICE A DAY Liothyronine Sodium 5 MCG Tablet TAKE 1 TABLET BY MOUTH EVERY DAY ON EMPTY STOMACH Nitroglycerin 0.4 MG Tablet Sublingual 1 tablet under the tongue and allow to dissolve as needed. Take every 5 minutes up to 3 times if chest pain persists Sublingual Q 5 min as needed for chest pain Simvastatin 20 MG Tablet TAKE 1 TABLET BY MOUTH EVERY DAY IN THE EVENING FOR 90 DAYS Synthroid(Levothyroxine Sodium) 175 MCG Tablet TAKE 1 TABLET EVERY MORNINGON AN EMPTY STOMACH Tamsulosin HCl 0.4 MG Capsule 1 capsule Orally Once a day Triamcinolone Acetonide 0.1 % Cream 1 application Externally bid Medication List reviewed and reconciled with the patientTaking Diclofenac Sodium 75 MG Tablet Delayed Release TAKE 1 TABLET BY MOUTH TWICE A DAY Taking Liothyronine Sodium 5 MCG Tablet TAKE 1 TABLET BY MOUTH EVERY DAY ON EMPTY STOMACH Taking Nitroglycerin 0.4 MG Tablet Sublingual 1 tablet under the tongue and allow to dissolve as needed. Take every 5 minutes up to 3 times if chest pain persists Sublingual Q 5 min as needed for chest pain Taking Simvastatin 20 MG Tablet TAKE 1 TABLET BY MOUTH EVERY DAY IN THE EVENING FOR 90 DAYS Taking Synthroid(Levothyroxine Sodium) 175 MCG Tablet TAKE 1 TABLET EVERY MORNINGON AN EMPTY STOMACH Taking Tamsulosin HCl 0.4 MG Capsule 1 capsule Orally Once a day Taking Triamcinolone Acetonide 0.1 % Cream 1 application Externally bid Medication List reviewed and reconciled with the patient * Allergies: N .K.D.A.no[Allergies Verified] Objective: * Vitals: W t:230lbs, Ht: 72 in, BP:122/68mm Hg, BMI:31.19Index, Ht-cm: 182.88 cm, Wt-k.33 kg. Assessment: * Assessment: 1.?Sore throat - J02.9 (Primary)???2.?Type 2 diabetes mellitus without comp lications - E11.9???3.?Well adult - Z00.00??? Plan: * Treatment: Start Amoxicillin-Pot Clavulanate Tablet, 875-125 MG, 1 tablet, Orally, twice a day, 10 days, 20 Tablet, Refills 0.?LAB: COVID-19, Flu A+B IH (Collection Date & Time - 08/07/2025)2.?Well adult?LAB: HEMOGLOBIN A1C (GLYCO) ?LAB: INSULIN, TOTAL ?LAB: LIPID PANEL (CHOL/TRIG/HDL/LDL) ?LAB: URIC ACID ?LAB: STOOL OCCULT BLOOD ?LAB: THYROID PANEL (T4/TSH/FREE T3) ?LAB: PSA, SCREENING ?LAB: CMP (COMP MET [facility]) w/eGFR CKD-EPI ?LAB: CBC WITH DIFF * Labs: * L ab: COVID-19, Flu A+B IH (Collection Date & Time - 08/07/2025) ?ValueReference Range?COVID- * F SHANON A - * F SHANON B - * C ontrol + * Procedure Codes: 8 7636 SARSCOV2 & INF A&B AMP PRB, Modifiers: QW * Preventive Medicine: ??Screenings/Counseling:?BMI ACTION PLAN?Above Normal BMI Follow-up?Dietary management education, guidance, and counseling * * Sign off status: CompletedVisit Status:?CHK (Check Out) true * Provider: Uday Lacey ([facility])MD Date: 1 10/08/2024 Generated for Printing/Faxing/eTransmitting on:?08/10/2025 02:01 PM EST
--- OUTSIDE RECORDS SUMMARY | 2025-08-10 14:01 | XMS_ITS | Clinical Summary ---
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 Name Role Phone Darrell Lacey MD Primary Care Provider + Allergies No known active allergies Medications MedicationSigDispense QuantityRefillsLast FilledStart DateEnd DateStatus SYNTHROID 175 MCG tablet 04/04/2020Active diclofenac (VOLTAREN) 75 MG EC tablet Take 1 tablet by mouth daily09/30/2023ctive liothyronine (CYTOMEL) 5 MCG tablet Take 1 tablet by mouth daily09/23/2023ctive simvastatin (ZOCOR) 20 MG tablet Take 1 tablet by mouth kvndmjo9809/23/2023ctive Active Problems ProblemNoted DateDiagnosed EpvoFwcoxtzeqlb81/31/2024Irritable bowel syndrome 01/22/20249139Yllshpyboqnltu69/31/2024History of spinal jwdjqki7201/22/2024 Gastroesophageal reflux ikutfsm9201/22/2024ervical disc bemwtvlo25/31/2024 Fihsxrsrgywtsnneliyw58/03/2024Low back pain, gftuvodsgdl31/13/2024lass 1 kwmegel6510/13/2023Obstructed umbilical fqccje6110/13/2023Type 2 diabetes mellitus 10/06/2023Neck pain09/29/2023OVID-19004/14/2022ontact with and (suspected) exposure to covid-Type 2 diabetes mellitus without complications 03/25/2022 Resolved Problems ProblemNoted DateDiagnosed DateResolved DateEncounter for screening for malignant neoplasm of ycqpplck74 Family History Medical HistoryRelationNameCommentsDiabetesFatherRelationNameStatusComments FatherDeceasedMotherAlive Social History Tobacco UseTypesPacks/DayYears UsedDateSmoking Tobacco: NeverSmokeless Tobacco: CurrentAlcohol UseStandard Drinks/WeekCommentsYes0 (1 standard drink = 0.6 oz pure alcohol)seldomSex and Gender InformationValueDate RecordedSex Assigned at BirthNot on fileLegal KrlHmcn6610/03/2012 6:35 PM ESTGender IdentityNot on file Sexual OrientationNot on file Last Filed Vital Signs Vital SignReadingTime TakenCommentsBlood Hdkzahcr862/7207/ 10:44 AM EDT Liisw010403/11/2024 10:44 AM ROEMsvxgdtgycp05.8 ??C (98.2 ??F)06/20/2020 3:45 PM EDTRespiratory Meso282403/11/2024 10:44 AM EDTOxygen Saturation--Inhaled Oxygen Concentration--Miafwu258 kg (227 lb)03/11/2024 10:44 AM VAXUgkbdr799.9 cm (6') 03/11/2024 10:44 AM EDTBody Mass Index30.7903/11/2024 10:44 AM EDT Plan of Treatment Health MaintenanceDue DateLast WoyuGjtyekmmS2C test (Diabetic or Prediabetic) 1977Diabetic foot exam04/18/19774765Wssjac46/26/1977Depression Screen 1979HIV ceecfl9504/18/1982Diabetic Alb to Cr ratio (uACR) test1985 Diabetic retinal exam1985GFR test (Diabetes, CKD 3-4, OR last GFR 15-59) 1985Hepatitis C mksumo4904/18/1985DTaP/Tdap/Td vaccine (1 - Tdap)1986 Hepatitis B vaccine (1 of 3 - 19+ 3-dose series)1986Pneumococcal 50+ years Vaccine (1 of 2 - PCV)04/18/19868394Bttctzvrjoz16/26/2012Colorectal Cancer Screen 2012FIT/FOBT: Average risk2012Fecal-DNA (Cologuard): Average risk 2012Sigmoidoscopy/CT bmwlonilsiet14/26/2012Shingles vaccine (1 of 2) 2017Flu vaccine (#1)509/, [...] MemberRelationshipSpecialtyStart DateEnd Darrell Lacey MD [address] [place] [address] PCP - GeneralFamily Gpaharrm25/28/20
--- OUTSIDE RECORDS SUMMARY | 2025-08-10 14:01 | XMS_ITS | Patient Health Record ---
Author Organization [facility] in [place] Address [address] [place] [address] Care Team Providers Care Community Organizer Name Role Phone Scar Arellano Primary Care Provider Allergies No Known Allergies Results Component Value Reference Range Notes COVID-19, Flu A+B IH Reviewed date:08/07/2025 02:48:48 PM Interpretation: Performing Lab: Notes/Report: COVID - FLU A-FLU B-Control+PSA SCREENING Reviewed date:12/10/2024 01:09:58 PM Interpretation: Performing Lab: Notes/Report: [facility] ,Prostate Specific Antigen Scrn1.74<=4.00 ng/mLPerforming Lab:see noteML - [facility] LBXR chest 2V Reviewed date:01/08/2025 10:33:00 PM Interpretation: Performing Lab: Notes/Report: Source Facility: [facility]-[address] [place] [address] [place] [address] XRay Report Signed Patient: ALLAN JENSEN MR#: [id number] : 1965 Acct:[id number] Age/Sex: 59 / M ADM Date: 01/07/25 Loc: RAD Attending Dr: Kenny Arellano M.D. Ordering Physician: Kenny Arellano M.D. Date of Service: 01/07/25 Procedure(s): XR chest 2V Accession Number(s): [id number] cc: Kenny Arellano M.D. [place] [address] Patient Name: ALLAN JENSEN MRN: [id number] date: 1965 Sex: M Assigned Patient Location: [facility] Current Patient Location: [facility] Accession/Order Number: [id number] Exam Date: 01/08/2025 08:51 Report Date: 01/08/2025 08:52 At the request of: KENNY ARELLANO MD Procedure: XR chest 2V XR chest 2V 01/07/2025 10:57 AM SIGNS AND SYMPTOMS: chest pain R07.9 PROTOCOL: Frontal and lateral radiographs of the chest COMPARISON: None FINDINGS: The trachea is midline. The heart and mediastinal structures are within normal limits. The lung parenchyma is clear. The bony thorax is intact. XR/XR chest 2V IMPRESSION: No acute cardiopulmonary pathology. Impression dictated by: David Villarreal M.D. 01/08/2025 8:52 AM Dictation Location: [place] [address] Electronically authenticated by: [id number] Y Date: 01/08/2025 08:52 Dictated By: David Villarreal M.D. 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 Ordering Physician: Kenny Arellano M.D. Date of Service: 02/17/25 Procedure(s): XR shoulder LT min 2V Accession Number(s): [id number] cc: Kenny Arellano M.D. [place] [address] Patient Name: ALLAN JENSEN MRN: [id number] date: 1965 Sex: M Assigned Patient Location: RAD Current Patient Location: RAD Accession/Order Number: [id number] Exam Date: 02/17/2025 15:28 Report Date: 02/17/2025 15:28 At the request of: KENNY ARELLANO MD Procedure: XR shoulder LT min 2V LEFT SHOULDER - - ray views CLINICAL HISTORY: Shoulder impingement, M75.40 COMPARISON: None FINDINGS: Joint spaces appear maintained. No acute bony process. XR/XR shoulder LT min 2V IMPRESSION: No acute bony process. Impression dictated by: Timothy Graham Jr.OJaimee 02/17/2025 3:28 PM Dictation Location: [place] [address] Electronically authenticated by: [id number] Y Date: 02/17/2025 15:28 Dictated By: Allan Herrmann M.D. 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 Ordering Physician: Kenny Arellano M.D. Date of Service: 03/10/25 Procedure(s): shoulder LT wo con Accession Number(s): [id number] cc: Kenny Arellano M.D. [place] [address] Patient Name: ALLAN JENSEN MRN: [id number] date: 1965 Sex: M Assigned Patient Location: MRI Current Patient Location: MRI Accession/Order Number: [id number] Exam Date: 03/10/2025 11:37 Report Date: 03/10/2025 12:16 At the request of: KENNY ARELLANO MD Procedure: MR shoulder LT wo con MRI left Shoulder without contrast TECHNIQUE: Multiplanar T1 and T2-weighted imaging obtained without contrast. HISTORY: Chronic left shoulder pain. Limited range of motion. No known injury. COMPARISON: Plain film left shoulder 02/17/2025 BONE MARROW EDEMA: No bony contusion. A tiny cystic change of these subchondral regions of the anterior and posterior portion of the humeral head. FRACTURE: None AC JOINT: Marginal spurring. Joint effusion pulmonary edema and soft tissue edema. Effacement of the myotendinous portion of supraspinatus tendon. SHOULDER ROOF LIGAMENTS: The coracoacromial and coracoclavicular ligaments are intact. ROTATOR CUFF: Moderate tendinosis of the supraspinatus tendon. Intact infraspinatus tendon. Intact teres minor tendon. Intact subscapularis tendon ROTATOR CUFF INTERVAL: Small joint effusion BURSAL FLUID: Small amount of subacromial subdeltoid bursal fluid likely inflammatory. No associated dental retracted full-thickness tear. GLENOID: Heterogeneous signal changes with thickening and adjacent edema of the axillary pouch. Heterogeneous signal changes of the anterior inferior portion of the cartilaginous labrum. Consider.Degenerative changes. No fluid signal intensity tear identified. Degenerative thinning of the articular cartilage. No subchondral edema. BICEPS LABRAL COMPLEX: Heterogeneous changes of the superior biceps labral complex LONG HEAD OF BICEPS TENDON: Tendon intact. Heterogeneous signal changes of the tendon at the biceps radha. Adjacent edema and thickening of the transverse ligament. GLENOHUMERAL LIGAMENTS: The superior glenohumeral ligament is intact. The middle glenohumeral ligament is intact. The anterior and posterior glenohumeral ligaments are intact. JOINT EFFUSION: No significant joint effusion is seen. MUSCLES: Normal signal intensity of the muscles. NO SUBCUTANEOUS TISSUES: No subcutaneous abnormalities identified. MR/MR shoulder LT wo con IMPRESSION: Moderate tendinosis of supraspinatus tendon. No retracted full-thickness tear. Extensive, clavicular degeneration. Small moderate subacromial subdeltoid bursal fluid likely representing bursitis. Inflammatory changes involving the axillary pouch. May represent degenerative changes. Degenerative changes anterior inferior portion of the cartilaginous labrum. No fluid signal intensity tear. Suggesting mild low-grade SLAP tear. Tendinosis of the long head of biceps tendon at the level of the pulmonary. Adjacent edema and thickening of transverse ligament. Impression dictated by: Karthik Reynolds M.D. 03/10/2025 12:16 PM Dictation Location: [place] [address] Electronically authenticated by: [id number] Y Date: 03/10/2025 12:16 Dictated By: Karthik Reynolds D.O. Signed By: 03/10/25 1219 DD/ 1216 TD/TT: Power Plant Manager:CBC AUTO DIFF Reviewed date:06/02/2025 11:56:43 AM Interpretation: Performing Lab: Notes/Report: [facility] ,White Blood Count5.94.0-11.0 10 3/uLRed Blood Count5.014.70-6.10 10 6/uL Btmbyoexxt77.214.0-18.0 g/dDSmspqeksqa31.242.0-54.0 %Mean Corpuscular Vgxbao99.2 80.0-94.0 fLMean Corpuscular Wkoyuvbdvu10.325.9-34.0 pgMean Corpuscular HGB Conc 33.629.9-35.2 g/dLRed Cell Distribution Width12.311.0-15.0 %Platelet Sachm165 150-450 10 3/uLMean Platelet Bxkttu34.39.5-13.5 fLNeutrophils Percent Auto62.9 43.0-75.0 %Lymphocytes Percent Auto22.120.5-60.0 %Monocytes Percent Auto9.41.7- 12.0 %Eosinophils Percent Auto4.40.9-7.0 %Basophils Percent Auto1.00.2-2.0 % Immature Granulocytes Pct Auto0.20.0-0.5 %Neutrophils Absolute Auto3.71.4-6.5 10 3/uLLymphocytes Absolute Auto1.31.2-3.8 10 3/uLMonocytes Absolute Auto0.60.3-0.8 10 3/uLEosinophils Absolute Auto0.30.0-0.7 10 3/uLBasophils Absolute Auto0.10.0- 0.1 10 3/uLImmature Granulocytes Abs Auto0.010.00-0.03 10 3/uLPerforming Lab:see noteML - [facility] LBCBC AUTO DIFF Reviewed date:08/09/2025 04:58:17 PM Interpretation: Performing Lab: Notes/Report: [facility] ,White Blood Count7.44.0-11.0 10 3/uLRed Blood Count4.964.70-6.10 10 6/uL Bmkdgrtqsq55.114.0-18.0 g/xKUywvyllzka51.442.0-54.0 %Mean Corpuscular Vmqooe31.5 80.0-94.0 fLMean Corpuscular Ojekxodqrm26.425.9-34.0 pgMean Corpuscular HGB Conc 34.029.9-35.2 g/dLRed Cell Distribution Width12.311.0-15.0 %Platelet Cizxs342 150-450 10 3/uLMean Platelet Bfwgqk66.89.5-13.5 fLNeutrophils Percent Auto66.9 43.0-75.0 %Lymphocytes Percent Auto17.020.5-60.0 %Monocytes Percent Auto11.31.7- 12.0 %Eosinophils Percent Auto3.80.9-7.0 %Basophils Percent Auto0.70.2-2.0 % Immature Granulocytes Pct Auto0.30.0-0.5 %Neutrophils Absolute Auto5.01.4-6.5 10 3/uLLymphocytes Absolute Auto1.31.2-3.8 10 3/uLMonocytes Absolute Auto0.80.3-0.8 10 3/uLEosinophils Absolute Auto0.30.0-0.7 10 3/uLBasophils Absolute Auto0.10.0- 0.1 10 3/uLImmature Granulocytes Abs Auto0.020.00-0.03 10 3/uLPerforming Lab:see noteML - [facility] LBFREE T3 Reviewed date:08/09/2025 04:58:17 PM Interpretation: Performing Lab: Notes/Report: [facility] ,Free T31.652.18-3.98 pg/mLPerforming Lab:see noteML - [facility] LB GLYCOHEMOGLOBIN A1C Reviewed date:08/09/2025 04:58:17 PM Interpretation: Performing Lab: Notes/Report: [facility] ,Glycohemoglobin A1C6.04.5-6.2 % ADA RECOMMENDED LIMIT 4.0 - 6.0 ADA THERAPEUTIC TARGET < 7.0 ACTION SUGGESTED > 7.0 Estimated Average Ybqovgo615Laiuikehux Lab:see note - [facility] LB INSULIN Reviewed date:08/10/2025 12:46:18 PM Interpretation: Performing Lab: Notes/Report: [facility] ,Insulin9.62.6-24.9 uIU/mL Performed at: [address] [id number] Petroleum Plant Operator: Darion Sarkar PhD, Phone: [phone] Performing Lab:[facility] LBLIPID PROFILE Reviewed date:08/09/2025 04:58:17 PM Interpretation: Performing Lab: Notes/Report: [facility] ,Wagkygxjsvedq72<=150 mg/uZNohpehzrwrq863<=200 mg/dLHDL Aekzbfkumpj6445-53 mg/dL > or =60 mg/dl - LOW CARDIOVASCULAR RISK <40 mg/dl - HIGH CARDIOVASCULAR RISK LDL Cholesterol Pqewifsvuq48.0 <100 mg/dl OPTIMAL 100-129 mg/dl NEAR OR ABOVE OPTIMAL 130-159 mg/dl BORDERLINE HIGH 160-189 mg/dl HIGH >190 mg/dl VERY HIGH VLDL LOQIZSIWOUK41.0Chol HDL Ratio4.1 3.3 - 4.4 LOW RISK 4.4 - 7.1 AVERAGE RISK 7.1 - 11.0 MODERATE RISK >11.0 HIGH RISK Performing Lab:see [facility] LBPROF 14(COMP METB) Reviewed date:08/09/2025 04:58:17 PM Interpretation: Performing Lab: Notes/Report: [facility] ,Hgovvx688780-233 mmol/LPotassium4.43.5-5.1 mmol/VAcdxomwx92518-821 mmol/LCarbon Uvjruvx71.421.0-32.0 mmol/LAnion Gap11.1Kcrwpew48912-985 mg/dLBlood Urea Polqpzpz12.07.0-18.0 mg/dLCreatinine0.940.70-1.30 mg/dLEstimated GFR ( Maria Esther>60>=60 mL/min/1.73m 2Estimated GFR (Non- Loni>60>=60 mL/min/1.73m 2BUN Creatinine Ratio22.5Atwuyhi3.68.5-10.1 mg/dLBilirubin Total0.40.2-1.0 mg/dL Aspartate Amino Xqcdhbwtecp6451-38 U/LAlanine Zgxgksktqppigjrp5596-63 U/L Alkaline Rvirwwlomkg1553-874 U/LTotal Protein6.66.4-8.2 g/dLAlbumin Level3.63.4- 5.0 g/dLGlobulin3.0Albumin Globulin Ratio1.2Performing Lab:see noteML - [facility] LBPSA SCREENING Reviewed date:08/09/2025 04:58:17 PM Interpretation: Performing Lab: Notes/Report: [facility] ,Prostate Specific Antigen Scrn1.33<=4.00 ng/mLPerforming Lab:see noteML - [facility] LBT4 Reviewed date:08/09/2025 04:58:17 PM Interpretation: Performing Lab: Notes/Report: [facility] ,T4 Thyroxine8.204.50-12.10 ug/dLPerforming Lab:see noteML - [facility] LBTSH Reviewed date:08/09/2025 04:58:17 PM Interpretation: Performing Lab: Notes/Report: [facility] ,Thyroid Stimulating Hormone0.0510.358-3.740 uIU/mLPerforming Lab:see note - [facility] LBURIC ACID SERUM Reviewed date:08/09/2025 04:58:17 PM Interpretation: Performing Lab: Notes/Report: [facility] ,Uric Acid4.83.5-7.2 mg/dLPerforming Lab:see noteML - [facility] LB CBC AUTO DIFF Reviewed date:06/15/2025 12:22:47 PM Interpretation: Performing Lab: Notes/Report: [facility] ,White Blood Count5.84.0-11.0 10 3/uLRed Blood Count5.154.70-6.10 10 6/uL Codqlcpxdb17.814.0-18.0 g/jGJskwanosse96.142.0-54.0 %Mean Corpuscular Ofwudd26.5 80.0-94.0 fLMean Corpuscular Xcjiplahhv94.725.9-34.0 pgMean Corpuscular HGB Conc 34.329.9-35.2 g/dLRed Cell Distribution Width12.011.0-15.0 %Platelet Ldcxx480 150-450 10 3/uLMean Platelet Okstyq94.19.5-13.5 fLNeutrophils Percent Auto60.3 43.0-75.0 %Lymphocytes Percent Auto27.420.5-60.0 %Monocytes Percent Auto8.51.7- 12.0 %Eosinophils Percent Auto2.60.9-7.0 %Basophils Percent Auto1.00.2-2.0 % Immature Granulocytes Pct Auto0.20.0-0.5 %Neutrophils Absolute Auto3.51.4-6.5 10 3/uLLymphocytes Absolute Auto1.61.2-3.8 10 3/uLMonocytes Absolute Auto0.50.3-0.8 10 3/uLEosinophils Absolute Auto0.20.0-0.7 10 3/uLBasophils Absolute Auto0.10.0- 0.1 10 3/uLImmature Granulocytes Abs Auto0.010.00-0.03 10 3/uLPerforming Lab:see noteML - [facility] LBPROF 14(COMP METB) Reviewed date:06/02/2025 01:02:03 PM Interpretation: Performing Lab: Notes/Report: [facility] ,Ttbibk040598-601 mmol/LPotassium4.13.5-5.1 mmol/HVgqpygzp51735-914 mmol/LCarbon Kwczsum48.121.0-32.0 mmol/LAnion Gap8.2Euiobdr92578-855 mg/dLBlood Urea Nitrogen 36.07.0-18.0 mg/dLCreatinine0.870.70-1.30 mg/dLEstimated GFR ( Maria Esther>60 >=60 mL/min/1.73m 2Estimated GFR (Non- Loni>60>=60 mL/min/1.73m 2BUN Creatinine Ratio41.1Bggjnia6.28.5-10.1 mg/dLBilirubin Total0.40.2-1.0 mg/dL Aspartate Amino Nckadzarkbe9238-56 U/LAlanine Ftmpwupxpudnnvbc5701-22 U/L Alkaline Dqzbmtldxti2896-928 U/LTotal Protein6.96.4-8.2 g/dLAlbumin Level3.73.4- 5.0 g/dLGlobulin3.2Albumin Globulin Ratio1.2Performing Lab:see noteML - [facility] LBTSH Reviewed date:12/10/2024 01:09:58 PM Interpretation: Performing Lab: Notes/Report: [facility] ,Thyroid Stimulating Hormone0.0180.358-3.740 uIU/mLPerforming Lab:see noteML - [facility] LBT4 Reviewed date:12/10/2024 01:09:58 PM Interpretation: Performing Lab: Notes/Report: [facility] ,T4 Thyroxine9.904.50-12.10 ug/dLPerforming Lab:see noteMer[facility] LBPROF 14(COMP METB) Reviewed date:12/10/2024 01:09:58 PM Interpretation: Performing Lab: Notes/Report: [facility] ,Tnsafh673165-402 mmol/LPotassium4.13.5-5.1 mmol/NXdvdhjdn96988-123 mmol/LCarbon Swffcyn83.521.0-32.0 mmol/LAnion Gap7.4Cnoguel41420-156 mg/dLBlood Urea Nitrogen 32.07.0-18.0 mg/dLCreatinine1.010.70-1.30 mg/dLEstimated GFR ( Maria Esther>60 >=60 mL/min/1.73m 2Estimated GFR (Non- Loni>60>=60 mL/min/1.73m 2BUN Creatinine Ratio31.9Iiouzel4.28.5-10.1 mg/dLBilirubin Total0.50.2-1.0 mg/dL Aspartate Amino Ssldszzwjvj9174-18 U/LAlanine Isjodqgeyruxcidj2570-22 U/L Alkaline Pxfgxhxivqb5228-426 U/LTotal Protein6.76.4-8.2 g/dLAlbumin Level3.83.4- 5.0 g/dLGlobulin2.9Albumin Globulin Ratio1.3Performing Lab:see noteML - [facility] LBLIPID PROFILE Reviewed date:12/10/2024 01:09:58 PM Interpretation: Performing Lab: Notes/Report: [facility] ,Yduxvuymepydl31<=150 mg/ySQhqpqpmbzto972<=200 mg/dLHDL Eirjgzotzrt0029-77 mg/dL > or =60 mg/dl - LOW CARDIOVASCULAR RISK <40 mg/dl - HIGH CARDIOVASCULAR RISK LDL Cholesterol Ohqooghali11.0 <100 mg/dl OPTIMAL 100-129 mg/dl NEAR OR ABOVE OPTIMAL 130-159 mg/dl BORDERLINE HIGH 160-189 mg/dl HIGH >190 mg/dl VERY HIGH VLDL ZAUMWXVALDA40.2Chol HDL Ratio3.6 3.3 - 4.4 LOW RISK 4.4 - 7.1 AVERAGE RISK 7.1 - 11.0 MODERATE RISK >11.0 HIGH RISK Performing Lab:see note - [facility] LBGLYCOHEMOGLOBIN A1C Reviewed date:12/10/2024 01:09:58 PM Interpretation: Performing Lab: Notes/Report: [facility] ,Glycohemoglobin A1C5.44.5-6.2 % ADA RECOMMENDED LIMIT 4.0 - 6.0 ADA THERAPEUTIC TARGET < 7.0 ACTION SUGGESTED > 7.0 Estimated Average Nwpzevu520Krxliqiyci Lab:see note - [facility] LB FREE T3 Reviewed date:12/10/2024 01:09:58 PM Interpretation: Performing Lab: Notes/Report: [facility] ,Free T31.662.18-3.98 pg/mLPerforming Lab:see [facility] - [facility] LB CBC AUTO DIFF Reviewed date:12/10/2024 01:09:58 PM Interpretation: Performing Lab: Notes/Report: [facility] ,White Blood Count6.34.0-11.0 10 3/uLRed Blood Count4.854.70-6.10 10 6/uL Ypnbxyzgyr46.714.0-18.0 g/kHRletfhbryp83.442.0-54.0 %Mean Corpuscular Ngqiue14.5 80.0-94.0 fLMean Corpuscular Pjanpksdbb37.325.9-34.0 pgMean Corpuscular HGB Conc 33.929.9-35.2 g/dLRed Cell Distribution Width12.311.0-15.0 %Platelet Stctq163 150-450 10 3/uLMean Platelet Fjoppf15.29.5-13.5 fLNeutrophils Percent Auto59.7 43.0-75.0 %Lymphocytes Percent Auto25.720.5-60.0 %Monocytes Percent Auto9.71.7- 12.0 %Eosinophils Percent Auto3.70.9-7.0 %Basophils Percent Auto1.00.2-2.0 % Immature Granulocytes Pct Auto0.20.0-0.5 %Neutrophils Absolute Auto3.81.4-6.5 10 3/uLLymphocytes Absolute Auto1.61.2-3.8 10 3/uLMonocytes Absolute Auto0.60.3-0.8 10 3/uLEosinophils Absolute Auto0.20.0-0.7 10 3/uLBasophils Absolute Auto0.10.0- 0.1 10 3/uLImmature Granulocytes Abs Auto0.010.00-0.03 10 3/uLPerforming Lab:see noteML - [facility] LBCOVID-19, Flu A+B IH Reviewed date:12/10/2024 01:09:58 PM Interpretation: Performing Lab: Notes/Report: COVIDnegFLU APOSFLU BnegControlPOS Reason For Referral Diagnosis 1 Left shoulder pain ( M25.512) Referral Organization [facility] Referring Provider First Name Scar Referring Provider Last Name Deepthi Referring Provider Speciality [facility] Referred Provider Specialty Orthopedic S urgery Referral Priority Routine Medications Medication SIG (Take, Route, Frequency, Duration) Notes Start Date End Date Status Diclofenac Sodium 75 MG TAKE 1 TABLET BY MOUTH T WICE A DAY; Duration: 30 ActiveLiothyronine Sodium 5 MCGTAKE 1 TABLET BY MOUTH EVERY DAY ON EMPTY STOMACH; Duration: 90ActiveNitroglycerin 0.4 MG1 tablet under the tongue and allow to [...] 90 days5ActiveTriamcinolone Acetonide 0.1 %1 application Externally bid5ActiveSemaglutide 0.3 mg/0.25mL 0.3mg /0.25 mL0.25 mL Subcutaneous Once weekly; Duration: 30 days5ActiveAmoxicillin-Pot Clavulanate 875-125 MG1 tablet Orally twice a day; Duration: 10 days08/07/2025 Active Immunizations Vaccine Route Administration Date Status [facility] -[facility] 30 mcg/0.3 mL Unknown 05/12/2023 Administered Flu, Flucelvax (04967) 2 yrs+, single-dose syringe (8891-8622)Gecockx9605/12/2023 AdministeredFlu, Fluzone (93570) 6 mos+, single-dose syringe/vial (1592-2017) Gvfjojg7206/07/20200922WilxrsdxbivgQCNQ-WQB-3 (COVID 19 Moderna - Booster 0.25mL) Qzbypmn35/18/5999IkgwztvoiuznNZQG-SBZ-7 (COVID 19 Moderna - Booster 0.25mL) Psyhqwj08/15/2150HbwromgklpvqOYTC-LEM-5 (COVID 19 Pfizer 30mcg/0.3mL)Unknown 1Administered Social History Tobacco Use: Social History Observation [...] in the past year?Monthly or less (1 point)Sldtgt1XxaxmvlporrycnFofolwxu Problems Problem Type SNOMED Code ICD Code Onset Dates Problem Status W/U Status Risk Notes Problem Hypothyroidism (16431734) Hypothyroidism, unspecified (E03.9) ActiveconfirmedProblemSciatica (86617342)Lumbago with sciatica, right side (M54.41)ActiveconfirmedProblemSciatica (01242952)Lumbago with sciatica, left side (M54.42)ActiveconfirmedProblemPain in left foot (616627857849511)Pain in left foot (M79.672)ActiveconfirmedProblemChest pain (39942275)Chest pain (R07.9) ActiveconfirmedProblemHyperlipidemia (62171502)Hyperlipidemia (E78.5)Active confirmedProblemGastroesophageal reflux disease (110183977)GERD without esophagitis (K21.9)ActiveconfirmedProblemArthralgia of the ankle and/or foot (309184449)Acute right ankle pain (M25.571)ActiveconfirmedProblemWell adult (366124630)Well adult (Z00.00)ActiveconfirmedProblemIrritable bowel syndrome (70351694)Irritable bowel syndrome (K58.9)ActiveconfirmedProblemCervical disc disease (707479523)Cervical disc disease (M50.90)ActiveconfirmedProblemPre- surgery evaluation (323938025)Pre-op exam (Z01.818)ActiveconfirmedProblemSore throat (188475597)Sore throat (J02.9)ActiveconfirmedProblemPain in right foot (535919438937551)Pain in right foot (M79.671)ActiveconfirmedProblemImpingement syndrome of shoulder region (934257893)Shoulder impingement (M75.40)Active confirmedProblemTinea pedis (7786971)Tinea pedis of both feet (B35.3)Active confirmedProblemType II diabetes mellitus without complication (560107573)Type 2 diabetes mellitus without complications (E11.9)ActiveconfirmedProblemPure hypercholesterolemia (795852783)Pure hypercholesterolemia, unspecified (E78.00) ActiveconfirmedProblemType II diabetes mellitus without complication (337855938) Diabetes (E11.9)Activeconfirmed Vital Signs Blood pressure diastolic 68 mm Hg 08/07/2025 Ogdlro11 in08/07/2025lood pressure zyuwyhwz696 mm Hg08/07/20250658Vhzdta738 lbs 08/07/2025BMI31.19 kg/m208/07/2025 Procedures Procedure Date Ordered Date Performed Result Body Sit e ECG with Interpretation 12/02/2024 N/A*CARDIO Stress Test - Treadmill Uleeeefl31/11/2025N/A Encounters Encounter Location Date Provider Diagnosis [facility] [address] [place] [address] 03/11/2025 Scar Hoy Left shoulder pain M25.512 [facility] [address] [place] [address] 03/15/2025 Scar Hoy Shoulder impingement M75.40 [facility] [address] [place] [address] 08/07/2025 Scar Hoy [facility] [place] [address] 08/09[facility] [place] [address]/Doug [facility] [place] [address]/Doug HoyChest pain R07.9[facility] [place] [address]/Doug [facility] [place] [address]/ Scar HoyChest pain R07.9[facility] [place] [address]/Doug HoyShoulder impingement M75.40[facility] [place] [address]/02/2025 Scar [facility] [place] [address]/Doug [place] [address] [place] [facility] [place] [address]/Doug [facility] [place] [address]/06/2025Doug [place] [address] [place] [address]/11/2024Doug [facility] [place] [address]/ Scar [facility] [place] [address]/Doug HoyChest pain R07.9[place] [address] [place] [address]/09/2024Doug [place] [address] [place] [facility] [place] [address]/Doug HoyAcute bronchitis, unspecified organism J20.9[address] [place] [address]/06/2025Doug HoyChest pain R07.9 and Well adult Z00.[address] [place] [address]/Doug HoyShoulder impingement M75.40[place] [address] [place] [facility] [place] [address]/Doug HoySore throat J02.9 ; Type 2 diabetes mellitus without complications E11.9 and Well adult Z00.00 Assessments Encounter Date Diagnosis (ICD Code) Assessment Notes Treatment Notes Treatment Clinical Notes Section Notes 10/19/2024 Acute bronchitis, unspecified or ganism (ICD-10 - J20.9) Rest and drink more liquids, especially water. You may use a humidifier or vaporizer to help keep the drainage moist. Wtyd-iiq-gghzkep Nasal Saline may help the stuffy and runny nose. Use Ibuprofen and or Tylenol as needed for fever, chills, body aches or pain. Children 5 years old should not be given zdkf-ppz-jfchafd cough and cold medications such as guaifenesin and dextromethorphan. If you're over age 5, you may try nzem-yiv-zswkwex cold medications such as guaifenesin and dextromethorphan, or multi-symptom cold reliever such as Dayquil to help reduce the symptoms. Antibiotics have been pre scribed. You should take these until completed and follow the directions. Antibiotics can sometimescause upset stomach, and in rare cases, serious allergic reactions or serious gastrointestinal problems. If you start having severe abdominal pain, severe vomiting, or bloody diarrhea, you should be r eevaluated by your physician or urgent care immediately. Follow up with your Primary Care Provider or return to clinic if symptoms do not improve within 3-5 days. If you develop severe symptoms such as shortness of breath, repeated vomiting, coughing up blood, or chest pain you should go to the emergency room or call [id number] pain (ICD-10 - R07.9)12/02/2024Well adult (ICD-10 - Z00.00)02/17/2025Shoulder impingement (ICD-10 - M75.40)08/07/2025Sore throat (ICD-10 - J02.9)08/07/2025Type 2 diabetes mellitus without complications (ICD-10 - E11.9)12/18/2024hest pain (ICD-10 - R07.9)01/06/2025hest pain (ICD-10 - R07.9)5Chest pain (ICD-10 - R07.9)02/19/2025Shoulder impingement (ICD- 10 - M75.40)03/11/2025Left shoulder pain (ICD-10 - M25.512)03/15/2025Shoulder impingement (ICD-10 - M75.40)08/07/2025Well adult (ICD-10 - Z00.00) Plan Of Treatment Pending Test Test Name Order Date CMP (COMPLETE METABOLIC PANEL) HEMOGLOBIN A1C (GLYCO) 09/21/2023 HEMOGLOBIN A1C (GLYCO) 12/02/2024 HEMOGLOBIN A1C (GLYCO) 08/07/2025 INSULIN, TOTAL 08/07/2025 LIPID PANEL (CHOL/TRIG/HDL/LDL) 08/07/20 25 LIPID PANEL (CHOL/TRIG/HDL/LDL) 12/03/19 25 LIPID PANEL (CHOL/TRIG/HDL/LDL) 09/21/19 24 CBC WITH DIFF (EXP 06/2025) 09/21/2023 PSA, PROSTATE-SPECIFIC ANTIGEN 4 URIC ACID 08/07/2025 CTA Chest 12/18/2024 MRI Shoulder LT w/o contrast 02/19/2025 ECG with Interpretation 12/02/2024 MRI Lumbar Spine w/o contrast 10/01/2023 T3 FREE, T4 FREE and TSH 09/24/2023 STOOL OCCULT BLOOD 08/07/2025 STOOL OCCULT BLOOD 12/02/2024 STOOL OCCULT BLOOD 09/21/2023 LIPID PROFILE 09/24/2023 LIVER PROFILE 09/24/2023 TESTOSTERONE, TOTAL 09/21/2023 THYROID PROFILE WITH TSH 10/29/2023 CT CHEST WO CON 01/09/2025 MRI SHOULDER LT WO CON 02/17/2025 XR SHOULDER LT 2V or > 02/17/2025 THYROID PANEL (T4/TSH/FREE T3) 5 THYROID PANEL (T4/TSH/FREE T3) 4 THYROID PANEL (T4/TSH/FREE T3) 5 THYROID PANEL (T4/TSH/FREE T3) 4 XR LSPINE MIN 4 VIEWS 09/28/2023 PSA, SCREENING 08/07/2025 PSA, SCREENING 12/02/2024 Lipid Panel 12/23/2023 XR CHEST (2 VW) 01/06/2025 *CARDIO Stress Test - Treadmill Exercise 12/02/2024 CMP (COMP MET [facility]) w/eGFR CKD-EPI 2024 CMP (COMP MET [facility]) w/eGFR CKD-EPI 2024 CBC WITH DIFF 12/02/2024 CBC WITH DIFF 08/07/2025 Insurance Providers Payer Name Payer Address Payer Phone Subscriber Number Group Number Insured Name Patient Relationship to Insured Coverage Start Date Coverage End Date [employer] [address] [place] [address] [id number] Juan Jensen - patient is the insured Medical (General) History Medical History History ICD Code Hypothyroidism, unspecified E03.9 Irritable bowel syndrome K58.9 GERD without esophagitis K21.9 Cervical disc disease M50.90 Surgical History Surgery Date(Month/Year) left shoulder 06/17 Subacromial cortisone injection Umbilical [id number] Surgery- replaced disc
--- OUTSIDE RECORDS SUMMARY | 2025-08-10 14:01 | XMS_ITS | Clinical Summary ---
Author Organization [employer] [facility] tem Address [facility] [id number] [address] 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 Name Role Phone Unavailable Primary Care Provider Unavailabl e Allergies No known active allergies Social History Tobacco UseTypesPacks/DayYears UsedDateSmoking Tobacco: Never AssessedChildcare AnswerDate EglxtgngEyfwzuadlUijgkgk12/11/2019EmploymentAnswerDate Recorded YdgkwfzdwzIjncnyi67/11/2019Sex and Gender InformationValueDate RecordedSex Assigned at BirthNot on fileLegal BjeBwyc7203/27/2015 5:59 PM EDTGender Identity Not on fileSexual OrientationNot on file Last Filed Vital Signs Vital SignReadingTime TakenCommentsBlood Pressure--Pulse--Temperature-- Respiratory Rate--Oxygen Saturation--Inhaled Oxygen Concentration--Xcmkqk425.6 kg (235 lb)12/05/2023 7:12 AM QPTDbixzm180.9 cm (6')12/05/2023 7:12 AM EDTBody Mass Index31.8712/05/2023 7:12 AM EDT Plan of Treatment Health MaintenanceDue DateLast DoneCommentsDepression Jxgnyaudw16/26/1979Tobacco Ibvkssiem84/26/1979DTaP,Tdap and Td Vaccines (1 - Tdap)1986Zoster (Shingles) Vaccine (1 of 2)2017Adult BMI Macbcczgb08/13/87064812/05/2023 COVID-19 Vaccine (5 - 2024- season)5005/12/2023, 07/10/2021, 12/06/2020, Additional history existsInfluenza Rwihmuq23/01/837792/, 06/07/2020 Medical Devices Not on file Insurance
== END 2025-08-10 13:56 | disposition home or self-care (01) ==
LOC: LAB 13:55
PROVIDERS: PCP Family Medicine; Visit Provider Family Medicine
DX: Z00.00 Encounter for general adult medical examination without abnormal findings (principal); Z12.5 Encounter for screening for malignant neoplasm of prostate
CPT/HCPCS: G0328